=== PATIENT | female | born 1965 | race Caucasian/White ===

== ENCOUNTER → 2017-12-08 11:36 | Outpatient (CLI) | payer OTHER, MEDICAID, SELFPAY ==
[2017-12-08 12:38] LABS: Add Manual Diff / Slide Review NO; Basophils Percent Auto 0.3 % (0-2); Eosinophils Percent Auto 4.1 % (2-4); Hematocrit 47.1 % (36-46); Hemoglobin 16.6 g/dL (12.0-16.0); Lymphocytes Percent Auto 26.5 % (25-40); Mean Corpuscular HGB Conc 35.1 % (30-36); Mean Corpuscular Hemoglobin 36.3 PG (26-34); Mean Corpuscular Volume 103.2 fL (80-100); Monocytes Percent Auto 9.5 % (3-14); Neutrophils Absolute Auto 2300 /uL (3000-5900); Neutrophils Percent Auto 59.6 % (50-75); Platelet Count 120 X10^3/uL (150-400); Red Blood Cell Count 4.57 X10^6/uL (4.0-5.2); Red Cell Distribution Width 13.3 % (11.6-14.8); White Blood Cell Count 3.8 X10^3/uL (4.5-11.0)
[2017-12-08 13:02] LABS: Alanine Aminotransferase 70 IU/L (9-52); Albumin 4.4 g/dL (3.5-5.0); Albumin Globulin Ratio 1.4 (1.0-2.8); Alkaline Phosphatase 68 U/L (38-126); Aspartate Aminotransferase 80 IU/L (14-36); Bilirubin Total 1.5 mg/dL (0.2-1.3); Blood Urea Nitrogen 8 mg/dL (7-17); C-Reactive Protein Quant < 0.5 mg/dL (<1.0); Calcium 9.6 mg/dL (8.4-10.2); Carbon Dioxide 24 mmol/L (22-32); Chloride 106 mmol/L (98-107); Estimated Glomerular Filt Rate > 60.0 mL/min (>60); Globulin 3.2 g/dL (1.7-4.1); Glucose 96 mg/dL (70-100); HEMOLYSIS < 15 (0-50); Sodium 141 mmol/L (137-145); Total Protein 7.6 g/dL (6.3-8.2)
[2017-12-08 13:03] LABS: Erythrocyte Sedimentation Rate 4 MM/HR (0-20)
== END ==
PROVIDERS: PCP Family Medicine; Visit Provider Specialist/Technologist Athletic Trainer
DX: M05.79 Rheumatoid arthritis with rheumatoid factor of multiple sites without organ or systems involvement (principal)
CPT/HCPCS: 36415; 80053; 85025; 85651; 86140

== ENCOUNTER → 2018-01-11 14:10 | Outpatient (CLI) | payer OTHER, MEDICAID, SELFPAY ==
--- NOTE | 2018-01-11 14:12 | DI.RAD.S_ITS ---
PROCEDURE: XR RIBS RT MIN 3V W CXR 1V INDICATIONS: Right posterior rib pain TECHNIQUE: 2 views of the right ribs were acquired, along with a single view chest. COMPARISON: [facility], CT, CHEST/ABD/PEL WITH CONTRAST, 05/04/2017, 14:49. [facility], CR, CHEST 2 VIEW, 10/22/2016, 15:49. [facility], CR, CHEST 2 VIEW, 02/10/2017, 8:44. FINDINGS: Surgical changes and devices: Left chest wall Port-A-Cath is stable. Multiple surgical clips in the left axilla. Bones and chest wall: No fractures or dislocations. No suspicious bony lesions. Overlying soft tissues appear unremarkable. Lungs and pleura: No pleural effusions or pneumothorax. Lungs appear clear. Mediastinum: Chronic appearing right sixth and eighth rib fractures. Mediastinal contours appear normal. Heart size is normal. IMPRESSION: 1. No acute cardiopulmonary disease process. 2. Chronic appearing right sixth and eighth rib fractures. 3. No displaced acute rib fractures identified. Dictated by: Lilliana Paiz MD, PhD on 01/11/2018 at 14:33 Approved by: Lilliana Paiz MD, PhD on 01/11/2018 at 14:36
== END ==
PROVIDERS: Family Provider Family Medicine; PCP Family Medicine; Visit Provider Physician Assistant
DX: M84.48XA Pathological fracture, other site, initial encounter for fracture (principal); R07.81 Pleurodynia
CPT/HCPCS: 71101

== ENCOUNTER 2018-03-07 16:00 | Oncology outpatient (ONC) | payer OTHER, MEDICAID, SELFPAY ==
[2017-10-21 15:58] LABS: Add Manual Diff / Slide Review NO; Basophils Percent Auto 0.6 % (0-2); Eosinophils Percent Auto 3.7 % (2-4); Hematocrit 44.8 % (36-46); Hemoglobin 15.4 g/dL (12.0-16.0); Mean Corpuscular HGB Conc 34.4 % (30-36); Mean Corpuscular Hemoglobin 34.9 PG (26-34); Mean Corpuscular Volume 101.3 fL (80-100); Monocytes Percent Auto 11.7 % (3-14); Neutrophils Absolute Auto 1500 /uL (3000-5900); Platelet Count 97 X10^3/uL (150-400); Red Blood Cell Count 4.43 X10^6/uL (4.0-5.2); White Blood Cell Count 3.1 X10^3/uL (4.5-11.0)
[2017-10-21 16:26] LABS: Alanine Aminotransferase 73 IU/L (9-52); Albumin 4.3 g/dL (3.5-5.0); Albumin Globulin Ratio 1.3 (1.0-2.8); Alkaline Phosphatase 66 U/L (38-126); Aspartate Aminotransferase 87 IU/L (14-36); Calcium 8.8 mg/dL (8.4-10.2); Estimated Glomerular Filt Rate > 60.0 mL/min (>60); Globulin 3.2 g/dL (1.7-4.1); Glucose 104 mg/dL (70-100); HEMOLYSIS 21 (0-50); Potassium 4.1 mmol/L (3.4-5.1); Sodium 139 mmol/L (137-145); Total Protein 7.5 g/dL (6.3-8.2)
[2017-10-23 16:39] LABS: Cancer Antigen 27.29 18 U/mL (< 38)
--- NOTE | 2018-01-12 14:41 | ONC.PN ---
Assessment and Plan - Time Spent with Patient IMPRESSION: 1. Metastatic carcinoma of the breast 2. History of advanced stage carcinoma the right breast in 2012, infiltrating ductal carcinoma the right breast detected on self exam 08/2012. Sought medical attention on 04/2013 with finding of a 9 cm mass and skin thickening. Biopsy 05/06/2013 showed infiltrating ductal carcinoma, grade 3, ER negative, SD negative, her 2-, Ki-67 95%. Stage cT4 Nx. Staging CT and bone scan negative. Completed dose dense AC x4 cycles beginning 06/02/2013 and treatment complicated by noncompliance as well as neutropenia. Dose dense paclitaxel x4 complicated by neuropathy. Bilateral mastectomy 12/20/2013, ypCR. Right sentinel nodes and left breast benign per notes. Completed postmastectomy radiation therapy 05/22/2014. 3. BRCA 2 mutation positive. 4. Brain metastasis May 2014 status post surgical resection followed by gamma knife with Dr. Lugo at [facility]. Presented 06/05/2014 with headaches followed by seizure. CT 06/14/2014 showed 3.5 cm solitary brain met status post resection 06/16/2014 in [place]. ER negative, SD negative, HER2 negative. Completed Gamma Knife to resection cavity with Dr. Lugo 08/09/2014. 5. Hepatitis-C status post treatment with [facility], completing September 2016. 6. Alcohol abuse. 7. Tobacco use. Ongoing. 8. Pulmonary nodules on previous CT possibly due to old granulomatous disease. 9. Thrombocytopenia. 10. Leukopenia/neutropenia. 11. Macrocytosis. 12. COPD. 13. Depression. 14. Seizure disorder. 15. Attention deficit hyperactivity disorder. I reviewed previous records, chart notes, lab and imaging results with her today. No new symptoms or findings on examination though she is overdue for lab work as well as repeat imaging. Most recent CT August 2016 showing fatty infiltration of the liver, spleen 17.3 cm and multiple small 3-5 mm pulmonary nodules. MRI brain in October reportedly stable according to the patient. Reviewed and discussed a number of questions and clinical concerns with her today. We will plan to have her get labs drawn after the visit and schedule follow-up after restaging CT next week. Encouraged her efforts to work toward smoking cessation and complete abstinence from alcohol. She voices understanding and agreement with the plan discussed today. Offered encouragement to her. PLAN: 1. CBC, CMP, CEA, CA 27.29. 2. CT chest/abdomen/pelvis. 3. Review recent mammogram and ultrasound results when available. 4. Follow up with other providers as planned. 5. Follow-up with Dr. Lugo as planned. DICTATED BY RUSTAM PRADHAN MD MEDICAL ONCOLOGY AND HEMATOLOGY PN -Subjective Interval history: HEMATOLOGY/ONCOLOGY PROGRESS NOTE DATE OF SERVICE: JANUARY 12, 2018 PATIENT NAME: CRISTOBAL TAPIA DATE OF : 1965 PCP: IDENTIFICATION: This is a 52-year-old woman with history of metastatic carcinoma of the breast, previously managed by Dr. Villa. INTERVAL HISTORY: She returns in follow-up today. Scheduled with me in routine follow-up slot today. Last seen here in clinic by Dr. Villa May 07, 2017. She has a complicated medical history, detailed below. She has also been seen at [facility] by Dr. Lugo in October and had MRI of the brain which was reportedly stable at that time. Her most recent body imaging was about a year ago she thinks. She had decided with Dr Villa to follow this every 12 months after previous 6 month imaging intervals. She is feeling okay and denies any new symptoms. No swelling in the neck or axillary region. She denies productive cough, chest swelling or palpable mass, abdominal pain, nausea or vomiting. No new neurologic symptoms, headaches or recent vision change. To smoke but is hoping to quit. She also confirms that she continues to drink alcohol though she understands the health concerns and is hoping to work on this to she says. She has a history of hepatitis-C which was treated last year. History of present illness Date of Service: 05/07/17 Primary Care Provider Primary Care Provider: Angelique Cross DO Hx of Present illness The patient is a 52 year old Female who is being seen in the clinic 05/07/17 for Metastatic breast cancer. She was originally seen on 03/04/[address] Abarca. Her diagnosis and treatment was elsewhere. She has also been recently seen by Dr. Valdez on April 12 for an enlarged left axillary node which could not be biopsied because it had regressed. His opinion is that all of likely represents a benign process that is resolving, a follow-up ultrasound 3 months is planned. T I M E L I N E August 2012: right breast lesion May 04 2013: mammogram defined a 10 cm mass extending to the chest wall with pathologic axillary nodes May 06 2013: biopsy + for infiltrating ductal carcinoma triple negative gr. 3; CT (chest/abd/pelvis presumably) and bone scan negative for metastases. Subsequent Dose dense AC x 4 f/b taxol x 4 w/response December 2013: bilateral mastectomy, right sentinel lymph node biopsy, BSO Found to be BRCA2 positive Jun 13 2014 seizure Jun [address] showed a 3.5 cm right frontal mass Resection followed by gamma knife MRI brain 10.31.2015 without evidence of recurrence bone scan 10/31/2015 with right 10, 11 and left 8 rib lesions, improved without ttreatment MRI brain MAY 03 2017 negative for recurrence She is now off all treatment; she was seen by Dr. Abarca on 03/04/2016 considered XAVIER except for the question of the significance of the rib lesions seen on prior bone scan. . Regarding hepatitis C, She has completed treatment with harvoni. Past Medical History hepatitis C tubal 1, s/p fallopian tube remova; asthma tobacco abuse Past Surgical History See PMHx. Pain level (0-10): 0 Breast Resection Staging BC Primary Tumor T4-any size ext to chest BC Regional Nodes N1-movable Ipsilat/axill BC Metastasis M0-No evidence metastasis (M0 original DX; now M1) BC Resection Histology Grade III Current Medications ALBUTEROL SULFATE (ALBUTEROL HFA) 90 MCG/PUFF HFA.AER.AD 1 PUFF INH QID PRN Prescribed by Angelique Cross DO BUSPIRONE HCL 15 MG TABLET 7.5 MG PO QDAY 1/2 tab x 2 weeks then increase to 1 tablet Q am Prescribed by Angelique Cross DO ESCITALOPRAM OXALATE 20 MG TABLET 20 MG PO QDAY Take 1 tablet by mouth daily. Prescribed by Angelique Cross DO FLUNISOLIDE (AEROSPAN) 80 MCG/PUFF HFA.AER.AD 1 PUFF IH QDAY Prescribed by Angelique Cross DO GABAPENTIN 100 MG CAPSULE 300 MG PO SEE INSTRUCTIONS 100 MG AM, 200 MG HS Prescribed by Angelique Cross DO LORAZEPAM 1 MG TABLET 0 PO SEE INSTRUCTIONS Take one tablet once or twice daily as needed for anxiety. 45 tabs must last 30 days Prescribed by Shaye Caldwell PredniSONE 1 MG TABLET (Reported) Take 1 tabet by mouth once daily. Sumatriptan Succinate (IMITREX) 50 MG TABLET 50 MG PO SEE INSTRUCTIONS PRN headache Take one tablet at the onset of a headache, may repeat once in 12 hours if needed. Prescribed by Tay Angelique BRASHER VARENICLINE TARTRATE (CHANTIX) 1 MG TABLET 1 MG PO BID (Reported) PROCEDURE: CHEST/ABDOMEN/PELVIS WITH CONTRAST INDICATIONS: BREAST CANCER PROCEDURE: CHEST/ABDOMEN/PELVIS WITH CONTRAST INDICATIONS: BREAST CANCER TECHNIQUE: After the administration of oral and intravenous contrast, 5 mm thick sections acquired from the lung apices to the symphysis. 5 mm coronal and sagittal reformats were performed, with additional 7 mm coronal MIP reformats through the lungs. For radiation dose reduction, the following was used: automated exposure control, adjustment of mA and/or kV according to patient size. COMPARISON: [facility], CT, CHEST/ABD/PEL WITH CONTRAST, 11/09/2016, 12:36. [facility], CT, CHEST/ABD/PEL WITH CONTRAST, 08/19/2016, 12:26. FINDINGS: Image quality: Excellent. CHEST: Lungs and pleura: No acute airspace opacities. Small scattered bilateral subcentimeter pulmonary nodules are unchanged. No new pulmonary nodules. No pleural effusions or pneumothorax. Central and peripheral airways appear patent and normal in caliber. Mediastinum: Heart size is normal. No pericardial effusion. No mediastinal or hilar adenopathy by size criteria. Thoracic aorta and central pulmonary arteries are normal in size. Esophagus is normal in caliber. No change in small hiatal hernia. Chest wall: No axillary or supraclavicular adenopathy by size criteria. Thyroid gland is within normal limits. Left chest wall ez catheter is present. ABDOMEN: Solid organs: Liver demonstrates diffusely decreased density, indicating fatty infiltration. Spleen is within normal limits Gallbladder is within normal limits. Biliary system is non dilated. Pancreas enhances normally. No adrenal nodules. Kidneys demonstrate normal size and enhancement, without hydronephrosis. Peritoneum and bowel: Bowel loops demonstrate normal wall thickness and caliber. No free fluid or air. Nodes and vessels: No retroperitoneal or mesenteric adenopathy by size criteria. Aorta and inferior vena cava are normal in size. Miscellaneous: No change in small fat-containing umbilical hernia. PELVIS: Genitourinary: Bladder wall thickness is normal. Miscellaneous: No inguinal hernias or adenopathy. Bones: No suspicious bony lesions. No vertebral body compression fractures. IMPRESSION: 1. No evidence of malignancy. 2. No change in small bilateral pulmonary nodules. 3. Small fat-containing umbilical hernia. 4. No change in small hiatal hernia. Brain MRI reviewed with DR. Brittney farmer [facility] and shows no eviden e of recurrence. Dictated by: Davis De Leon M.D. on 05/04/2017 at 15:23 1. No evidence of malignancy. 2. No change in small bilateral pulmonary nodules. 3. Small fat-containing umbilical hernia. 4. No change in small hiatal hernia. Dictated by: Davis De Leon M.D. on 05/04/2017 at 15:23 - Additional ROS Additional ROS: Review of systems: General: No fever, chills or weight loss. HEENT: No headaches, vision change or dysphagia. Respiratory: No cough or dyspnea. Cardiac: No chest pain, PND or orthopnea. GI: Negative. : Stable. Musculoskeletal: As above. Neurologic: Stable. She notes some chronic cognitive symptoms related to her previous gamma knife treatment for brain metastasis. Results - Labs 10/21/17 15:40 10/21/17 15:40 Laboratory Last Values WBC 3.1 X10^3/uL (4.5-11.0) L 10/21/17 15:40 RBC 4.43 X10^6/uL (4.0-5.2) 10/21/17 15:40 Hgb 15.4 g/dL (12.0-16.0) 10/21/17 15:40 Hct 44.8 % (36-46) 10/21/17 15:40 MCV 101.3 fL (80-100) H 10/21/17 15:40 MCH 34.9 PG (26-34) H 10/21/17 15:40 MCHC 34.4 % (30-36) 10/21/17 15:40 RDW 13.0 % (11.6-14.8) 10/21/17 15:40 Plt Count 97 X10^3/uL (150-400) L 10/21/17 15:40 Neut % (Auto) 48.0 % (50-75) L 10/21/17 15:40 Lymph % (Auto) 36.0 % (25-40) 10/21/17 15:40 Jennings % (Auto) 11.7 % (3-14) 10/21/17 15:40 Eos % (Auto) 3.7 % (2-4) 10/21/17 15:40 Baso % (Auto) 0.6 % (0-2) 10/21/17 15:40 Neut # (Auto) 1500 /uL (3708-4270) L 10/21/17 15:40 Sodium 139 mmol/L (137-145) 10/21/17 15:40 Potassium 4.1 mmol/L (3.4-5.1) 10/21/17 15:40 Chloride 103.0 mmol/L (98-107) 10/21/17 15:40 Carbon Dioxide 24.0 mmol/L (22-32) 10/21/17 15:40 BUN 7.0 mg/dL (7-17) 10/21/17 15:40 Creatinine 0.50 mg/dL (0.52-1.04) L 10/21/17 15:40 Estimated GFR > 60.0 mL/min (>60) 10/21/17 15:40 BUN/Creatinine Ratio 14.0 (6-22) 10/21/17 15:40 Glucose 104 mg/dL (70-100) H 10/21/17 15:40 Calcium 8.8 mg/dL (8.4-10.2) 10/21/17 15:40 Total Bilirubin 1.0 mg/dL (0.2-1.3) 10/21/17 15:40 AST 87 IU/L (14-36) H 10/21/17 15:40 ALT 73 IU/L (9-52) H 10/21/17 15:40 Alkaline Phosphatase 66 U/L (38-126) 10/21/17 15:40 Total Protein 7.5 g/dL (6.3-8.2) 10/21/17 15:40 Albumin 4.3 g/dL (3.5-5.0) 10/21/17 15:40 Globulin 3.2 g/dL (1.7-4.1) 10/21/17 15:40 Albumin/Globulin Ratio 1.3 (1.0-2.8) 10/21/17 15:40 CA 27-29 18 U/mL (< 38) 10/21/17 15:40 Home Medications and Allergies Home Medications Medication Instructions Recorded Confirmed Type sumatriptan succinate [Imitrex] 50 mg PO SEE INSTRUCTIONS PRN #9 10/16/16 01/12/18 Rx tab albuterol sulfate [Proventil HFA] 1 puff INH QID #1 inh 06/09/17 01/12/18 Rx flunisolide [Aerospan] 1 puff IH BID #1 inh 06/16/17 01/12/18 Rx escitalopram oxalate 20 mg PO QDAY #30 tab 08/23/17 01/12/18 Rx gabapentin 100 mg capsule 300 mg PO SEE INSTRUCTIONS #90 cap 12/10/17 01/12/18 Rx lorazepam 1 mg tablet See Label Instructions .ROUTE 12/20/17 01/12/18 Rx .COMPLEX #45 tab Hydrochlorquine Sulfate 2 tab PO BID 01/12/18 01/12/18 History buspirone 15 mg PO QAM 01/12/18 01/12/18 History Allergies Allergy/AdvReac Type Severity Reaction Status Date / Time latex [LATEX] Allergy Intermediate RASH, SKIN Verified 01/12/18 14:49 PEELS penicillin G [PENICILLIN G] Allergy Unknown I WAS A Verified 01/12/18 14:49 KID SO I DON'T REMEMBER morphine [MORPHINE] AdvReac Severe HURTS MY Verified 01/12/18 14:49 STOMACH SO BAD Exam - Constitutional positive no acute distress, positive average body habitus, positive cooperative - Routine HEENT Exam Head: Present: normocephalic, atraumatic. Absent: cushingoid faces, facial swelling Eye: Present: EOMI, PERRL. Absent: periorbital swelling ENT: Present: mucous membranes moist, oropharynx clear - Routine Neck Exam Present: supple. Absent: JVD, lymphadenopathy - Routine Chest/Breast/Axilla Exam Chest wall exam standard: Absent: tenderness, mass Axillae: Absent: lymphadenopathy, mass - Routine Respiratory Exam Present: Clear to auscultation bilaterally. Absent: accessory muscle use, rales, respiratory distress, rhonchi, wheezes - Routine Cardiovascular Exam Present: RRR, S1, S2. Absent: murmur, S3 - Routine Abdominal Exam Present: soft, normoactive bowel sounds. Absent: tenderness, distended, organomegaly Palpation/Percussion: Absent: hepatomegaly, splenomegaly - Routine Extremities Exam Absent: cyanosis, clubbing, edema - Routine Back/Spine Exam Back/Spine: Absent: CVA tenderness, vertebral tenderness - Routine Skin Exam Present: intact. Absent: cyanosis, erythema, petechiae, jaundice, rash, ecchymosis - Routine Neurological Exam Present: alert, oriented X3, moving all extremities, normal speech. Absent: altered mental status, abnormal gait - Routine Psychiatric Exam Present: normal affect, normal thought process, cooperative, good judgment
[2018-01-12 14:43] VITALS: BP 160/87; PULSE 71; RESP 15; TEMP 37.1; O2SAT 97
[2018-03-01 10:20] LABS: Add Manual Diff / Slide Review NO; Basophils Percent Auto 0.4 % (0-2); Eosinophils Percent Auto 3.9 % (2-4); Hematocrit 44.5 % (36-46); Hemoglobin 15.9 g/dL (12.0-16.0); Lymphocytes Percent Auto 25.3 % (25-40); Mean Corpuscular HGB Conc 35.7 % (30-36); Mean Corpuscular Hemoglobin 36.6 PG (26-34); Mean Corpuscular Volume 102.6 fL (80-100); Monocytes Percent Auto 9.3 % (3-14); Neutrophils Absolute Auto 2300 /uL (3000-5900); Neutrophils Percent Auto 61.1 % (50-75); Platelet Count 110 X10^3/uL (150-400); Red Blood Cell Count 4.34 X10^6/uL (4.0-5.2); Red Cell Distribution Width 12.1 % (11.6-14.8); White Blood Cell Count 3.8 X10^3/uL (4.5-11.0)
[2018-03-01 10:35] LABS: Alanine Aminotransferase 66 IU/L (9-52); Albumin 4.4 g/dL (3.5-5.0); Albumin Globulin Ratio 1.4 (1.0-2.8); Alkaline Phosphatase 64 U/L (38-126); Aspartate Aminotransferase 87 IU/L (14-36); Bilirubin Total 1.1 mg/dL (0.2-1.3); Blood Urea Nitrogen 6 mg/dL (7-17); Calcium 9.2 mg/dL (8.4-10.2); Carbon Dioxide 23 mmol/L (22-32); Chloride 107 mmol/L (98-107); Estimated Glomerular Filt Rate > 60.0 mL/min (>60); Globulin 3.2 g/dL (1.7-4.1); Glucose 90 mg/dL (70-100); HEMOLYSIS 21 (0-50); Potassium 4.1 mmol/L (3.4-5.1); Sodium 143 mmol/L (137-145); Total Protein 7.6 g/dL (6.3-8.2)
[2018-03-01 11:02] LABS: Carcinoembryonic Antigen 2.4 ng/mL (0.1-3.0)
--- NOTE | 2018-03-01 11:16 | DI.CT.S_ITS ---
PROCEDURE: CT CHEST ABD PEL W CON INDICATIONS: BREAST CANCER TECHNIQUE: After the administration of oral and intravenous contrast, 5 mm thick sections acquired from the lung apices to the symphysis. 5 mm coronal and sagittal reformats were performed, with additional 7 mm coronal MIP reformats through the lungs. For radiation dose reduction, the following was used: automated exposure control, adjustment of mA and/or kV according to patient size. COMPARISON: [facility], CT, CHEST/ABD/PEL WITH CONTRAST, 08/19/2016, 12:26. [facility], CT, CHEST/ABD/PEL WITH CONTRAST, 11/09/2016, 12:36. [facility], CT, CHEST/ABD/PEL WITH CONTRAST, 05/04/2017, 14:49. FINDINGS: Image quality: Excellent. CHEST: Lungs and pleura: Scattered small bilateral pulmonary nodules are redemonstrated measuring up to 5 mm in the right upper lobe on series 3 image 15. No new suspicious nodules or mass lesions. No pleural effusions or pneumothorax. Central and peripheral airways appear patent and normal in caliber. Mediastinum: Heart size is normal. No pericardial effusion. There is a left chest wall subclavian Port-A-Cath with the tip extending into the right atrium. No mediastinal or hilar adenopathy by size criteria. Thoracic aorta and central pulmonary arteries are normal in size. Esophagus is normal in caliber. There is a small to moderate-sized hiatal hernia. Chest wall: No axillary or supraclavicular adenopathy by size criteria. Multiple surgical clips are redemonstrated in the left axilla as well as scarring from post surgical changes. Thyroid gland demonstrates no discrete nodules. ABDOMEN: Solid organs: There is diffuse hypoattenuation of the liver consistent with fatty infiltration. No suspicious hepatic mass lesions. Mild focal sparing noted along the gallbladder fossa. The gallbladder appears within normal limits with calcified gallstones. Biliary system is non dilated. Pancreas enhances normally. Spleen is normal in size and enhancement. No adrenal nodules. Kidneys demonstrate no hydronephrosis. The Peritoneum and bowel: Bowel loops demonstrate normal wall thickness and caliber. No free fluid or air. Nodes and vessels: No retroperitoneal or mesenteric adenopathy by size criteria. Aorta and inferior vena cava are normal in size. Miscellaneous: No ventral hernias. PELVIS: Genitourinary: The urinary bladder is partially distended limiting evaluation of wall thickness. No calcified bladder stones. Miscellaneous: No inguinal hernias or adenopathy. Bones: No suspicious bony lesions. No vertebral body compression fractures. IMPRESSION: 1. No definite evidence of recurrent or metastatic disease. 2. Stable small bilateral pulmonary nodules measuring up to 5 mm compared to prior studies dating back to 08/19/16. 3. Small to moderate sized pericardial. 4. Hepatic steatosis. Dictated by: Rafael Culver M.D. on 03/01/2018 at 14:46 Approved by: Rafael Culver M.D. on 03/01/2018 at 14:54
[2018-03-02 15:02] LABS: Cancer Antigen 27.29 21 U/mL (< 38)
[2018-03-07 17:00] VITALS: BP 173/105; PULSE 73; RESP 17; TEMP 37.6; O2SAT 96
--- NOTE | 2018-03-07 19:19 | ONC.PN ---
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 She initially presented with a large locally advanced triple negative infiltrating ductal carcinoma of right breast in 2012. She was treated with neoadjuvant dd AC x4 followed by dd paclitaxel x4, and underwent bilateral mastectomy with right SLN biopsy and prophylactic bilateral salpingo-oophorectomy in 12/2013. She had a complete pathological response, and has not had systemic recurrence so far. She was given adjuvant chest wall radiotherapy, to total dose 5040 cGy, ending 05/22/2014. There was no elective era treatment. In 05/2014, she had a seizure episode and was diagnosed with a 3.5 cm right frontal metastasis. This was completely resected in [place] and treated with gamma knife radiotherapy at [facility]. Pathology was consistent with metastatic triple negative breast carcinoma. 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 Comorbid conditions include hepatitis-C (completed treatment with Harvoni), COPD (vs asthma), ADHD, anxiety and depression, and chronic alcoholism. She continues to drink beer on a daily basis. CT C/a/P with contrast 03/01/2018 is negative for definite evidence of recurrent or metastatic disease. There are stable small bilateral pulmonary nodules, measuring up to 5 mm, stable dating back to 08/2016. There is hepatic steatosis. - Patient Self-Reported Symptoms SR Constitution: Chills, Fatigue/Malaise, Night Sweats SR ears, nose, mouth, throat issues: Ears ringing, Cough SR respiratory issues: Cough SR Gastrointestinal issues: Nausea SR Neuro issues: Numbness or tingling, Difficulty balancing SR Hematologic issues: Bleeding/bruising Home Medications and Allergies Home Medications Medication Instructions Recorded Confirmed Type albuterol sulfate [Proventil HFA] 1 puff INH QID #1 inh 06/09/17 03/07/18 Rx flunisolide [Aerospan] 1 puff IH BID #1 inh 06/16/17 03/07/18 Rx escitalopram oxalate 20 mg PO QDAY #30 tab 08/23/17 03/07/18 Rx lorazepam 1 mg tablet See Label Instructions .ROUTE 12/20/17 03/07/18 Rx .COMPLEX #45 tab Hydrochlorquine Sulfate 2 tab PO BID 01/12/18 03/07/18 History buspirone 15 mg PO QAM 01/12/18 03/07/18 History gabapentin 100 mg capsule 300 mg PO SEE INSTRUCTIONS #90 cap 01/25/18 03/07/18 Rx sumatriptan succinate [Imitrex] 50 mg PO SEE INSTRUCTIONS PRN 03/07/18 03/07/18 History Allergies Allergy/AdvReac Type Severity Reaction Status Date / Time latex [LATEX] Allergy Intermediate RASH, SKIN Verified 01/12/18 14:49 PEELS penicillin G [PENICILLIN G] Allergy Unknown I WAS A Verified 01/12/18 14:49 KID SO I DON'T REMEMBER morphine [MORPHINE] AdvReac Severe HURTS MY Verified 01/12/18 14:49 STOMACH SO BAD Exam Vital signs: Last Vital Signs Temp 99.6 F 03/07/18 17:00 Pulse 73 03/07/18 17:00 Resp 17 03/07/18 17:00 BP 173/105 H 03/07/18 17:00 Pulse Ox 96 03/07/18 17:00 - Constitutional positive no acute distress - Routine HEENT Exam Head: Present: normocephalic, atraumatic ENT: Present: mucous membranes moist - Routine Neck Exam Present: supple. Absent: lymphadenopathy - Routine Respiratory Exam Present: Clear to auscultation bilaterally - Routine Cardiovascular Exam Present: RRR - Routine Abdominal Exam Present: soft. Absent: mass - Routine Extremities Exam Absent: edema - Routine Neurological Exam Present: alert, oriented X3 - Routine Psychiatric Exam Present: normal affect Results - Labs Laboratory Last Values WBC 3.8 X10^3/uL (4.5-11.0) L 03/01/18 10:01 RBC 4.34 X10^6/uL (4.0-5.2) 03/01/18 10:01 Hgb 15.9 g/dL (12.0-16.0) 03/01/18 10:01 Hct 44.5 % (36-46) 03/01/18 10:01 MCV 102.6 fL (80-100) H 03/01/18 10:01 MCH 36.6 PG (26-34) H 03/01/18 10:01 MCHC 35.7 % (30-36) 03/01/18 10:01 RDW 12.1 % (11.6-14.8) 03/01/18 10:01 Plt Count 110 X10^3/uL (150-400) L 03/01/18 10:01 Neut % (Auto) 61.1 % (50-75) 03/01/18 10:01 Lymph % (Auto) 25.3 % (25-40) 03/01/18 10:01 [place] % (Auto) 9.3 % (3-14) 03/01/18 10:01 Eos % (Auto) 3.9 % (2-4) 03/01/18 10:01 Baso % (Auto) 0.4 % (0-2) 03/01/18 10:01 Neut # (Auto) 2300 /uL (9645-0994) L 03/01/18 10:01 Sodium 143 mmol/L (137-145) 03/01/18 10:01 Potassium 4.1 mmol/L (3.4-5.1) 03/01/18 10:01 Chloride 107 mmol/L (98-107) 03/01/18 10:01 Carbon Dioxide 23 mmol/L (22-32) 03/01/18 10:01 BUN 6 mg/dL (7-17) L 03/01/18 10:01 Creatinine 0.50 mg/dL (0.52-1.04) L 03/01/18 10:01 Estimated GFR > 60.0 mL/min (>60) 03/01/18 10:01 BUN/Creatinine Ratio 12.0 (6-22) 03/01/18 10:01 Glucose 90 mg/dL (70-100) 03/01/18 10:01 Calcium 9.2 mg/dL (8.4-10.2) 03/01/18 10:01 Total Bilirubin 1.1 mg/dL (0.2-1.3) 03/01/18 10:01 AST 87 IU/L (14-36) H 03/01/18 10:01 ALT 66 IU/L (9-52) H 03/01/18 10:01 Alkaline Phosphatase 64 U/L (38-126) 03/01/18 10:01 Total Protein 7.6 g/dL (6.3-8.2) 03/01/18 10:01 Albumin 4.4 g/dL (3.5-5.0) 03/01/18 10:01 Globulin 3.2 g/dL (1.7-4.1) 03/01/18 10:01 Albumin/Globulin Ratio 1.4 (1.0-2.8) 03/01/18 10:01 Carcinoembryonic Ag 2.4 ng/mL (0.1-3.0) 03/01/18 10:01 CA 27-29 21 U/mL (< 38) 03/01/18 10:01 Assessment and Plan (1) History of malignant neoplasm of right breast Problem details: Had bilateral MRM Current visit: No Status: Chronic The patient is a very pleasant 52-year-old woman, germ line BRCA 2 pathogenic mutation carrier, treated in 2013 with neoadjuvant dd AC followed by dd Taxol for locally advanced T3/T4 basaloid type triple negative infiltrating ductal carcinoma right breast, and underwent bilateral mastectomy, right axillary LN biopsy, and bilateral prophylactic salpingo-oophorectomy. She had a complete pathological response. She received adjuvant postmastectomy right chest wall radiotherapy. She remains free of systemic recurrence. In 05/2014, she was diagnosed with an isolated brain metastasis that was fully resected and treated with gamma knife radiotherapy. She remains recurrence free in the brain as well. We have scheduled a follow-up CT C/a/P with contrast and labs in 6 months. Afterwards, she will meet and establish ongoing care with 1 of our new medical oncologist. We also discussed importance of alcohol cessation. She does have a degree of alcoholic steatohepatitis and unfortunately continues to drink excessively. In the past, she had hepatitis C and was treated with antiviral therapy.
--- NOTE | 2018-03-07 19:31 | P.PNONC_ITS ---
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 She initially presented with a large locally advanced triple negative infiltrating ductal carcinoma of right breast in 2012. She was treated with neoadjuvant dd AC x4 followed by dd paclitaxel x4, and underwent bilateral mastectomy with right SLN biopsy and prophylactic bilateral salpingo-oophorectomy in 12/2013. She had a complete pathological response, and has not had systemic recurrence so far. She was given adjuvant chest wall radiotherapy, to total dose 5040 cGy, ending 05/22/2014. There was no elective era treatment. In 05/2014, she had a seizure episode and was diagnosed with a 3.5 cm right frontal metastasis. This was completely resected in [place] and treated with gamma knife radiotherapy at [facility]. Pathology was consistent with metastatic triple negative breast carcinoma. 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 Comorbid conditions include hepatitis-C (completed treatment with Harvoni), COPD (vs asthma), ADHD, anxiety and depression, and chronic alcoholism. She continues to drink beer on a daily basis. CT C/a/P with contrast 03/01/2018 is negative for definite evidence of recurrent or metastatic disease. There are stable small bilateral pulmonary nodules, measuring up to 5 mm, stable dating back to 08/2016. There is hepatic steatosis. - Patient Self-Reported Symptoms SR Constitution: Chills, Fatigue/Malaise, Night Sweats SR ears, nose, mouth, throat issues: Ears ringing, Cough SR respiratory issues: Cough SR Gastrointestinal issues: Nausea SR Neuro issues: Numbness or tingling, Difficulty balancing SR Hematologic issues: Bleeding/bruising Home Medications and Allergies Home Medications Medication Instructions Recorded Confirmed Type albuterol sulfate [Proventil HFA] 1 puff INH QID #1 inh 06/09/17 03/07/18 Rx flunisolide [Aerospan] 1 puff IH BID #1 inh 06/16/17 03/07/18 Rx escitalopram oxalate 20 mg PO QDAY #30 tab 08/23/17 03/07/18 Rx lorazepam 1 mg tablet See Label Instructions .ROUTE 12/20/17 03/07/18 Rx .COMPLEX #45 tab Hydrochlorquine Sulfate 2 tab PO BID 01/12/18 03/07/18 History buspirone 15 mg PO QAM 01/12/18 03/07/18 History gabapentin 100 mg capsule 300 mg PO SEE INSTRUCTIONS #90 cap 01/25/18 03/07/18 Rx sumatriptan succinate [Imitrex] 50 mg PO SEE INSTRUCTIONS PRN 03/07/18 03/07/18 History Allergies Allergy/AdvReac Type Severity Reaction Status Date / Time latex [LATEX] Allergy Intermediate RASH, SKIN Verified 01/12/18 14:49 PEELS penicillin G [PENICILLIN G] Allergy Unknown I WAS A Verified 01/12/18 14:49 KID SO I DON'T REMEMBER morphine [MORPHINE] AdvReac Severe HURTS MY Verified 01/12/18 14:49 STOMACH SO BAD Exam Vital signs: Last Vital Signs Temp 99.6 F 03/07/18 17:00 Pulse 73 03/07/18 17:00 Resp 17 03/07/18 17:00 BP 173/105 H 03/07/18 17:00 Pulse Ox 96 03/07/18 17:00 - Constitutional positive no acute distress - Routine HEENT Exam Head: Present: normocephalic, atraumatic ENT: Present: mucous membranes moist - Routine Neck Exam Present: supple. Absent: lymphadenopathy - Routine Respiratory Exam Present: Clear to auscultation bilaterally - Routine Cardiovascular Exam Present: RRR - Routine Abdominal Exam Present: soft. Absent: mass - Routine Extremities Exam Absent: edema - Routine Neurological Exam Present: alert, oriented X3 - Routine Psychiatric Exam Present: normal affect Results - Labs Laboratory Last Values WBC 3.8 X10^3/uL (4.5-11.0) L 03/01/18 10:01 RBC 4.34 X10^6/uL (4.0-5.2) 03/01/18 10:01 Hgb 15.9 g/dL (12.0-16.0) 03/01/18 10:01 Hct 44.5 % (36-46) 03/01/18 10:01 MCV 102.6 fL (80-100) H 03/01/18 10:01 MCH 36.6 PG (26-34) H 03/01/18 10:01 MCHC 35.7 % (30-36) 03/01/18 10:01 RDW 12.1 % (11.6-14.8) 03/01/18 10:01 Plt Count 110 X10^3/uL (150-400) L 03/01/18 10:01 Neut % (Auto) 61.1 % (50-75) 03/01/18 10:01 Lymph % (Auto) 25.3 % (25-40) 03/01/18 10:01 [place] % (Auto) 9.3 % (3-14) 03/01/18 10:01 Eos % (Auto) 3.9 % (2-4) 03/01/18 10:01 Baso % (Auto) 0.4 % (0-2) 03/01/18 10:01 Neut # (Auto) 2300 /uL (8787-8027) L 03/01/18 10:01 Sodium 143 mmol/L (137-145) 03/01/18 10:01 Potassium 4.1 mmol/L (3.4-5.1) 03/01/18 10:01 Chloride 107 mmol/L (98-107) 03/01/18 10:01 Carbon Dioxide 23 mmol/L (22-32) 03/01/18 10:01 BUN 6 mg/dL (7-17) L 03/01/18 10:01 Creatinine 0.50 mg/dL (0.52-1.04) L 03/01/18 10:01 Estimated GFR > 60.0 mL/min (>60) 03/01/18 10:01 BUN/Creatinine Ratio 12.0 (6-22) 03/01/18 10:01 Glucose 90 mg/dL (70-100) 03/01/18 10:01 Calcium 9.2 mg/dL (8.4-10.2) 03/01/18 10:01 Total Bilirubin 1.1 mg/dL (0.2-1.3) 03/01/18 10:01 AST 87 IU/L (14-36) H 03/01/18 10:01 ALT 66 IU/L (9-52) H 03/01/18 10:01 Alkaline Phosphatase 64 U/L (38-126) 03/01/18 10:01 Total Protein 7.6 g/dL (6.3-8.2) 03/01/18 10:01 Albumin 4.4 g/dL (3.5-5.0) 03/01/18 10:01 Globulin 3.2 g/dL (1.7-4.1) 03/01/18 10:01 Albumin/Globulin Ratio 1.4 (1.0-2.8) 03/01/18 10:01 Carcinoembryonic Ag 2.4 ng/mL (0.1-3.0) 03/01/18 10:01 CA 27-29 21 U/mL (< 38) 03/01/18 10:01 Assessment and Plan (1) History of malignant neoplasm of right breast Problem details: Had bilateral MRM Current visit: No Status: Chronic The patient is a very pleasant 52-year-old woman, germ line BRCA 2 pathogenic mutation carrier, treated in 2013 with neoadjuvant dd AC followed by dd Taxol for locally advanced T3/T4 basaloid type triple negative infiltrating ductal carcinoma right breast, and underwent bilateral mastectomy, right axillary LN biopsy, and bilateral prophylactic salpingo-oophorectomy. She had a complete pathological response. She received adjuvant postmastectomy right chest wall radiotherapy. She remains free of systemic recurrence. In 05/2014, she was diagnosed with an isolated brain metastasis that was fully resected and treated with gamma knife radiotherapy. She remains recurrence free in the brain as well. We have scheduled a follow-up CT C/a/P with contrast and labs in 6 months. Afterwards, she will meet and establish ongoing care with 1 of our new medical oncologist. We also discussed importance of alcohol cessation. She does have a degree of alcoholic steatohepatitis and unfortunately continues to drink excessively. In the past, she had hepatitis C and was treated with antiviral therapy.
== END 2018-03-17 14:07 ==
PROVIDERS: Family Provider Family Medicine; PCP Family Medicine; Visit Provider Internal Medicine Hematology & Oncology
DX: C50.919 Malignant neoplasm of unspecified site of unspecified female breast (principal)
CPT/HCPCS: 36592; 71260; 74177; 80053; 82378; 85025; 86300; 96523; 99214; 99215; Q9967

== ENCOUNTER → 2018-04-15 10:20 | Outpatient (CLI) | payer OTHER, MEDICAID, SELFPAY ==
[2018-04-15 11:17] LABS: Add Manual Diff / Slide Review NO; Basophils Percent Auto 0.6 % (0-2); Eosinophils Percent Auto 3.7 % (2-4); Hematocrit 45.3 % (36-46); Hemoglobin 15.9 g/dL (12.0-16.0); Lymphocytes Percent Auto 44.5 % (25-40); Mean Corpuscular Hemoglobin 37.2 PG (26-34); Mean Corpuscular Volume 106.3 fL (80-100); Monocytes Percent Auto 10.4 % (3-14); Neutrophils Absolute Auto 1400 /uL (3000-5900); Neutrophils Percent Auto 40.8 % (50-75); Platelet Count 109 X10^3/uL (150-400); Red Blood Cell Count 4.26 X10^6/uL (4.0-5.2); Red Cell Distribution Width 13.4 % (11.6-14.8); White Blood Cell Count 3.4 X10^3/uL (4.5-11.0)
[2018-04-15 11:39] LABS: Alanine Aminotransferase 62 IU/L (9-52); Albumin 4.2 g/dL (3.5-5.0); Albumin Globulin Ratio 1.5 (1.0-2.8); Alkaline Phosphatase 60 U/L (38-126); Aspartate Aminotransferase 59 IU/L (14-36); BUN Creatinine Ratio 8.3 (6-22); Bilirubin Total 1.3 mg/dL (0.2-1.3); Blood Urea Nitrogen 5 mg/dL (7-17); Calcium 9.4 mg/dL (8.4-10.2); Carbon Dioxide 29 mmol/L (22-32); Chloride 106 mmol/L (98-107); Estimated Glomerular Filt Rate > 60.0 mL/min (>60); Globulin 2.8 g/dL (1.7-4.1); Glucose 98 mg/dL (70-100); HEMOLYSIS < 15 (0-50); Sodium 144 mmol/L (137-145)
[2018-04-15 11:43] LABS: C-Reactive Protein Quant < 0.5 mg/dL (<1.0)
[2018-04-15 11:51] LABS: Erythrocyte Sedimentation Rate 2 MM/HR (0-20)
== END ==
PROVIDERS: Family Provider Family Medicine; PCP Family Medicine; Visit Provider Specialist/Technologist Athletic Trainer
DX: M05.79 Rheumatoid arthritis with rheumatoid factor of multiple sites without organ or systems involvement (principal)
CPT/HCPCS: 36415; 80053; 85025; 85651; 86140

== ENCOUNTER → 2018-09-19 14:01 | Outpatient (CLI) | payer OTHER, MEDICAID, SELFPAY ==
--- NOTE | 2018-09-19 15:00 | DI.CT.S_ITS ---
PROCEDURE: CT CHEST ABD PEL W CON INDICATIONS: surveillance. Breast cancer. TECHNIQUE: After the administration of oral and intravenous contrast, 5 mm thick sections acquired from the lung apices to the symphysis. 5 mm coronal and sagittal reformats were performed, with additional 7 mm coronal MIP reformats through the lungs. For radiation dose reduction, the following was used: automated exposure control, adjustment of mA and/or kV according to patient size. COMPARISON: [facility], CT, CT CHEST ABD PEL W CON, 03/01/2018, 11:28. FINDINGS: Image quality: Excellent. CHEST: Lungs and pleura: Compared to previous study, previously described scattered small pulmonary nodules in bilateral lung hancock are again seen, it measures up to 5 mm in size in the posterior aspect of right upper lobe series 5 image 16. Additional nodules are noted in right middle lobe series 5 image 29, left lower lobe series 5 image 45 and left upper lobe series 5 image 29, also unchanged from prior study. No new pulmonary nodule or mass is seen. No pleural effusions or pneumothorax. Central and peripheral airways appear patent and normal in caliber. Mediastinum: Heart size is normal. Trace amount of pericardial effusion is seen, not significantly changed from prior study.. No mediastinal or hilar adenopathy by size criteria. Thoracic aorta and central pulmonary arteries are normal in size. Esophagus is normal in caliber. Small to moderate sized hiatal hernia is seen. Chest wall: Post surgical changes are noted in left axilla. Left chest wall Port-A-Cath tip is in SVC. No axillary or supraclavicular adenopathy by size criteria. Thyroid gland is within normal limits. ABDOMEN: Solid organs: Liver is normal in size and enhancement. There is hepatic steatosis. Gallbladder is within normal limits. Biliary system is non dilated. Pancreas enhances normally. Spleen is normal in size and enhancement. No adrenal nodules. Kidneys demonstrate normal size and enhancement, without hydronephrosis. Peritoneum and bowel: Bowel loops demonstrate normal wall thickness and caliber. No free fluid or air. Nodes and vessels: No retroperitoneal or mesenteric adenopathy by size criteria. Aorta and inferior vena cava are normal in size. Miscellaneous: No ventral hernias. PELVIS: Genitourinary: There is very mild bladder wall thickening measures up to 6 mm in thickness. No discrete bladder wall mass is noted. Uterus and bilateral adnexa show no gross abnormality. Miscellaneous: No inguinal hernias or adenopathy. Bones: No suspicious bony lesions. No vertebral body compression fractures. IMPRESSION: 1. Stable bilateral tiny pulmonary nodules, unchanged in size and appearance from previous study. Bibasilar scarring/atelectasis. No new pulmonary nodule or masses seen. 2. No lymphadenopathy is seen in chest, abdomen or pelvis. 3. Hepatic steatosis, unchanged from prior study. 4. Nonspecific mild diffuse bladder wall thickening. No discrete bladder wall mass. No hydronephrosis. Dictated by: James Mabry M.D. on 09/19/2018 at 15:44 Approved by: James Mabry M.D. on 09/19/2018 at 15:59
== END ==
PROVIDERS: Family Provider Internal Medicine Hematology & Oncology; PCP Family Medicine; Visit Provider Internal Medicine Hematology & Oncology
DX: C50.919 Malignant neoplasm of unspecified site of unspecified female breast (principal); C79.31 Secondary malignant neoplasm of brain; R91.8 Other nonspecific abnormal finding of lung field; K76.0 Fatty (change of) liver, not elsewhere classified
CPT/HCPCS: 71260; 74177; Q9967

== ENCOUNTER → 2018-11-18 11:32 | Outpatient (CLI) | payer OTHER, MEDICAID, SELFPAY ==
[2018-11-18 12:32] LABS: Add Manual Diff / Slide Review NO; Basophils Absolute Auto 0 /uL (0-100); Basophils Percent Auto 0.6 % (0-2); Eosinophils Absolute Auto 100 /uL (0-450); Eosinophils Percent Auto 1.7 % (2-4); Hematocrit 43.5 % (36-46); Hemoglobin 15.2 g/dL (12.0-16.0); Lymphocytes Absolute Auto 1400 /uL (1100-4500); Lymphocytes Percent Auto 34.9 % (25-40); Mean Corpuscular HGB Conc 34.9 % (30-36); Mean Corpuscular Hemoglobin 36.1 PG (26-34); Mean Corpuscular Volume 103.7 fL (80-100); Monocytes Absolute Auto 400 /uL (0-900); Monocytes Percent Auto 10.1 % (3-14); Neutrophils Absolute Auto 2100 /uL (1500-7000); Neutrophils Percent Auto 52.7 % (50-75); Platelet Count 109 X10^3/uL (150-400); Red Cell Distribution Width 13.6 % (11.6-14.8)
[2018-11-18 13:17] LABS: Alanine Aminotransferase 72 IU/L (9-52); Albumin 4.4 g/dL (3.5-5.0); Albumin Globulin Ratio 1.5 (1.0-2.8); Alkaline Phosphatase 58 U/L (38-126); Aspartate Aminotransferase 80 IU/L (14-36); Bilirubin Total 1.3 mg/dL (0.2-1.3); Blood Urea Nitrogen 9 mg/dL (7-17); Calcium 9.7 mg/dL (8.4-10.2); Carbon Dioxide 30 mmol/L (22-32); Chloride 101 mmol/L (98-107); Cholesterol 165 mg/dL (140-199); Estimated Glomerular Filt Rate > 60.0 mL/min (>60); Globulin 2.9 g/dL (1.7-4.1); Glucose 87 mg/dL (70-100); HDL Cholesterol 106 mg/dL (40-60); HEMOLYSIS < 15 (0-50); LDL Cholesterol Calculated 43 mg/dL (<100); Potassium 4.2 mmol/L (3.4-5.1); Sodium 138 mmol/L (137-145); Total Protein 7.3 g/dL (6.3-8.2); Triglycerides 80 mg/dL (35-150)
[2018-11-18 13:40] LABS: Carcinoembryonic Antigen 3.2 ng/mL (0.1-3.0)
[2018-11-22 16:58] LABS: Cancer Antigen 27.29 22 U/mL (< 38)
== END ==
PROVIDERS: Family Provider Family Medicine; PCP Family Medicine; Visit Provider Internal Medicine Hematology & Oncology
DX: C50.919 Malignant neoplasm of unspecified site of unspecified female breast (principal); R94.5 Abnormal results of liver function studies; C79.31 Secondary malignant neoplasm of brain; Z51.81 Encounter for therapeutic drug level monitoring; Z13.29 Encounter for screening for other suspected endocrine disorder; Z13.220 Encounter for screening for lipoid disorders
CPT/HCPCS: 36415; 80053; 80061; 82378; 84443; 85025; 86300

== ENCOUNTER 2018-12-19 07:49 | Day surgery (SDC) | payer OTHER, MEDICAID, SELFPAY ==
[2018-12-19 08:15] VITALS: BP 143/94; PULSE 75; RESP 16; TEMP 36.8; O2SAT 98; BMI 25.1
[2018-12-19] MEDS: SODIUM CHLORIDE 0.9% 1,000 ML 200 ML IV (08:27)
--- NOTE | 2018-12-19 08:29 | PM.PREOP ---
Pre-operative Note Interval Note History & Physical reviewed/Exam performed by Physician: Yes Changes to H&P: No ASA Class (for procedural sedation): II
[2018-12-19] MEDS: fentaNYL 250 MCG/5 ML INJ IV (09:07)
[2018-12-19] MEDS: MIDAZOLAM 5 MG/5 ML VIAL IV (09:08)
--- NOTE | 2018-12-19 09:11 | PM.OP.ENDO ---
Operative Date/Time/Diagnoses Date of procedure: 12/19/18 Time of procedure: 09:11 Pre-op diagnosis: Change in stool caliber Post-op diagnosis: same Procedure & Clinicians Study performed: Diagnostic Colonoscopy Same procedure as scheduled: Yes Indications: 53yo F with pro-oncogenic gene mutations and change in caliber in stools here for diagnostic colonoscopy. Surgeon: Erlinda Rodriguez Procedure Notes SCOAP/Timeout: 830 Procedure in detail: After obtaining informed consent, the patient was brought to the GI suite and placed in the left lateral decubitus position on the examination table. After placement of appropriate monitors, the patient was given incremental doses of Versed and Fentanyl until an appropriate level of sedation was achieved. A time out was held per SCOAP protocol. A digital rectal examination was performed and did not reveal any masses or obstructing lesions. The colonoscope was gently passed into the patient's anus and the entire colon navigated to the level of the cecum with minimal difficulty. Prep was adequate. Once in the cecum, the scope was slowly withdrawn being sure to go before and beyond all mucosal folds and prominences as able to get a thorough examination. In the right colon on the way in, a tiny hyperplastic appearing polyp is seen but it is not noted on the way out despite multiple looks. At the level of the rectal vault, the scope was retroflexed and the internal anal canal was examined. The scope was straightened and air aspirated from the colon. The instrument was removed from the patient's body and the procedure was concluded. The patient was allowed to awaken from sedation without difficulty and taken to the post-anesthesia care unit in good condition. Scope withdrawal time: 9 min Sedation minutes: 37 Findings: polyp Specimen(s): none sent Complications: none Impression: 1. Long colon 2. Diminutive polyp noted on way in but not seen coming out Recommendations: Colonscopy in 5 years Follow up: as needed Disposition: PACU
[2018-12-19 09:14] VITALS: BP 134/64; PULSE 70; RESP 16; TEMP 36.4; O2SAT 98
[2018-12-19 09:19] VITALS: BP 114/67; PULSE 69; RESP 16; O2SAT 97
[2018-12-19 09:23] VITALS: BP 128/80; PULSE 70; RESP 13; TEMP 36.4; O2SAT 98
[2018-12-19 09:29] VITALS: BP 124/73; PULSE 67; RESP 16; TEMP 36.4; O2SAT 96
== END 2018-12-19 09:50 | disposition home or self-care (01) ==
PROVIDERS: PCP Family Medicine; Visit Provider Surgery
PROC: 0DJD8ZZ Inspection of Lower Intestinal Tract, Via Natural or Artificial Opening Endoscopic (ICD-10-PCS; CPT 45378; principal; 2018-12-19 08:45)
DX: R19.5 Other fecal abnormalities (principal); K63.5 Polyp of colon; Z86.010 Personal history of colon polyps; K74.60 Unspecified cirrhosis of liver; M06.9 Rheumatoid arthritis, unspecified; F32.9 Major depressive disorder, single episode, unspecified; F17.200 Nicotine dependence, unspecified, uncomplicated; Z85.3 Personal history of malignant neoplasm of breast; Z86.19 Personal history of other infectious and parasitic diseases
CPT/HCPCS: 45378; 99152; 99153; J2250; J3010

== ENCOUNTER → 2019-05-25 18:19 | Outpatient (CLI) | payer OTHER, MEDICAID, SELFPAY ==
--- NOTE | 2019-05-25 18:21 | DI.RAD.S_ITS ---
PROCEDURE: XR WRIST RT MIN 3V INDICATIONS: Right hand pain and bruising TECHNIQUE: 4 views of the wrist were acquired. COMPARISON: None. FINDINGS: Bones: Comminuted, mildly displaced fracture involving the proximal right first metacarpal with intra-articular extension to the first carpometacarpal joint. Possible fracture of the trapezium. No suspicious bony lesions. Scaphoid view: Scaphoid appears intact. Scapholunate interval is maintained. Soft tissues: No suspicious soft tissue calcifications. IMPRESSION: Comminuted, mildly displaced fracture of the proximal right first metacarpal with intra-articular extension to the first carpometacarpal joint. Possible nondisplaced fracture of the trapezium. Dictated by: Elvin Vega M.D. on 05/25/2019 at 20:21 Approved by: Elvin Vega M.D. on 05/25/2019 at 20:23
--- NOTE | 2019-05-25 18:21 | DI.RAD.S_ITS ---
PROCEDURE: XR HAND RT MIN 3V INDICATIONS: Right hand pain and bruising TECHNIQUE: 3 views of the hand(s) acquired. COMPARISON: None. FINDINGS: Bones: Comminuted fracture of the proximal right first metacarpal with intra-articular extension to the first carpometacarpal joint. Subtle linear lucency to the trapezium may represent a nondisplaced fracture. Degenerative changes of the radiocarpal joint. Carpal bones are normally aligned. No suspicious bony lesions. Soft tissues: No suspicious soft tissue calcifications. IMPRESSION: Comminuted fracture of the proximal right first metacarpal with intra-articular extension to the first carpometacarpal joint with possible nondisplaced fracture through the trapezium. Dictated by: Elvin Vega M.D. on 05/25/2019 at 20:23 Approved by: Elvin Vega M.D. on 05/25/2019 at 20:25
== END ==
PROVIDERS: PCP Family Medicine; Visit Provider Physician Assistant
DX: M79.641 Pain in right hand (principal); S62.291A Other fracture of first metacarpal bone, right hand, initial encounter for closed fracture; X58.XXXA Exposure to other specified factors, initial encounter
CPT/HCPCS: 73110; 73130

== ENCOUNTER 2019-09-09 02:58 | Emergency (ER) | payer OTHER, MEDICAID, SELFPAY ==
[2019-09-09 03:19] VITALS: BP 162/95; PULSE 85; RESP 15; TEMP 36.9; O2SAT 100; BMI 28.8
--- NOTE | 2019-09-09 04:00 | DI.RAD.S_ITS ---
PROCEDURE: XR CHEST 2V INDICATIONS: cough, SOB atypical chest pain, S/P breast Cancer TECHNIQUE: 2 views of the chest were acquired. COMPARISON: [facility], , CHEST 2 VIEW, 02/10/2017, 8:44. FINDINGS: Surgical changes and devices: A left-sided Port-A-Cath central line is identified with the tip overlying the low superior vena cava. Surgical clips within the left axilla are present. Lungs and pleura: Slight blunting of the right costophrenic angle is new since the previous study. No definite pneumothorax is appreciated. No areas of pulmonary consolidation are identified. Mediastinum: Mediastinal contours are normal. Heart size is normal. There is aortic atherosclerosis. Bones and chest wall: No suspicious bony abnormalities. Soft tissues appear unremarkable. IMPRESSION: Trace right-sided pleural effusion. No areas of consolidation. Dictated by: Leland Pittman M.D. on 09/09/2019 at 8:35 Approved by: Leland Pittman M.D. on 09/09/2019 at 8:36
[2019-09-09] MEDS: LIDOCAINE 1% (PF) 2 ML SUBCUT (04:24)
[2019-09-09] MEDS: KETOROLAC 60 MG/2 ML VIAL 30 MG IV (04:35)
[2019-09-09] MEDS: LORazepam 2 MG/ML INJ 0.5 MG IV (04:36)
[2019-09-09 04:47] LABS: Add Manual Diff / Slide Review NO; Basophils Absolute Auto 0 /uL (0-100); Basophils Percent Auto 0.9 % (0-2); Eosinophils Absolute Auto 200 /uL (0-450); Eosinophils Percent Auto 4.6 % (2-4); Hematocrit 37.3 % (36-46); Hemoglobin 12.7 g/dL (12.0-16.0); Lymphocytes Absolute Auto 1800 /uL (1100-4500); Lymphocytes Percent Auto 36.1 % (25-40); Mean Corpuscular Hemoglobin 31.3 PG (26-34); Mean Corpuscular Volume 91.9 fL (80-100); Monocytes Absolute Auto 500 /uL (0-900); Monocytes Percent Auto 9.4 % (3-14); Neutrophils Absolute Auto 2400 /uL (1500-7000); Platelet Count 217 X10^3/uL (150-400); Red Blood Cell Count 4.06 X10^6/uL (4.0-5.2); Red Cell Distribution Width 13.5 % (11.6-14.8); White Blood Cell Count 4.9 X10^3/uL (4.5-11.0)
--- NOTE | 2019-09-09 04:57 | ED_ITS ---
HPI - Chest Pain General Chief Complaint: Chest Pain Stated Complaint: chest pains, shortness of breath x3days Time Seen by Provider: 09/09/19 04:00 Source: patient Mode of arrival: Family Vehicle Limitations: no limitations History of Present Illness HPI narrative: HPI: The patient is a 54-year-old female who appears older than her stated age who presents to the emergency department with shortness of breath associated with 3 days history of left-sided chest pain. She describes her chest pain as a throbbing pain in her left chest that lasts only a few seconds. She states that the pain lasts at most 5-10 seconds and not minutes. She experiences 3-5 episodes of this type of pain per day. She denies any fall or injury to her chest. She admits to a history of rheumatoid arthritis. 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 She has had bilateral mastectomies for breast cancer that was metastatic to her brain 5 years ago. She states that sometimes she can feel the pain on deep breathing and coughing but often she does not. She states that she currently has a mild headache. She has had no fever chills. She has had a mild headache that is diffuse. She states that she questions whether not her headache is secondary to grinding her teeth. She has not had a migraine in over 5 years. She denies any change in vision loss of vision sinus congestion sore throat. She has had no palpitations dizziness lightheadedness or passing out. Her chest pain is as previously described a dull achy throbbing discomfort that lasts only a few seconds. She has had a cough that has been minimally productive of a yellow sputum without hemoptysis. She has had an associated shortness of breath. She has persistent low back pain. She has had diffuse abdominal cramps with nausea but no vomiting. She had diarrhea yesterday but none today she denies any urinary symptoms. She admits to a history of rheumatoid arthritis. She has a history of asthma and COPD as well as hypertension but denies diabetes mellitus stroke myocardial infarction. She continues to smoke cigarettes but went into rehab for drinking on February 13. She smokes marijuana. Related Data Previous Rx's Medication Instructions Recorded sumatriptan succinate 50 mg tablet 50 mg PO SEE INSTRUCTIONS PRN #10 09/20/18 tab lorazepam 1 mg tablet 1 mg PO BID PRN #30 tab 01/16/19 inhalational spacing device #1 each 03/15/19 prednisone 10 mg tablet 10 mg PO .COMPLEX #20 tab 04/12/19 bupropion HCl 150 mg 24 hr tablet, 150 mg PO QAM #30 tab 07/12/19 extended release Hydrochlorquine Sulfate 200mg 2 tab PO DAILY #60 tab 07/28/19 albuterol sulfate 90 mcg/actuation 1 puff INHALATION QID #2 inhalation 07/28/19 aerosol inhaler fluticasone propionate 44 1 inhalation INHALATION BID #10.6 07/28/19 mcg/actuation HFA aerosol inhaler gram gabapentin 100 mg capsule See Rx Instructions PO .COMPLEX 07/28/19 #90 cap escitalopram oxalate 20 mg tablet See Rx Instructions .ROUTE 08/23/19 .COMPLEX #30 tablet lorazepam [Ativan] 0.5 mg PO TID PRN #12 tab 09/09/19 naproxen [Naprosyn] 500 mg PO BID PRN #14 tab 09/09/19 sulfasalazine 500 mg tablet See Rx Instructions .ROUTE 09/09/19 .COMPLEX #60 tablet Allergies Allergy/AdvReac Type Severity Reaction Status Date / Time latex [LATEX] Allergy Intermediate RASH, SKIN Verified 05/25/19 17:55 PEELS penicillin G [PENICILLIN G] Allergy Unknown I WAS A Verified 05/25/19 17:55 KID SO I DON'T REMEMBER morphine [MORPHINE] AdvReac Severe HURTS MY Verified 05/25/19 17:55 STOMACH SO BAD Review of Systems Review of Systems Narrative: Review of systems were all negative except for those mentioned in the history of present illness. Patient History Medical History Alcohol use (Chronic) BRCA2 gene mutation positive in female (Acute) Breast cancer metastasized to brain (Chronic) Colon polyps (Resolved 04/03/16) Depression (Chronic) Hepatic cirrhosis (Chronic) Hepatitis C (Chronic ~1995) Musculoskeletal pain (Chronic ~2015) Rheumatoid arthritis (Chronic ~2015) Surgical History History of appendectomy (Resolved 1998) History of bilateral mastectomy (Resolved 2013) History of bilateral salpingo-oophorectomy (Resolved 2013) History of section (Resolved 1999) History of colonoscopy with polypectomy (Resolved 04/03/16) History of esophagogastroduodenoscopy (EGD) (Resolved 04/03/16) History of tubal ligation (Resolved 1995) Status post gamma knife treatment (Resolved 2013) Family History Father No problems noted. Grandfather No problems noted. Grandmother Stomach cancer Mother Enlarged aorta Breast cancer Grandfather Myelofibrosis Grandmother Parkinson's disease Social History household members: spouse Smoking Status: Current every day smoker Tobacco: How many years used: 8 alcohol intake: current substance use type: marijuana Smoking Status: Current every day smoker Substance Use Type: marijuana Exam Narrative Exam Narrative: PHYSICAL EXAM: CONSTITUTIONAL: Awake, Alert, Oriented, Coherent, Cooperative in NAD. She is very talkative. Does not appear toxic or ill. HEAD: AT/NC EENT: PERRL, FROM of eyes, no discharge, No epistaxis or nasal drainage Oral mucosa is moist and pink, posterior pharynx is without erythema or exudate. NECK: Supple, no obvious JVD, Trachea is midline without stridor, no palpable LN . SPINE: No gross deformity, no palpable tenderness of the cervical, thoracic, lumbar or sacral spine. No CVA tenderness. THORAX: No deformity, retractions. Patient has a port in her left chest. Immediately distal or inferior to the port is a transverse horizontal scar from a mastectomy. The scar has some subcutaneous induration is a that is tender to palpation and mimics the chest pain she describes. She has bilateral surgically absent breasts with transverse horizontal surgical scars across both sides of her chest. LUNGS: Clear with symmetrical breath sounds without respiratory distress HEART: Normal heart tones, regular rhythm and rate without murmur. ABDOMEN: Soft, nontender no palpable organomegaly. EXTREMITIES: No edema, cyanosis, deformity or tenderness. SKIN: No rash, bruising, petechiae or purpura. NEURO: Awake, alert, oriented, conversive, no focal facial asymmetry cranial nerves II-XII are symmetrical and normal, moves all 4 extremities and is ambulatory Initial Vital Signs Initial Vital Signs: Vital Signs Temperature 98.5 F 09/09/19 03:19 Pulse Rate 85 09/09/19 03:19 Respiratory Rate 15 09/09/19 03:19 Blood Pressure 162/95 H 09/09/19 03:19 Pulse Oximetry 100 09/09/19 03:19 Course Course Course Narrative: 0450 her chest x-ray is grossly negative. She has visible surgical sravani on her left. A port for chemotherapy and IV access is in her left chest. She has blunting of the right costophrenic angle. There is no gross infiltrate by my review appreciated. I did not appreciate any evidence for pneumothorax. Clinically I believe that the patient has some anxiety about her illness and that her chest pain is musculoskeletal in origin. Orders Ordered: Discontinued Medications Ketorolac Tromethamine (Toradol) 30 mg IV NOW ONE Stop: 09/09/19 04:01 Last Admin: 09/09/19 04:35 Dose: 30 mg Documented by: CHANDU Lidocaine HCl (Xylocaine 1% (Pf)) 2 ml SUBCUT NOW ONE Stop: 09/09/19 04:20 Last Admin: 09/09/19 04:24 Dose: 2 ml Documented by: JHONATHAN Lorazepam (Ativan) 0.5 mg IV NOW ONE Stop: 09/09/19 04:01 Last Admin: 09/09/19 04:36 Dose: 0.5 mg Documented by: CHANDU Vital Signs Vital signs: Vital Signs - 8 hr 09/09/19 03:19 Temperature 98.5 F Pulse Rate 85 Respiratory Rate 15 Blood Pressure 162/95 H Pulse Oximetry 100 MDM - Chest Pain Medical Records Data Attestation: I reviewed the patient's medical records. Lab Data Attestation: I reviewed the patient's lab results. Result diagrams: 09/09/19 04:30 09/09/19 04:30 Labs: Lab Results 09/09/19 09/09/19 Range/Units 04:30 04:30 WBC 4.9 (4.5-11.0) X10^3/uL RBC 4.06 (4.0-5.2) X10^6/uL Hgb 12.7 (12.0-16.0) g/dL Hct 37.3 (36-46) % MCV 91.9 (80-100) fL MCH 31.3 (26-34) PG MCHC 34.0 (30-36) % RDW 13.5 (11.6-14.8) % Plt Count 217 (150-400) X10^3/uL Neut % (Auto) 49.0 L (50-75) % Lymph % (Auto) 36.1 (25-40) % [place] % (Auto) 9.4 (3-14) % Eos % (Auto) 4.6 H (2-4) % Baso % (Auto) 0.9 (0-2) % Neut # (Auto) 2400 (5818-8973) /uL Lymph # (Auto) 1800 (6849-8299) /uL [place] # (Auto) 500 (0-900) /uL Eos # (Auto) 200 (0-450) /uL Baso # (Auto) 0 (0-100) /uL ESR 33 H (0-20) MM/HR Sodium 138 (137-145) mmol/L Potassium 3.8 (3.4-5.1) mmol/L Chloride 106 (98-107) mmol/L Carbon Dioxide 25 (22-32) mmol/L BUN 9 (7-17) mg/dL Creatinine 0.44 L (0.52-1.04) mg/dL Estimated GFR > 60.0 (>60) mL/min BUN/Creatinine Ratio 20.5 (6-22) Glucose 108 H (70-100) mg/dL Calcium 9.2 (8.4-10.2) mg/dL Total Bilirubin 0.6 (0.2-1.3) mg/dL AST 21 (14-36) IU/L ALT 12 (<35) IU/L Alkaline Phosphatase 77 (38-126) U/L Total Creatine Kinase 48 (30-135) U/L Troponin I < 0.012 (0.01-0.034) ng/mL C-Reactive Protein 0.8 (<1.0) mg/dL Total Protein 7.4 (6.3-8.2) g/dL Albumin 3.9 (3.5-5.0) g/dL Globulin 3.5 (1.7-4.1) g/dL Albumin/Globulin Ratio 1.1 (1.0-2.8) ECG Data Attestation: I personally reviewed and interpreted this ECG as follows: Interpretation: The patient's EKG obtained on September 08 at 03:1 1:09 a.m. reveals a sinus rhythm with a ventricular rate of 83. There are occasional PVCs. Intervals are normal except QRS is slightly prolonged at 111 milliseconds. [place] is normal. The patient has flattened T-waves in leads III and AVF. The patient appears to have a QS wave in V1 and questionably in V2 suggesting the possibility of an old septal infarct. The rest of the EKG reveals no acute diagnostic ST segment changes. Discharge Plan Departure Patient Disposition: Home Clinical Impression: Atypical chest pain, Chest wall pain, History of malignant neoplasm metastatic to brain, History of breast cancer Discharge Date/Time: 09/09/19 06:02 Instructions: DI for Atypical Chest Pain, DI for Costochondritis Activity Restrictions/Additional Instructions: 1. Follow-up with your primary care physician and be re-evaluated in 48-72 hours. 2. Take Ativan for agitation nervousness and anxiety 0.5 mg 3 times a day as ne eded. 3. For the pain and discomfort take Naprosyn 500 mg twice a day. 4. If you develop chest pain that lasts longer than 20 minutes on relieved by your medications or radiates into your shoulders neck jaw back or down your arms you need to proceed to the nearest emergency department where you are. Prescriptions: New naproxen [Naprosyn] 500 mg tablet 500 mg PO BID PRN (Reason: pain) Qty: 14 RF: 0 lorazepam [Ativan] 0.5 mg tablet 0.5 mg PO TID PRN (Reason: anxiety) Qty: 12 RF: 0 No Action sumatriptan succinate [Imitrex] 50 mg tablet 50 mg PO SEE INSTRUCTIONS PRN (Reason: unknown) Qty: 10 RF: 0 lorazepam 1 mg tablet 1 mg PO BID PRN (Reason: anxiety) Qty: 30 RF: 0 (DME) Aerochamber Plus Flow-Vu Spacer See Rx Instructions .ROUTE .MEDSUPPLY Qty: 1 RF: 0 prednisone 10 mg tablet 10 mg PO .COMPLEX Qty: 20 RF: 0 bupropion HCl 150 mg tablet extended release 24 hr 150 mg PO QAM Qty: 30 RF: 0 albuterol sulfate [Proventil HFA] 90 mcg/actuation HFA aerosol inhaler 1 puff INHALATION QID Qty: 2 RF: 0 Flovent HFA 44 mcg/actuation HFA aerosol inhaler 1 inhalation INHALATION BID Qty: 10.6 RF: 0 gabapentin 100 mg capsule See Rx Instructions PO .COMPLEX Qty: 90 RF: 0 Hydrochlorquine Sulfate 200mg tablet 2 tab PO DAILY Qty: 60 RF: 0 escitalopram oxalate 20 mg tablet See Rx Instructions .ROUTE .COMPLEX Qty: 30 RF: 0 sulfasalazine 500 mg tablet See Rx Instructions .ROUTE .COMPLEX Qty: 60 RF: 2 Referrals: Angelique Cross DO [Primary Care Provider] - ED Sign-out [facility] ED Attending Jessica Attestation: I was immediately available in the department for consultation. This documentation has been reviewed and I agree with assessment and plan. Supervised by Alpesh Andrews MD
[2019-09-09 04:59] LABS: Alanine Aminotransferase 12 IU/L (<35); Albumin 3.9 g/dL (3.5-5.0); Albumin Globulin Ratio 1.1 (1.0-2.8); Alkaline Phosphatase 77 U/L (38-126); Aspartate Aminotransferase 21 IU/L (14-36); BUN Creatinine Ratio 20.5 (6-22); Bilirubin Total 0.6 mg/dL (0.2-1.3); Blood Urea Nitrogen 9 mg/dL (7-17); C-Reactive Protein Quant 0.8 mg/dL (<1.0); Calcium 9.2 mg/dL (8.4-10.2); Carbon Dioxide 25 mmol/L (22-32); Chloride 106 mmol/L (98-107); Creatine Kinase 48 U/L (30-135); Estimated Glomerular Filt Rate > 60.0 mL/min (>60); Globulin 3.5 g/dL (1.7-4.1); Glucose 108 mg/dL (70-100); HEMOLYSIS < 15 (0-50); Potassium 3.8 mmol/L (3.4-5.1); Sodium 138 mmol/L (137-145); Total Protein 7.4 g/dL (6.3-8.2)
[2019-09-09 05:05] LABS: Erythrocyte Sedimentation Rate 33 MM/HR (0-20)
[2019-09-09 05:08] LABS: Troponin I < 0.012 ng/mL (0.01-0.034)
[2019-09-09 05:30] VITALS: BP 136/73; PULSE 79; RESP 21; O2SAT 100
== END 2019-09-09 06:02 | disposition home or self-care (01) ==
PROVIDERS: Emergency Provider Emergency Medicine; PCP Family Medicine
DX: R07.89 Other chest pain (principal); R06.02 Shortness of breath; Z85.841 Personal history of malignant neoplasm of brain; Z85.3 Personal history of malignant neoplasm of breast; F17.200 Nicotine dependence, unspecified, uncomplicated
CPT/HCPCS: 36415; 71046; 80053; 82550; 84484; 85025; 85651; 86140; 93005; 96374; 96375; 99284; 99285; J1642; J1885; J2060

== ENCOUNTER 2019-12-09 23:27 | Emergency (ER) | payer OTHER, MEDICAID, SELFPAY ==
[2019-12-09 23:35] VITALS: BP 146/83; PULSE 76; RESP 20; O2SAT 97; BMI 28.8
--- NOTE | 2019-12-09 23:43 | DI.RAD.S_ITS ---
PROCEDURE: XR CHEST 1V INDICATIONS: SOB, Chest Pain TECHNIQUE: One view of the chest was acquired. COMPARISON: [facility], CT, CT ANGIO CHEST PE PROTOCOL, 12/10/2019, 0:05. [facility], CR, XR CHEST 2V, 09/09/2019, 3:59. FINDINGS: Surgical changes and devices: A left-sided Port-A-Cath central line is identified with the tip overlying the low superior vena cava. Lungs and pleura: Increased attenuation is identified at the right lung base. There may be a trace right-sided pleural effusion. No large effusion or larger pulmonary consolidation is evident. There is no pneumothorax. Mediastinum: Mediastinal contours appear normal. Heart size is enlarged. Bones and chest wall: No suspicious bony lesions. Overlying soft tissues appear unremarkable. IMPRESSION: 1. Cardiomegaly without overt heart failure. 2. Vague density at the right lung base probably represent scarring and atelectasis. Superimposed pneumonia is difficult to exclude. Dictated by: Leland Pittman M.D. on 12/10/2019 at 8:15 Approved by: Leland Pittman M.D. on 12/10/2019 at 8:16
[2019-12-09 23:55] LABS: Add Manual Diff / Slide Review NO; Basophils Absolute Auto 0 /uL (0-100); Eosinophils Absolute Auto 200 /uL (0-450); Eosinophils Percent Auto 4.6 % (2-4); Lymphocytes Absolute Auto 1900 /uL (1100-4500); Lymphocytes Percent Auto 41.8 % (25-40); Mean Corpuscular HGB Conc 34.3 % (30-36); Mean Corpuscular Volume 90.5 fL (80-100); Monocytes Absolute Auto 500 /uL (0-900); Monocytes Percent Auto 11.8 % (3-14); Neutrophils Absolute Auto 1800 /uL (1500-7000); Neutrophils Percent Auto 40.8 % (50-75); Platelet Count 217 X10^3/uL (150-400); Red Cell Distribution Width 14.2 % (11.6-14.8); White Blood Cell Count 4.5 X10^3/uL (4.5-11.0)
[2019-12-09 23:57] LABS: D Dimer 1029 ng/mL (<230)
[2019-12-09 23:58] LABS: Alanine Aminotransferase 18 IU/L (<35); Albumin 4.2 g/dL (3.5-5.0); Albumin Globulin Ratio 1.3 (1.0-2.8); Alkaline Phosphatase 74 U/L (38-126); Aspartate Aminotransferase 26 IU/L (14-36); Bilirubin Total 0.4 mg/dL (0.2-1.3); Blood Urea Nitrogen 12 mg/dL (7-17); Calcium 9.6 mg/dL (8.4-10.2); Carbon Dioxide 23 mmol/L (22-32); Chloride 105 mmol/L (98-107); Creatine Kinase 61 U/L (30-135); Estimated Glomerular Filt Rate > 60.0 mL/min (>60); Globulin 3.2 g/dL (1.7-4.1); Glucose 100 mg/dL (70-100); HEMOLYSIS < 15 (0-50); Lipase 117 U/L (23-300); Sodium 136 mmol/L (137-145); Total Protein 7.4 g/dL (6.3-8.2)
--- NOTE | 2019-12-10 00:03 | DI.CT.S_ITS ---
PROCEDURE: CT ANGIO CHEST PE PROTOCOL INDICATIONS: SOB, CP, critical D Dimer TECHNIQUE: After the administration of intravenous contrast, 2 mm thick sections acquired from the pulmonary apices to the posterior costophrenic angles. 3-dimensional maximum intensity projection (MIP) coronal and sagittal reformats were then acquired through the thorax. For radiation dose reduction, the following was used: automated exposure control, adjustment of mA and/or kV according to patient size. COMPARISON: [facility], CT, CT CHEST ABD PEL W CON, 09/19/2018, 14:56. [facility], CT, CHEST/ABD/PEL WITH CONTRAST, 11/09/2016, 12:36. FINDINGS: Image quality: Diagnostic. Pulmonary arteries: Pulmonary arteries are normal in size, and demonstrate no intraluminal filling defects to suggest central pulmonary embolism. Lungs and pleura: Minimal areas of peripheral consolidation are identified within the posterior right costophrenic angle and right lower lobe. There may be a trace right-sided pleural effusion. The lungs are otherwise well aerated. There is no large effusion or pneumothorax. There is no lung mass. However, scattered subpleural pulmonary nodules within the left upper lobe and left lower lobe are unchanged since 2017, suggesting a benign process. A calcified granuloma lung the minor pulmonary fissure on the right is also present, unchanged. Mediastinum: Heart size is enlarged, without pericardial effusion. No mediastinal or hilar adenopathy. Thoracic aorta is normal in caliber and enhancement. The esophagus is normal in course and caliber. There is a small to moderate-sized hiatal hernia. There is a Port-A-Cath central line identified on the left with the tip positioned at the atriocaval junction. Coronary artery atherosclerosis appears to be present. Bones and chest wall: No suspicious bony lesions. Ribs and thoracic spine appear intact throughout. Thyroid gland is not enlarged or adequately characterized on CT.. No axillary or supraclavicular adenopathy. Abdomen: Visualized upper abdominal solid organs appear normal in the early arterial phase of enhancement. IMPRESSION: 1. No evidence of pulmonary emboli. 2. Mild atelectasis versus scarring within the right lung base. Superimposed pneumonia cannot be completely excluded. 3. Subcentimeter bilateral pulmonary nodules probably are related to prior infectious or granulomatous process and have not changed since 2017. No lung mass or suspicious nodules evident. 4. Small to moderate-sized hiatal hernia. 5. Mild cardiomegaly and coronary artery atherosclerosis. No overt heart failure. Note: The preliminary report provided by [facility] is concordant with the final report. Dictated by: Leland Pittman M.D. on 12/10/2019 at 8:17 Approved by: Leland Pittman M.D. on 12/10/2019 at 8:21
[2019-12-10] MEDS: SODIUM CHLORIDE 0.9% 1,000 ML 150 ML IV (00:07)
[2019-12-10 00:10] LABS: NT-proBNP (BNP-Adult 18+) 403 pg/mL (<125); Troponin I < 0.012 ng/mL (0.01-0.034)
--- NOTE | 2019-12-10 00:18 | ED.SOB ---
HPI - SOB/Dyspnea General Chief Complaint: Shortness of Breath/Dyspnea Stated Complaint: chest pains shortness of breath Time Seen by Provider: 12/09/19 23:28 Source: patient Mode of arrival: Ambulatory Limitations: no limitations History of Present Illness HPI Narrative: 54-year-old female daily smoker with history of asthma and breast cancer as well as metastatic lesion to her brain status post surgical resection presents with family in the chief complaint of a few weeks of episodes of chest pain and shortness of breath. She states there is very little pattern to when she is having chest pain. She has not been having pain for the past few hours. She does not become dizzy lightheaded with the pain. She states that exertion does make her more short of breath than normal. She denies any history of blood clots. She denies any change in medications or diet. She denies any exposure to persons with known COVID19 Related Data Previous Rx's Medication Instructions Recorded sumatriptan succinate 50 mg tablet 50 mg PO SEE INSTRUCTIONS PRN #10 09/20/18 tab lorazepam 1 mg tablet 1 mg PO BID PRN #30 tab 01/16/19 inhalational spacing device #1 each 03/15/19 prednisone 10 mg tablet 10 mg PO .COMPLEX #20 tab 04/12/19 lorazepam [Ativan] 0.5 mg PO TID PRN #12 tab 09/09/19 naproxen [Naprosyn] 500 mg PO BID PRN #14 tab 09/09/19 sulfasalazine 500 mg tablet See Rx Instructions .ROUTE 09/09/19 .COMPLEX #60 tablet gabapentin 100 mg capsule See Rx Instructions PO .COMPLEX 09/18/19 #270 cap bupropion HCl 150 mg 24 hr tablet, 150 mg PO QAM #90 tab 10/04/19 extended release Hydrochlorquine Sulfate 200mg 2 tab PO DAILY #180 tab 10/16/19 escitalopram oxalate 20 mg tablet See Rx Instructions .ROUTE 11/03/19 .COMPLEX #30 tablet fluticasone propionate 44 See Rx Instructions .ROUTE 11/07/19 mcg/actuation HFA aerosol inhaler .COMPLEX #10.6 gram albuterol sulfate 90 mcg/actuation See Rx Instructions .ROUTE 11/30/19 aerosol inhaler .COMPLEX #17 gram doxycycline hyclate 100 mg PO BID #20 tab 12/10/19 prednisone 20 mg PO DAILY #5 tab 12/10/19 Allergies Allergy/AdvReac Type Severity Reaction Status Date / Time latex [LATEX] Allergy Intermediate RASH, SKIN Verified 05/25/19 17:55 PEELS penicillin G [PENICILLIN G] Allergy Unknown I WAS A Verified 05/25/19 17:55 KID SO I DON'T REMEMBER morphine [MORPHINE] AdvReac Severe HURTS MY Verified 05/25/19 17:55 STOMACH SO BAD Review of Systems Constitutional Constitutional: Denies chills, Denies fatigue, Denies fever(s), Denies frequent falls, Denies lethargy and Denies weakness Eyes Eyes: Denies change in vision, Denies eye discharge, Denies irritation and Denies loss of vision ENT Ears, Nose, Mouth, and Throat: Denies change in voice, Denies dizziness, Denies neck pain, Denies sore throat and Denies throat swelling Cardiovascular Cardiovascular: Reports chest pain, Denies irregular heart rhythm, Denies lightheadedness, Denies palpitations, Reports dyspnea, Reports dyspnea on exertion and Denies orthopnea Respiratory Respiratory: Denies cough, Reports dyspnea, Reports dyspnea on exertion and Denies wheezing Gastrointestinal Gastrointestinal: Denies abdominal pain, Denies change in bowel habits, Denies diarrhea, Denies nausea and Denies vomiting Musculoskeletal Musculoskeletal: Denies neck pain and Denies numbness Integumentary/Breasts Skin/Breast: Denies pruritus, Denies erythema, Denies rash and Denies wounds Neurologic Neurologic: Denies behavioral changes, Denies confusion, Denies dizziness, Denies frequent falls, Denies loss of vision, Denies numbness and Denies weakness Psychiatric Psychiatric: Denies anxiety, Denies behavioral changes, Denies confusion, Denies depression, Denies homicidal ideation and Denies suicidal ideation Endocrine Endocrine: Denies fatigue, Denies flushing and Denies palpitations Hematologic/Lymphatic Hematologic/Lymphatic: Denies easy bruising Allergic/Immunologic Allergic/Immunologic: Denies urticaria, Denies throat swelling and Denies wheezing Patient History Medical History Alcohol use (Chronic) BRCA2 gene mutation positive in female (Acute) Breast cancer metastasized to brain (Chronic) Colon polyps (Resolved 04/03/16) Depression (Chronic) Hepatic cirrhosis (Chronic) Hepatitis C (Chronic ~1995) Musculoskeletal pain (Chronic ~2015) Rheumatoid arthritis (Chronic ~2016) Surgical History History of appendectomy (Resolved 1998) History of bilateral mastectomy (Resolved 2013) History of bilateral salpingo-oophorectomy (Resolved 2013) History of section (Resolved 1999) History of colonoscopy with polypectomy (Resolved 04/03/16) History of esophagogastroduodenoscopy (EGD) (Resolved 04/03/16) History of tubal ligation (Resolved 1995) Status post gamma knife treatment (Resolved 2013) Family History Father No problems noted. Grandfather No problems noted. Grandmother Stomach cancer Mother Enlarged aorta Breast cancer Grandfather Myelofibrosis Grandmother Parkinson's disease Social History household members: spouse Smoking Status: Current every day smoker Tobacco: How many years used: 8 alcohol intake: current substance use type: marijuana Smoking Status: Current every day smoker alcohol intake frequency: 0-2 drinks per day Substance Use Type: marijuana Exam Narrative Exam Narrative: GENERAL: [54] year old patient appears stated age. Well-nourished, well-developed patient, in mild distress. Anxious HEAD: Atraumatic. Normocephalic. EYES: Pupils equal round and reactive. Extraocular motions intact. No scleral icterus. No injection or drainage. ENT: Nose without bleeding, purulent drainage. Throat without erythema, tonsillar hypertrophy or exudate. Airway patent. NECK: Trachea midline. Non tender CARDIOVASCULAR: Regular rate and rhythm without murmurs, gallops, or rubs. RESPIRATORY: Decreased breath sounds bilaterally. Faint crackle in R base GASTROINTESTINAL: Abdomen soft, non-tender, nondistended. EXTREMITIES: No edema or joint tenderness. BACK: Nontender without deformity or crepitance. No flank tenderness. NEURO: AOx3. SKIN: No rash or erythema of visible areas Initial Vital Signs Initial Vital Signs: Vital Signs Pulse Rate 76 12/09/19 23:35 Respiratory Rate 20 12/09/19 23:35 Blood Pressure 146/83 H 12/09/19 23:35 Pulse Oximetry 97 12/09/19 23:35 Course Orders Ordered: ED Orders 12/09/19 23:39 Complete Blood Count AUTO DIFF Stat Comprehensive Metabolic Panel Stat D Dimer Stat Lipase Stat NT-proBNP (BNP-Adult 18+) Stat Troponin & CK Cardiac Panel Stat 12/09/19 23:43 XR chest 1V Stat EKG-12 Lead Stat 12/10/19 00:03 CT angio chest PE protocol Stat Sodium Chloride (Normal Saline 0.9%) 1,000 mls @ 150 mls/hr IV CONT PRISCILLA Last Infusion: 12/10/19 00:37 Dose: 150 mls/hr Documented by: Infusion: 12/10/19 00:14 Dose: 0 mls/hr Documented by: Admin: 12/10/19 00:07 Dose: 150 mls/hr Documented by: LIAT Vital Signs Vital signs: Vital Signs - 8 hr 12/09/19 23:35 Pulse Rate 76 Respiratory Rate 20 Blood Pressure 146/83 H Pulse Oximetry 97 MDM - SOB/Dyspnea Lab Data Result diagrams: 12/09/19 23:39 12/09/19 23:39 Labs: Lab Results 12/09/19 12/09/19 12/09/19 Range/Units 23:39 23:39 23:39 WBC 4.5 (4.5-11.0) X10^3/uL RBC 4.20 (4.0-5.2) X10^6/uL Hgb 13.0 (12.0-16.0) g/dL Hct 38.0 (36-46) % MCV 90.5 (80-100) fL MCH 31.0 (26-34) PG MCHC 34.3 (30-36) % RDW 14.2 (11.6-14.8) % Plt Count 217 (150-400) X10^3/uL Neut % (Auto) 40.8 L (50-75) % Lymph % (Auto) 41.8 H (25-40) % [place] % (Auto) 11.8 (3-14) % Eos % (Auto) 4.6 H (2-4) % Baso % (Auto) 1.0 (0-2) % Neut # (Auto) 1800 (3337-0891) /uL Lymph # (Auto) 1900 (2104-9606) /uL [place] # (Auto) 500 (0-900) /uL Eos # (Auto) 200 (0-450) /uL Baso # (Auto) 0 (0-100) /uL D-Dimer 1029 H (<230) ng/mL Sodium 136 L (137-145) mmol/L Potassium 4.0 (3.4-5.1) mmol/L Chloride 105 (98-107) mmol/L Carbon Dioxide 23 (22-32) mmol/L BUN 12 (7-17) mg/dL Creatinine 0.48 L (0.52-1.04) mg/dL Estimated GFR > 60.0 (>60) mL/min BUN/Creatinine Ratio 25.0 H (6-22) Glucose 100 (70-100) mg/dL Calcium 9.6 (8.4-10.2) mg/dL Total Bilirubin 0.4 (0.2-1.3) mg/dL AST 26 (14-36) IU/L ALT 18 (<35) IU/L Alkaline Phosphatase 74 (38-126) U/L Total Creatine Kinase 61 (30-135) U/L CK-MB (CK-2) TNP CK-MB (CK-2) Rel Index TNP Troponin I < 0.012 (0.01-0.034) ng/mL NT-Pro-B Natriuret Pep 403 H (<125) pg/mL Total Protein 7.4 (6.3-8.2) g/dL Albumin 4.2 (3.5-5.0) g/dL Globulin 3.2 (1.7-4.1) g/dL Albumin/Globulin Ratio 1.3 (1.0-2.8) Lipase 117 (23-300) U/L Imaging Data Chest x-ray: Attestation: I personally reviewed and interpreted this imaging study as follows: My Impression: NAP CT scan - chest: Radiologist's Impression: No PE, PTX, or pneumonia Discharge Plan Departure Patient Disposition: Home Clinical Impression: Atypical chest pain, Acute exacerbation of chronic obstructive pulmonary disease, Atypical pneumonia Instructions: Chronic Obstructive Pulmonary Disease Activity Restrictions/Additional Instructions: *You have been diagnosed with [ exacerbation of COPD, atypical pneumonia ] *What to do: *Take medications as directed *Follow up with your primary care provider in 2-3 days, call for an appointment. Let them know you were seen in the Emergency Department and that we ask that you be seen in follow up *Return to ER if you should have any new, worsening or concerning symptoms Prescriptions: New prednisone 20 mg tablet 20 mg PO DAILY Qty: 5 RF: 0 doxycycline hyclate 100 mg tablet 100 mg PO BID Qty: 20 RF: 0 No Action sumatriptan succinate [Imitrex] 50 mg tablet 50 mg PO SEE INSTRUCTIONS PRN (Reason: unknown) Qty: 10 RF: 0 lorazepam 1 mg tablet 1 mg PO BID PRN (Reason: anxiety) Qty: 30 RF: 0 (DME) Aerochamber Plus Flow-Vu Spacer See Rx Instructions .ROUTE .MEDSUPPLY Qty: 1 RF: 0 prednisone 10 mg tablet 10 mg PO .COMPLEX Qty: 20 RF: 0 sulfasalazine 500 mg tablet See Rx Instructions .ROUTE .COMPLEX Qty: 60 RF: 2 gabapentin 100 mg capsule See Rx Instructions PO .COMPLEX Qty: 270 RF: 0 bupropion HCl 150 mg tablet extended release 24 hr 150 mg PO QAM Qty: 90 RF: 0 Hydrochlorquine Sulfate 200mg tablet 2 tab PO DAILY Qty: 180 RF: 0 escitalopram oxalate 20 mg tablet See Rx Instructions .ROUTE .COMPLEX Qty: 30 RF: 5 fluticasone propionate [Flovent HFA] 44 mcg/actuation HFA aerosol inhaler See Rx Instructions .ROUTE .COMPLEX Qty: 10.6 RF: 0 albuterol sulfate 90 mcg/actuation HFA aerosol inhaler See Rx Instructions .ROUTE .COMPLEX Qty: 17 RF: 0 naproxen [Naprosyn] 500 mg tablet 500 mg PO BID PRN (Reason: pain) Qty: 14 RF: 0 lorazepam [Ativan] 0.5 mg tablet 0.5 mg PO TID PRN (Reason: anxiety) Qty: 12 RF: 0 Referrals: Tay,Angelique, [Primary Care Provider] -
[2019-12-10 01:45] VITALS: BP 136/69; PULSE 86; RESP 20; O2SAT 99
[2019-12-11 19:49] LABS: COVID19 Sendout Not Detected (Not Detect)
== END 2019-12-10 01:45 | disposition home or self-care (01) ==
PROVIDERS: Emergency Provider Emergency Medicine; PCP Family Medicine
DX: J44.1 Chronic obstructive pulmonary disease with (acute) exacerbation (principal); R07.89 Other chest pain; J18.9 Pneumonia, unspecified organism
CPT/HCPCS: 36415; 71045; 71275; 80053; 82550; 83690; 83880; 84484; 85025; 85379; 87635; 93005; 96360; 99284; Q9967

== ENCOUNTER → 2020-03-01 08:44 | Outpatient (CLI) | payer OTHER, MEDICAID, SELFPAY ==
[2020-03-01 09:23] LABS: Alanine Aminotransferase 18 IU/L (<35); Albumin Globulin Ratio 1.4 (1.0-2.8); Alkaline Phosphatase 71 U/L (38-126); Aspartate Aminotransferase 24 IU/L (14-36); Bilirubin Total 0.5 mg/dL (0.2-1.3); Blood Urea Nitrogen 9 mg/dL (7-17); Calcium 9.3 mg/dL (8.4-10.2); Carbon Dioxide 25 mmol/L (22-32); Chloride 108 mmol/L (98-107); Estimated Glomerular Filt Rate > 60.0 mL/min (>60); Globulin 2.9 g/dL (1.7-4.1); Glucose 117 mg/dL (70-100); HEMOLYSIS < 15 (0-50); Potassium 4.3 mmol/L (3.4-5.1); Sodium 139 mmol/L (137-145); Total Protein 6.9 g/dL (6.3-8.2)
== END ==
PROVIDERS: PCP Family Medicine; Referring Provider Family Medicine; Visit Provider Family Medicine
DX: Z51.81 Encounter for therapeutic drug level monitoring (principal)
CPT/HCPCS: 36415; 80053

== ENCOUNTER → 2020-04-03 14:35 | Outpatient (CLI) | payer OTHER, MEDICAID, SELFPAY ==
--- NOTE | 2020-04-03 | DI.MRI.S_ITS ---
PROCEDURE: MR BRAIN (IAC) WWO CON INDICATIONS: BRAIN METASTASES TECHNIQUE: Noncontrast sagittal T1 spin echo, axial FLAIR, axial gradient echo, axial diffusion and ADC through the brain. Axial thin-slice 3D CISS, coronal TruFISP, axial T1 spin echo with fat saturation through the internal auditory canals. After the administration of contrast, thin slice axial and coronal T1 spin echo with fat saturation through the internal auditory canals, and axial T1 spin echo with fat saturation through the brain. COMPARISON: [facility], MR, BRAIN W&W/O CONTRAST, 07/27/2014, 14:08. Located Within [facility], CT, CT CHEST ABD PEL W CON, 04/03/2020, 15:44. FINDINGS: Image quality: Diagnostic, with note made of motion artifact. Cerebellopontine angles: No cerebellopontine angle masses. Inner ear structures appear normally formed. No suspicious enhancement in the internal auditory canal or along the course of the 7th cranial nerve. CSF spaces: Ventricles are normal in size and shape. No extra-axial fluid collections. Basal cisterns are patent. Brain: No intracranial bleeds or mass effects. [place]-white matter interface is intact. No abnormal intracranial enhancement. Diffusion weighted images demonstrate no acute ischemic insults. Brainstem appears normal. Normal intravascular flow voids are present. Note is made of a cavum septum pellucidum. When discovered in isolation, this is considered to be a developmental variant of no clinical consequence. Skull and face: Right frontal craniotomy changes are seen. Calvarial marrow signal is normal. Orbits appear normal. Sinuses: Sinuses and mastoids are clear. IMPRESSION: No findings of intracranial masses or abnormal enhancement can be seen to suggest intracranial metastatic disease. Right frontal craniotomy changes are seen, with no underlying mass seen. Dictated by: Low Muñiz M.D. on 04/03/2020 at 14:58 Approved by: Low Muñiz M.D. on 04/03/2020 at 15:01
--- NOTE | 2020-04-03 14:37 | DI.CT.S_ITS ---
PROCEDURE: CT CHEST ABD PEL W CON INDICATIONS: metastatic breast cancer TECHNIQUE: After the administration of oral and intravenous contrast, 5 mm thick sections acquired from the lung apices to the symphysis. 5 mm coronal and sagittal reformats were performed, with additional 7 mm coronal MIP reformats through the lungs. For radiation dose reduction, the following was used: automated exposure control, adjustment of mA and/or kV according to patient size. COMPARISON: [facility], CT, CT CHEST ABD PEL W CON, 03/01/2018, 11:28. [facility], CT, CHEST/ABD/PEL WITH CONTRAST, 05/04/2017, 14:49. [facility], CT, CHEST/ABD/PEL WITH CONTRAST, 11/09/2016, 12:36. [facility], CT, CT ANGIO CHEST PE PROTOCOL, 12/10/2019, 0:05. [facility], CT, CT CHEST ABD PEL W CON, 09/19/2018, 14:56. FINDINGS: Image quality: Excellent. CHEST: Lungs and pleura: No acute airspace opacities. No pleural effusions or pneumothorax. Central and peripheral airways appear patent and normal in caliber. Previously noted scattered calcified and noncalcified manner in nodules are stable. Mediastinum: Heart size is enlarged with mild pericardial effusion, measuring 9 mm in greatest AP dimension. This is new compared to 12/10/2019. Borderline enlarged mediastinal lymph nodes are unchanged. Thoracic aorta and central pulmonary arteries are normal in size. Esophagus is normal in caliber. Moderate hiatal hernia. Chest wall: No axillary or supraclavicular adenopathy by size criteria. Thyroid gland is unremarkable . ABDOMEN: Solid organs: Liver is enlarged with steatosis. Gallbladder demonstrates an appearance of thickened wall with possibly pericholecystic fluid. Pericystic stranding within the mesenteric fat is present. Inflammatory change extends to the adjacent bowel loops of the right lower quadrant. . Biliary system is non dilated. Pancreas enhances normally. Spleen is normal in size and enhancement. No adrenal nodules. Kidneys demonstrate normal size and enhancement, without hydronephrosis. Peritoneum and bowel: Bowel loops demonstrate normal wall thickness and caliber. No free fluid or air. Nodes and vessels: No retroperitoneal or mesenteric adenopathy by size criteria. Aorta and inferior vena cava are normal in size. Miscellaneous: No ventral hernias. PELVIS: Genitourinary: Bladder wall thickness is normal. Miscellaneous: No inguinal hernias or adenopathy. Bones: No suspicious bony lesions. Unchanged lateral right 6th rib deformity. No vertebral body compression fractures. IMPRESSION: 1. Unchanged pulmonary nodules. 2. Thickened appearance of the gallbladder wall with pericholecystic fluid. Overall appearance is concerning for cholecystitis. Further follow-up with ultrasound is recommended. No visualized stones. 3. Cardiomegaly with new pericardial effusion Dictated by: Varsha De M.D. on 04/03/2020 at 17:24 Approved by: Varsha De M.D. on 04/03/2020 at 17:40
== END ==
PROVIDERS: PCP Family Medicine; Referring Provider Family Medicine; Visit Provider Internal Medicine Hematology & Oncology
DX: C50.919 Malignant neoplasm of unspecified site of unspecified female breast (principal); C79.31 Secondary malignant neoplasm of brain; J90 Pleural effusion, not elsewhere classified; I51.7 Cardiomegaly; R91.8 Other nonspecific abnormal finding of lung field; Z15.01 Genetic susceptibility to malignant neoplasm of breast; Z15.02 Genetic susceptibility to malignant neoplasm of ovary; Z15.09 Genetic susceptibility to other malignant neoplasm
CPT/HCPCS: 70553; 71260; 74177; Q9967

== ENCOUNTER 2020-04-08 15:27 | Observation (INO) | payer OTHER, MEDICAID, SELFPAY ==
[2020-04-08] VITALS (15 sets, daily range): BP systolic 111–133; BP diastolic 72–86; PULSE 86–109; RESP 20–31; TEMP 36.5–36.7; O2SAT 94–98; BMI 34.2
--- NOTE | 2020-04-08 15:36 | DI.RAD.S_ITS ---
PROCEDURE: XR CHEST 2V INDICATIONS: shortness of breath TECHNIQUE: 2 views of the chest were acquired. COMPARISON: [facility], CR, XR CHEST 1V, 12/09/2019, 23:49. FINDINGS: Surgical changes and devices: Left chest wall Port-A-Cath tip is in SVC. Surgical clips are noted in left axilla. Lungs and pleura: Small right pleural effusion and trace left pleural effusion is seen. Right basilar atelectasis/small infiltrates are also noted. Mild pulmonary vascular congestion is seen. Mediastinum: Mediastinal contours are normal. Heart size is enlarged Bones and chest wall: No suspicious bony abnormalities. Soft tissues appear unremarkable. IMPRESSION: CHF changes. Cannot rule out underlying small right basilar infiltrate/atelectasis. No pneumothorax. Dictated by: James Mabry M.D. on 04/08/2020 at 15:06 Approved by: James Mabry M.D. on 04/08/2020 at 15:15
--- NOTE | 2020-04-08 15:49 | ED.GENADULT ---
HPI - General Adult General Chief complaint: Shortness of Breath/Dyspnea Stated complaint: SOB Time Seen by Provider: 04/08/20 15:39 Source: patient Mode of arrival: Ambulatory Limitations: no limitations History of Present Illness HPI narrative: 54-year-old female with a history of breast cancer that is in maintenance phase not undergoing chemotherapy who had an outpatient follow-up with her oncologist to discuss the results of the chest abdomen pelvis that was ordered by this oncologist. It did show a pericardial effusion. Patient was stating that she was becoming very dyspneic on exertion. Denied any chest pain. She is also having lower extremity swelling. No prior diagnosis of heart failure. Has never had a heart attack in the past. Is not on anticoagulation. She states that the dyspnea on exertion has been occurring for the past several days if not weeks but has been worsening over the past couple days. Has not take anything for symptoms. Has never had anything like this in the past. Related Data Previous Rx's Medication Instructions Recorded sumatriptan succinate 50 mg tablet 50 mg PO SEE INSTRUCTIONS PRN #10 09/20/18 tab inhalational spacing device #1 each 03/15/19 bupropion HCl 150 mg 24 hr tablet, 150 mg PO QAM #90 tab 01/24/20 extended release sulfasalazine 500 mg tablet See Rx Instructions .ROUTE 02/21/20 .COMPLEX #60 tablet albuterol sulfate 90 mcg/actuation See Rx Instructions .ROUTE 02/29/20 aerosol inhaler .COMPLEX #17 gram methotrexate sodium 5 mg tablet 15 mg PO QWEEK #240 tab 03/01/20 hydroxychloroquine 200 mg tablet See Rx Instructions .ROUTE 03/04/20 .COMPLEX #180 tab fluticasone propionate 110 1 puff INHALATION BID #12 gram 03/21/20 mcg/actuation HFA aerosol inhaler gabapentin 300 mg capsule 300 mg PO TID #270 cap 03/26/20 Allergies Allergy/AdvReac Type Severity Reaction Status Date / Time latex [LATEX] Allergy Intermediate RASH, SKIN Verified 03/01/20 09:36 PEELS penicillin G [PENICILLIN G] Allergy Unknown I WAS A Verified 03/01/20 09:36 KID SO I DON'T REMEMBER morphine [MORPHINE] AdvReac Severe HURTS MY Verified 03/01/20 09:36 STOMACH SO BAD Review of Systems Constitutional Constitutional: Denies fever(s) and Denies headache(s) ENT Ears, Nose, Mouth, and Throat: Denies headache(s) Cardiovascular Cardiovascular: Denies chest pain, Reports dyspnea and Reports dyspnea on exertion Respiratory Respiratory: Denies cough, Reports dyspnea and Reports dyspnea on exertion Gastrointestinal Gastrointestinal: Denies abdominal pain, Denies nausea and Denies vomiting Genitourinary Genitourinary: Denies dysuria Genitourinary: Denies dysuria Musculoskeletal Musculoskeletal: Denies arthralgias and Denies myalgias Integumentary/Breasts Skin/Breast: Denies rash Neurologic Neurologic: Denies behavioral changes and Denies headache(s) Psychiatric Psychiatric: Denies behavioral changes Hematologic/Lymphatic Hematologic/Lymphatic: Denies easy bleeding and Denies easy bruising Allergic/Immunologic Allergic/Immunologic: Denies urticaria Patient History Medical History Alcohol use (Chronic) Balance problem (Acute) BRCA2 gene mutation positive in female (Acute) Breast cancer metastasized to brain (Chronic) Chemotherapy-induced neuropathy (Acute) Colon polyps (Resolved 04/03/16) 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 (Acute) Depression (Chronic) Encounter for tobacco use cessation counseling (Acute) Hepatic cirrhosis (Chronic) Hepatitis C (Chronic ~1995) Musculoskeletal pain (Chronic ~2015) Rheumatoid arthritis (Chronic ~2015) Surgical History History of appendectomy (Resolved 1998) History of bilateral mastectomy (Resolved 2013) History of bilateral salpingo-oophorectomy (Resolved 2013) History of section (Resolved 1999) History of colonoscopy with polypectomy (Resolved 04/03/16) History of esophagogastroduodenoscopy (EGD) (Resolved 04/03/16) History of tubal ligation (Resolved 1995) Status post gamma knife treatment (Resolved 2013) Family History Father No problems noted. Grandfather No problems noted. Grandmother Stomach cancer Mother Enlarged aorta Breast cancer Grandfather Myelofibrosis Grandmother Parkinson's disease Social History household members: spouse Smoking Status: Current every day smoker Tobacco: How many years used: 8 alcohol intake: former substance use type: marijuana Smoking Status: Current every day smoker alcohol intake frequency: 0-2 drinks per day Substance Use Type: marijuana Exam Initial Vital Signs Initial Vital Signs: Vital Signs Temperature 98.1 F 04/08/20 15:57 Pulse Rate 108 H 04/08/20 15:57 Respiratory Rate 22 04/08/20 15:57 Blood Pressure 121/72 04/08/20 15:57 Pulse Oximetry 96 04/08/20 15:57 Const General: cooperative and comfortable Limitations: mental status not altered HENMT Head: normal to inspection and normocephalic Resp Effort & Inspection: not labored and tachypneic Auscultation: clear to auscultation bilaterally Cardio Rate: tachycardic Rhythm: regular rhythm GI Inspection: non-distended Palpation: soft Skin Lesions: no lesions Rashes: no rashes Neuro General: patient alert and patient awake Cognition: normal cognition Speech: speech normal Extrem General: normal to inspection, capillary refill normal and edema Psych Appearance: grossly normal and well kempt Scores GCS Carla coma scale eye opening: Spontaneous Carla coma scale verbal response: Orientated Carla coma scale motor response: Obey commands [place] coma scale total score: 15 Course Orders Ordered: ED Orders 04/08/20 15:20 NT-proBNP (BNP-Adult 18+) Stat 04/08/20 15:36 XR chest 2V Stat Measure peak expiratory flow ONCE RT Consult Eval and Treat Now 04/08/20 15:39 EKG-12 Lead Stat 04/08/20 15:50 Ammonia (NH3) Stat Complete Blood Count AUTO DIFF Stat Comprehensive Metabolic Panel Stat Ethanol (ETOH) Stat Lactate (Lactic Acid) Stat Lipase Stat Partial Thromboplastin Time Stat Prothrombin Time INR Stat Troponin & CK Cardiac Panel Stat 04/08/20 18:13 Urinalysis Screen (Dip Only) Stat 04/08/20 18:37 COVID19 -ED/INPAT/OR/L&D Stat Discontinued Medications Furosemide (Lasix) 40 mg IV NOW ONE Stop: 04/08/20 17:14 Last Admin: 04/08/20 17:26 Dose: 40 mg Documented by: RISHI Vital Signs Vital signs: Vital Signs - 8 hr 04/08/20 15:57 04/08/20 16:13 04/08/20 16:30 Temperature 98.1 F Pulse Rate 108 H 107 H 106 H Respiratory Rate 22 26 H 25 H Blood Pressure 121/72 133/80 Pulse Oximetry 96 96 94 04/08/20 17:00 04/08/20 17:30 04/08/20 18:03 Temperature Pulse Rate 108 H 108 H 109 H Respiratory Rate 23 31 H Blood Pressure 115/78 Pulse Oximetry 94 96 98 04/08/20 18:05 Temperature Pulse Rate 109 H Respiratory Rate 27 H Blood Pressure 123/86 Pulse Oximetry 96 Medical Decision Making Lab Data Lab results reviewed: Yes I reviewed the patient's lab results. Result diagrams: 04/08/20 15:50 04/08/20 15:50 Labs: Lab Results 04/08/20 04/08/20 04/08/20 Range/Units 15:20 15:50 15:50 WBC 5.5 (4.5-11.0) X10^3/uL RBC 3.90 L (4.0-5.2) X10^6/uL Hgb 12.5 (12.0-16.0) g/dL Hct 37.1 (36-46) % MCV 95.1 (80-100) fL MCH 32.0 (26-34) PG MCHC 33.6 (30-36) % RDW 14.9 H (11.6-14.8) % Plt Count 172 (150-400) X10^3/uL Neut % (Auto) 67.6 (50-75) % Lymph % (Auto) 21.1 L (25-40) % [place] % (Auto) 8.0 (3-14) % Eos % (Auto) 2.4 (2-4) % Baso % (Auto) 0.9 (0-2) % Neut # (Auto) 3700 (1238-7294) /uL Lymph # (Auto) 1200 (5903-9524) /uL [place] # (Auto) 400 (0-900) /uL Eos # (Auto) 100 (0-450) /uL Baso # (Auto) 0 (0-100) /uL PT 16.2 H (10.1-12.7) SECONDS INR 1.4 H (0.9-1.3) APTT (26.4-36.2) SECONDS Sodium (137-145) mmol/L Potassium (3.4-5.1) mmol/L Chloride (98-107) mmol/L Carbon Dioxide (22-32) mmol/L BUN (7-17) mg/dL Creatinine (0.52-1.04) mg/dL Estimated GFR (>60) mL/min BUN/Creatinine Ratio (6-22) Glucose (70-100) mg/dL Lactate (0.7-2.1) mmol/L Calcium (8.4-10.2) mg/dL Total Bilirubin (0.2-1.3) mg/dL AST (14-36) IU/L ALT (<35) IU/L Alkaline Phosphatase (38-126) U/L Ammonia (9-30) umol/L Total Creatine Kinase (30-135) U/L CK-MB (CK-2) CK-MB (CK-2) Rel Index Troponin I (0.01-0.034) ng/mL NT-Pro-B Natriuret Pep 3680 H (<125) pg/mL Total Protein (6.3-8.2) g/dL Albumin (3.5-5.0) g/dL Globulin (1.7-4.1) g/dL Albumin/Globulin Ratio (1.0-2.8) Lipase (23-300) U/L Ethyl Alcohol ( - 10) mg/dL COVID-19 PCR (Negative) 04/08/20 04/08/20 04/08/20 Range/Units 15:50 15:50 15:50 WBC (4.5-11.0) X10^3/uL RBC (4.0-5.2) X10^6/uL Hgb (12.0-16.0) g/dL Hct (36-46) % MCV (80-100) fL MCH (26-34) PG MCHC (30-36) % RDW (11.6-14.8) % Plt Count (150-400) X10^3/uL Neut % (Auto) (50-75) % Lymph % (Auto) (25-40) % [place] % (Auto) (3-14) % Eos % (Auto) (2-4) % Baso % (Auto) (0-2) % Neut # (Auto) (5156-3571) /uL Lymph # (Auto) (0617-8314) /uL [place] # (Auto) (0-900) /uL Eos # (Auto) (0-450) /uL Baso # (Auto) (0-100) /uL PT (10.1-12.7) SECONDS INR (0.9-1.3) APTT (26.4-36.2) SECONDS Sodium 138 (137-145) mmol/L Potassium 4.0 (3.4-5.1) mmol/L Chloride 111 H (98-107) mmol/L Carbon Dioxide 19 L (22-32) mmol/L BUN 8 (7-17) mg/dL Creatinine 0.63 (0.52-1.04) mg/dL Estimated GFR > 60.0 (>60) mL/min BUN/Creatinine Ratio 12.7 (6-22) Glucose 106 H (70-100) mg/dL Lactate 1.3 (0.7-2.1) mmol/L Calcium 8.7 (8.4-10.2) mg/dL Total Bilirubin 0.9 (0.2-1.3) mg/dL AST 26 (14-36) IU/L ALT 21 (<35) IU/L Alkaline Phosphatase 61 (38-126) U/L Ammonia 12 (9-30) umol/L Total Creatine Kinase (30-135) U/L CK-MB (CK-2) CK-MB (CK-2) Rel Index Troponin I (0.01-0.034) ng/mL NT-Pro-B Natriuret Pep (<125) pg/mL Total Protein 6.7 (6.3-8.2) g/dL Albumin 3.8 (3.5-5.0) g/dL Globulin 2.9 (1.7-4.1) g/dL Albumin/Globulin Ratio 1.3 (1.0-2.8) Lipase 26 (23-300) U/L Ethyl Alcohol < 10 ( - 10) mg/dL COVID-19 PCR (Negative) 04/08/20 04/08/20 04/08/20 Range/Units 15:50 15:50 18:37 WBC (4.5-11.0) X10^3/uL RBC (4.0-5.2) X10^6/uL Hgb (12.0-16.0) g/dL Hct (36-46) % MCV (80-100) fL MCH (26-34) PG MCHC (30-36) % RDW (11.6-14.8) % Plt Count (150-400) X10^3/uL Neut % (Auto) (50-75) % Lymph % (Auto) (25-40) % [place] % (Auto) (3-14) % Eos % (Auto) (2-4) % Baso % (Auto) (0-2) % Neut # (Auto) (4333-2438) /uL Lymph # (Auto) (9595-8665) /uL [place] # (Auto) (0-900) /uL Eos # (Auto) (0-450) /uL Baso # (Auto) (0-100) /uL PT (10.1-12.7) SECONDS INR (0.9-1.3) APTT 31 (26.4-36.2) SECONDS Sodium (137-145) mmol/L Potassium (3.4-5.1) mmol/L Chloride (98-107) mmol/L Carbon Dioxide (22-32) mmol/L BUN (7-17) mg/dL Creatinine (0.52-1.04) mg/dL Estimated GFR (>60) mL/min BUN/Creatinine Ratio (6-22) Glucose (70-100) mg/dL Lactate (0.7-2.1) mmol/L Calcium (8.4-10.2) mg/dL Total Bilirubin (0.2-1.3) mg/dL AST (14-36) IU/L ALT (<35) IU/L Alkaline Phosphatase (38-126) U/L Ammonia (9-30) umol/L Total Creatine Kinase 78 (30-135) U/L CK-MB (CK-2) TNP CK-MB (CK-2) Rel Index TNP Troponin I < 0.012 (0.01-0.034) ng/mL NT-Pro-B Natriuret Pep (<125) pg/mL Total Protein (6.3-8.2) g/dL Albumin (3.5-5.0) g/dL Globulin (1.7-4.1) g/dL Albumin/Globulin Ratio (1.0-2.8) Lipase (23-300) U/L Ethyl Alcohol ( - 10) mg/dL COVID-19 PCR Negative (Negative) Urine Dip Bedside Urine Glucose Negative Bedside Urine Bilirubin - Negative Bedside Urine Ketone - Negative Urine Specific [place] 1.020 Bedside Urine Occult Blood - Negative Bedside Urine pH 6.0 Bedside Urine Protein +/- 15 Bedside Urine Urobilinogen - Negative Bedside Urine Nitrite - Negative Bedside Urine Leukocytes - Negative Esterase Point of care testing: Urine Dip Bedside Urine Glucose Negative Bedside Urine Bilirubin - Negative Bedside Urine Ketone - Negative Urine Specific [place] 1.020 Bedside Urine Occult Blood - Negative Bedside Urine pH 6.0 Bedside Urine Protein +/- 15 Bedside Urine Urobilinogen - Negative Bedside Urine Nitrite - Negative Bedside Urine Leukocytes - Negative Esterase Imaging Data CT chest abdomen pelvis: Radiologist's Impression: [address] [address] [address] Scan Report Signed Patient: Maricarmen Ho KMR#: [id number] : 1965Acct:[id number] Age/Sex: 54 / FDate of Service: 04/03/20 Loc: CT Accession Number: [id number] Procedure: CT chest abd pel w con Ordering Provider: Fletcher Harper MD PROCEDURE: CT CHEST ABD PEL W CON INDICATIONS: metastatic breast cancer TECHNIQUE: After the administration of oral and intravenous contrast, 5 mm thick sections acquired from the lung apices to the symphysis. 5 mm coronal and sagittal reformats were performed, with additional 7 mm coronal MIP reformats through the lungs. For radiation dose reduction, the following was used: automated exposure control, adjustment of mA and/or kV according to patient size. COMPARISON: [facility], CT, CT CHEST ABD PEL W CON, 03/01/2018, 11:28. [facility], CT, CHEST/ABD/PEL WITH CONTRAST, 05/04/2017, 14:49. [facility], CT, CHEST/ABD/PEL WITH CONTRAST, 11/09/2016, 12:36. [facility], CT, CT ANGIO CHEST PE PROTOCOL, 12/10/2019, 0:05. [facility], CT, CT CHEST ABD PEL W CON, 09/19/2018, 14:56. FINDINGS: Image quality: Excellent. CHEST: Lungs and pleura: No acute airspace opacities. No pleural effusions or pneumothorax. Central and peripheral airways appear patent and normal in caliber. Previously noted scattered calcified and noncalcified manner in nodules are stable. Mediastinum: Heart size is enlarged with mild pericardial effusion, measuring 9 mm in greatest AP dimension. This is new compared to 12/10/2019. Borderline enlarged mediastinal lymph nodes are unchanged. Thoracic aorta and central pulmonary arteries are normal in size. Esophagus is normal in caliber. Moderate hiatal hernia. Chest wall: No axillary or supraclavicular adenopathy by size criteria. Thyroid gland is unremarkable . ABDOMEN: Solid organs: Liver is enlarged with steatosis. Gallbladder demonstrates an appearance of thickened wall with possibly pericholecystic fluid. Pericystic stranding within the mesenteric fat is present. Inflammatory change extends to the adjacent bowel loops of the right lower quadrant. . Biliary system is non dilated. Pancreas enhances normally. Spleen is normal in size and enhancement. No adrenal nodules. Kidneys demonstrate normal size and enhancement, without hydronephrosis. Peritoneum and bowel: Bowel loops demonstrate normal wall thickness and caliber. No free fluid or air. Nodes and vessels: No retroperitoneal or mesenteric adenopathy by size criteria. Aorta and inferior vena cava are normal in size. Miscellaneous: No ventral hernias. PELVIS: Genitourinary: Bladder wall thickness is normal. Miscellaneous: No inguinal hernias or adenopathy. Bones: No suspicious bony lesions. Unchanged lateral right 6th rib deformity. No vertebral body compression fractures. IMPRESSION: 1. Unchanged pulmonary nodules. 2. Thickened appearance of the gallbladder wall with pericholecystic fluid. Overall appearance is concerning for cholecystitis. Further follow-up with ultrasound is recommended. No visualized stones. 3. Cardiomegaly with new pericardial effusion Dictated by: Varsha De M.D. on 04/03/2020 at 17:24 Approved by: Varsha De M.D. on 04/03/2020 at 17:40 Chest x-ray: Radiologist's Impression: [address] [address] XRay Report Signed Patient: Maricarmen Ho KMR#: [id number] : 1965Acct:[id number] Age/Sex: 54 / FDate of Service: 04/08/20 Loc: ED Accession Number: [id number] Procedure: XR chest 2V Ordering Provider: Joe Chase D.O. PROCEDURE: XR CHEST 2V INDICATIONS: shortness of breath TECHNIQUE: 2 views of the chest were acquired. COMPARISON: [facility], , XR CHEST 1V, 12/09/2019, 23:49. FINDINGS: Surgical changes and devices: Left chest wall Port-A-Cath tip is in SVC. Surgical clips are noted in left axilla. Lungs and pleura: Small right pleural effusion and trace left pleural effusion is seen. Right basilar atelectasis/small infiltrates are also noted. Mild pulmonary vascular congestion is seen. Mediastinum: Mediastinal contours are normal. Heart size is enlarged Bones and chest wall: No suspicious bony abnormalities. Soft tissues appear unremarkable. IMPRESSION: CHF changes. Cannot rule out underlying small right basilar infiltrate/atelectasis. No pneumothorax. Dictated by: James Mabry M.D. on 04/08/2020 at 15:06 Approved by: James Mabry M.D. on 04/08/2020 at 15:15 ECG Data Attestation: I personally reviewed and interpreted this ECG as follows: Prior ECG tracings: not available for review Interpretation: Sinus tachycardia Ventricular rate of 109 Normal axis Normal QRS Normal QTC No ST T wave changes MDM Narrative Medical decision making narrative: Chest x-ray and elevated BNP and physical exam is consistent with heart failure. Does have the small pericardial effusion. Was given Lasix and was able to urinate here in the ER. However when she ambulated after approximately 10 yd became very dyspneic and desatted to the upper 80s. This resolved when the patient sat back down in bed. Has a nonischemic EKG. I did discuss the case with Dr. Gregorio with cardiology who stated that the effusion seen on the CT scan is relatively small and he recommended admitting and diuresing and repeating an echocardiogram tomorrow and if it was larger that she should be transferred for definitive treatment of this. I then discussed the case with Dr. gamez on-call for Medicine who will admit for further evaluation treatment. Discussed this with the patient. She expressed understanding and agreement. Discharge Plan Departure Patient Disposition: Admitted As Inpatient Clinical Impression: Shortness of breath, Pericardial effusion, CHF (congestive heart failure), ART (dyspnea on exertion) Referrals: Aleksandr Greenwood DO [Primary Care Provider] - Admit Date/Time: 04/08/20 19:14 Admit Provider: Catarina Gamez
[2020-04-08 15:59] LABS: Add Manual Diff / Slide Review NO; Basophils Absolute Auto 0 /uL (0-100); Basophils Percent Auto 0.9 % (0-2); Eosinophils Absolute Auto 100 /uL (0-450); Eosinophils Percent Auto 2.4 % (2-4); Hematocrit 37.1 % (36-46); Hemoglobin 12.5 g/dL (12.0-16.0); Lymphocytes Absolute Auto 1200 /uL (1100-4500); Lymphocytes Percent Auto 21.1 % (25-40); Mean Corpuscular HGB Conc 33.6 % (30-36); Mean Corpuscular Volume 95.1 fL (80-100); Monocytes Absolute Auto 400 /uL (0-900); Neutrophils Absolute Auto 3700 /uL (1500-7000); Neutrophils Percent Auto 67.6 % (50-75); Platelet Count 172 X10^3/uL (150-400); Red Cell Distribution Width 14.9 % (11.6-14.8); White Blood Cell Count 5.5 X10^3/uL (4.5-11.0)
[2020-04-08 16:05] LABS: INR 1.4 (0.9-1.3); Prothrombin Time 16.2 SECONDS (10.1-12.7)
[2020-04-08 16:12] LABS: Alanine Aminotransferase 21 IU/L (<35); Albumin 3.8 g/dL (3.5-5.0); Albumin Globulin Ratio 1.3 (1.0-2.8); Alkaline Phosphatase 61 U/L (38-126); Ammonia (NH3) 12 umol/L (9-30); Aspartate Aminotransferase 26 IU/L (14-36); BUN Creatinine Ratio 12.7 (6-22); Bilirubin Total 0.9 mg/dL (0.2-1.3); Blood Urea Nitrogen 8 mg/dL (7-17); Calcium 8.7 mg/dL (8.4-10.2); Carbon Dioxide 19 mmol/L (22-32); Chloride 111 mmol/L (98-107); Creatine Kinase 78 U/L (30-135); Estimated Glomerular Filt Rate > 60.0 mL/min (>60); Ethanol (ETOH) < 10 mg/dL; Globulin 2.9 g/dL (1.7-4.1); Glucose 106 mg/dL (70-100); HEMOLYSIS < 15 (0-50); Lipase 26 U/L (23-300); Sodium 138 mmol/L (137-145); Total Protein 6.7 g/dL (6.3-8.2)
[2020-04-08 16:13] LABS: Lactate (Lactic Acid) 1.3 mmol/L (0.7-2.1); PTT Partial Thromboplastin Tim 31 SECONDS (26.4-36.2)
[2020-04-08 16:23] LABS: Troponin I < 0.012 ng/mL (0.01-0.034)
[2020-04-08 17:11] LABS: NT-proBNP (BNP-Adult 18+) 3680 pg/mL (<125)
[2020-04-08] MEDS: FUROSEMIDE 40 MG/4 ML VIAL IV (17:26)
--- NOTE | 2020-04-08 18:41 | PC.NURSE ---
atempting to ambulate pt with pulse ox stating 89% on room air with excertional dyspnea md aware
[2020-04-08 19:06] LABS: COVID19 -Nasal RAPID Negative (Negative)
[2020-04-08 20:22] LABS: Magnesium 1.7 mg/dL (1.6-2.3)
--- NOTE | 2020-04-08 20:26 | PM.HP.1 ---
History of Present Illness History of Present Illness Date Patient Seen: 04/08/20 Time Patient Seen: 20:30 Chief complaint: sob Narrative: Maricarmen Ho is 54-year-old female with a history of germline BRCA 2 mutation carrier with a triple negative infiltrating ductal carcinoma of the right breast currently in remission but under surveillance, brain metastases which was resected in [place] and treated with gamma knife radiotherapy, currently under remission, history of hep C, history of splenomegaly, presented with a 3 day history of shortness of breath. She states she has had abdominal pain, a productive cough, and diarrhea for the past 3-4 days. She also states that her stomach has been louder than it normally is and that she is bloated. She has a history of rheumatoid arthritis and has chronic joint swelling. She denied fever sweats or chills, nausea or vomiting, dysuria, skin issues, she does have chronic neuropathic pain for which she takes gabapentin for. She was just seen in clinic with Dr. Harper, who ordered a surveillance CT scan of her chest, abdomen and pelvis which reported a right pleural effusion and a smaller trace left pleural effusion. Per the patient she presented herself to the emergency department after having the CT scan done with complaints as stated above. She is afebrile, blood pressure 124/75, heart rate 106, respiratory rate 22, oxygen saturation of 96% on room air, she weighs 103.5 kg with a BMI of 34.2. Her WBC is 5.5, RBC 3.90, hemoglobin 12.5, hematocrit 37.1, platelet count 172, INR is 1.4, sodium 138, potassium 4.0, chloride 111, bicarb 19, BUN 8, creatinine 0.63, GFR is greater than 60, glucose 106, lactate 1.3, calcium 8.7, magnesium 1.7, liver enzymes within normal limits her proBNP was elevated at 3680, lipase 26, alcohol level was within normal limits, COVID-19 PCR was negative. Patient History Medical History Alcohol use (Chronic) Balance problem (Acute) BRCA2 gene mutation positive in female (Acute) Breast cancer metastasized to brain (Chronic) Chemotherapy-induced neuropathy (Acute) Colon polyps (Resolved 04/03/16) Decreased scourer strength of left hand (Acute) Depression (Chronic) Encounter for tobacco use cessation counseling (Acute) Hepatic cirrhosis (Chronic) Hepatitis C (Chronic ~1995) Musculoskeletal pain (Chronic ~2015) Rheumatoid arthritis (Chronic ~2015) Surgical History History of appendectomy (Resolved 1998) History of bilateral mastectomy (Resolved 2013) History of bilateral salpingo-oophorectomy (Resolved 2013) History of section (Resolved 1999) History of colonoscopy with polypectomy (Resolved 04/03/16) History of esophagogastroduodenoscopy (EGD) (Resolved 04/03/16) History of tubal ligation (Resolved 1995) Status post gamma knife treatment (Resolved 2013) Family & Social History Family History Father No problems noted. Grandfather No problems noted. Grandmother Stomach cancer Mother Enlarged aorta Breast cancer Grandfather Myelofibrosis Grandmother Parkinson's disease Social History: household members spouse,children Prior Living Arrangements House Safety & Behavioral: Feels Safe in Current Yes Environment Been Physically Hurt or No Threatened By a Person Suicidal Ideation Description None Tobacco & Substance use: Smoking Status Current every day smoker alcohol intake former states quit 01/2019 alcohol intake frequency 0-2 drinks per day Substance Use Type marijuana Meds Home Medications and Allergies Home Medications Medication Instructions Recorded Confirmed Type sumatriptan succinate 50 mg tablet 50 mg PO SEE INSTRUCTIONS PRN #10 09/20/18 04/08/20 Rx tab bupropion HCl 150 mg 24 hr tablet, 150 mg PO QAM #90 tab 01/24/20 04/08/20 Rx extended release sulfasalazine 500 mg tablet See Rx Instructions .ROUTE 02/21/20 04/08/20 Rx .COMPLEX #60 tablet albuterol sulfate 90 mcg/actuation See Rx Instructions .ROUTE 02/29/20 04/08/20 Rx aerosol inhaler .COMPLEX #17 gram methotrexate sodium 5 mg tablet 15 mg PO QWEEK #240 tab 03/01/20 04/08/20 Rx hydroxychloroquine 200 mg tablet See Rx Instructions .ROUTE 03/04/20 04/08/20 Rx .COMPLEX #180 tab gabapentin 300 mg capsule 300 mg PO TID #270 cap 03/26/20 04/08/20 Rx folic acid 1 mg PO DAILY 04/08/20 04/08/20 History Allergies Allergy/AdvReac Type Severity Reaction Status Date / Time latex [LATEX] Allergy Intermediate RASH, SKIN Verified 03/01/20 09:36 PEELS penicillin G [PENICILLIN G] Allergy Unknown I WAS A Verified 03/01/20 09:36 KID SO I DON'T REMEMBER morphine [MORPHINE] AdvReac Severe HURTS MY Verified 03/01/20 09:36 STOMACH SO BAD Review of Systems Review of Systems ROS: Yes All systems reviewed with the patient and are negative except as otherwise documented Exam Vital Signs (past 8 hours): - 04/08/20 15:57 04/08/20 16:13 04/08/20 16:30 Temperature 98.1 F Pulse Rate 108 H 107 H 106 H Respiratory Rate 22 26 H 25 H Blood Pressure 121/72 133/80 Pulse Oximetry 96 96 94 04/08/20 17:00 04/08/20 17:30 04/08/20 18:03 Temperature Pulse Rate 108 H 108 H 109 H Respiratory Rate 23 31 H Blood Pressure 115/78 Pulse Oximetry 94 96 98 04/08/20 18:05 04/08/20 18:30 04/08/20 19:00 Temperature Pulse Rate 109 H 105 H 104 H Respiratory Rate 27 H 24 27 H Blood Pressure 123/86 131/82 Pulse Oximetry 96 97 98 04/08/20 19:30 Temperature Pulse Rate 101 H Respiratory Rate 20 Blood Pressure 116/82 Pulse Oximetry 96 Oxygen Delivery Method Room Air Narrative Exam Narrative: Gen: Alert, oriented, disheveled-appearing 54 y.o. female, appears older than stated age HEENT: normocephalic, atraumatic, conjunctiva clear, sclera non-icteric, oral mucosa pink and moist Neck: supple, full ROM, no JVD, trachea is midline Resp: Lungs CTA, non-labored breathing CV: RRR, no murmur or rubs Abd: obese, with a fluid waive, hardened epigastric, hypoactive bowel tones Skin: Significant hair thinning, no lesions or rashes, dry and intact Neuro: Alert and oriented X 4 w/no focal deficits. Speech clear and coherent. Extremities: +2 nonpitting edema, moves all 4 extremities, is ambulatory, negative Michael?s sign Psyche: normal mood and affect. Objective Labs Result Diagrams: 04/08/20 23:59 04/08/20 15:50 Labs: Laboratory Results - last 24 hr 10/19/20 10/19/20 10/19/20 15:20 15:20 15:50 WBC 5.5 RBC 3.90 L Hgb 12.5 Hct 37.1 MCV 95.1 MCH 32.0 MCHC 33.6 RDW 14.9 H Plt Count 172 Neut % (Auto) 67.6 Lymph % (Auto) 21.1 L [place] % (Auto) 8.0 Eos % (Auto) 2.4 Baso % (Auto) 0.9 Neut # (Auto) 3700 Lymph # (Auto) 1200 [place] # (Auto) 400 Eos # (Auto) 100 Baso # (Auto) 0 PT INR APTT Sodium Potassium Chloride Carbon Dioxide BUN Creatinine Estimated GFR BUN/Creatinine Ratio Glucose Lactate Calcium Magnesium 1.7 Total Bilirubin AST ALT Alkaline Phosphatase Ammonia Total Creatine Kinase CK-MB (CK-2) CK-MB (CK-2) Rel Index Troponin I NT-Pro-B Natriuret Pep 3680 H Total Protein Albumin Globulin Albumin/Globulin Ratio Lipase Ethyl Alcohol COVID- PCR 04/08/20 04/08/20 04/08/20 15:50 15:50 15:50 WBC RBC Hgb Hct MCV MCH MCHC RDW Plt Count Neut % (Auto) Lymph % (Auto) [place] % (Auto) Eos % (Auto) Baso % (Auto) Neut # (Auto) Lymph # (Auto) [place] # (Auto) Eos # (Auto) Baso # (Auto) PT 16.2 H INR 1.4 H APTT Sodium 138 Potassium 4.0 Chloride 111 H Carbon Dioxide 19 L BUN 8 Creatinine 0.63 Estimated GFR > 60.0 BUN/Creatinine Ratio 12.7 Glucose 106 H Lactate 1.3 Calcium 8.7 Magnesium Total Bilirubin 0.9 AST 26 ALT 21 Alkaline Phosphatase 61 Ammonia Total Creatine Kinase CK-MB (CK-2) CK-MB (CK-2) Rel Index Troponin I NT-Pro-B Natriuret Pep Total Protein 6.7 Albumin 3.8 Globulin 2.9 Albumin/Globulin Ratio 1.3 Lipase 26 Ethyl Alcohol < 10 COVID- PCR 04/08/20 04/08/20 04/08/20 15:50 15:50 15:50 WBC RBC Hgb Hct MCV MCH MCHC RDW Plt Count Neut % (Auto) Lymph % (Auto) [place] % (Auto) Eos % (Auto) Baso % (Auto) Neut # (Auto) Lymph # (Auto) [place] # (Auto) Eos # (Auto) Baso # (Auto) PT INR APTT 31 Sodium Potassium Chloride Carbon Dioxide BUN Creatinine Estimated GFR BUN/Creatinine Ratio Glucose Lactate Calcium Magnesium Total Bilirubin AST ALT Alkaline Phosphatase Ammonia 12 Total Creatine Kinase 78 CK-MB (CK-2) TNP CK-MB (CK-2) Rel Index TNP Troponin I < 0.012 NT-Pro-B Natriuret Pep Total Protein Albumin Globulin Albumin/Globulin Ratio Lipase Ethyl Alcohol COVID-19 PCR 04/08/20 18:37 WBC RBC Hgb Hct MCV MCH MCHC RDW Plt Count Neut % (Auto) Lymph % (Auto) [place] % (Auto) Eos % (Auto) Baso % (Auto) Neut # (Auto) Lymph # (Auto) [place] # (Auto) Eos # (Auto) Baso # (Auto) PT INR APTT Sodium Potassium Chloride Carbon Dioxide BUN Creatinine Estimated GFR BUN/Creatinine Ratio Glucose Lactate Calcium Magnesium Total Bilirubin AST ALT Alkaline Phosphatase Ammonia Total Creatine Kinase CK-MB (CK-2) CK-MB (CK-2) Rel Index Troponin I NT-Pro-B Natriuret Pep Total Protein Albumin Globulin Albumin/Globulin Ratio Lipase Ethyl Alcohol COVID-19 PCR Negative Assessment & Plan Assessment & Plan narrative: Maricarmen Ho is admitted for a new onset acute CHF exacerbation vs reoccurance of malignant pleural effusion. Increased shortness of breath and abdominal girth concerning for an acute abdomen -Patient noted to be tachypnic, saw the patient a second time -She has increased abdominal girth and distention and has a fluid wave bilaterally. -Stat KUB ordered, appears to have large pockets of gas, read as focal adynamic ileus vs early partial mechanical obstruction -Requested stat ultrasound to discern changes in gall bladder, liver and if there is ascites. No ascites, but she has severe gallbladder wall thickening 9 mm, and a 6 mm calulus with possible pericholecystic fluid -CT scan did indicate fatty liver, thickened appearance of the gall bladder wall with pericholecystic fluid concerning for cholecystitis w/no visualized stones -Lactate has increased from 1.2 to 2.0 -CBC, troponin pending -Discussed w/Dr. Grimm, recommends IV zosyn and will consult on the patient. -Discussed with the patient and she understands current situation. New onset CHF exacerbation vs malignant pleural effusion, acute, present on administration -CXR concerning for a right-sided pleural effusion and a trace left-sided pleural effusion and cardiomegaly -proBNP is significantly elevated at 3680 -She was administered furosemide 40 mg IV in the ED -Echocardiogram in the am -IV furosemide written for 40 mg bid onward Chronic liver disease -CT indicated steteosis of the liver, ultrasound did not identify ascites, but with chronic hepatocellular disease. Rheumatoid arthritis, chronic and present on admission -Continue home doses of hydroxychloroquin 400 mg po daily, sulfasalazine 500 mg po bid -She takes methotrexate 15 mg once weekly and her last dose was on 04/07, so this is not ordered VTE prophylaxis: Wells risk score: 0, Caprini score is moderate due to past malignancy and CHF Enoxaparin 40 mg subQ daily Consults: none Patient is admitted under inpatient status with expected length of stay greater than 2 midnights due to severity of presenting symptoms, risk of adverse event, and complexity of treatment plan. FEN: IV saline lock, NPO, BMP and magnesium in the am. Dispo: Unknown at this time Code Status: full code as discussed with patient Scores Wells' Criteria for PE Clinical signs and symptoms of DVT: No PE is #1 Dx or equally likely: No Heart rate > 100: No Immobilization at least 3 days or surg in previous 4 weeks: No History of PE or DVT: No Hemoptysis: No Malignancy w/Treatment within 6 months or palliative: No Wells' PE Score total: 0
[2020-04-08] MEDS: GABAPENTIN 300 MG CAPSULE PO (20:48)
[2020-04-08] MEDS: ACETAMINOPHEN 325 MG TABLET 650 MG PO (20:48)
[2020-04-08] MEDS: METOPROLOL IR 25 MG TABLET 12.5 MG PO (20:48)
[2020-04-08] MEDS: sulfaSALAzine 500 MG TABLET PO (20:49)
--- NOTE | 2020-04-08 22:21 | PC.NURSE ---
1952 Pt arrived via gurney from ED, A/Ox3, pleasant lady was able to ambulate to bed. Connected to monitoring equipment, oriented to room, call light system and television. Bed low and locked, call light within reach, will continue to monitor.
[2020-04-09] VITALS (10 sets, daily range): BP systolic 93–113; BP diastolic 64–75; PULSE 75–92; RESP 16–40; TEMP 35.6–36.6; O2SAT 93–100
--- NOTE | 2020-04-09 | DI.ECHO.S_ITS ---
[facility] +---------+ [facility] +---------+ : : 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 There is severe global hypokinesis of the left ventricle. There is moderate mitral regurgitation. There is moderate tricuspid regurgitation. The right ventricular systolic pressure is estimated to be at least 44 mmHg based on an estimated right atrial pressure of 15 mm Hg. There is a small pericardial effusion that is circumferential. Procedure: A two-dimensional transthoracic echocardiogram with color flow and Doppler was performed. The study quality was technically adequate. There is no prior echocardiogram noted for this patient. Left Ventricle: There is normal left ventricular wall thickness. The estimated left ventricular end diastolic volume is 209 ml. The left ventricle is severely dilated. The ejection fraction is estimated to be 15-20%. There is severe global hypokinesis of the left ventricle. Right Ventricle: The right ventricle is mildly dilated. Right ventricular systolic function is mildly reduced. Atria: The left atrium is severely dilated. The right atrium is mild to moderately dilated. There is no Doppler evidence for an interatrial shunt. Mitral Valve: The mitral valve leaflets appear mildly thickened, but open well. There is mild mitral annular calcification. There is moderate mitral regurgitation. There are multiple regurgitant jets present. Aortic Valve: The aortic valve is trileaflet. The aortic valve opens well. There is no aortic valve stenosis. There is trace aortic regurgitation. Tricuspid Valve: The tricuspid valve leaflets are thin and pliable. The right ventricular systolic pressure is estimated to be at least 44 mmHg based on an estimated right atrial pressure of 15 mm Hg. There is moderate tricuspid regurgitation. Pulmonic Valve: The pulmonic valve leaflets are thin and pliable; valve motion is normal. There is trace pulmonic regurgitation. Great Vessels: The aortic root is normal size. The ascending aorta is mildly enlarged. The IVC is dilated (diameter is greater than 2.1 cm) and it collapses less than 50% with a sniff. This suggests a high right atrial pressure of 15 mm Hg. Pericardium/ Pleura There is a small pericardial effusion that is circumferential. There is no pleural effusion. MMode/2D Measurements & Calculations LVIDd: 7.0 cm LVOT diam: 2.1 cm LVIDs: 6.5 cm Ao root diam: 3.5 cm FS: 7.4 % asc Aorta Diam: 3.5 cm EPSS: 2.2 cm Ao Arch Diam (Prox Trans): 3.0 cm IVSd: 0.84 cm LVPWd: 0.99 cm LV tinajero. diameter/BSA (cm/m^2): 3.3 LV sys. diameter/BSA (cm/m^2): 3.0 LA A2 area: 32.1 cm2 RA long axis: 6.2 cm LA A4 area: 31.2 cm2 RA area: 24.7 cm2 LA length (vol): 7.6 cm RA vol: 83.7 ml LA vol: 112.4 ml RA : 38.7 ml/m2 LA vol index: 52.0 ml/m2 IVC diam: 2.7 cm RVD1 (basal): 4.3 cm TAPSE: 1.6 cm Doppler Measurements & Calculations Ao V2 max: 100.8 cm/sec LVOT Max Blaine: 54.5 cm/sec Ao V2 mean: 67.6 cm/sec LV V1 max P.2 mmHg Ao max P.1 mmHg LV V1 VTI: 7.6 cm Ao mean P.1 mmHg SEAMUS(I,D): 1.7 cm2 Ao V2 VTI: 16.5 cm SEAMUS(V,D): 1.9 cm2 sev ratio: 0.46 SEAMUS indexed to BSA (cm^2/m^2): 0.77 MV E max blaine: 51.0 cm/sec TR max blaine: 258.2 cm/sec MV A max blaine: 68.2 cm/sec TR max P.0 mmHg MV E/A: 0.75 PA V2 max: 44.4 cm/sec Med Peak E' Blaine: 2.2 cm/sec PA V2 mean: 26.3 cm/sec E/E' med: 23.5 PA mean P.34 mmHg Lat Peak E' Blaine: 2.4 cm/sec PA pr(Accel): 41.3 mmHg E/E' lat: 20.9 E/e' average: 22.2 MV dec time: 0.12 sec MR ERO: 0.28 cm2 MR PISA: 3.0 cm2 SV(LVOT): 27.3 ml MR flow rate: 125.4 cm3/sec MR PISA radius: 0.69 cm Reading Physician:12:27 PM
[2020-04-09 00:03] LABS: Creatine Kinase 70 U/L (30-135)
[2020-04-09 00:04] LABS: Troponin I 0.014 ng/mL (0.01-0.034)
[2020-04-09 00:31] LABS: Add Manual Diff / Slide Review NO; Basophils Absolute Auto 100 /uL (0-100); Basophils Percent Auto 1.1 % (0-2); Eosinophils Absolute Auto 200 /uL (0-450); Eosinophils Percent Auto 2.8 % (2-4); Hematocrit 40.7 % (36-46); Hemoglobin 13.5 g/dL (12.0-16.0); Lymphocytes Absolute Auto 1700 /uL (1100-4500); Mean Corpuscular HGB Conc 33.1 % (30-36); Mean Corpuscular Hemoglobin 31.6 PG (26-34); Mean Corpuscular Volume 95.2 fL (80-100); Monocytes Absolute Auto 400 /uL (0-900); Monocytes Percent Auto 8.3 % (3-14); Neutrophils Absolute Auto 3000 /uL (1500-7000); Neutrophils Percent Auto 55.8 % (50-75); Platelet Count 183 X10^3/uL (150-400); Red Blood Cell Count 4.28 X10^6/uL (4.0-5.2); Red Cell Distribution Width 14.9 % (11.6-14.8); White Blood Cell Count 5.4 X10^3/uL (4.5-11.0)
--- NOTE | 2020-04-09 00:32 | DI.US.S_ITS ---
PROCEDURE: US ABDOMEN LIMITED INDICATIONS: INCREASING ABDOMINAL GIRTH TECHNIQUE: Real-time focused scanning was performed of the abdomen, with image documentation. COMPARISON: None. FINDINGS: There is a mild degree of fatty infiltration within the liver. The gallbladder contains several small stones in the gallbladder wall is abnormally thickened at 9 mm. A slight amount of adjacent free fluid is seen. No ascites throughout the abdomen and visualized pelvis is found. IMPRESSION: Abnormal gallbladder wall thickening, note is made of small gallstones within the gallbladder lumen and a slight amount of adjacent free fluid. Chronic cholecystitis could be present versus obstructive cholecystitis. Nuclear medicine hepatobiliary scan is scheduled. Dictated by: Lul Thompson M.D. on 04/09/2020 at 8:31 Approved by: Lul Thompson M.D. on 04/09/2020 at 8:32
--- NOTE | 2020-04-09 00:33 | DI.RAD.S_ITS ---
PROCEDURE: XR KUB INDICATIONS: increasing abdominal girth, concerning for gas/fluid TECHNIQUE: One view of the abdomen acquired. COMPARISON: [facility], CT, CT CHEST ABD PEL W CON, 04/03/2020, 15:44. FINDINGS: Surgical changes and devices: None. Bowel: Bowel gas pattern is normal. Soft tissues: No suspicious abdominal calcifications. Visualized solid organ contours appear normal in size. Bones: No suspicious bony lesions. IMPRESSION: Mild gas prominence within the large and small bowel, but not to the degree that intestinal obstruction would be suspected. Dictated by: Lul Thompson M.D. on 04/09/2020 at 8:42 Approved by: Lul Thompson M.D. on 04/09/2020 at 8:43
[2020-04-09] MEDS: BISACODYL 10 MG SUPP PR (00:42)
[2020-04-09] MEDS: FUROSEMIDE 40 MG/4 ML VIAL IV ×2 (00:42→10:00)
[2020-04-09] MEDS: ONDANSETRON 4 MG/2 ML INJ IV (00:47)
[2020-04-09 00:49] LABS: Procalcitonin < 0.05 ng/mL (<0.5)
--- NOTE | 2020-04-09 01:32 | PC.NURSE ---
Addendum entered by Leydi Palma R.N. 04/09/20 06:06: Patient has felt better as shift has progressed. Patient given suppository with little result from it, but passing large amounts of flatus. Patient now NPO due to results of ultrasound - pending surgery consult this AM with Dr. Grimm. IV Zosyn started with patient tolerating first dose with no complaints of reaction symptoms (pt with Penicillin allergy). Patient ambulated to bathroom multiple times throughout shift with less dyspnea on exertion. Abdominal distention still present. Patient with no further complaints of nausea and no pain present. Patient currently sleeping, no distress noted. Will continue to monitor. Original Note: 2321- Patient placed call light on stating she was having a hard time catching her breath and that she felt bloated. This RN examined patient to find her diaphoretic, dusky, tachypnic with RR 30's. Patient stated she was very short of breath. MIGUEL Mueller notified immediately of findings and presented at bedside at 2328. Orders were placed for STAT labs, KUB, and an abdominal ultrasound. Patient was given an additional 40 mg Furosemide, and a Bisacodyl suppository. Further, patient had new complaint of nausea. Zofran 4mg administered. Patient remains AOx4, but very restless, anxious. Le Melgoza also notified of these continued symptoms.
[2020-04-09] MEDS: PIPERACILLIN-TAZO 3.375 GM/50 ML FROZ.PIGGY IV ×3 (02:15→15:07)
[2020-04-09 05:20] LABS: Add Manual Diff / Slide Review NO; Basophils Absolute Auto 0 /uL (0-100); Basophils Percent Auto 0.7 % (0-2); Eosinophils Absolute Auto 200 /uL (0-450); Eosinophils Percent Auto 2.8 % (2-4); Hematocrit 37.1 % (36-46); Hemoglobin 12.6 g/dL (12.0-16.0); Lymphocytes Absolute Auto 1100 /uL (1100-4500); Lymphocytes Percent Auto 20.4 % (25-40); Mean Corpuscular HGB Conc 33.9 % (30-36); Mean Corpuscular Hemoglobin 32.1 PG (26-34); Mean Corpuscular Volume 94.5 fL (80-100); Monocytes Absolute Auto 600 /uL (0-900); Neutrophils Absolute Auto 3600 /uL (1500-7000); Neutrophils Percent Auto 66.1 % (50-75); Platelet Count 136 X10^3/uL (150-400); Red Blood Cell Count 3.92 X10^6/uL (4.0-5.2); Red Cell Distribution Width 15.2 % (11.6-14.8); White Blood Cell Count 5.5 X10^3/uL (4.5-11.0)
[2020-04-09 05:33] LABS: BUN Creatinine Ratio 11.3 (6-22); Blood Urea Nitrogen 11 mg/dL (7-17); Calcium 8.7 mg/dL (8.4-10.2); Carbon Dioxide 26 mmol/L (22-32); Chloride 106 mmol/L (98-107); Cholesterol 103 mg/dL (140-199); Estimated Glomerular Filt Rate 59.6 mL/min (>60); Glucose 97 mg/dL (70-100); HDL Cholesterol 26 mg/dL (40-60); HEMOLYSIS < 15 (0-50); LDL Cholesterol Calculated 64 mg/dL (<100); Magnesium 1.7 mg/dL (1.6-2.3); Potassium 3.8 mmol/L (3.4-5.1); Sodium 139 mmol/L (137-145); Triglycerides 63 mg/dL (35-150)
[2020-04-09 05:39] LABS: Troponin I < 0.012 ng/mL (0.01-0.034)
--- NOTE | 2020-04-09 07:00 | DI.NM.S_ITS ---
PROCEDURE: NM HIDA WITH CCK PHARMACEUTICAL: 5.7 mCi Tc-99m mebrofenin IV; 2.1 mcg CCK IV. INDICATIONS: r/o acute cholecystitis TECHNIQUE: Following intravenous administration of Tc-99m mebrofenin, sequential anterior abdominal images were obtained. To evaluate the contractile response of the gallbladder in response to Cholecystokinin (CCK), sincalide (0.02 ?g/kg) was administered by slow intravenous infusion approximately 60 minutes after the administration of the radiopharmaceutical. Sequential imaging was continued for 30 minutes after the start of CCK infusion. Gallbladder ejection fraction was calculated. COMPARISON: None. FINDINGS: Biliary scan: There is normal tracer uptake and excretion by the liver. There is normal visualization of the intrahepatic ducts, common bile duct, and gallbladder. There is normal tracer transit into the duodenum. CCK stimulation: There is abnormal low contractile response of the gallbladder to CCK infusion. The calculated gallbladder ejection fraction is 30%; normal values are above 35%. It has been shown that any patient abdominal pain after CCK administration is related to the rate of CCK injection, rather than to any underlying gallbladder disease (Clinical Nuclear Medicine 2012; 37: 63-70. Journal of Nuclear Medicine 2014; 55: 1-9). IMPRESSION: No findings of acute or chronic cholecystitis. There is abnormally low gallbladder ejection fraction which in the appropriate clinical setting is consistent with gallbladder/biliary dyskinesia and be a potential pain generator. Dictated by: Nikita Nevarez M.D. on 04/09/2020 at 14:51 Approved by: Nikita Nevarez M.D. on 04/09/2020 at 14:55
[2020-04-09] MEDS: ASPIRIN EC 81 MG TABLET PO (08:37)
[2020-04-09] MEDS: buPROPion XL 150 MG TAB PO (08:37)
[2020-04-09] MEDS: HYDROXYCHLOROQUINE 200 MG TABLET 400 MG PO (08:37)
[2020-04-09] MEDS: GABAPENTIN 300 MG CAPSULE PO ×3 (08:37→20:40)
[2020-04-09] MEDS: METOPROLOL IR 25 MG TABLET 12.5 MG PO (08:37)
[2020-04-09] MEDS: ENOXAPARIN 40 MG/0.4 ML SYRINGE SUBCUT (08:39)
[2020-04-09] MEDS: sulfaSALAzine 500 MG TABLET PO ×2 (08:39→20:40)
--- NOTE | 2020-04-09 09:34 | P.PN_ITS ---
Subjective Subjective Date Patient Seen: 04/09/20 Interval history: Patient reports no abdominal pain or nausea. She states her breathing has improved however she is still somewhat short of breath. In addition she has noted that her abdominal distension has improved as well. She is scheduled for a HIDA scan today. Patient is also scheduled for cardiac echo. Exam Vital Signs (past 8 hours): - 04/09/20 05:45 04/09/20 07:00 Temperature 97 F L 97.8 F Pulse Rate 85 84 Respiratory Rate 16 20 Blood Pressure 108/75 113/72 Pulse Oximetry 97 100 Oxygen Delivery Method Room Air Oxygen Flow Rate 0 Narrative Exam Narrative: Pleasant female resting comfortably in no obvious distress Lungs: Decreased breath sounds but clear to auscultation Cardiac exam: Regular rate and rhythm normal S1-S2 Abdomen: Soft, nontender, no rebound tenderness no board-like rigidity, liver edge is palpable, Extremities: No edema Objective Labs Result Diagrams: 04/09/20 04:43 04/09/20 04:43 Labs: Laboratory Results - last 24 hr 04/08/20 04/08/20 04/08/20 15:20 15:20 15:50 WBC 5.5 RBC 3.90 L Hgb 12.5 Hct 37.1 MCV 95.1 MCH 32.0 MCHC 33.6 RDW 14.9 H Plt Count 172 Neut % (Auto) 67.6 Lymph % (Auto) 21.1 L [place] % (Auto) 8.0 Eos % (Auto) 2.4 Baso % (Auto) 0.9 Neut # (Auto) 3700 Lymph # (Auto) 1200 [place] # (Auto) 400 Eos # (Auto) 100 Baso # (Auto) 0 PT INR APTT Sodium Potassium Chloride Carbon Dioxide BUN Creatinine Estimated GFR BUN/Creatinine Ratio Glucose Lactate Calcium Magnesium 1.7 Total Bilirubin AST ALT Alkaline Phosphatase Ammonia Total Creatine Kinase CK-MB (CK-2) CK-MB (CK-2) Rel Index Troponin I NT-Pro-B Natriuret Pep 3680 H Total Protein Albumin Globulin Albumin/Globulin Ratio Triglycerides Cholesterol LDL Cholesterol, Calc HDL Cholesterol Lipase Procalcitonin Nasal Screen MRSA (PCR) Ethyl Alcohol COVID-19 PCR 04/08/20 04/08/20 04/08/20 15:50 15:50 15:50 WBC RBC Hgb Hct MCV MCH MCHC RDW Plt Count Neut % (Auto) Lymph % (Auto) [place] % (Auto) Eos % (Auto) Baso % (Auto) Neut # (Auto) Lymph # (Auto) [place] # (Auto) Eos # (Auto) Baso # (Auto) PT 16.2 H INR 1.4 H APTT Sodium 138 Potassium 4.0 Chloride 111 H Carbon Dioxide 19 L BUN 8 Creatinine 0.63 Estimated GFR > 60.0 BUN/Creatinine Ratio 12.7 Glucose 106 H Lactate 1.3 Calcium 8.7 Magnesium Total Bilirubin 0.9 AST 26 ALT 21 Alkaline Phosphatase 61 Ammonia Total Creatine Kinase CK-MB (CK-2) CK-MB (CK-2) Rel Index Troponin I NT-Pro-B Natriuret Pep Total Protein 6.7 Albumin 3.8 Globulin 2.9 Albumin/Globulin Ratio 1.3 Triglycerides Cholesterol LDL Cholesterol, Calc HDL Cholesterol Lipase 26 Procalcitonin Nasal Screen MRSA (PCR) Ethyl Alcohol < 10 COVID-19 PCR 04/08/20 04/08/20 04/08/20 15:50 15:50 15:50 WBC RBC Hgb Hct MCV MCH MCHC RDW Plt Count Neut % (Auto) Lymph % (Auto) [place] % (Auto) Eos % (Auto) Baso % (Auto) Neut # (Auto) Lymph # (Auto) [place] # (Auto) Eos # (Auto) Baso # (Auto) PT INR APTT 31 Sodium Potassium Chloride Carbon Dioxide BUN Creatinine Estimated GFR BUN/Creatinine Ratio Glucose Lactate Calcium Magnesium Total Bilirubin AST ALT Alkaline Phosphatase Ammonia 12 Total Creatine Kinase 78 CK-MB (CK-2) TNP CK-MB (CK-2) Rel Index TNP Troponin I < 0.012 NT-Pro-B Natriuret Pep Total Protein Albumin Globulin Albumin/Globulin Ratio Triglycerides Cholesterol LDL Cholesterol, Calc HDL Cholesterol Lipase Procalcitonin Nasal Screen MRSA (PCR) Ethyl Alcohol COVID-19 PCR 04/08/20 04/08/20 04/08/20 18:37 22:51 22:51 WBC RBC Hgb Hct MCV MCH MCHC RDW Plt Count Neut % (Auto) Lymph % (Auto) [place] % (Auto) Eos % (Auto) Baso % (Auto) Neut # (Auto) Lymph # (Auto) [place] # (Auto) Eos # (Auto) Baso # (Auto) PT INR APTT Sodium Potassium Chloride Carbon Dioxide BUN Creatinine Estimated GFR BUN/Creatinine Ratio Glucose Lactate Calcium Magnesium Total Bilirubin AST ALT Alkaline Phosphatase Ammonia Total Creatine Kinase 70 CK-MB (CK-2) TNP CK-MB (CK-2) Rel Index TNP Troponin I Cancelled 0.014 NT-Pro-B Natriuret Pep Total Protein Albumin Globulin Albumin/Globulin Ratio Triglycerides Cholesterol LDL Cholesterol, Calc HDL Cholesterol Lipase Procalcitonin Nasal Screen MRSA (PCR) Ethyl Alcohol COVID- PCR Negative 04/08/20 04/08/20 04/08/20 23:45 23:59 23:59 WBC 5.4 RBC 4.28 Hgb 13.5 Hct 40.7 MCV 95.2 MCH 31.6 MCHC 33.1 RDW 14.9 H Plt Count 183 Neut % (Auto) 55.8 Lymph % (Auto) 32.0 [place] % (Auto) 8.3 Eos % (Auto) 2.8 Baso % (Auto) 1.1 Neut # (Auto) 3000 Lymph # (Auto) 1700 [place] # (Auto) 400 Eos # (Auto) 200 Baso # (Auto) 100 PT INR APTT Sodium Potassium Chloride Carbon Dioxide BUN Creatinine Estimated GFR BUN/Creatinine Ratio Glucose Lactate Calcium Magnesium Total Bilirubin AST ALT Alkaline Phosphatase Ammonia Total Creatine Kinase CK-MB (CK-2) CK-MB (CK-2) Rel Index Troponin I NT-Pro-B Natriuret Pep Total Protein Albumin Globulin Albumin/Globulin Ratio Triglycerides Cholesterol LDL Cholesterol, Calc HDL Cholesterol Lipase Procalcitonin < 0.05 Nasal Screen MRSA (PCR) Negative for mrsa Ethyl Alcohol COVID- PCR 04/08/20 04/09/20 04/09/20 23:59 04:43 04:43 WBC 5.5 RBC 3.92 L Hgb 12.6 Hct 37.1 MCV 94.5 MCH 32.1 MCHC 33.9 RDW 15.2 H Plt Count 136 L Neut % (Auto) 66.1 Lymph % (Auto) 20.4 L [place] % (Auto) 10.0 Eos % (Auto) 2.8 Baso % (Auto) 0.7 Neut # (Auto) 3600 Lymph # (Auto) 1100 [place] # (Auto) 600 Eos # (Auto) 200 Baso # (Auto) 0 PT INR APTT Sodium 139 Potassium 3.8 Chloride 106 Carbon Dioxide 26 BUN 11 Creatinine 0.97 Estimated GFR 59.6 L BUN/Creatinine Ratio 11.3 Glucose 97 Lactate 2.0 Calcium 8.7 Magnesium 1.7 Total Bilirubin AST ALT Alkaline Phosphatase Ammonia Total Creatine Kinase CK-MB (CK-2) CK-MB (CK-2) Rel Index Troponin I < 0.012 NT-Pro-B Natriuret Pep Total Protein Albumin Globulin Albumin/Globulin Ratio Triglycerides 63 Cholesterol 103 L LDL Cholesterol, Calc 64 HDL Cholesterol 26 L Lipase Procalcitonin Nasal Screen MRSA (PCR) Ethyl Alcohol COVID-19 PCR Assessment & Plan Assessment & Plan narrative: Impression 1. Acute congestive heart failure, present on admission -cardiac echo pending to determine whether this is acute systolic or acute diastolic heart failure -will continue with 40 mg of IV Lasix daily -will recheck labs according 2. Probable acute cholecystitis -await HIDA scan -await general surgery consultation 3. History of breast cancer now in remission 4. History of hepatitis-C with question cirrhosis 5. Rheumatoid arthritis -will start Voltaren cream for her hands -she is NPO at this time for her HIDA scan -will resume her methotrexate hydroxychloroquine and sulfasalazine once she is able to take p.o. 6
[2020-04-09] MEDS: DICLOFENAC 1% GEL 100 GM 1 APPLIC TOP ×4 (10:00→20:40)
[2020-04-09] MEDS: ALBUTEROL/IPRATROPIUM 3 ML AMPUL INH (10:45)
--- NOTE | 2020-04-09 12:30 | CM.DANOTE ---
DCP: Case received, EMR reviewed and met with patient. Introduced self and role. Was able to obtain information from patient regarding her baseline activity status prior to hospitalization, as well as her current living situation. DCP assessment completed with information currently available. Patient is a 54 year old female who admitted yesterday afternoon to the care of the hospitalist team. PCP: Dr. Greenwood. Payer: confirmed: [employer]icaid. Patient came to the hospital via private vehicle secondary to increased shortness of breath. Patient indicated, she got winded just walking a few steps. Confirmed with her that she is not on any home oxygen at [facility]. Patient holds current diagnosis of pleural effusion/CHF. Patient is here receiving diuretic therapy. Patient is originally from [place]. 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 Patient indicated that she went through gamma ray therapy at [facility], which is what brought her up here. She is currently seeing Dr. Harper at oncology, and has a port a cath. Patient is pleasant. She stated that she resides with her and daughters, and one is 20 with a history of seizure disorders. Patient is independent at baseline, and is currently driving. P: DCP to continue to follow for any needs. She should be able to go home with family when she is medically stable. Daiana Teague RN/[employer]
[2020-04-09 13:10] LABS: Troponin I < 0.012 ng/mL (0.01-0.034)
[2020-04-09] MEDS: lisinopriL 5 MG TABLET PO (15:07)
[2020-04-09] MEDS: carvediloL 3.125 MG TABLET PO ×2 (15:07→20:40)
[2020-04-09] MEDS: LORazepam 1 MG TABLET PO ×2 (15:10→21:44)
--- NOTE | 2020-04-09 18:15 | P.CONS_ITS ---
History of Present Illness Consult details Date Patient Seen: 04/09/20 Time Patient Seen: 18:16 Chief complaint: sob Narrative: 54-year-old woman seen in consultation for possible acute cholecystitis. She is admitted to the hospital for shortness of breath underwen t a CT as well as a ultrasound demonstrates some thickening of the gallbladder wall as well as some pericholecystic fluid. Admission she is afebrile white blood cell count is 6 LFTs within normal limits. She has a complex medical history including congestive heart failure, metastatic breast cancer in cirrhosis. Today she says she has no abdominal pain no nausea no vomiting fever. Meds Home Medications and Allergies Home Medications Medication Instructions Recorded Confirmed Type sumatriptan succinate 50 mg tablet 50 mg PO SEE INSTRUCTIONS PRN #10 09/20/18 04/08/20 Rx tab bupropion HCl 150 mg 24 hr tablet, 150 mg PO QAM #90 tab 01/24/20 04/08/20 Rx extended release sulfasalazine 500 mg tablet See Rx Instructions .ROUTE 02/21/20 04/08/20 Rx .COMPLEX #60 tablet albuterol sulfate 90 mcg/actuation See Rx Instructions .ROUTE 02/29/20 04/08/20 Rx aerosol inhaler .COMPLEX #17 gram methotrexate sodium 5 mg tablet 15 mg PO QWEEK #240 tab 03/01/20 04/08/20 Rx hydroxychloroquine 200 mg tablet See Rx Instructions .ROUTE 03/04/20 04/08/20 Rx .COMPLEX #180 tab gabapentin 300 mg capsule 300 mg PO TID #270 cap 03/26/20 04/08/20 Rx folic acid 1 mg PO DAILY 04/08/20 04/08/20 History Allergies Allergy/AdvReac Type Severity Reaction Status Date / Time latex [LATEX] Allergy Intermediate RASH, SKIN Verified 03/01/20 09:36 PEELS penicillin G [PENICILLIN G] Allergy Unknown I WAS A Verified 03/01/20 09:36 KID SO I DON'T REMEMBER morphine [MORPHINE] AdvReac Severe HURTS MY Verified 03/01/20 09:36 STOMACH SO BAD Review of Systems Review of Systems Narrative: A 10 point review of systems is negative except as noted in the HPI Exam Vital Signs (past 8 hours): - 04/09/20 10:53 04/09/20 11:00 04/09/20 15:00 Temperature 97.2 F L 97.8 F Pulse Rate 76 75 81 Respiratory Rate 18 22 18 Blood Pressure 109/72 107/70 Pulse Oximetry 96 94 95 Oxygen Delivery Method Room Air Oxygen Flow Rate 0 Narrative Exam Narrative: General-no acute distress, obese woman HEENT-moist mucous membranes, no scleral icterus Neck-supple, no lymphadenopathy Chest- non labored respirations, clear to auscultation bilaterally Cardiac-regular rate no peripheral edema Abdomen-soft, nontender, non distended Extremities-warm, well perfused Neurological-alert and oriented, no focal deficits Objective Labs Result Diagrams: 04/09/20 04:43 04/09/20 04:43 Labs: Laboratory Results - last 24 hr 04/08/20 04/08/20 04/08/20 15:20 18:37 22:51 WBC RBC Hgb Hct MCV MCH MCHC RDW Plt Count Neut % (Auto) Lymph % (Auto) [place] % (Auto) Eos % (Auto) Baso % (Auto) Neut # (Auto) Lymph # (Auto) [place] # (Auto) Eos # (Auto) Baso # (Auto) Sodium Potassium Chloride Carbon Dioxide BUN Creatinine Estimated GFR BUN/Creatinine Ratio Glucose Lactate Calcium Magnesium 1.7 Total Creatine Kinase CK-MB (CK-2) CK-MB (CK-2) Rel Index Troponin I Cancelled Triglycerides Cholesterol LDL Cholesterol, Calc HDL Cholesterol Procalcitonin Nasal Screen MRSA (PCR) COVID-19 PCR Negative 04/08/20 04/08/20 04/08/20 22:51 23:45 23:59 WBC RBC Hgb Hct MCV MCH MCHC RDW Plt Count Neut % (Auto) Lymph % (Auto) [place] % (Auto) Eos % (Auto) Baso % (Auto) Neut # (Auto) Lymph # (Auto) [place] # (Auto) Eos # (Auto) Baso # (Auto) Sodium Potassium Chloride Carbon Dioxide BUN Creatinine Estimated GFR BUN/Creatinine Ratio Glucose Lactate Calcium Magnesium Total Creatine Kinase 70 CK-MB (CK-2) TNP CK-MB (CK-2) Rel Index TNP Troponin I 0.014 Triglycerides Cholesterol LDL Cholesterol, Calc HDL Cholesterol Procalcitonin < 0.05 Nasal Screen MRSA (PCR) Negative for mrsa COVID-19 PCR 04/08/20 04/08/20 04/09/20 23:59 23:59 04:43 WBC 5.4 5.5 RBC 4.28 3.92 L Hgb 13.5 12.6 Hct 40.7 37.1 MCV 95.2 94.5 MCH 31.6 32.1 MCHC 33.1 33.9 RDW 14.9 H 15.2 H Plt Count 183 136 L Neut % (Auto) 55.8 66.1 Lymph % (Auto) 32.0 20.4 L [place] % (Auto) 8.3 10.0 Eos % (Auto) 2.8 2.8 Baso % (Auto) 1.1 0.7 Neut # (Auto) 3000 3600 Lymph # (Auto) 1700 1100 [place] # (Auto) 400 600 Eos # (Auto) 200 200 Baso # (Auto) 100 0 Sodium Potassium Chloride Carbon Dioxide BUN Creatinine Estimated GFR BUN/Creatinine Ratio Glucose Lactate 2.0 Calcium Magnesium Total Creatine Kinase CK-MB (CK-2) CK-MB (CK-2) Rel Index Troponin I Triglycerides Cholesterol LDL Cholesterol, Calc HDL Cholesterol Procalcitonin Nasal Screen MRSA (PCR) COVID-19 PCR 04/09/20 04/09/20 04:43 12:35 WBC RBC Hgb Hct MCV MCH MCHC RDW Plt Count Neut % (Auto) Lymph % (Auto) [place] % (Auto) Eos % (Auto) Baso % (Auto) Neut # (Auto) Lymph # (Auto) [place] # (Auto) Eos # (Auto) Baso # (Auto) Sodium 139 Potassium 3.8 Chloride 106 Carbon Dioxide 26 BUN 11 Creatinine 0.97 Estimated GFR 59.6 L BUN/Creatinine Ratio 11.3 Glucose 97 Lactate Calcium 8.7 Magnesium 1.7 Total Creatine Kinase CK-MB (CK-2) CK-MB (CK-2) Rel Index Troponin I < 0.012 < 0.012 Triglycerides 63 Cholesterol 103 L LDL Cholesterol, Calc 64 HDL Cholesterol 26 L Procalcitonin Nasal Screen MRSA (PCR) COVID-19 PCR Assessment & Plan Assessment & Plan narrative: 54-year-old woman admitted hospital with congestive heart failure. I am seeing her in consultation for possible acute cholecystitis. The CT abdomen as well as the abdominal ultrasound demonstrates pericholecystic fluid and some wall thickening of the gallbladder wall. However she is without abdominal pain, fever, leukocytosis and has normal LFTs. HIDA scan was performed that demonstrates no evidence of acute cholecystitis. I suspect that her pericholecystic fluid is secondary to her severe congestive heart failure. No acute surgical intervention is indicated.
[2020-04-09] MEDS: FLUTICASONE 110MCG HFA 120 PUFF INH (19:45)
[2020-04-09] MEDS: FUROSEMIDE 20 MG/2 ML VIAL 40 MG IV (20:40)
[2020-04-10] VITALS: BP 99/69; PULSE 94; RESP 20; TEMP 36.6; O2SAT 96
[2020-04-10 05:00] VITALS: BP 104/75; PULSE 97; RESP 20; TEMP 35.9; O2SAT 90
[2020-04-10 05:54] LABS: Add Manual Diff / Slide Review NO; Basophils Absolute Auto 0 /uL (0-100); Basophils Percent Auto 0.8 % (0-2); Eosinophils Absolute Auto 100 /uL (0-450); Eosinophils Percent Auto 3.5 % (2-4); Hemoglobin 12.1 g/dL (12.0-16.0); Lymphocytes Absolute Auto 1600 /uL (1100-4500); Lymphocytes Percent Auto 37.9 % (25-40); Mean Corpuscular HGB Conc 33.6 % (30-36); Mean Corpuscular Hemoglobin 31.7 PG (26-34); Mean Corpuscular Volume 94.3 fL (80-100); Monocytes Absolute Auto 500 /uL (0-900); Monocytes Percent Auto 11.1 % (3-14); Neutrophils Absolute Auto 1900 /uL (1500-7000); Neutrophils Percent Auto 46.7 % (50-75); Platelet Count 139 X10^3/uL (150-400); Red Blood Cell Count 3.81 X10^6/uL (4.0-5.2); Red Cell Distribution Width 15.2 % (11.6-14.8); White Blood Cell Count 4.1 X10^3/uL (4.5-11.0)
[2020-04-10 06:01] LABS: Blood Urea Nitrogen 20 mg/dL (7-17); Calcium 8.5 mg/dL (8.4-10.2); Carbon Dioxide 24 mmol/L (22-32); Chloride 104 mmol/L (98-107); Estimated Glomerular Filt Rate > 60.0 mL/min (>60); Glucose 111 mg/dL (70-100); HEMOLYSIS < 15 (0-50); Magnesium 1.6 mg/dL (1.6-2.3); Potassium 3.4 mmol/L (3.4-5.1); Sodium 137 mmol/L (137-145)
--- NOTE | 2020-04-10 06:39 | PC.NURSE ---
Shift Cryd-[id number]-Patient is A/Ox4, anxious about getting the results of echo and HidaScan. IV Lasix and carvedilol given, BPs > 90s/60s with MAP 70s, SR, 90s, denies dizziness while ambulating to BR, but does still c/o short of breath, but not as bad as before RA sats 90-96%, RR 20s. PO Ativan given at 2200, she didn't sleep until around 0200, anxious and restless. Denied pain.
[2020-04-10 08:00] VITALS: BP 102/68; RESP 14; TEMP 36; O2SAT 92
[2020-04-10] MEDS: ASPIRIN EC 81 MG TABLET PO (09:05)
[2020-04-10] MEDS: lisinopriL 5 MG TABLET PO (09:05)
[2020-04-10] MEDS: GABAPENTIN 300 MG CAPSULE PO ×2 (09:05→14:33)
[2020-04-10] MEDS: LORazepam 1 MG TABLET PO (09:06)
[2020-04-10] MEDS: HYDROXYCHLOROQUINE 200 MG TABLET 400 MG PO (09:06)
[2020-04-10] MEDS: carvediloL 3.125 MG TABLET PO (09:06)
[2020-04-10] MEDS: ENOXAPARIN 40 MG/0.4 ML SYRINGE SUBCUT (09:06)
[2020-04-10] MEDS: buPROPion XL 150 MG TAB PO (09:06)
[2020-04-10] MEDS: SODIUM CHLORIDE 0.9% FLUSH 10 ML IV (09:06)
[2020-04-10] MEDS: sulfaSALAzine 500 MG TABLET PO (09:06)
[2020-04-10] MEDS: FUROSEMIDE 20 MG/2 ML VIAL 40 MG IV (09:07)
[2020-04-10] MEDS: DICLOFENAC 1% GEL 100 GM 1 APPLIC TOP ×2 (09:07→14:33)
[2020-04-10] MEDS: FLUTICASONE 110MCG HFA 120 PUFF INH (10:15)
[2020-04-10] MEDS: ALBUTEROL HFA 200 PUFF/18 GM INH (COVID POS/VENT PTS) INH (10:15)
[2020-04-10 10:34] VITALS: PULSE 83; RESP 18; O2SAT 96
--- NOTE | 2020-04-10 11:50 | P.DS_ITS ---
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 She states she has had abdominal pain, a productive cough, and diarrhea for the past 3-4 days. She also states that her stomach has been louder than it normally is and that she is bloated. She has a history of rheumatoid arthritis and has chronic joint swelling. She denied fever sweats or chills, nausea or vomiting, dysuria, skin issues, she do es have chronic neuropathic pain for which she takes gabapentin for. She was just seen in clinic with Dr. Harper, who ordered a surveillance CT scan of her chest, abdomen and pelvis which reported a right pleural effusion and a smaller trace left pleural effusion. Per the patient she presented herself to the emergency department after having the CT scan done with complaints as stated above. She is afebrile, blood pressure 124/75, heart rate 106, respiratory rate 22, oxygen saturation of 96% on room air, she weighs 103.5 kg with a BMI of 34.2. Her WBC is 5.5, RBC 3.90, hemoglobin 12.5, hematocrit 37.1, platelet count 172, INR is 1.4, sodium 138, potassium 4.0, chloride 111, bicarb 19, BUN 8, creatinine 0.63, GFR is greater than 60, glucose 106, lactate 1.3, calcium 8.7, magnesium 1.7, liver enzymes within normal limits her proBNP was elevated at 3680, lipase 26, alcohol level was within normal limits, COVID-19 PCR was negative. Discharge Providers Provider Date of admission: 04/08/20 19:14 Discharge Date: 04/10/20 Primary care physician: Aleksandr Greenwood DO Consults: 04/08/20 20:11 Consult to Pastoral Services Routine Comment: patient request 04/09/20 02:02 Consult to Physician Routine Comment: Consulting Provider: Dorian Grimm Reason for consultation: acute cholecystitis, possible ileus Has provider been notified: Yes Discharge provider: Catarina Gamez MD Summary Hospital Course Discharge Diagnosis: 1. Acute systolic heart failure, present on admission 2. Rheumatoid arthritis 3. History of breast cancer, status post mastectomy, chemotherapy, gamma knife treatment 4. History of hepatitis-C Hospital Course: Patient was admitted to the hospital for shortness of breath. On initial studies there was evidence of ascites. The patient ended abdominal ultrasound that initially suggested acute cholecystitis. However HIDA scan co nfirmed there was no evidence of cholecystitis. She received 1 dose of IV Zosyn. That was discontinued. The patient underwent a cardiac echo which showed an ejection fraction of 15-20% with global hypokinesis. The patient's medications were adjusted to treat her for congestive heart failure. She was diuresed with Lasix, started on a beta-francy, is JEAN-CLAUDE-inhibitor, and will be started on spironolactone at discharge. The patient's breathing has improved significantly. She was deemed appropriate for discharge. She will follow-up with cardiology Dr. Hawthorne for further evaluation and treatment of her congestive heart failure Exam Vital Signs (past 8 hours): - 04/10/20 05:00 04/10/20 08:00 04/10/20 10:34 Temperature 96.7 F L 96.8 F L Pulse Rate 97 H 83 Respiratory Rate 20 14 18 Blood Pressure 104/75 102/68 Pulse Oximetry 90 L 92 96 Oxygen Delivery Method Room Air Oxygen Flow Rate 0 Narrative Exam Narrative: Pleasant female in no acute distress Lungs: Decreased breath with occasional basilar crackle Cardiac exam: Regular rate and rhythm normal S1-S2 Abdomen: Soft nontender nondistended Extremities: No edema Objective Labs Result Diagrams: 04/10/20 05:14 04/10/20 05:14 Labs: Laboratory Results - last 24 hr 04/09/20 04/10/20 04/10/20 12:35 05:14 05:14 WBC 4.1 L RBC 3.81 L Hgb 12.1 Hct 36.0 MCV 94.3 MCH 31.7 MCHC 33.6 RDW 15.2 H Plt Count 139 L Neut % (Auto) 46.7 L Lymph % (Auto) 37.9 [place] % (Auto) 11.1 Eos % (Auto) 3.5 Baso % (Auto) 0.8 Neut # (Auto) 1900 Lymph # (Auto) 1600 [place] # (Auto) 500 Eos # (Auto) 100 Baso # (Auto) 0 Sodium 137 Potassium 3.4 Chloride 104 Carbon Dioxide 24 BUN 20 H Creatinine 0.91 Estimated GFR > 60.0 BUN/Creatinine Ratio 22.0 Glucose 111 H Calcium 8.5 Magnesium 1.6 Troponin I < 0.012 Discharge Assessment & Plan Assessment and Plan Assessment: 1. Acute systolic heart failure 2. Rheumatoid arthritis 3. History of breast cancer 4. Hepatitis-C Plan of Treatment: Discharge home on medications as prescribed Follow-up with Dr. Perez next week Discharge Plan Discharge Plan Patient Disposition: Home Discharge orders & Medications Prescriptions: New lisinopril 2.5 mg tablet 2.5 mg PO .qhs Qty: 30 RF: 0 metoprolol tartrate 25 mg tablet 25 mg PO DAILY Qty: 30 RF: 0 spironolactone 25 mg tablet 12.5 mg PO DAILY 30 Days RF: 0 Continued sumatriptan succinate [Imitrex] 50 mg tablet 50 mg PO SEE INSTRUCTIONS PRN (Reason: unknown) Qty: 10 RF: 0 bupropion HCl 150 mg tablet extended release 24 hr 150 mg PO QAM Qty: 90 RF: 0 sulfasalazine 500 mg tablet See Rx Instructions .ROUTE .COMPLEX Qty: 60 RF: 2 albuterol sulfate 90 mcg/actuation HFA aerosol inhaler See Rx Instructions .ROUTE .COMPLEX Qty: 17 RF: 0 hydroxychloroquine 200 mg tablet See Rx Instructions .ROUTE .COMPLEX Qty: 180 RF: 0 gabapentin 300 mg capsule 300 mg PO TID Qty: 270 RF: 0 methotrexate sodium 5 mg tablet 15 mg PO QWEEK Qty: 240 RF: 0 folic acid 1 mg tablet 1 mg PO DAILY RF: 0 No Action lorazepam 1 mg tablet 1 mg PO Q6HR PRN (Reason: Anxiety) Qty: 10 RF: 0 furosemide 20 mg tablet 20 mg PO BID Qty: 60 RF: 11 furosemide [Lasix] 20 mg tablet 20 mg PO BID RF: 0 Follow up/Referrals: Aleksandr Greenwodo DO [Primary Care Provider] - (Dr. Greenwood's office ([facility]) will call you with an appointment time. Cardiology (Dr. Gregorio) referral needed from Dr. Greenwood as soon as possible. ) Visit Report/Discharge Packet Instructions: Eating a Diet Low in Saturated Fat, Trans Fat, and Cholesterol, Heart-Healthy Diet, DI for Heart Failure, Diclofenac Topical (osteoarthritis pain), Spironolactone, Furosemide, Metoprolol, Lisinopril Visit Report Forms: Congestive Heart Failure, Patient Portal/API, Stroke Signs & Symptoms Discharge Data Primary Care Provider: Aleksandr Greenwood Attending Provider: Catarina Gamez Admit Date/Time: 04/08/20 19:14 Discharges patient from system. Discharge Date/Time: 04/10/20 16:04
[2020-04-10 12:00] VITALS: BP 102/60; PULSE 90; RESP 22; TEMP 37; O2SAT 93
--- NOTE | 2020-04-10 14:19 | CM.DPNOTE ---
DC Note DC order for home by Dr Gamez. Close cardiology f/u recommended. Patient tearful in rounds this morning discussing dx of heart failure, Dr Gamez suggests patient retain hope that medical status will improve w/proper management and patient appreciative, denies any [employer] ADMINISTRATOR needs upon DC. P: DC home w/family and close outpt f/u Tamra Stockton, NETWORK SECURITY ADMINISTRATOR
[2020-04-10] MEDS: FOLIC ACID 1 MG TABLET PO (14:33)
[2020-04-10] MEDS: POTASSIUM CHLORIDE 20 MEQ/15 ML UDC 40 MEQ PO (14:33)
== END 2020-04-10 16:04 | disposition home or self-care (01) ==
LOC: ED 18:58 → ICU 04-09 06:58 → AC 04-09 10:27
PROVIDERS: Nurse Practitioner Family; Admitting Provider Internal Medicine; Emergency Provider Emergency Medicine; PCP Family Medicine; Referring Provider Emergency Medicine; Visit Provider Internal Medicine
DX: I50.21 Acute systolic (congestive) heart failure (principal); R06.02 Shortness of breath; F17.210 Nicotine dependence, cigarettes, uncomplicated; M06.9 Rheumatoid arthritis, unspecified; Z86.19 Personal history of other infectious and parasitic diseases; Z85.3 Personal history of malignant neoplasm of breast; Z85.841 Personal history of malignant neoplasm of brain; Z11.59 Encounter for screening for other viral diseases; Z08 Encounter for follow-up examination after completed treatment for malignant neoplasm; I31.3 Pericardial effusion (noninflammatory); F90.9 Attention-deficit hyperactivity disorder, unspecified type; F41.9 Anxiety disorder, unspecified; F32.9 Major depressive disorder, single episode, unspecified; F10.20 Alcohol dependence, uncomplicated; Z15.01 Genetic susceptibility to malignant neoplasm of breast; Z90.13 Acquired absence of bilateral breasts and nipples
CPT/HCPCS: 36415; 71046; 74018; 76705; 78227; 80048; 80053; 80061; 80320; 81003; 82140; 82550; 82553; 83605; 83690; 83735; 83880; 84145; 84484; 85025; 85610; 85730; 87635; 87797; 93005; 93010; 93306; 94640; 96372; 96374; 96375; 96376; 99214; 99225; 99284; 99406; A9537; G0378; A9270; J1650; J1940; J2405; J2543; J2805; J8610

== ENCOUNTER 2020-04-13 08:07 | Emergency (ER) | payer OTHER, MEDICAID, SELFPAY ==
[2020-04-08 20:02] VITALS: BMI 34.2
[2020-04-13] VITALS (12 sets, daily range): BP systolic 102–108; BP diastolic 61–78; PULSE 82–97; RESP 20–32; TEMP 36.3; O2SAT 92–99; BMI 35.2
[2020-04-13] MEDS: LIDOCAINE 1% (PF) 2 ML SUBCUT (08:25)
--- NOTE | 2020-04-13 08:31 | ED.SOB ---
HPI - SOB/Dyspnea General Chief Complaint: Shortness of Breath/Dyspnea Stated Complaint: Can't breathe Time Seen by Provider: 04/13/20 08:20 Source: patient Mode of arrival: Family Vehicle Limitations: no limitations History of Present Illness HPI Narrative: Patient is a 54-year-old female with of breast cancer and bRACA 2, new onset congestive heart failure with EF of 15-20% discharged from the hospital on 04/10/2023 days prior. She actually had appointment with her golf course ranger yesterday. She says today she has increasing shortness of breath. She denies any fever or productive cough. She has no chest pain. She says she has needed to sleep upright can not remember the last time she was able to lie down. She says she has been trying but frequently wakes up. Echocardiogram on the 09 of April confirmed small pericardial effusion and systolic heart failure. She was discharged home on Lasix 20 mg once a day. She says that she has been taking it. She overall has weakness and does not feel well. MD Complaint: shortness of breath Consistency/Duration: progressively worsening Relieving factors: rest Exacerbating factors: lying flat and exertion Known history of: congestive heart failure Related Data Home Medications Medication Instructions Recorded Confirmed folic acid 1 mg PO DAILY 04/08/20 04/08/20 Previous Rx's Medication Instructions Recorded sumatriptan succinate 50 mg tablet 50 mg PO SEE INSTRUCTIONS PRN #10 09/20/18 tab bupropion HCl 150 mg 24 hr tablet, 150 mg PO QAM #90 tab 01/24/20 extended release sulfasalazine 500 mg tablet See Rx Instructions .ROUTE 02/21/20 .COMPLEX #60 tablet albuterol sulfate 90 mcg/actuation See Rx Instructions .ROUTE 02/29/20 aerosol inhaler .COMPLEX #17 gram methotrexate sodium 5 mg tablet 15 mg PO QWEEK #240 tab 03/01/20 hydroxychloroquine 200 mg tablet See Rx Instructions .ROUTE 03/04/20 .COMPLEX #180 tab gabapentin 300 mg capsule 300 mg PO TID #270 cap 03/26/20 diclofenac sodium [Voltaren] 1 applic TOPICAL QID 7 Days gram 04/10/20 furosemide 20 mg PO DAILY #30 tab 04/10/20 lisinopril 2.5 mg PO .qhs #30 tab 04/10/20 lorazepam 1 mg PO Q6HR PRN #10 tab 04/10/20 metoprolol tartrate 25 mg PO DAILY #30 tab 04/10/20 spironolactone 12.5 mg PO DAILY 30 Days tab 04/10/20 furosemide [Lasix] 40 mg PO BID #10 tab 04/13/20 Allergies Allergy/AdvReac Type Severity Reaction Status Date / Time latex [LATEX] Allergy Intermediate RASH, SKIN Verified 04/13/20 08:26 PEELS penicillin G [PENICILLIN G] Allergy Unknown I WAS A Verified 04/13/20 08:26 KID SO I DON'T REMEMBER morphine [MORPHINE] AdvReac Severe HURTS MY Verified 04/13/20 08:26 STOMACH SO BAD Review of Systems Review of Systems Narrative: GENERAL: Denies chills, fatigue, malaise, fever, sweats, travel HEENT: Denies sinus pain, ear pain, sore throat, difficulty swallowing, neck pain RESPIRATORY: See HPI CARDIOVASCULAR: Denies chest pain, palpitations, orthopnea, edema GASTROINTESTINAL: Denies nausea, vomiting, abdominal pain, diarrhea, constipation, melena. : Denies dysuria, frequency, incontinence, hematuria, urinary retention, flank pain. MUSCULOSKELETAL: Denies weakness, joint pain, or bony pain SKIN: No rash, no erythema, no pruritus NEUROLOGIC: Denies weakness, dizziness, headache, numbness, change in speech, confusion PSYCHIATRIC: No concerning psychosocial issues. 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 (Acute) Depression (Chronic) Encounter for tobacco use cessation counseling (Acute) Hepatic cirrhosis (Chronic) Hepatitis C (Chronic ~1995) Musculoskeletal pain (Chronic ~2015) Rheumatoid arthritis (Chronic ~2015) Surgical History History of appendectomy (Resolved 1998) History of bilateral mastectomy (Resolved 2013) History of bilateral salpingo-oophorectomy (Resolved 2013) History of section (Resolved 1999) History of colonoscopy with polypectomy (Resolved 10/14/16) History of esophagogastroduodenoscopy (EGD) (Resolved 04/03/16) History of tubal ligation (Resolved 1995) Status post gamma knife treatment (Resolved 2013) Family History Father No problems noted. Grandfather No problems noted. Grandmother Stomach cancer Mother Enlarged aorta Breast cancer Grandfather Myelofibrosis Grandmother Parkinson's disease Social History household members: spouse and children Smoking Status: Former smoker Tobacco: How many years used: 8 alcohol intake: former substance use type: marijuana Smoking Status: Former smoker alcohol intake frequency: 0-2 drinks per day Substance Use Type: marijuana Exam Initial Vital Signs Initial Vital Signs: Vital Signs Temperature 97.3 F L 04/13/20 08:23 Pulse Rate 91 H 04/13/20 08:23 Respiratory Rate 22 04/13/20 08:23 Blood Pressure 105/61 04/13/20 08:23 Pulse Oximetry 99 04/13/20 08:23 GENERAL: Alert chronically ill female and in no acute distress. HEENT: Head atraumatic,EOMI, pupils reactive, face symmetric, moist mucous membranes. No JVD CARDIOVASCULAR: Regular rate and rhythm without murmurs, rubs or gallops. RESPIRATORY: Breath sounds equal bilaterally, no wheezes rales or rhonchi. Mild conversational dyspnea ABDOMEN: Soft, nontender. Normoactive bowel sounds all 4 quadrants. No guarding or rebound. EXTREMITIES: Normal range of motion, no clubbing or edema. Neurovascularly intact NEUROLOGICAL: Alert and oriented x4.Normal gait and speech. Cranial nerves II through XII grossly intact. SKIN: Warm, dry, no laceration, no petechiae, no rashes or lesions. Course Orders Ordered: ED Orders 04/13/20 08:35 Consult to Respiratory Therapy Evaluate & Treat EKG-12 Lead Stat 04/13/20 08:36 XR chest 1V Stat 04/13/20 08:43 Complete Blood Count AUTO DIFF Stat Comprehensive Metabolic Panel Stat Magnesium Stat NT-proBNP (BNP-Adult 18+) Stat Troponin & CK Cardiac Panel Stat 04/13/20 12:01 Consult to [facility] [place] - Console Operator Stat Discontinued Medications Furosemide (Lasix) 40 mg IV NOW ONE Stop: 04/13/20 08:40 Last Admin: 04/13/20 09:48 Dose: 40 mg Documented by: CHANDU Heparin Sodium (Porcine) (Heparin Flush (Port)) 500 unit IV PRN PRN PRN Reason: Flush Last Admin: 04/13/20 12:48 Dose: 500 unit Documented by: CHANDU Lidocaine HCl (Xylocaine 1% (Pf)) 2 ml SUBCUT NOW ONE Stop: 04/13/20 08:21 Last Admin: 04/13/20 08:25 Dose: 2 ml Documented by: CHANDU Lorazepam (Ativan) 0.5 mg IV NOW ONE Stop: 04/13/20 10:02 Last Admin: 04/13/20 10:13 Dose: 0.5 mg Documented by: CHANDU Vital Signs Vital signs: Vital Signs - 8 hr 04/13/20 08:23 04/13/20 09:39 04/13/20 10:00 Temperature 97.3 F L Pulse Rate 91 H 82 87 Respiratory Rate 22 28 H 27 H Blood Pressure 105/61 104/78 Pulse Oximetry 99 98 96 04/13/20 10:24 04/13/20 10:30 04/13/20 10:56 Temperature Pulse Rate 82 89 90 Respiratory Rate 32 H 25 H Blood Pressure 102/72 108/70 Pulse Oximetry 92 99 99 04/13/20 11:00 04/13/20 11:07 04/13/20 11:30 Temperature Pulse Rate 88 97 H 87 Respiratory Rate 23 20 23 Blood Pressure 107/66 Pulse Oximetry 95 93 04/13/20 12:00 04/13/20 12:30 04/13/20 12:50 Temperature Pulse Rate 91 H 88 88 Respiratory Rate 30 H 30 H 23 Blood Pressure 105/69 Pulse Oximetry MDM - SOB/Dyspnea Lab Data Attestation: I reviewed the patient's lab results. Result diagrams: 04/13/20 08:43 04/13/20 08:43 Labs: Lab Results 04/13/20 04/13/20 04/13/20 Range/Units 08:43 08:43 08:43 WBC 5.3 (4.5-11.0) X10^3/uL RBC 3.97 L (4.0-5.2) X10^6/uL Hgb 12.6 (12.0-16.0) g/dL Hct 37.8 (36-46) % MCV 95.2 (80-100) fL MCH 31.7 (26-34) PG MCHC 33.2 (30-36) % RDW 14.9 H (11.6-14.8) % Plt Count 175 (150-400) X10^3/uL Neut % (Auto) 65.1 (50-75) % Lymph % (Auto) 22.3 L (25-40) % [place] % (Auto) 9.7 (3-14) % Eos % (Auto) 2.0 (2-4) % Baso % (Auto) 0.9 (0-2) % Neut # (Auto) 3500 (5832-1606) /uL Lymph # (Auto) 1200 (1971-3101) /uL [place] # (Auto) 500 (0-900) /uL Eos # (Auto) 100 (0-450) /uL Baso # (Auto) 0 (0-100) /uL Sodium 138 (137-145) mmol/L Potassium 4.4 (3.4-5.1) mmol/L Chloride 107 (98-107) mmol/L Carbon Dioxide 26 (22-32) mmol/L BUN 16 (7-17) mg/dL Creatinine 0.59 (0.52-1.04) mg/dL Estimated GFR > 60.0 (>60) mL/min BUN/Creatinine Ratio 27.1 H (6-22) Glucose 119 H (70-100) mg/dL Calcium 9.1 (8.4-10.2) mg/dL Magnesium 1.8 (1.6-2.3) mg/dL Total Bilirubin 0.6 (0.2-1.3) mg/dL AST 28 (14-36) IU/L ALT 28 (<35) IU/L Alkaline Phosphatase 53 (38-126) U/L Total Creatine Kinase 56 (30-135) U/L CK-MB (CK-2) TNP CK-MB (CK-2) Rel Index TNP Troponin I < 0.012 (0.01-0.034) ng/mL NT-Pro-B Natriuret Pep 3370 H (<125) pg/mL Total Protein 6.6 (6.3-8.2) g/dL Albumin 3.7 (3.5-5.0) g/dL Globulin 2.9 (1.7-4.1) g/dL Albumin/Globulin Ratio 1.3 (1.0-2.8) Urine Dip Bedside Urine Glucose Negative Bedside Urine Bilirubin - Negative Bedside Urine Ketone - Negative Urine Specific [place] 1.015 Bedside Urine Occult Blood - Negative Bedside Urine pH 6.0 Bedside Urine Protein - Negative Bedside Urine Urobilinogen - Negative Bedside Urine Nitrite - Negative Bedside Urine Leukocytes - Negative Esterase Imaging Data Chest x-ray: Radiologist's Impression: PROCEDURE: XR CHEST 1V INDICATIONS: Short of breath TECHNIQUE: One view of the chest was acquired. COMPARISON: [facility], CR, XR CHEST 1V, 12/09/2019, 23:49. [facility], CR, XR CHEST 2V, 09/09/2019, 3:59. [facility], CT, CT CHEST ABD PEL W CON, 04/03/2020, 15:44. [facility], CR, XR CHEST 2V, 04/08/2020, 15:35. FINDINGS: Surgical changes and devices: There is a stable left-sided central line. Left axillary clips are seen. Lungs and pleura: Diffuse interstitial prominence is seen. There is a right-sided pleural effusion. No pneumothorax. Mediastinum: Mediastinal contours appear normal. Heart size is moderately enlarged. Bones and chest wall: No suspicious bony lesions. Overlying soft tissues appear unremarkable. IMPRESSION: Cardiomegaly, right-sided pleural effusion, and diffuse interstitial prominence. Please correlate with patient presentation, physical examination findings, and laboratory values for congestive heart failure. Incidental note is made of: Left axillary clips Stable left-sided central line Dictated by: Low Muñiz M.D. on 04/13/2020 at 8:57 ECG Data Attestation: I personally reviewed and interpreted this ECG as follows: Prior ECG tracings: available for review Interpretation: Low voltage normal sinus rhythm rate 89 p.r. interval 176 QRS [address] changes similar to previous EKG MDM Narrative Medical decision making narrative: Patient does have new pleural effusion BNP remains elevated not significantly lower than it was a few days ago. She is not hypoxic but does have some mild conversational dyspnea. She was ambulatory with SpO2 of 93%. I called and discussed case with Dr. Giordano who has been down to the ED to evaluate patient. At this time she is only on the minimal dose of Lasix recommend increasing it to 40 mg twice a day and discharging home. Patient is in agreeance and with this plan. Social Work has been in to talk with patient she does need help with some anxiety. She is given resources for them.. Discharge Plan Departure Patient Disposition: Home Clinical Impression: CHF (congestive heart failure) Qualifiers: Heart failure type: systolic Heart failure chronicity: acute on chronic Qualified Code(s): I50.23 - Acute on chronic systolic (congestive) heart failure Discharge Date/Time: 04/13/20 12:56 Instructions: DI for Heart Failure Activity Restrictions/Additional Instructions: *You have been diagnosed with congestive heart failure *What to do: At this time no need to stay in the hospital. Please talk to your PCP in regards to anxiety medication Ask Dr. maciel about BHIP Contact [facility] for counseling [phone] [employer] work line for any other questions [phone] *Continue to take medications as directed Lasix/furosemide 40 mg twice a day for the next 3 days, then 40 mg once daily *Follow up with your primary care provider in 2-3 days *Return to ER if you should have increasing shortness of breath, chest pain, fever or any new, worsening or concerning symptoms Prescriptions: New furosemide [Lasix] 40 mg tablet 40 mg PO BID Qty: 10 RF: 0 No Action sumatriptan succinate [Imitrex] 50 mg tablet 50 mg PO SEE INSTRUCTIONS PRN (Reason: unknown) Qty: 10 RF: 0 bupropion HCl 150 mg tablet extended release 24 hr 150 mg PO QAM Qty: 90 RF: 0 sulfasalazine 500 mg tablet See Rx Instructions .ROUTE .COMPLEX Qty: 60 RF: 2 albuterol sulfate 90 mcg/actuation HFA aerosol inhaler See Rx Instructions .ROUTE .COMPLEX Qty: 17 RF: 0 hydroxychloroquine 200 mg tablet See Rx Instructions .ROUTE .COMPLEX Qty: 180 RF: 0 gabapentin 300 mg capsule 300 mg PO TID Qty: 270 RF: 0 methotrexate sodium 5 mg tablet 15 mg PO QWEEK Qty: 240 RF: 0 folic acid 1 mg tablet 1 mg PO DAILY RF: 0 diclofenac sodium [Voltaren] 1 % Gel 1 applic topical QID 7 Days RF: 0 lorazepam 1 mg Tablet 1 mg PO Q6HR PRN (Reason: Anxiety) Qty: 10 RF: 0 lisinopril 2.5 mg tablet 2.5 mg PO .qhs Qty: 30 RF: 0 metoprolol tartrate 25 mg tablet 25 mg PO DAILY Qty: 30 RF: 0 furosemide 20 mg tablet 20 mg PO DAILY Qty: 30 RF: 0 spironolactone 25 mg tablet 12.5 mg PO DAILY 30 Days RF: 0 Referrals: Aleksandr Greenwood DO [Primary Care Provider] -
--- NOTE | 2020-04-13 08:36 | DI.RAD.S_ITS ---
PROCEDURE: XR CHEST 1V INDICATIONS: Short of breath TECHNIQUE: One view of the chest was acquired. COMPARISON: [facility], CR, XR CHEST 1V, 12/09/2019, 23:49. [facility], CR, XR CHEST 2V, 09/09/2019, 3:59. [facility], CT, CT CHEST ABD PEL W CON, 04/03/2020, 15:44. [facility], CR, XR CHEST 2V, 04/08/2020, 15:35. FINDINGS: Surgical changes and devices: There is a stable left-sided central line. Left axillary clips are seen. Lungs and pleura: Diffuse interstitial prominence is seen. There is a right-sided pleural effusion. No pneumothorax. Mediastinum: Mediastinal contours appear normal. Heart size is moderately enlarged. Bones and chest wall: No suspicious bony lesions. Overlying soft tissues appear unremarkable. IMPRESSION: Cardiomegaly, right-sided pleural effusion, and diffuse interstitial prominence. Please correlate with patient presentation, physical examination findings, and laboratory values for congestive heart failure. Incidental note is made of: Left axillary clips Stable left-sided central line Dictated by: Low Muñiz M.D. on 04/13/2020 at 8:57 Approved by: Low Muñiz M.D. on 04/13/2020 at 8:59
[2020-04-13 08:56] LABS: Add Manual Diff / Slide Review NO; Basophils Absolute Auto 0 /uL (0-100); Basophils Percent Auto 0.9 % (0-2); Eosinophils Absolute Auto 100 /uL (0-450); Hematocrit 37.8 % (36-46); Hemoglobin 12.6 g/dL (12.0-16.0); Lymphocytes Absolute Auto 1200 /uL (1100-4500); Lymphocytes Percent Auto 22.3 % (25-40); Mean Corpuscular HGB Conc 33.2 % (30-36); Mean Corpuscular Hemoglobin 31.7 PG (26-34); Mean Corpuscular Volume 95.2 fL (80-100); Monocytes Absolute Auto 500 /uL (0-900); Monocytes Percent Auto 9.7 % (3-14); Neutrophils Absolute Auto 3500 /uL (1500-7000); Neutrophils Percent Auto 65.1 % (50-75); Platelet Count 175 X10^3/uL (150-400); Red Blood Cell Count 3.97 X10^6/uL (4.0-5.2); Red Cell Distribution Width 14.9 % (11.6-14.8); White Blood Cell Count 5.3 X10^3/uL (4.5-11.0)
[2020-04-13 09:13] LABS: Creatine Kinase 56 U/L (30-135); Magnesium 1.8 mg/dL (1.6-2.3)
[2020-04-13 09:14] LABS: Alanine Aminotransferase 28 IU/L (<35); Albumin 3.7 g/dL (3.5-5.0); Albumin Globulin Ratio 1.3 (1.0-2.8); Alkaline Phosphatase 53 U/L (38-126); Aspartate Aminotransferase 28 IU/L (14-36); BUN Creatinine Ratio 27.1 (6-22); Bilirubin Total 0.6 mg/dL (0.2-1.3); Blood Urea Nitrogen 16 mg/dL (7-17); Calcium 9.1 mg/dL (8.4-10.2); Carbon Dioxide 26 mmol/L (22-32); Chloride 107 mmol/L (98-107); Estimated Glomerular Filt Rate > 60.0 mL/min (>60); Globulin 2.9 g/dL (1.7-4.1); Glucose 119 mg/dL (70-100); HEMOLYSIS < 15 (0-50); Potassium 4.4 mmol/L (3.4-5.1); Sodium 138 mmol/L (137-145); Total Protein 6.6 g/dL (6.3-8.2)
[2020-04-13 09:26] LABS: NT-proBNP (BNP-Adult 18+) 3370 pg/mL (<125); Troponin I < 0.012 ng/mL (0.01-0.034)
[2020-04-13] MEDS: FUROSEMIDE 40 MG/4 ML VIAL IV (09:48)
[2020-04-13] MEDS: LORazepam 2 MG/ML INJ 0.5 MG IV (10:13)
--- NOTE | 2020-04-13 10:20 | PC.NURSE ---
patient up to attempt to ambulate to bathroom. Patient became noticably short of breath wit increased work of breathing and speaking in 3 word sentences. Provider notified, bedside commode brought to bedside.
--- NOTE | 2020-04-13 11:18 | PM.CN ---
History of Present Illness Consult details Date Patient Seen: 04/13/20 Time Patient Seen: 11:18 Chief complaint: Can't breathe Reason for consult: heart failure with volume overload Requesting provider: Oralia Kahn Narrative: Maricarmen Ho is 54-year-old female with a history of germline BRCA 2 mutation carrier with a triple negative infiltrating ductal carcinoma of the right breast currently in remission but under surveillance, brain metastases which was resected in [place] and treated with gamma knife radiotherapy, currently under remission, history of hep C, history of splenomegaly, and recently diagnosed heart failure with reduced ejection fraction who Presented with worsening shortness of breath and dyspnea on exertion as well as orthopnea and early satiety. She was discharged 3 days ago for heart failure and she has been having increasing dyspnea on exertion since leaving. She is only currently taking 20 mg of oral Lasix. She was seen by her road equipment operator yesterday who did not increase her dosing. She has not been monitoring her weight. In the emergency room, patient had borderline low blood pressures and mild tachycardia. Oxygen saturation was 93% while sitting and also with ambulation. She was given 40 mg of IV Lasix in the emergency room. ProBNP was 33 70 which is slightly decreased from her prior admission. Troponin was negative. Chemistries and CBC were unremarkable. Chest x-ray showed a right-sided pleural effusion which was also present during her prior admission but this is possibly slightly worsened. Meds Home Medications and Allergies Home Medications Medication Instructions Recorded Confirmed Type sumatriptan succinate 50 mg tablet 50 mg PO SEE INSTRUCTIONS PRN #10 09/20/18 04/08/20 Rx tab bupropion HCl 150 mg 24 hr tablet, 150 mg PO QAM #90 tab 01/24/20 04/08/20 Rx extended release sulfasalazine 500 mg tablet See Rx Instructions .ROUTE 02/21/20 04/08/20 Rx .COMPLEX #60 tablet albuterol sulfate 90 mcg/actuation See Rx Instructions .ROUTE 02/29/20 04/08/20 Rx aerosol inhaler .COMPLEX #17 gram methotrexate sodium 5 mg tablet 15 mg PO QWEEK #240 tab 03/01/20 04/08/20 Rx hydroxychloroquine 200 mg tablet See Rx Instructions .ROUTE 03/04/20 04/08/20 Rx .COMPLEX #180 tab gabapentin 300 mg capsule 300 mg PO TID #270 cap 03/26/20 04/08/20 Rx folic acid 1 mg PO DAILY 04/08/20 04/08/20 History diclofenac sodium [Voltaren] 1 applic TOPICAL QID 7 Days gram 04/10/20 Rx furosemide 20 mg PO DAILY #30 tab 04/10/20 Rx lisinopril 2.5 mg PO .qhs #30 tab 04/10/20 Rx lorazepam 1 mg PO Q6HR PRN #10 tab 04/10/20 Rx metoprolol tartrate 25 mg PO DAILY #30 tab 04/10/20 Rx spironolactone 12.5 mg PO DAILY 30 Days tab 04/10/20 Rx Allergies Allergy/AdvReac Type Severity Reaction Status Date / Time latex [LATEX] Allergy Intermediate RASH, SKIN Verified 04/13/20 08:26 PEELS penicillin G [PENICILLIN G] Allergy Unknown I WAS A Verified 04/13/20 08:26 KID SO I DON'T REMEMBER morphine [MORPHINE] AdvReac Severe HURTS MY Verified 04/13/20 08:26 STOMACH SO BAD Review of Systems Review of Systems Narrative: All other systems reviewed with the patient and are negative unless otherwise stated. Exam Vital Signs (past 8 hours): - 04/13/20 08:23 04/13/20 10:24 04/13/20 11:07 Temperature 97.3 F L Pulse Rate 91 H 82 97 H Respiratory Rate 22 32 H 20 Blood Pressure 105/61 102/72 Pulse Oximetry 99 92 93 Oxygen Delivery Method Room Air Narrative Exam Narrative: GENERAL APPEARANCE: Chronically ill appearing female, well-developed, well-nourished, in no acute distress. Does get winded with prolong sentences. SKIN: Inspection of the skin reveals no rashes, ulcerations or petechiae. HEENT: Normocephalic atraumatic, extraocular muscles are intact, oropharynx is clear and mucous membranes are moist, neck is supple without adenopathy NECK: Supple and symmetric. There was no thyroid enlargement, and no tenderness, or masses were felt. CHEST: Normal AP diameter and normal contour without any kyphoscoliosis. Port-A-Cath in place without erythema, tenderness, or induration. LUNGS: Diminished breath sounds of bilateral lung bases and minimal bibasilar crackles, somewhat more diminished on the right. CARDIOVASCULAR: There was a regular rate and rhythm without any murmurs, gallops, rubs. Peripheral pulses were 2+ and symmetric. ABDOMEN: Soft and nontender with normal bowel sounds. No ascites was noted. MUSCULOSKELETAL: There was no tenderness or effusions noted. Muscle strength and tone were normal. EXTREMITIES: No cyanosis, clubbing or edema. NEUROLOGIC: Alert and oriented x 3. Normal affect. Objective Labs Result Diagrams: 04/13/20 08:43 04/13/20 08:43 Labs: Laboratory Results - last 24 hr 04/13/20 04/13/20 04/13/20 08:43 08:43 08:43 WBC 5.3 RBC 3.97 L Hgb 12.6 Hct 37.8 MCV 95.2 MCH 31.7 MCHC 33.2 RDW 14.9 H Plt Count 175 Neut % (Auto) 65.1 Lymph % (Auto) 22.3 L Carter % (Auto) 9.7 Eos % (Auto) 2.0 Baso % (Auto) 0.9 Neut # (Auto) 3500 Lymph # (Auto) 1200 Carter # (Auto) 500 Eos # (Auto) 100 Baso # (Auto) 0 Sodium 138 Potassium 4.4 Chloride 107 Carbon Dioxide 26 BUN 16 Creatinine 0.59 Estimated GFR > 60.0 BUN/Creatinine Ratio 27.1 H Glucose 119 H Calcium 9.1 Magnesium 1.8 Total Bilirubin 0.6 AST 28 ALT 28 Alkaline Phosphatase 53 Total Creatine Kinase 56 CK-MB (CK-2) TNP CK-MB (CK-2) Rel Index TNP Troponin I < 0.012 NT-Pro-B Natriuret Pep 3370 H Total Protein 6.6 Albumin 3.7 Globulin 2.9 Albumin/Globulin Ratio 1.3 Assessment & Plan Assessment & Plan narrative: Maricarmen Ho is 54-year-old female with a history of germline BRCA 2 mutation carrier with a triple negative infiltrating ductal carcinoma of the right breast currently in remission but under surveillance, brain metastases which was resected in [place] and treated with gamma knife radiotherapy, currently under remission, history of hep C, history of splenomegaly, and recently diagnosed heart failure with reduced ejection fraction who Presented with worsening shortness of breath and dyspnea on exertion as well as orthopnea and early satiety. She is clearly volume overloaded from her systolic heart failure, but she is not requiring oxygen and is on minimal dose of oral Lasix. Discussed with the patient and she is agreeable to increasing her dose of oral Lasix with a trial at home. I asked her to follow-up with her primary care provider or road equipment operator and to monitor her weights. 1. Acute systolic heart failure with volume overload -recommend increasing oral Lasix to 40 mg twice a day at least through the weekend. Recommend she call her primary care office and recommend that the patient weigh herself daily. She is willing to try oral diuresis at home. - very likely worsening volume overload. There is also a significant anxiety component involved and recommend continuing outpatient ativan of which the patient has run out of for at least a few days. Further Rx per PMD. Additional diuresis may help her feel better and use less of this in the near future.
--- NOTE | 2020-04-13 11:50 | PC.NURSE ---
Patient resting calmly on stretcher, thanked staff for the ativan.
--- NOTE | 2020-04-13 11:51 | PC.NURSE ---
Patient no being admitted, no covid test necessary per provider.
--- NOTE | 2020-04-13 12:07 | PC.NURSE ---
Sister reportedly called up to AC coordinator and asked to speak with social work. Coordinator notified this nurse and an order for [employer] verbally given by Femi. Brian perez notified of the need for finishing supervisor.
--- NOTE | 2020-04-13 12:18 | PC.NURSE ---
chris fritz at bedside
--- NOTE | 2020-04-13 12:54 | CM.SWNOTE ---
SURVEY CHIEF note SURVEY CHIEF consult requested for patient. Patient is a 54 y/o female who was discharged from inpatient stay at two days prior. Patient presents today with stated complaint of breathing difficulty and reports recent diagnosis of CHF. Patient has previously survived breast cancer metastasized to her brain. Per report from KALPANA Flores, patient is not being admitted to today, and will be sent home with an increase in her Lasix prescription. KALPANA Flores reports that patient's sister, Yelena Donato [phone], called the hospitalist requesting to talk to the social work team. SURVEY CHIEF enters room and speaks with patient. Patient reports she understands that she will be headed home today. Patient reports that she does feel anxious about returning home, but states that she is feeling much better than she was at time of presentation to ED, and notes that she is able to speak in full sentences with significantly reduced difficulty. Patient expresses understanding that she is encouraged to return to ED if her breathing difficulties continue or escalate. Patient reports that she has been experiencing more anxiety lately, and plans to discuss this with her PCP, Dr. Greenwood. SURVEY CHIEF and patient discuss asking Dr. Greenwood about a referral to [facility], and patient reports she is familiar with this program and states she will make an appt. with Dr. Greenwood and discuss this. SURVEY CHIEF and patient discuss other counseling resources including [facility], and SURVEY CHIEF provided information on how to access this and puts phone number for this agency in d/c notes. SURVEY CHIEF offers f/u call early following week, and patient accepts offer. SURVEY CHIEF informs patient that her sister had called and asked to speak with a social service assistant. Patient provides SURVEY CHIEF with verbal permission for SURVEY CHIEF to speak with sister. SURVEY CHIEF calls Yelena Donato, who expressed concern about about patient's health. Yelena asks about potential SNF stay and SURVEY CHIEF informs Yelena that it is unlikely at this time that she would qualify for this. SURVEY CHIEF and Yelena discuss potential additional services available to patient to assist with care, and SURVEY CHIEF provides Yelena with information on [facility] and accessing this. Yelena will contact [facility] following week to start process of [facility] application. Pl: Patient to be d/c to home, and SURVEY CHIEF to follow up with patient and sister early following week. CHAYA Camp
== END 2020-04-13 12:56 | disposition home or self-care (01) ==
PROVIDERS: Emergency Provider Emergency Medicine; PCP Family Medicine
DX: I50.23 Acute on chronic systolic (congestive) heart failure (principal); R06.00 Dyspnea, unspecified
CPT/HCPCS: 36415; 71045; 80053; 81003; 82550; 83735; 83880; 84484; 85025; 93005; 93010; 96374; 96375; 99284; J1642; J1940; J2060

== ENCOUNTER 2020-04-17 17:24 | Emergency (ER) | payer OTHER, MEDICAID, SELFPAY ==
[2020-04-08 20:02] VITALS: BMI 34.2
[2020-04-17] VITALS (8 sets, daily range): BP systolic 94–102; BP diastolic 58–68; PULSE 80–90; RESP 16–24; TEMP 36.1; O2SAT 94–100
--- NOTE | 2020-04-17 17:34 | ED.SOB ---
HPI - SOB/Dyspnea <Yessenia ThompsonMIGUEL - Last Filed: 04/17/20 20:34> General Chief Complaint: Shortness of Breath/Dyspnea Stated Complaint: Trouble breathing, CHF Time Seen by Provider: 04/17/20 17:32 Source: patient Mode of arrival: Ambulatory History of Present Illness HPI Narrative: 54-year-old female with a history of anxiety, presents to the emergency department post admission to the hospital on 04/13/2020 for new diagnosed congestive heart failure. Patient states she was discharged after 24 hours during hospital, she was given ?water pills ?and medications for blood pressure. Patient has been taking them as prescribed but reports she continues to have shortness of breath. She denies any worsening of her shortness of breath, states that it is the same when she initially presented to the emergency department. She does have intermittent episodes of panic, she does have a history of anxiety and has been taking lorazepam that was prescribed. She saw the stunt woman 1 day post discharge from the hospital and Dr. Greenwood yesterday. She has another follow-up appointment with Dr. Greenwood tomorrow. Patient denies any chest pain, rhinorrhea, fever, dizziness, nausea, vomiting, diarrhea, or any other concerns. Related Data Home Medications Medication Instructions Recorded Confirmed folic acid 1 mg PO DAILY 04/08/20 04/18/20 furosemide 20 mg tablet 20 mg PO BID tab 04/18/20 Previous Rx's Medication Instructions Recorded sumatriptan succinate 50 mg tablet 50 mg PO SEE INSTRUCTIONS PRN #10 09/20/18 tab bupropion HCl 150 mg 24 hr tablet, 150 mg PO QAM #90 tab 01/24/20 extended release sulfasalazine 500 mg tablet See Rx Instructions .ROUTE 02/21/20 .COMPLEX #60 tablet albuterol sulfate 90 mcg/actuation See Rx Instructions .ROUTE 02/29/20 aerosol inhaler .COMPLEX #17 gram methotrexate sodium 5 mg tablet 15 mg PO QWEEK #240 tab 03/01/20 hydroxychloroquine 200 mg tablet See Rx Instructions .ROUTE 03/04/20 .COMPLEX #180 tab gabapentin 300 mg capsule 300 mg PO TID #270 cap 03/26/20 lisinopril 2.5 mg PO .qhs #30 tab 04/10/20 metoprolol tartrate 25 mg PO DAILY #30 tab 04/10/20 spironolactone 12.5 mg PO DAILY 30 Days tab 04/10/20 lorazepam 1 mg tablet 1 mg PO Q6HR PRN #10 tab 04/15/20 furosemide 20 mg tablet 20 mg PO BID #60 tab 04/22/20 Allergies Allergy/AdvReac Type Severity Reaction Status Date / Time latex [LATEX] Allergy Intermediate RASH, SKIN Verified 04/18/20 09:24 PEELS penicillin G [PENICILLIN G] Allergy Unknown I WAS A Verified 04/18/20 09:24 KID SO I DON'T REMEMBER morphine [MORPHINE] AdvReac Severe HURTS MY Verified 04/18/20 09:24 STOMACH SO BAD Review of Systems <MIGUEL Mckeon - Last Filed: 04/17/20 20:34> Review of Systems Narrative: REVIEW OF SYSTEMS: GENERAL: Denies fevers. HENT: No head trauma or hearing loss. EYES: No loss of vision, double vision, eye pain, irritation or discharge. CARDIOVASCULAR: No chest pain or syncope. RESPIRATORY: Reports shortness of breath, see HPI. GASTROINTESTINAL: No nausea, vomiting, diarrhea, or constipation. MUSCULOSKELETAL: No weakness or injury. INTEGUMENTARY: No rash, lesions, or pruritus. NEURO: No memory loss, or confusion. Patient History <MIGUEL Mckeon - Last Filed: 04/17/20 20:34> Medical History (Updated 04/18/20 @ 14:39 by Aleksandr Greenwood DO) Alcohol use (Chronic) Balance problem (Acute) BRCA2 gene mutation positive in female (Acute) Breast cancer metastasized to brain (Chronic) Chemotherapy-induced neuropathy (Acute) CHF (congestive heart failure), NYHA class IV (Acute) Colon polyps (Resolved 04/03/16) Decreased spinning bath person strength of left hand (Acute) Depression (Chronic) Encounter for tobacco use cessation counseling (Acute) Hepatic cirrhosis (Chronic) Hepatitis C (Chronic ~1995) Musculoskeletal pain (Chronic ~2015) Rheumatoid arthritis (Chronic ~2015) Surgical History History of appendectomy (Resolved 1998) History of bilateral mastectomy (Resolved 2013) History of bilateral salpingo-oophorectomy (Resolved 2013) History of section (Resolved 1999) History of colonoscopy with polypectomy (Resolved 04/03/16) History of esophagogastroduodenoscopy (EGD) (Resolved 04/03/16) History of tubal ligation (Resolved 1995) Status post gamma knife treatment (Resolved 2013) Family History Father No problems noted. Grandfather No problems noted. Grandmother Stomach cancer Mother Enlarged aorta Breast cancer Grandfather Myelofibrosis Grandmother Parkinson's disease Social History household members: spouse and children Smoking Status: Former smoker Tobacco: How many years used: 8 alcohol intake: former substance use type: marijuana Smoking Status: Former smoker alcohol intake frequency: 0-2 drinks per day Substance Use Type: marijuana Exam <MIGUEL Mckeon - Last Filed: 04/17/20 20:34> Initial Vital Signs Initial Vital Signs: Vital Signs Temperature 97.0 F L 04/17/20 17:29 Pulse Rate 90 04/17/20 17:29 Respiratory Rate 20 04/17/20 17:29 Blood Pressure 102/68 04/17/20 17:29 Pulse Oximetry 100 04/17/20 17:29 PHYSICAL EXAMINATION: GENERAL: Well groomed, alert, and cooperative. Answers questions promptly and appropriately. HENT: Normocephalic, atraumatic. Ear canals patent. Oral mucosa is pink and moist. EYES: Conjunctiva pink, sclera white, no periorbital swelling. CHEST: Normal to inspection and without deformities. CARDIOVASCULAR: S1 and S2 sounds normal. Regular rate and rhythm, no murmurs, clicks, or bruits. No pedal edema. RESPIRATORY: Normal respiratory rate, trachea midline, airway patent. No stridor, nasal flaring or accessory muscle use. Lungs are clear in all [place] without wheeze, rhonchi, or crackles. GASTROINTESTINAL: Bowel sounds normoactive. Abdomen is soft and non-tender. No organomegaly. MUSCULOSKELETAL: Normal gait and coordination. Equal tone and mass bilaterally. EXTREMITIES: CMS intact. Moves all extremities. No pedal edema. SKIN: Warm, dry, soft, appropriate color for ethnicity. No lesions, rashes, or wounds. NEURO: Alert and Oriented X 3. Good coordination. No ataxia, or sensory deficits, or cognitive issues. PSYCH: Appropriate affect and mood. <Agustín Neal DO - Last Filed: 04/26/20 03:34> Initial Vital Signs Initial Vital Signs: Vital Signs Temperature 97.0 F L 04/17/20 17:29 Pulse Rate 90 04/17/20 17:29 Respiratory Rate 20 04/17/20 17:29 Blood Pressure 102/68 04/17/20 17:29 Pulse Oximetry 100 04/17/20 17:29 Scores <MIGUEL Mckeon - Last Filed: 04/17/20 20:34> Wells' Criteria for PE Clinical signs and symptoms of DVT: No PE is #1 Dx or equally likely: No Heart rate > 100: No Immobilization at least 3 days or surg in previous 4 weeks: No History of PE or DVT: No Hemoptysis: No Malignancy w/Treatment within 6 months or palliative: No Wells' PE Score total: 0 Course <MIGUEL Mckeon - Last Filed: 04/17/20 20:34> Course Course Narrative: Patient able to ambulate over 50 ft without worsening shortness of breath, oxygen saturation remained 96%, pulse remains 77s with exertion. Orders Ordered: Discontinued Medications Furosemide (Lasix) 40 mg IV NOW ONE Stop: 04/17/20 19:19 Last Admin: 04/17/20 19:24 Dose: 40 mg Documented by: AMAN Consultations Consultation #1: Patient staffed with Dr. Chase discussed test, test results, and plan of care. Vital Signs Vital signs: Vital Signs - 8 hr 04/17/20 17:29 04/17/20 17:54 04/17/20 18:00 Temperature 97.0 F L Pulse Rate 90 85 84 Respiratory Rate 20 24 22 Blood Pressure 102/68 Pulse Oximetry 100 97 96 04/17/20 18:01 04/17/20 18:30 04/17/20 19:00 Temperature Pulse Rate 84 84 81 Respiratory Rate 24 Blood Pressure 98/67 95/68 Pulse Oximetry 96 96 94 04/17/20 19:15 04/17/20 19:45 Temperature Pulse Rate 85 80 Respiratory Rate 16 Blood Pressure 94/61 94/58 L Pulse Oximetry 97 97 <Agustín Neal DO - Last Filed: 04/26/20 03:34> Orders Ordered: Discontinued Medications Furosemide (Lasix) 40 mg IV NOW ONE Stop: 04/17/20 19:19 Last Admin: 04/17/20 19:24 Dose: 40 mg Documented by: AMAN Vital Signs Vital signs: Vital Signs - 8 hr 04/17/20 17:29 04/17/20 17:54 04/17/20 18:00 Temperature 97.0 F L Pulse Rate 90 85 84 Respiratory Rate 20 24 22 Blood Pressure 102/68 Pulse Oximetry 100 97 96 04/17/20 18:01 04/17/20 18:30 04/17/20 19:00 Temperature Pulse Rate 84 84 81 Respiratory Rate 24 Blood Pressure 98/67 95/68 Pulse Oximetry 96 96 94 04/17/20 19:15 04/17/20 19:45 Temperature Pulse Rate 85 80 Respiratory Rate 16 Blood Pressure 94/61 94/58 L Pulse Oximetry 97 97 MDM - SOB/Dyspnea <MIGUEL Mckeon - Last Filed: 04/17/20 20:34> Medical Records Attestation: I reviewed the patient's medical records. Lab Data Attestation: I reviewed the patient's lab results. Result diagrams: 04/17/20 17:40 04/17/20 17:40 Labs: Lab Results 04/17/20 04/17/20 04/17/20 Range/Units 17:40 17:40 17:40 WBC 6.0 (4.5-11.0) X10^3/uL RBC 4.23 (4.0-5.2) X10^6/uL Hgb 13.4 (12.0-16.0) g/dL Hct 40.1 (36-46) % MCV 94.8 (80-100) fL MCH 31.6 (26-34) PG MCHC 33.3 (30-36) % RDW 15.2 H (11.6-14.8) % Plt Count 230 (150-400) X10^3/uL Neut % (Auto) 61.8 (50-75) % Lymph % (Auto) 24.0 L (25-40) % Mower % (Auto) 11.4 (3-14) % Eos % (Auto) 1.7 L (2-4) % Baso % (Auto) 1.1 (0-2) % Neut # (Auto) 3700 (5560-0962) /uL Lymph # (Auto) 1400 (8559-8420) /uL Mower # (Auto) 700 (0-900) /uL Eos # (Auto) 100 (0-450) /uL Baso # (Auto) 100 (0-100) /uL Sodium 137 (137-145) mmol/L Potassium 4.4 (3.4-5.1) mmol/L Chloride 102 (98-107) mmol/L Carbon Dioxide 26 (22-32) mmol/L BUN 18 H (7-17) mg/dL Creatinine 0.71 (0.52-1.04) mg/dL Estimated GFR > 60.0 (>60) mL/min BUN/Creatinine Ratio 25.4 H (6-22) Glucose 105 H (70-100) mg/dL Calcium 9.4 (8.4-10.2) mg/dL Total Bilirubin 0.8 (0.2-1.3) mg/dL AST 36 (14-36) IU/L ALT 25 (<35) IU/L Alkaline Phosphatase 66 (38-126) U/L Total Creatine Kinase 29 L (30-135) U/L CK-MB (CK-2) TNP CK-MB (CK-2) Rel Index TNP Troponin I < 0.012 (0.01-0.034) ng/mL NT-Pro-B Natriuret Pep 4480 H (<125) pg/mL Total Protein 7.9 (6.3-8.2) g/dL Albumin 4.4 (3.5-5.0) g/dL Globulin 3.5 (1.7-4.1) g/dL Albumin/Globulin Ratio 1.3 (1.0-2.8) Urine Dip Bedside Urine Glucose Negative Bedside Urine Bilirubin - Negative Bedside Urine Ketone - Negative Urine Specific Bogart 1.020 Bedside Urine Occult Blood - Negative Bedside Urine pH 6.0 Bedside Urine Protein +/- 15 Bedside Urine Urobilinogen - Negative Bedside Urine Nitrite - Negative Bedside Urine Leukocytes - Negative Esterase Imaging Data Chest x-ray: Radiologist's Impression: [address] [address] XRay Report Signed Patient: Maricarmen Ho KMR#: [id number] : 1965Acct:[id number] Age/Sex: 54 / FDate of Service: 04/17/20 Loc: ED Accession Number: [id number] Procedure: XR chest 1V Ordering Provider: Yessenia Thompson PROCEDURE: XR CHEST 1V INDICATIONS: SOB TECHNIQUE: One view of the chest was acquired. COMPARISON: [facility], CR, XR CHEST 1V, 04/13/2020, 8:55. FINDINGS: Surgical changes and devices: Left axillary clips are noted. Left-sided tunneled port device is in place. Lungs and pleura: Persistent right pleural effusion with extension along the right minor fissure. Diffuse interstitial prominence. No focal consolidation. Streaky bibasilar opacities not significantly changed. No pneumothorax. Mediastinum: Mediastinal contours appear stable with moderate cardiomegaly. Bones and chest wall: No suspicious bony lesions. Overlying soft tissues appear unremarkable. IMPRESSION: 1. Cardiomegaly and persistent right-sided pleural effusion with diffuse interstitial prominence. Findings may represent pulmonary edema/CHF. 2. Stable appearance of mild streaky bibasilar opacities favored to represent atelectasis. No focal consolidations. Dictated by: Elvin Vega M.D. on 04/17/2020 at 18:02 Approved by: Elvin Vega M.D. on 04/17/2020 at 18:05 ECG Data Interpretation: 1734: Sinus rhythm, rate 85, IA interval 181, QTC 417. No ST depression or ST elevation. No ectopy. No ectopy, no T-wave inversion. EKG also viewed by Dr. Neal per protocol. [facility] Narrative Medical decision making narrative: 54yo female with a history of CHF with recent admission, presents emergency department for continued shortness of breath that is not worsened in severity or improved since admission. Patient is not clinically fluid overloaded, lungs are clear, no pedal edema, O2 saturation within normal limits. However, laboratory work shows elevated BNP and possible pulmonary edema for x-ray. Less concerns for ACS due to negative troponin and unremarkable EKG. Less concern for PE given lack of tachycardia or hypoxia. I suspect patient's shortness of breath are most likely due to her CHF, she was given an extra dose of legs is in the emergency department and given a script to take 40 mg of Lasix for the next 3 4 days to help with fluid overload. She does have a follow-up appointment with her PCP tomorrow, she was encouraged to keep the and discuss further medication management and have a repeat evaluation. Her ambulation trial did not reveal any worsening hypoxia, dyspnea, or tachycardia. The S patient is a candidate for discharge versus admission at this time. I do suspect patient's anxiety does play a role in her feeling short of breath. BUSINESS INTELLIGENCE DEVELOPER consult with patient, discussed the importance of counseling in further support. Are at bedside who also participated in patient's care. Patient has a known pleural effusion which is noted on chest x-ray today. Less concern for infectious etiology given lack of fever, cough, rhinorrhea, or other symptoms of viral/bacterial infection. Return precautions given for new or worsening symptoms. Patient agreed to plan of care verbalized his understanding. <Agustín Neal DO - Last Filed: 04/26/20 03:34> Lab Data Labs: Lab Results 04/17/20 04/17/20 04/17/20 Range/Units 17:40 17:40 17:40 WBC 6.0 (4.5-11.0) X10^3/uL RBC 4.23 (4.0-5.2) X10^6/uL Hgb 13.4 (12.0-16.0) g/dL Hct 40.1 (36-46) % MCV 94.8 (80-100) fL MCH 31.6 (26-34) PG MCHC 33.3 (30-36) % RDW 15.2 H (11.6-14.8) % Plt Count 230 (150-400) X10^3/uL Neut % (Auto) 61.8 (50-75) % Lymph % (Auto) 24.0 L (25-40) % Mower % (Auto) 11.4 (3-14) % Eos % (Auto) 1.7 L (2-4) % Baso % (Auto) 1.1 (0-2) % Neut # (Auto) 3700 (5210-0560) /uL Lymph # (Auto) 1400 (0654-5108) /uL Mower # (Auto) 700 (0-900) /uL Eos # (Auto) 100 (0-450) /uL Baso # (Auto) 100 (0-100) /uL Sodium 137 (137-145) mmol/L Potassium 4.4 (3.4-5.1) mmol/L Chloride 102 (98-107) mmol/L Carbon Dioxide 26 (22-32) mmol/L BUN 18 H (7-17) mg/dL Creatinine 0.71 (0.52-1.04) mg/dL Estimated GFR > 60.0 (>60) mL/min BUN/Creatinine Ratio 25.4 H (6-22) Glucose 105 H (70-100) mg/dL Calcium 9.4 (8.4-10.2) mg/dL Total Bilirubin 0.8 (0.2-1.3) mg/dL AST 36 (14-36) IU/L ALT 25 (<35) IU/L Alkaline Phosphatase 66 (38-126) U/L Total Creatine Kinase 29 L (30-135) U/L CK-MB (CK-2) TNP CK-MB (CK-2) Rel Index TNP Troponin I < 0.012 (0.01-0.034) ng/mL NT-Pro-B Natriuret Pep 4480 H (<125) pg/mL Total Protein 7.9 (6.3-8.2) g/dL Albumin 4.4 (3.5-5.0) g/dL Globulin 3.5 (1.7-4.1) g/dL Albumin/Globulin Ratio 1.3 (1.0-2.8) Urine Dip Bedside Urine Glucose Negative Bedside Urine Bilirubin - Negative Bedside Urine Ketone - Negative Urine Specific Bogart 1.020 Bedside Urine Occult Blood - Negative Bedside Urine pH 6.0 Bedside Urine Protein +/- 15 Bedside Urine Urobilinogen - Negative Bedside Urine Nitrite - Negative Bedside Urine Leukocytes - Negative Esterase Discharge Plan Departure Patient Disposition: Home Clinical Impression: CHF (congestive heart failure) Discharge Date/Time: 04/17/20 19:47 Instructions: DI for Heart Failure Activity Restrictions/Additional Instructions: Thank you for entrusting me with your care today. As discussed, your laboratory work shows increased level of fluid which may be contributing to your shortness of breath. I have given you an additional dose of Lasix/furosemide (water pill) to take with your current dose for the next 4 days. Start taking this tomorrow as we have given you a dose in the ED tonight. This medication was sent to [facility] in [place]. Please follow-up with your PCP as scheduled tomorrow. Return emergency department for any new or worsening symptoms. Prescriptions: No Action sumatriptan succinate [Imitrex] 50 mg tablet 50 mg PO SEE INSTRUCTIONS PRN (Reason: unknown) Qty: 10 RF: 0 bupropion HCl 150 mg tablet extended release 24 hr 150 mg PO QAM Qty: 90 RF: 0 sulfasalazine 500 mg tablet See Rx Instructions .ROUTE .COMPLEX Qty: 60 RF: 2 albuterol sulfate 90 mcg/actuation HFA aerosol inhaler See Rx Instructions .ROUTE .COMPLEX Qty: 17 RF: 0 hydroxychloroquine 200 mg tablet See Rx Instructions .ROUTE .COMPLEX Qty: 180 RF: 0 gabapentin 300 mg capsule 300 mg PO TID Qty: 270 RF: 0 lorazepam 1 mg tablet 1 mg PO Q6HR PRN (Reason: Anxiety) Qty: 10 RF: 0 furosemide 20 mg tablet 20 mg PO BID Qty: 60 RF: 11 methotrexate sodium 5 mg tablet 15 mg PO QWEEK Qty: 240 RF: 0 furosemide [Lasix] 20 mg tablet 20 mg PO BID RF: 0 folic acid 1 mg tablet 1 mg PO DAILY RF: 0 lisinopril 2.5 mg tablet 2.5 mg PO .qhs Qty: 30 RF: 0 metoprolol tartrate 25 mg tablet 25 mg PO DAILY Qty: 30 RF: 0 spironolactone 25 mg tablet 12.5 mg PO DAILY 30 Days RF: 0 Referrals: Aleksandr Greenwood DO [Primary Care Provider] - <Agustín Neal DO - Last Filed: 04/26/20 03:34> [facility] Jessica Attestation: I was immediately available in the department for consultation. This documentation has been reviewed and I agree with assessment and plan. Supervised by Agustín Neal DO
[2020-04-17 18:00] LABS: Add Manual Diff / Slide Review NO; Basophils Absolute Auto 100 /uL (0-100); Basophils Percent Auto 1.1 % (0-2); Eosinophils Absolute Auto 100 /uL (0-450); Eosinophils Percent Auto 1.7 % (2-4); Hematocrit 40.1 % (36-46); Hemoglobin 13.4 g/dL (12.0-16.0); Lymphocytes Absolute Auto 1400 /uL (1100-4500); Mean Corpuscular HGB Conc 33.3 % (30-36); Mean Corpuscular Hemoglobin 31.6 PG (26-34); Mean Corpuscular Volume 94.8 fL (80-100); Monocytes Absolute Auto 700 /uL (0-900); Monocytes Percent Auto 11.4 % (3-14); Neutrophils Absolute Auto 3700 /uL (1500-7000); Neutrophils Percent Auto 61.8 % (50-75); Platelet Count 230 X10^3/uL (150-400); Red Blood Cell Count 4.23 X10^6/uL (4.0-5.2); Red Cell Distribution Width 15.2 % (11.6-14.8)
[2020-04-17 18:10] LABS: Creatine Kinase 29 U/L (30-135)
[2020-04-17 18:12] LABS: Alanine Aminotransferase 25 IU/L (<35); Albumin 4.4 g/dL (3.5-5.0); Albumin Globulin Ratio 1.3 (1.0-2.8); Alkaline Phosphatase 66 U/L (38-126); Aspartate Aminotransferase 36 IU/L (14-36); BUN Creatinine Ratio 25.4 (6-22); Bilirubin Total 0.8 mg/dL (0.2-1.3); Blood Urea Nitrogen 18 mg/dL (7-17); Calcium 9.4 mg/dL (8.4-10.2); Carbon Dioxide 26 mmol/L (22-32); Chloride 102 mmol/L (98-107); Estimated Glomerular Filt Rate > 60.0 mL/min (>60); Globulin 3.5 g/dL (1.7-4.1); Glucose 105 mg/dL (70-100); HEMOLYSIS 43 (0-50); Potassium 4.4 mmol/L (3.4-5.1); Sodium 137 mmol/L (137-145); Total Protein 7.9 g/dL (6.3-8.2)
[2020-04-17 18:24] LABS: NT-proBNP (BNP-Adult 18+) 4480 pg/mL (<125); Troponin I < 0.012 ng/mL (0.01-0.034)
--- NOTE | 2020-04-17 18:27 | CM.SWNOTE ---
PARACHUTE HARNESS RIGGER note PARACHUTE HARNESS RIGGER consult requested for patient. Patient is a 54 y/o female who presents to ED with SOB. Patient was admitted to approx. 1 week prior to today's visit, and was in this ED on 04/13 with similar presentation. This PARACHUTE HARNESS RIGGER met with this patient during 04/13 ED visit. Patient A+O x3, denies SI/HI, and presents with dysthymic mood. Patient reports that following d/c to home, she continued to experience difficulty breathing and an increase in anxiety. Patient reports she took the medication she had been prescribed for anxiety, but reports that the medication spun me up. Patient reports she has been focusing on doing breathing exercises to decrease anxiety, but feels scared because she is unable to breathe strongly. PARACHUTE HARNESS RIGGER and patient reviewed details from previous visit. Patient reports she is in communication with her sister, who patient reports is going to help her with an application for [place]. PARACHUTE HARNESS RIGGER provides patient with printed copy for her and her sister to fill out when they have the documentation needed. Patient reports she will be meeting with PCP following day to discuss behavioral health support. PARACHUTE HARNESS RIGGER and patient discuss follow up call, and patient reports she is open to follow up call for additional help in securing resources later in week. Plan: Patient will resume care while in ED, and PARACHUTE HARNESS RIGGER will follow up with patient via follow up call later in week. CHAYA Camp
[2020-04-17] MEDS: FUROSEMIDE 40 MG/4 ML VIAL IV (19:24)
== END 2020-04-17 19:47 | disposition home or self-care (01) ==
PROVIDERS: Emergency Provider Nurse Practitioner; PCP Family Medicine
DX: I50.9 Heart failure, unspecified (principal); R06.02 Shortness of breath
CPT/HCPCS: 36415; 71045; 80053; 81003; 82550; 83880; 84484; 85025; 93005; 93010; 96374; 99284; J1940

== ENCOUNTER → 2020-05-22 12:28 | Outpatient (CLI) | payer OTHER, MEDICAID, SELFPAY ==
[2020-04-08 20:02] VITALS: BMI 34.2
[2020-05-22 12:44] LABS: Add Manual Diff / Slide Review NO; Basophils Absolute Auto 0 /uL (0-100); Basophils Percent Auto 0.8 % (0-2); Eosinophils Absolute Auto 100 /uL (0-450); Eosinophils Percent Auto 1.4 % (2-4); Hematocrit 41.8 % (36-46); Hemoglobin 13.7 g/dL (12.0-16.0); Lymphocytes Absolute Auto 1200 /uL (1100-4500); Mean Corpuscular HGB Conc 32.7 % (30-36); Mean Corpuscular Hemoglobin 30.5 PG (26-34); Mean Corpuscular Volume 93.4 fL (80-100); Monocytes Absolute Auto 400 /uL (0-900); Monocytes Percent Auto 9.1 % (3-14); Neutrophils Absolute Auto 2800 /uL (1500-7000); Neutrophils Percent Auto 61.7 % (50-75); Platelet Count 168 X10^3/uL (150-400); Red Blood Cell Count 4.48 X10^6/uL (4.0-5.2); Red Cell Distribution Width 16.6 % (11.6-14.8); White Blood Cell Count 4.5 X10^3/uL (4.5-11.0)
[2020-05-22 12:55] LABS: Alanine Aminotransferase 17 IU/L (<35); Albumin 3.7 g/dL (3.5-5.0); Albumin Globulin Ratio 1.2 (1.0-2.8); Alkaline Phosphatase 61 U/L (38-126); Aspartate Aminotransferase 25 IU/L (14-36); BUN Creatinine Ratio 20.3 (6-22); Bilirubin Total 0.8 mg/dL (0.2-1.3); Blood Urea Nitrogen 15 mg/dL (7-17); Calcium 8.7 mg/dL (8.4-10.2); Carbon Dioxide 24 mmol/L (22-32); Chloride 105 mmol/L (98-107); Estimated Glomerular Filt Rate > 60.0 mL/min (>60); Glucose 140 mg/dL (70-100); HEMOLYSIS < 15 (0-50); Potassium 4.2 mmol/L (3.4-5.1); Sodium 136 mmol/L (137-145); Total Protein 6.7 g/dL (6.3-8.2)
== END ==
PROVIDERS: Internal Medicine Hematology & Oncology; PCP Family Medicine; Referring Provider Family Medicine; Visit Provider Family Medicine
DX: R19.5 Other fecal abnormalities (principal); R19.7 Diarrhea, unspecified; C50.919 Malignant neoplasm of unspecified site of unspecified female breast; I31.3 Pericardial effusion (noninflammatory)
CPT/HCPCS: 36415; 80053; 85025

== ENCOUNTER → 2020-05-27 15:33 | Outpatient (CLI) | payer OTHER, MEDICAID, SELFPAY ==
[2020-04-08 20:02] VITALS: BMI 34.2
== END ==
PROVIDERS: PCP Family Medicine; Referring Provider Family Medicine; Visit Provider Family Medicine
DX: R19.5 Other fecal abnormalities (principal); R19.7 Diarrhea, unspecified
CPT/HCPCS: 87045; 87177; 87899

== ENCOUNTER → 2020-06-06 14:52 | Outpatient (CLI) | payer OTHER, MEDICAID, SELFPAY ==
[2020-04-08 20:02] VITALS: BMI 34.2
[2020-06-06 16:25] LABS: COVID19 -Nasal RAPID Negative (Negative)
== END ==
PROVIDERS: PCP Family Medicine; Visit Provider Physician Assistant
DX: Z20.828 Contact with and (suspected) exposure to other viral communicable diseases (principal); R06.02 Shortness of breath; R11.10 Vomiting, unspecified; R19.7 Diarrhea, unspecified
CPT/HCPCS: 87635

== ENCOUNTER → 2020-06-06 16:23 | Outpatient (CLI) | payer OTHER, MEDICAID, SELFPAY ==
[2020-04-08 20:02] VITALS: BMI 34.2
--- NOTE | 2020-06-06 16:25 | DI.RAD.S_ITS ---
PROCEDURE: XR CHEST 2V INDICATIONS: COVID EXPOSURE, SHORTNESS OF BREATH TECHNIQUE: 2 views of the chest were acquired. COMPARISON: [facility], CT, CT CHEST ABD PEL W CON, 04/03/2020, 15:44. [facility], CR, XR CHEST 1V, 04/13/2020, 8:55. [facility], CR, XR CHEST 1V, 04/17/2020, 17:49. [facility], CR, XR CHEST 2V, 04/08/2020, 15:35. FINDINGS: Surgical changes and devices: A Port-A-Cath is seen with the tip in the SVC. Lungs and pleura: There are small pleural effusions bilaterally. Pulmonary vascularity is increased. No pleural effusions or pneumothorax. Mediastinum: Mediastinal contours are normal. Heart size is mildly increased. Bones and chest wall: No suspicious bony abnormalities. Soft tissues appear unremarkable. IMPRESSION: Mild cardiomegaly and persistent small bilateral pleural effusions. Pulmonary vascularity is increased suggesting pulmonary edema. Cannot rule out superimposed pneumonia. Dictated by: Lupe Villagran M.D. on 06/06/2020 at 17:29 Approved by: Lupe Villagran M.D. on 06/06/2020 at 17:34
[2020-06-06 17:03] LABS: Add Manual Diff / Slide Review NO; Basophils Absolute Auto 0 /uL (0-100); Basophils Percent Auto 0.6 % (0-2); Eosinophils Absolute Auto 100 /uL (0-450); Eosinophils Percent Auto 1.2 % (2-4); Hematocrit 41.3 % (36-46); Hemoglobin 13.6 g/dL (12.0-16.0); Lymphocytes Absolute Auto 1200 /uL (1100-4500); Lymphocytes Percent Auto 21.5 % (25-40); Mean Corpuscular HGB Conc 32.8 % (30-36); Mean Corpuscular Volume 94.5 fL (80-100); Monocytes Absolute Auto 400 /uL (0-900); Monocytes Percent Auto 6.5 % (3-14); Neutrophils Absolute Auto 3900 /uL (1500-7000); Neutrophils Percent Auto 70.2 % (50-75); Platelet Count 151 X10^3/uL (150-400); Red Blood Cell Count 4.38 X10^6/uL (4.0-5.2); Red Cell Distribution Width 16.6 % (11.6-14.8); White Blood Cell Count 5.6 X10^3/uL (4.5-11.0)
[2020-06-06 17:33] LABS: Alanine Aminotransferase 19 IU/L (<35); Albumin Globulin Ratio 1.3 (1.0-2.8); Alkaline Phosphatase 66 U/L (38-126); Aspartate Aminotransferase 33 IU/L (14-36); BUN Creatinine Ratio 10.6 (6-22); Bilirubin Total 1.2 mg/dL (0.2-1.3); Blood Urea Nitrogen 9 mg/dL (7-17); Carbon Dioxide 23 mmol/L (22-32); Chloride 105 mmol/L (98-107); Creatine Kinase 53 U/L (30-135); Estimated Glomerular Filt Rate > 60.0 mL/min (>60); Glucose 107 mg/dL (70-100); HEMOLYSIS < 15 (0-50); Potassium 4.3 mmol/L (3.4-5.1); Sodium 137 mmol/L (137-145)
[2020-06-06 17:36] LABS: NT-proBNP (BNP-Adult 18+) 6730 pg/mL (<125); Troponin I < 0.012 ng/mL (0.01-0.034)
[2020-06-06 18:25] LABS: Procalcitonin < 0.05 ng/mL (<0.5)
== END ==
PROVIDERS: PCP Family Medicine; Referring Provider Physician Assistant; Visit Provider Physician Assistant
DX: Z20.828 Contact with and (suspected) exposure to other viral communicable diseases (principal); R06.02 Shortness of breath; R11.10 Vomiting, unspecified; R19.7 Diarrhea, unspecified; I51.7 Cardiomegaly; J90 Pleural effusion, not elsewhere classified
CPT/HCPCS: 36415; 71046; 80053; 82550; 83880; 84145; 84484; 85025; 87635

== ENCOUNTER 2020-06-08 17:15 | Emergency (ER) | payer OTHER, MEDICAID, SELFPAY ==
[2020-04-08 20:02] VITALS: BMI 34.2
[2020-06-08 17:37] VITALS: BP 117/70; PULSE 98; RESP 28; TEMP 37.1; O2SAT 97; BMI 33.4
--- NOTE | 2020-06-08 17:41 | DI.RAD.S_ITS ---
PROCEDURE: XR CHEST 2V INDICATIONS: shortness of breath TECHNIQUE: 2 views of the chest were acquired. COMPARISON: [facility], CT, CT CHEST ABD PEL W CON, 04/03/2020, 15:44. [facility], CR, XR CHEST 2V, 06/06/2020, 16:49. [facility], CR, XR CHEST 1V, 04/17/2020, 17:49. FINDINGS: Surgical changes and devices: Left-sided port with the catheter tip at the cavoatrial junction. Left axillary clips. Lungs and pleura: Mild pulmonary vasculature engorgement. Small bilateral pleural effusions, left greater than right. Decreased pleural fluid in the right minor fissure. No pneumothorax. Mediastinum: Mediastinal contours are normal. Cardiomegaly. Bones and chest wall: No suspicious bony abnormalities. Soft tissues appear unremarkable. IMPRESSION: Marked cardiomegaly. Suspect mild pulmonary vasculature engorgement. Small bilateral pleural effusions, left greater than right. Dictated by: Beltran Farnsworth M.D. on 06/08/2020 at 16:54 Approved by: Beltran Farnsworth M.D. on 06/08/2020 at 16:57
--- NOTE | 2020-06-08 17:55 | ED.SOB ---
HPI - SOB/Dyspnea General Chief Complaint: Shortness of Breath/Dyspnea Stated Complaint: Shortness of breath Time Seen by Provider: 06/08/20 17:54 Source: patient Mode of arrival: Wheelchair Limitations: no limitations History of Present Illness HPI Narrative: Former smoker with extensive medical history including breast cancer, Mets to the brain, COPD, CHF (EF 15-20%), former pericardial effusion presents with multiple complaints including profound nausea which has been present for quite some time, multiple episodes of vomiting and loose stools over the past days to weeks. Her biggest complaint is shortness of breath which has been present for approximately 2 months. She states that it is worse with exertion is worse when she lays flat. She has had no weight gain and denies any swelling in her legs. She has been taking her ?water pills? as directed and denies missing any doses. She has seen her primary care earlier in the week MIs negative for COVID. She denies any runny nose, sneezing. She coughs frequently and states that probably no worse than normal. She denies any fever or chills. She does have some swelling in her abdomen which she states has been present for quite some time and has been told she does not have ascites. MD Complaint: shortness of breath and cough Onset (ago): month(s) Severity: moderate Consistency/Duration: constant Related Data Home Medications Medication Instructions Recorded Confirmed folic acid 1 mg PO DAILY 04/08/20 06/07/20 Previous Rx's Medication Instructions Recorded sumatriptan succinate 50 mg tablet 50 mg PO SEE INSTRUCTIONS PRN #10 09/20/18 tab bupropion HCl 150 mg 24 hr tablet, 150 mg PO QAM #90 tab 01/24/20 extended release sulfasalazine 500 mg tablet See Rx Instructions .ROUTE 02/21/20 .COMPLEX #60 tablet albuterol sulfate 90 mcg/actuation See Rx Instructions .ROUTE 02/29/20 aerosol inhaler .COMPLEX #17 gram hydroxychloroquine 200 mg tablet See Rx Instructions .ROUTE 03/04/20 .COMPLEX #180 tab gabapentin 300 mg capsule 300 mg PO TID #270 cap 03/26/20 lisinopril 2.5 mg PO .qhs #30 tab 04/10/20 metoprolol tartrate 25 mg PO DAILY #30 tab 04/10/20 methotrexate sodium 2.5 mg tablet See Rx Instructions PO QWEEK #60 05/15/20 tab lorazepam 1 mg tablet See Rx Instructions .ROUTE 05/22/20 .COMPLEX #40 tab furosemide 20 mg tablet 40 mg PO BID #120 tab 06/07/20 Allergies Allergy/AdvReac Type Severity Reaction Status Date / Time latex [LATEX] Allergy Intermediate RASH, SKIN Verified 06/08/20 17:41 PEELS penicillin G [PENICILLIN G] Allergy Unknown I WAS A Verified 06/08/20 17:41 KID SO I DON'T REMEMBER morphine [MORPHINE] AdvReac Severe HURTS MY Verified 06/08/20 17:41 STOMACH SO BAD Review of Systems Constitutional Constitutional: Denies chills, Denies fatigue, Denies fever(s), Denies frequent falls, Denies lethargy and Denies weakness Eyes Eyes: Denies change in vision, Denies eye discharge, Denies irritation and Denies loss of vision ENT Ears, Nose, Mouth, and Throat: Denies change in voice, Denies dizziness, Denies neck pain, Denies sore throat and Denies throat swelling Cardiovascular Cardiovascular: Denies chest pain, Denies irregular heart rhythm, Denies lightheadedness, Denies palpitations, Reports dyspnea, Reports dyspnea on exertion and Denies orthopnea Respiratory Respiratory: Denies cough, Reports dyspnea, Reports dyspnea on exertion and Denies wheezing Gastrointestinal Gastrointestinal: Denies abdominal pain, Denies change in bowel habits, Denies diarrhea, Reports nausea and Reports vomiting Musculoskeletal Musculoskeletal: Denies neck pain and Denies numbness Integumentary/Breasts Skin/Breast: Denies pruritus, Denies erythema, Denies rash and Denies wounds Neurologic Neurologic: Denies behavioral changes, Denies confusion, Denies dizziness, Denies frequent falls, Denies loss of vision, Denies numbness and Denies weakness Psychiatric Psychiatric: Denies anxiety, Denies behavioral changes, Denies confusion, Denies depression, Denies homicidal ideation and Denies suicidal ideation Endocrine Endocrine: Denies fatigue, Denies flushing and Denies palpitations Hematologic/Lymphatic Hematologic/Lymphatic: Denies easy bruising Allergic/Immunologic Allergic/Immunologic: Denies urticaria, Denies throat swelling and Denies wheezing Patient History Medical History Alcohol use Balance problem BRCA2 gene mutation positive in female Breast cancer metastasized to brain Chemotherapy-induced neuropathy CHF (congestive heart failure), NYHA class IV Colon polyps (04/03/16) 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 Grandfather No problems noted. Grandmother Stomach cancer Mother Enlarged aorta Breast cancer Grandfather Myelofibrosis Grandmother Parkinson's disease Social History household members: spouse and children Smoking Status: Former smoker Tobacco: How many years used: 8 alcohol intake: former substance use type: marijuana Smoking Status: Former smoker alcohol intake frequency: 0-2 drinks per day Substance Use Type: marijuana Exam Narrative Exam Narrative: GENERAL: [55] year old patient appears older than stated age. Chronically ill but in no obvious or significant distress. No conversational dyspnea. HEAD: Atraumatic. Normocephalic. EYES: Pupils equal round and reactive. Extraocular motions intact. No scleral icterus. No injection or drainage. ENT: Nose without bleeding, purulent drainage. Throat without erythema, tonsillar hypertrophy or exudate. Airway patent. NECK: Trachea midline. Non tender CARDIOVASCULAR: Regular rate and rhythm without murmurs, gallops, or rubs. RESPIRATORY: Faint crackles in bilateral bases. No significant respiratory distress GASTROINTESTINAL: Abdomen soft, non-tender, mild distension with minimal fluid wave, no tenderness EXTREMITIES: No edema or joint tenderness. BACK: Nontender without deformity or crepitance. No flank tenderness. NEURO: AOx3. SKIN: No rash or erythema of visible areas Initial Vital Signs Initial Vital Signs: Vital Signs Temperature 98.7 F 06/08/20 17:37 Pulse Rate 98 H 06/08/20 17:37 Respiratory Rate 28 H 06/08/20 17:37 Blood Pressure 117/70 06/08/20 17:37 Pulse Oximetry 97 06/08/20 17:37 Course Course Course Narrative: patient ambulating to the bathroom without any distress, remains with pulse ox in mid 90s. Orders Ordered: ED Orders 06/08/20 17:30 COVID19 Stat Flu test [Influenza A & B (PCR)] Stat 06/08/20 17:41 XR chest 2V Stat EKG-12 Lead Stat Measure peak expiratory flow ONCE RT Consult Eval and Treat Now 06/08/20 18:16 Complete Blood Count AUTO DIFF Stat Comprehensive Metabolic Panel Stat D Dimer Stat Ferritin Stat Lactate (Lactic Acid) Stat Lactate Dehydrogenase Stat NT-proBNP (BNP-Adult 18+) Stat Prothrombin Time INR Stat 06/08/20 19:14 CT abdomen pelvis w con Stat CT angio chest PE protocol Stat Discontinued Medications Furosemide (Furosemide 40 Mg/4 Ml Vial) 40 mg IV NOW ONE Stop: 06/08/20 20:41 Vital Signs Vital signs: Vital Signs - 8 hr 06/08/20 17:37 06/08/20 19:18 Temperature 98.7 F Pulse Rate 98 H 99 H Respiratory Rate 28 H 16 Blood Pressure 117/70 113/81 Pulse Oximetry 97 96 MDM - SOB/Dyspnea Lab Data Result diagrams: 06/08/20 18:16 06/08/20 18:16 Labs: Lab Results 06/08/20 06/08/20 06/08/20 Range/Units 17:30 17:30 18:16 WBC 8.1 (4.5-11.0) X10^3/uL RBC 4.75 (4.0-5.2) X10^6/uL Hgb 14.8 (12.0-16.0) g/dL Hct 44.2 (36-46) % MCV 93.1 (80-100) fL MCH 31.1 (26-34) PG MCHC 33.4 (30-36) % RDW 17.0 H (11.6-14.8) % Plt Count 172 (150-400) X10^3/uL Neut % (Auto) 61.0 (50-75) % Lymph % (Auto) 31.5 (25-40) % [place] % (Auto) 5.4 (3-14) % Eos % (Auto) 1.0 L (2-4) % Baso % (Auto) 1.1 (0-2) % Neut # (Auto) 5000 (7305-9594) /uL Lymph # (Auto) 2600 (0819-0033) /uL [place] # (Auto) 400 (0-900) /uL Eos # (Auto) 100 (0-450) /uL Baso # (Auto) 100 (0-100) /uL PT (10.1-12.7) SECONDS INR (0.9-1.3) D-Dimer (<230) ng/mL Sodium (137-145) mmol/L Potassium (3.4-5.1) mmol/L Chloride (98-107) mmol/L Carbon Dioxide (22-32) mmol/L BUN (7-17) mg/dL Creatinine (0.52-1.04) mg/dL Estimated GFR (>60) mL/min BUN/Creatinine Ratio (6-22) Glucose (70-100) mg/dL Lactate (0.7-2.1) mmol/L Calcium (8.4-10.2) mg/dL Ferritin (11-264) ng/mL Total Bilirubin (0.2-1.3) mg/dL AST (14-36) IU/L ALT (<35) IU/L Alkaline Phosphatase (38-126) U/L Lactate Dehydrogenase (313-618) U/L NT-Pro-B Natriuret Pep (<125) pg/mL Total Protein (6.3-8.2) g/dL Albumin (3.5-5.0) g/dL Globulin (1.7-4.1) g/dL Albumin/Globulin Ratio (1.0-2.8) COVID-19 PCR Negative (Negative) Influenza A (RT-PCR) Flu a negative (NEGATIVE) Influenza B (RT-PCR) Flu b negative (NEGATIVE) 06/08/20 06/08/20 06/08/20 Range/Units 18:16 18:16 18:16 WBC (4.5-11.0) X10^3/uL RBC (4.0-5.2) X10^6/uL Hgb (12.0-16.0) g/dL Hct (36-46) % MCV (80-100) fL MCH (26-34) PG MCHC (30-36) % RDW (11.6-14.8) % Plt Count (150-400) X10^3/uL Neut % (Auto) (50-75) % Lymph % (Auto) (25-40) % [place] % (Auto) (3-14) % Eos % (Auto) (2-4) % Baso % (Auto) (0-2) % Neut # (Auto) (0221-6425) /uL Lymph # (Auto) (4218-8516) /uL [place] # (Auto) (0-900) /uL Eos # (Auto) (0-450) /uL Baso # (Auto) (0-100) /uL PT (10.1-12.7) SECONDS INR (0.9-1.3) D-Dimer 3515 H (<230) ng/mL Sodium 136 L (137-145) mmol/L Potassium 4.1 (3.4-5.1) mmol/L Chloride 103 (98-107) mmol/L Carbon Dioxide 23 (22-32) mmol/L BUN 18 H (7-17) mg/dL Creatinine 1.11 H (0.52-1.04) mg/dL Estimated GFR 50.8 L (>60) mL/min BUN/Creatinine Ratio 16.2 (6-22) Glucose 82 (70-100) mg/dL Lactate 2.1 (0.7-2.1) mmol/L Calcium 9.0 (8.4-10.2) mg/dL Ferritin (11-264) ng/mL Total Bilirubin 2.1 H (0.2-1.3) mg/dL AST 43 H (14-36) IU/L ALT 28 (<35) IU/L Alkaline Phosphatase 59 (38-126) U/L Lactate Dehydrogenase (313-618) U/L NT-Pro-B Natriuret Pep (<125) pg/mL Total Protein 6.9 (6.3-8.2) g/dL Albumin 3.9 (3.5-5.0) g/dL Globulin 3.0 (1.7-4.1) g/dL Albumin/Globulin Ratio 1.3 (1.0-2.8) COVID-19 PCR (Negative) Influenza A (RT-PCR) (NEGATIVE) Influenza B (RT-PCR) (NEGATIVE) 06/08/20 06/08/20 06/08/20 Range/Units 18:16 18:16 20:35 WBC (4.5-11.0) X10^3/uL RBC (4.0-5.2) X10^6/uL Hgb (12.0-16.0) g/dL Hct (36-46) % MCV (80-100) fL MCH (26-34) PG MCHC (30-36) % RDW (11.6-14.8) % Plt Count (150-400) X10^3/uL Neut % (Auto) (50-75) % Lymph % (Auto) (25-40) % [place] % (Auto) (3-14) % Eos % (Auto) (2-4) % Baso % (Auto) (0-2) % Neut # (Auto) (0187-7720) /uL Lymph # (Auto) (6761-6280) /uL [place] # (Auto) (0-900) /uL Eos # (Auto) (0-450) /uL Baso # (Auto) (0-100) /uL PT 22.2 H (10.1-12.7) SECONDS INR 1.9 H (0.9-1.3) D-Dimer (<230) ng/mL Sodium (137-145) mmol/L Potassium (3.4-5.1) mmol/L Chloride (98-107) mmol/L Carbon Dioxide (22-32) mmol/L BUN (7-17) mg/dL Creatinine (0.52-1.04) mg/dL Estimated GFR (>60) mL/min BUN/Creatinine Ratio (6-22) Glucose (70-100) mg/dL Lactate 1.7 (0.7-2.1) mmol/L Calcium (8.4-10.2) mg/dL Ferritin 60 (11-264) ng/mL Total Bilirubin (0.2-1.3) mg/dL AST (14-36) IU/L ALT (<35) IU/L Alkaline Phosphatase (38-126) U/L Lactate Dehydrogenase 732 H (313-618) U/L NT-Pro-B Natriuret Pep 07010 H (<125) pg/mL Total Protein (6.3-8.2) g/dL Albumin (3.5-5.0) g/dL Globulin (1.7-4.1) g/dL Albumin/Globulin Ratio (1.0-2.8) COVID-19 PCR (Negative) Influenza A (RT-PCR) (NEGATIVE) Influenza B (RT-PCR) (NEGATIVE) Urine Dip Bedside Urine Glucose Negative Bedside Urine Bilirubin - Negative Bedside Urine Ketone - Negative Urine Specific [place] 1.030 Bedside Urine Occult Blood - Negative Bedside Urine pH 6.0 Bedside Urine Protein - Negative Bedside Urine Nitrite - Negative Bedside Urine Leukocytes - Negative Esterase Imaging Data CT scan - chest: Radiologist's Impression: [address] [id number] Scan ReportSigned Patient: Maricarmen Ho KMR#: [id number]: 1965Acct:[id number]/Sex: 55 / FDate of Service: 06/08/20Loc: EDAccession Number: [id number] Procedure: CT angio chest PE protocol Ordering Provider: Agustín Neal D.O. PROCEDURE: CT ANGIO CHEST PE PROTOCOL INDICATIONS: short of breath, hypoxia, critial D dimer, hx cancer TECHNIQUE: After the administration of intravenous contrast, 2 mm thick sections acquired from the pulmonary apices to the posterior costophrenic angles. 3-dimensional maximum intensity projection (MIP) coronal and sagittal reformats were then acquired through the thorax. For radiation dose reduction, the following was used: automated exposure control, adjustment of mA and/or kV according to patient size. COMPARISON: [facility], [place], CT ANGIO CHEST PE PROTOCOL, 12/10/2019, 0:05. FINDINGS: Image quality: Excellent. Pulmonary arteries: Pulmonary arteries are normal in size, and demonstrate no intraluminal filling defects to suggest central pulmonary embolism. Lungs and pleura: There is a loculated pleural effusion in the right upper lobe posteriorly. The left lung has mild atelectasis and a trace pleural effusion. Mediastinum: Heart cardiac chambers are enlarged with a pericardial effusion measuring up to 1 centimeter posteriorly. The coronary arteries have atherosclerotic calcifications. No mediastinal or hilar adenopathy. Thoracic aorta is normal in caliber and enhancement. There is a small hiatal hernia. Bones and chest wall: No suspicious bony lesions. Ribs and thoracic spine appear intact throughout. Thyroid gland is normal . No axillary or supraclavicular adenopathy. Abdomen: No acute abnormality of the upper abdomen. There is perihepatic and perisplenic ascites. IMPRESSION: 1. No pulmonary embolism. 2. Pericardial effusion measuring up to 1 centimeter posteriorly. 3. Cardiomegaly. 4. Loculated small pleural effusion in the right upper lobe posteriorly. 5. Small hiatal hernia. Dictated by: Tk Ramirez M.D. on 06/08/2020 at 20:14 Approved by: Tk Ramirez M.D. on 06/08/2020 at 20:21 CT scan - abdomen/pelvis: Radiologist's Impression: [address] [id number] Scan ReportSigned Patient: Maricarmen Ho KMR#: [id number]: 1965Acct:[id number]/Sex: 55 / FDate of Service: 06/08/20Loc: EDAccession Number: [id number] Procedure: CT abdomen pelvis w con Ordering Provider: Agustín Neal D.O. PROCEDURE: CT ABDOMEN PELVIS W CON INDICATIONS: N/V/D, distended TECHNIQUE: After the administration of intravenous contrast, 5 mm thick sections acquired from the diaphragm to the symphysis. 5 mm coronal and sagittal reformats were acquired. For radiation dose reduction, the following was used: automated exposure control, adjustment of mA and/or kV according to patient size. COMPARISON: [facility], , ABDOMEN LIMITED, 04/09/2020, 1:00. FINDINGS: Image quality: Excellent. ABDOMEN: Lung bases: See separately dictated CT of the chest. Solid organs: The liver has an irregular margin with enlargement of the left lobe, consider early cirrhosis. No hepatic masses. Gallbladder is normal . Biliary system is non dilated. Pancreas enhances normally. Spleen is normal in size and enhancement. No adrenal nodules. Kidneys demonstrate normal size and enhancement, without hydronephrosis. Peritoneum and bowel: Bowel loops demonstrate normal wall thickness and caliber. No free air. There is mild diffuse ascites. Nodes and vessels: No retroperitoneal or mesenteric adenopathy by size criteria. Aorta and inferior vena cava are normal in size. Miscellaneous: No ventral hernias. PELVIS: Genitourinary: Bladder wall thickness is normal. Miscellaneous: No inguinal hernias or adenopathy. Bones: No suspicious bony lesions. No vertebral body compression fractures. IMPRESSION: 1. No acute abdominal or pelvic abnormality. 2. Diffuse ascites. 3. Possible early cirrhosis. Please correlate with lab and clinical findings. Dictated by: Tk Ramirez M.D. on 06/08/2020 at 20:22 Approved by: Tk Ramirez M.D. on 06/08/2020 at 20:26 [facility] Narrative Medical decision making narrative: Patient with slight exacerbation of chronic symptoms. Vitals and exam are reassuring. She just started increasing her lasix per PCP last night and likely has yet to realize the full benefit. Dimer elevated but no PE noted. Pericardial effusion is largely unchanged. She is stable and showing no signs of extremis. She has been given return precautions and has had questions answered to her apparent satisfaction. Discharge Plan Departure Patient Disposition: Home Clinical Impression: Acute CHF Qualifiers: Heart failure type: unspecified Qualified Code(s): I50.9 - Heart failure, unspecified Instructions: DI for Heart Failure Activity Restrictions/Additional Instructions: *You have been diagnosed with [acute exacerbation of CHF] *What to do: *Take medications as directed *Follow up with your primary care provider in 2-3 days, call for an appointment. Let them know you were seen in the Emergency Department and that we ask that you be seen in follow up *Return to ER if you should have any new, worsening or concerning symptoms, such as [increasing shortness of breath, chest pain, fever over 101F, or other bothersome symptoms *weigh yourself daily and keep traick *with yoru increasd dose of Lasix you may feel a bit dry and it can be a bit difficult to find the balance between staying well hydrated and being appropriately diuresed initially. Follow close with your doctor ] Prescriptions: No Action sumatriptan succinate [Imitrex] 50 mg tablet 50 mg PO SEE INSTRUCTIONS PRN (Reason: unknown) Qty: 10 RF: 0 bupropion HCl 150 mg tablet extended release 24 hr 150 mg PO QAM Qty: 90 RF: 0 sulfasalazine 500 mg tablet See Rx Instructions .ROUTE .COMPLEX Qty: 60 RF: 2 albuterol sulfate 90 mcg/actuation HFA aerosol inhaler See Rx Instructions .ROUTE .COMPLEX Qty: 17 RF: 0 hydroxychloroquine 200 mg tablet See Rx Instructions .ROUTE .COMPLEX Qty: 180 RF: 0 gabapentin 300 mg capsule 300 mg PO TID Qty: 270 RF: 0 methotrexate sodium 2.5 mg tablet See Rx Instructions PO QWEEK Qty: 60 RF: 0 lorazepam 1 mg tablet See Rx Instructions .ROUTE .COMPLEX Qty: 40 RF: 0 furosemide 20 mg tablet 40 mg PO BID Qty: 120 RF: 5 folic acid 1 mg tablet 1 mg PO DAILY RF: 0 lisinopril 2.5 mg tablet 2.5 mg PO .qhs Qty: 30 RF: 0 metoprolol tartrate 25 mg tablet 25 mg PO DAILY Qty: 30 RF: 0 Referrals: Aleksandr Greenwood DO [Primary Care Provider] -
[2020-06-08 18:06] LABS: COVID19 -Nasal RAPID Negative (Negative)
[2020-06-08 18:25] LABS: Influenza A - CEPHEID Flu A NEGATIVE (NEGATIVE); Influenza B - CEPHEID Flu B NEGATIVE (NEGATIVE)
[2020-06-08 18:42] LABS: Add Manual Diff / Slide Review NO; Basophils Absolute Auto 100 /uL (0-100); Basophils Percent Auto 1.1 % (0-2); Eosinophils Absolute Auto 100 /uL (0-450); Hematocrit 44.2 % (36-46); Hemoglobin 14.8 g/dL (12.0-16.0); Lymphocytes Absolute Auto 2600 /uL (1100-4500); Lymphocytes Percent Auto 31.5 % (25-40); Mean Corpuscular HGB Conc 33.4 % (30-36); Mean Corpuscular Hemoglobin 31.1 PG (26-34); Mean Corpuscular Volume 93.1 fL (80-100); Monocytes Absolute Auto 400 /uL (0-900); Monocytes Percent Auto 5.4 % (3-14); Neutrophils Absolute Auto 5000 /uL (1500-7000); Platelet Count 172 X10^3/uL (150-400); Red Blood Cell Count 4.75 X10^6/uL (4.0-5.2); White Blood Cell Count 8.1 X10^3/uL (4.5-11.0)
[2020-06-08 18:43] LABS: Lactate (Lactic Acid) 2.1 mmol/L (0.7-2.1); Lactate Dehydrogenase 732 U/L (313-618)
[2020-06-08 18:44] LABS: Alanine Aminotransferase 28 IU/L (<35); Albumin 3.9 g/dL (3.5-5.0); Albumin Globulin Ratio 1.3 (1.0-2.8); Alkaline Phosphatase 59 U/L (38-126); Aspartate Aminotransferase 43 IU/L (14-36); BUN Creatinine Ratio 16.2 (6-22); Bilirubin Total 2.1 mg/dL (0.2-1.3); Blood Urea Nitrogen 18 mg/dL (7-17); Carbon Dioxide 23 mmol/L (22-32); Chloride 103 mmol/L (98-107); Estimated Glomerular Filt Rate 50.8 mL/min (>60); Glucose 82 mg/dL (70-100); HEMOLYSIS 17 (0-50); Potassium 4.1 mmol/L (3.4-5.1); Sodium 136 mmol/L (137-145); Total Protein 6.9 g/dL (6.3-8.2)
[2020-06-08 18:49] LABS: D Dimer 3515 ng/mL (<230)
[2020-06-08 18:53] LABS: NT-proBNP (BNP-Adult 18+) 12100 pg/mL (<125)
[2020-06-08 19:08] LABS: INR 1.9 (0.9-1.3); Prothrombin Time 22.2 SECONDS (10.1-12.7)
--- NOTE | 2020-06-08 19:14 | DI.CT.S_ITS ---
PROCEDURE: CT ANGIO CHEST PE PROTOCOL INDICATIONS: short of breath, hypoxia, critial D dimer, hx cancer TECHNIQUE: After the administration of intravenous contrast, 2 mm thick sections acquired from the pulmonary apices to the posterior costophrenic angles. 3-dimensional maximum intensity projection (MIP) coronal and sagittal reformats were then acquired through the thorax. For radiation dose reduction, the following was used: automated exposure control, adjustment of mA and/or kV according to patient size. COMPARISON: [facility], [place], CT ANGIO CHEST PE PROTOCOL, 12/10/2019, 0:05. FINDINGS: Image quality: Excellent. Pulmonary arteries: Pulmonary arteries are normal in size, and demonstrate no intraluminal filling defects to suggest central pulmonary embolism. Lungs and pleura: There is a loculated pleural effusion in the right upper lobe posteriorly. The left lung has mild atelectasis and a trace pleural effusion. Mediastinum: Heart cardiac chambers are enlarged with a pericardial effusion measuring up to 1 centimeter posteriorly. The coronary arteries have atherosclerotic calcifications. No mediastinal or hilar adenopathy. Thoracic aorta is normal in caliber and enhancement. There is a small hiatal hernia. Bones and chest wall: No suspicious bony lesions. Ribs and thoracic spine appear intact throughout. Thyroid gland is normal . No axillary or supraclavicular adenopathy. Abdomen: No acute abnormality of the upper abdomen. There is perihepatic and perisplenic ascites. IMPRESSION: 1. No pulmonary embolism. 2. Pericardial effusion measuring up to 1 centimeter posteriorly. 3. Cardiomegaly. 4. Loculated small pleural effusion in the right upper lobe posteriorly. 5. Small hiatal hernia. Dictated by: Tk Ramirez M.D. on 06/08/2020 at 20:14 Approved by: Tk Ramirez M.D. on 06/08/2020 at 20:21
--- NOTE | 2020-06-08 19:14 | DI.CT.S_ITS ---
PROCEDURE: CT ABDOMEN PELVIS W CON INDICATIONS: N/V/D, distended TECHNIQUE: After the administration of intravenous contrast, 5 mm thick sections acquired from the diaphragm to the symphysis. 5 mm coronal and sagittal reformats were acquired. For radiation dose reduction, the following was used: automated exposure control, adjustment of mA and/or kV according to patient size. COMPARISON: [facility], , ABDOMEN LIMITED, 04/09/2020, 1:00. FINDINGS: Image quality: Excellent. ABDOMEN: Lung bases: See separately dictated CT of the chest. Solid organs: The liver has an irregular margin with enlargement of the left lobe, consider early cirrhosis. No hepatic masses. Gallbladder is normal . Biliary system is non dilated. Pancreas enhances normally. Spleen is normal in size and enhancement. No adrenal nodules. Kidneys demonstrate normal size and enhancement, without hydronephrosis. Peritoneum and bowel: Bowel loops demonstrate normal wall thickness and caliber. No free air. There is mild diffuse ascites. Nodes and vessels: No retroperitoneal or mesenteric adenopathy by size criteria. Aorta and inferior vena cava are normal in size. Miscellaneous: No ventral hernias. PELVIS: Genitourinary: Bladder wall thickness is normal. Miscellaneous: No inguinal hernias or adenopathy. Bones: No suspicious bony lesions. No vertebral body compression fractures. IMPRESSION: 1. No acute abdominal or pelvic abnormality. 2. Diffuse ascites. 3. Possible early cirrhosis. Please correlate with lab and clinical findings. Dictated by: Tk Ramirez M.D. on 06/08/2020 at 20:22 Approved by: Tk Ramirez M.D. on 06/08/2020 at 20:26
[2020-06-08 19:18] VITALS: BP 113/81; PULSE 99; RESP 16; O2SAT 96
[2020-06-08 19:19] LABS: Ferritin 60 ng/mL (11-264)
[2020-06-08 20:24] LABS: Reflexed Lactate in 2 Hours Y
[2020-06-08 20:52] LABS: Lactate 2HR (Lactic Acid Rflx) 1.7 mmol/L (0.7-2.1)
[2020-06-08] MEDS: FUROSEMIDE 40 MG/4 ML VIAL IV (21:03)
[2020-06-08] MEDS: ONDANSETRON 4 MG ODT PREPACK 1 BOTTLE MISC (21:12)
[2020-06-08 21:21] VITALS: BP 121/74; PULSE 104; RESP 18; O2SAT 96
== END 2020-06-08 21:33 | disposition home or self-care (01) ==
PROVIDERS: Emergency Medicine; Emergency Provider Emergency Medicine; PCP Family Medicine
DX: I50.9 Heart failure, unspecified (principal); R11.2 Nausea with vomiting, unspecified; R05 Cough; R09.02 Hypoxemia
CPT/HCPCS: 36415; 71046; 71275; 74177; 80053; 81003; 82728; 83605; 83615; 83880; 85025; 85379; 85610; 87502; 87635; 93005; 96374; 99283; 99284; J1940; Q9967

== ENCOUNTER → 2020-06-12 17:15 | Outpatient (CLI) | payer OTHER, MEDICAID, SELFPAY ==
[2020-04-08 20:02] VITALS: BMI 34.2
[2020-06-12 17:33] LABS: Add Manual Diff / Slide Review NO; Basophils Absolute Auto 0 /uL (0-100); Basophils Percent Auto 0.4 % (0-2); Eosinophils Absolute Auto 100 /uL (0-450); Eosinophils Percent Auto 1.3 % (2-4); Hematocrit 42.4 % (36-46); Hemoglobin 14.1 g/dL (12.0-16.0); Lymphocytes Absolute Auto 1500 /uL (1100-4500); Lymphocytes Percent Auto 22.7 % (25-40); Mean Corpuscular HGB Conc 33.3 % (30-36); Mean Corpuscular Hemoglobin 30.9 PG (26-34); Mean Corpuscular Volume 92.9 fL (80-100); Monocytes Absolute Auto 700 /uL (0-900); Monocytes Percent Auto 11.1 % (3-14); Neutrophils Absolute Auto 4300 /uL (1500-7000); Neutrophils Percent Auto 64.5 % (50-75); Platelet Count 151 X10^3/uL (150-400); Red Blood Cell Count 4.57 X10^6/uL (4.0-5.2); Red Cell Distribution Width 17.5 % (11.6-14.8); White Blood Cell Count 6.7 X10^3/uL (4.5-11.0)
[2020-06-12 17:40] LABS: INR 1.8 (0.9-1.3)
[2020-06-12 17:46] LABS: Alanine Aminotransferase 178 IU/L (<35); Albumin 3.8 g/dL (3.5-5.0); Albumin Globulin Ratio 1.2 (1.0-2.8); Alkaline Phosphatase 65 U/L (38-126); Aspartate Aminotransferase 145 IU/L (14-36); BUN Creatinine Ratio 20.4 (6-22); Bilirubin Total 0.8 mg/dL (0.2-1.3); Blood Urea Nitrogen 30 mg/dL (7-17); Calcium 8.8 mg/dL (8.4-10.2); Carbon Dioxide 28 mmol/L (22-32); Chloride 99 mmol/L (98-107); Estimated Glomerular Filt Rate 36.8 mL/min (>60); Globulin 3.2 g/dL (1.7-4.1); Glucose 87 mg/dL (70-100); HEMOLYSIS < 15 (0-50); Potassium 3.7 mmol/L (3.4-5.1); Sodium 136 mmol/L (137-145)
== END ==
PROVIDERS: PCP Family Medicine; Referring Provider Family Medicine; Visit Provider Family Medicine
DX: I31.3 Pericardial effusion (noninflammatory) (principal); I50.22 Chronic systolic (congestive) heart failure; R18.8 Other ascites
CPT/HCPCS: 36415; 80053; 85025; 85610

== ENCOUNTER → 2020-08-07 14:13 | Outpatient (CLI) | payer OTHER, MEDICAID, SELFPAY ==
[2020-04-08 20:02] VITALS: BMI 34.2
== END ==
PROVIDERS: PCP Family Medicine; Referring Provider Surgery Vascular Surgery; Visit Provider Family Medicine
DX: S91.302A Unspecified open wound, left foot, initial encounter (principal); S91.105A Unspecified open wound of left lesser toe(s) without damage to nail, initial encounter; M05.89 Other rheumatoid arthritis with rheumatoid factor of multiple sites; D69.2 Other nonthrombocytopenic purpura; L08.9 Local infection of the skin and subcutaneous tissue, unspecified
CPT/HCPCS: 11042; 87070; 87077; 87147; 87186; 87205; 99204; 99213

== ENCOUNTER → 2020-08-07 16:03 | Outpatient (ROUT) | payer OTHER, MEDICAID, SELFPAY ==
[2020-04-08 20:02] VITALS: BMI 34.2
== END ==
PROVIDERS: PCP Family Medicine; Visit Provider Family Medicine
DX: L08.9 Local infection of the skin and subcutaneous tissue, unspecified (principal)
CPT/HCPCS: 87070; 87075; 87077; 87147; 87186; 87205

== ENCOUNTER → 2020-08-15 15:53 | Outpatient (CLI) | payer OTHER, MEDICAID, SELFPAY ==
[2020-04-08 20:02] VITALS: BMI 34.2
== END ==
PROVIDERS: PCP Family Medicine; Referring Provider Family Medicine; Visit Provider Family Medicine
DX: S91.302A Unspecified open wound, left foot, initial encounter (principal); S91.301A Unspecified open wound, right foot, initial encounter; M05.9 Rheumatoid arthritis with rheumatoid factor, unspecified; I50.22 Chronic systolic (congestive) heart failure; R18.8 Other ascites; I31.3 Pericardial effusion (noninflammatory); Z85.3 Personal history of malignant neoplasm of breast; D69.2 Other nonthrombocytopenic purpura; R23.1 Pallor; L08.9 Local infection of the skin and subcutaneous tissue, unspecified; B95.61 Methicillin susceptible Staphylococcus aureus infection as the cause of diseases classified elsewhere
CPT/HCPCS: 11042; 99214

== ENCOUNTER → 2020-08-19 14:49 | Outpatient (CLI) | payer OTHER, MEDICAID, SELFPAY ==
[2020-04-08 20:02] VITALS: BMI 34.2
== END ==
PROVIDERS: PCP Family Medicine; Referring Provider Family Medicine; Visit Provider Family Medicine
DX: S91.105A Unspecified open wound of left lesser toe(s) without damage to nail, initial encounter (principal); S91.302A Unspecified open wound, left foot, initial encounter
CPT/HCPCS: 99213

== ENCOUNTER → 2020-08-22 15:02 | Outpatient (CLI) | payer OTHER, MEDICAID, SELFPAY ==
[2020-04-08 20:02] VITALS: BMI 34.2
== END ==
PROVIDERS: PCP Family Medicine; Referring Provider Family Medicine; Visit Provider Family Medicine
DX: S61.302A Unspecified open wound of right middle finger with damage to nail, initial encounter (principal); M34.1 CR(E)ST syndrome; Z99.2 Dependence on renal dialysis; E46 Unspecified protein-calorie malnutrition; M86.641 Other chronic osteomyelitis, right hand; S91.301A Unspecified open wound, right foot, initial encounter; M05.89 Other rheumatoid arthritis with rheumatoid factor of multiple sites; I50.22 Chronic systolic (congestive) heart failure; R18.8 Other ascites; I31.3 Pericardial effusion (noninflammatory); Z85.3 Personal history of malignant neoplasm of breast; D69.2 Other nonthrombocytopenic purpura; R23.1 Pallor
CPT/HCPCS: 99213

== ENCOUNTER → 2020-08-26 09:42 | Outpatient (CLI) | payer OTHER, MEDICAID, SELFPAY ==
[2020-04-08 20:02] VITALS: BMI 34.2
== END ==
PROVIDERS: PCP Family Medicine; Referring Provider Family Medicine; Visit Provider Family Medicine
DX: S91.105A Unspecified open wound of left lesser toe(s) without damage to nail, initial encounter (principal); S91.302A Unspecified open wound, left foot, initial encounter
CPT/HCPCS: 99213

== ENCOUNTER → 2020-08-28 10:22 | Outpatient (CLI) | payer OTHER, MEDICAID, SELFPAY ==
[2020-04-08 20:02] VITALS: BMI 34.2
== END ==
PROVIDERS: PCP Family Medicine; Referring Provider Family Medicine; Visit Provider Family Medicine
DX: S91.105A Unspecified open wound of left lesser toe(s) without damage to nail, initial encounter (principal); S91.302A Unspecified open wound, left foot, initial encounter
CPT/HCPCS: 99213

== ENCOUNTER → 2020-09-12 13:28 | Outpatient (CLI) | payer OTHER, MEDICAID, SELFPAY ==
[2020-04-08 20:02] VITALS: BMI 34.2
== END ==
PROVIDERS: PCP Family Medicine; Referring Provider Family Medicine; Visit Provider Family Medicine
DX: S91.302A Unspecified open wound, left foot, initial encounter (principal); S91.301A Unspecified open wound, right foot, initial encounter; M05.89 Other rheumatoid arthritis with rheumatoid factor of multiple sites; I50.22 Chronic systolic (congestive) heart failure; R18.8 Other ascites; I31.3 Pericardial effusion (noninflammatory); Z85.3 Personal history of malignant neoplasm of breast; D69.2 Other nonthrombocytopenic purpura; R23.1 Pallor; L95.8 Other vasculitis limited to the skin
CPT/HCPCS: 11042; 36415; 80053; 82595; 83520; 84155; 84165; 85025; 85651; 86140; 86147; 86160; 86162; 86200; 86256

== ENCOUNTER → 2020-09-12 14:08 | Outpatient (CLI) | payer OTHER, MEDICAID, SELFPAY ==
[2020-04-08 20:02] VITALS: BMI 34.2
[2020-09-12 14:34] LABS: Add Manual Diff / Slide Review NO; Basophils Absolute Auto 100 /uL (0-100); Basophils Percent Auto 0.9 % (0-2); Eosinophils Absolute Auto 100 /uL (0-450); Eosinophils Percent Auto 1.2 % (2-4); Lymphocytes Absolute Auto 1000 /uL (1100-4500); Lymphocytes Percent Auto 18.2 % (25-40); Mean Corpuscular HGB Conc 33.3 % (30-36); Mean Corpuscular Hemoglobin 30.7 PG (26-34); Mean Corpuscular Volume 92.3 fL (80-100); Monocytes Absolute Auto 500 /uL (0-900); Monocytes Percent Auto 8.5 % (3-14); Neutrophils Absolute Auto 3900 /uL (1500-7000); Neutrophils Percent Auto 71.2 % (50-75); Platelet Count 156 X10^3/uL (150-400); Red Blood Cell Count 4.23 X10^6/uL (4.0-5.2); Red Cell Distribution Width 20.9 % (11.6-14.8); White Blood Cell Count 5.4 X10^3/uL (4.5-11.0)
[2020-09-12 14:58] LABS: Erythrocyte Sedimentation Rate 15 MM/HR (0-20)
[2020-09-12 14:59] LABS: Anisocytosis 1+
[2020-09-12 15:54] LABS: Alanine Aminotransferase 15 IU/L (<35); Albumin 3.5 g/dL (3.5-5.0); Albumin Globulin Ratio 1.2 (1.0-2.8); Alkaline Phosphatase 74 U/L (38-126); Aspartate Aminotransferase 30 IU/L (14-36); BUN Creatinine Ratio 44.4 (6-22); Bilirubin Total 1.3 mg/dL (0.2-1.3); Blood Urea Nitrogen 40 mg/dL (7-17); C-Reactive Protein Quant 5.3 mg/dL (<1.0); Calcium 8.9 mg/dL (8.4-10.2); Carbon Dioxide 22 mmol/L (22-32); Chloride 99 mmol/L (98-107); Estimated Glomerular Filt Rate > 60.0 mL/min (>60); Glucose 101 mg/dL (70-100); HEMOLYSIS < 15 (0-50); Sodium 135 mmol/L (137-145); Total Protein 6.5 g/dL (6.3-8.2)
[2020-09-13 04:42] LABS: Complement C3 82 mg/dL (82-167)
[2020-09-14 02:13] LABS: Complement Total CH50 46 U/mL (>41)
[2020-09-15 01:06] LABS: CCP Antibodies IgG/IgA >250 units (0-19)
[2020-09-16 14:42] LABS: Albumin 3.3 g/dL (2.9-4.4); Alpha-1-Globulin 0.3 g/dL (0.0-0.4); Alpha-2-Globulin 0.5 g/dL (0.4-1.0); Gamma Globulin 1.3 g/dL (0.4-1.8); Globulin Total 3.1 g/dL (2.2-3.9); Protein, Total 6.4 g/dL (6.0-8.5)
[2020-09-23 11:12] LABS: Cytoplasmic C-ANCA <1:20; Perinuclear P-ANCA <1:20
[2020-09-23 11:16] LABS: Cardiolipin IgA Negative
== END ==
PROVIDERS: PCP Family Medicine; Referring Provider Family Medicine; Visit Provider Family Medicine
DX: M05.89 Other rheumatoid arthritis with rheumatoid factor of multiple sites (principal); L95.9 Vasculitis limited to the skin, unspecified
CPT/HCPCS: 36415; 80053; 82595; 83520; 84155; 84165; 85025; 85651; 86140; 86147; 86160; 86162; 86200; 86256

== ENCOUNTER → 2020-09-16 14:47 | Outpatient (CLI) | payer OTHER, MEDICAID, SELFPAY ==
[2020-04-08 20:02] VITALS: BMI 34.2
== END ==
PROVIDERS: PCP Family Medicine; Referring Provider Family Medicine; Visit Provider Family Medicine
DX: S91.302A Unspecified open wound, left foot, initial encounter (principal); Z48.01 Encounter for change or removal of surgical wound dressing
CPT/HCPCS: 99213

== ENCOUNTER → 2020-09-23 12:59 | Outpatient (CLI) | payer OTHER, MEDICAID, SELFPAY ==
[2020-04-08 20:02] VITALS: BMI 34.2
== END ==
PROVIDERS: PCP Family Medicine; Referring Provider Family Medicine; Visit Provider Family Medicine
DX: S91.105A Unspecified open wound of left lesser toe(s) without damage to nail, initial encounter (principal); S91.302A Unspecified open wound, left foot, initial encounter; S91.301A Unspecified open wound, right foot, initial encounter; Z48.01 Encounter for change or removal of surgical wound dressing
CPT/HCPCS: 99213

== ENCOUNTER 2020-09-26 15:43 | Emergency (ER) | payer OTHER, MEDICAID, SELFPAY ==
[2020-04-08 20:02] VITALS: BMI 34.2
[2020-09-26] VITALS (8 sets, daily range): BP systolic 112–140; BP diastolic 75–100; PULSE 96–103; RESP 16–36; TEMP 36.8; O2SAT 94–99; BMI 32.6
--- NOTE | 2020-09-26 16:26 | ED_ITS ---
HPI - SOB/Dyspnea General Chief Complaint: Shortness of Breath/Dyspnea Stated Complaint: trouble breathing, CHF, sent by Dr. Jesus Time Seen by Provider: 09/26/20 16:24 Source: patient Mode of arrival: Wheelchair Limitations: no limitations History of Present Illness HPI Narrative: The patient arrives with a chief complaint of shortness of breath. She has a history of COPD, and CHF. She has orthopnea, no cough, no fever. She is not wheezing. She quit smoking several months ago. She also has a history of alcohol abuse with cirrhosis and ascites. She has history of hepatitis-C, and arthritis. She notes her abdominal girth and discomfort has increased lately. She has no additional lower extremity edema. She takes both Lasix and spironolactone. With abdominal discomfort she has no nausea vomiting, she has no diarrhea. She has no hematochezia. On prior evaluation it is noted that she has coagulopathy. Paracentesis was apparently discussed, not carried out because of concern for bleeding. She has previously gone through treating for breast cancer. She underwent echocardiogram 03/2020, EF was 15-20%. She has severe left ventricular hypokinesis. Related Data Previous Rx's Medication Instructions Recorded fluticasone propionate 110 1 puff INHALATION BID #1 inh 06/09/17 mcg/actuation HFA aerosol inhaler bupropion HCl 150 mg 24 hr tablet, 150 mg PO QAM #90 tab 07/12/20 extended release furosemide 20 mg tablet 40 mg PO DAILY #120 tab 07/12/20 gabapentin 300 mg capsule 300 mg PO TID #270 cap 07/12/20 hydroxychloroquine 200 mg tablet See Rx Instructions .ROUTE 07/12/20 .COMPLEX #120 tab lisinopril 5 mg tablet 5 mg PO DAILY #90 tab 07/12/20 metoprolol succinate 25 mg 25 mg PO DAILY #90 tab 07/12/20 tablet,extended release 24 hr sulfasalazine 500 mg tablet See Rx Instructions .ROUTE 07/24/20 .COMPLEX #60 tablet albuterol sulfate 90 mcg/actuation See Rx Instructions .ROUTE 07/26/20 aerosol inhaler .COMPLEX #18 g prednisone 20 mg tablet 20 mg PO DAILY #5 tab 08/18/20 lorazepam 1 mg tablet See Rx Instructions .ROUTE 09/02/20 .COMPLEX #40 tab hydrocodone 5 mg-acetaminophen 325 1 tab PO Q8H PRN #30 tab 09/16/20 mg tablet promethazine 12.5 mg tablet 12.5 mg PO TID PRN #20 tab 09/16/20 spironolactone 100 mg tablet 100 mg PO DAILY #92 tab 09/16/20 Allergies Allergy/AdvReac Type Severity Reaction Status Date / Time latex [LATEX] Allergy Intermediate RASH, SKIN Verified 09/26/20 15:53 PEELS penicillin G [PENICILLIN G] Allergy Unknown I WAS A Verified 09/26/20 15:53 KID SO I DON'T REMEMBER morphine [MORPHINE] AdvReac Severe HURTS MY Verified 09/26/20 15:53 STOMACH SO BAD Review of Systems Constitutional Constitutional: Denies chills, Denies fatigue, Denies fever(s), Denies headache(s) and Denies weakness Eyes Eyes: Denies change in vision ENT Ears, Nose, Mouth, and Throat: Denies headache(s) and Denies sore throat Cardiovascular Cardiovascular: Denies chest pain, Denies rapid heart rate, Denies lightheadedness and Reports dyspnea Respiratory Respiratory: Reports cough, Reports dyspnea and Denies wheezing Gastrointestinal Gastrointestinal: Reports as per HPI Genitourinary Genitourinary: Denies dysuria Musculoskeletal Musculoskeletal: Denies back pain Comments: Ulcers on both feet, currently bandage. Cared for by wound care. Integumentary/Breasts Comments: Same as above. No jaundice. Neurologic Neurologic: Denies confusion, Denies headache(s) and Denies weakness Psychiatric Psychiatric: Denies confusion and Denies depression Endocrine Endocrine: Denies fatigue Allergic/Immunologic Allergic/Immunologic: Denies wheezing Patient History Medical History Alcohol use Ascites Balance problem BRCA2 gene mutation positive in female Breast cancer metastasized to brain Chemotherapy-induced neuropathy CHF (congestive heart failure), NYHA class IV Colon polyps (04/03/16) Decreased manager lan strength of left hand Depression Encounter for tobacco use cessation counseling Hepatic cirrhosis Hepatitis C (~1995) Musculoskeletal pain (~2015) Nausea & vomiting Rheumatoid arthritis (~2015) Shortness of breath Vomiting and diarrhea Surgical History History of appendectomy (1998) History of bilateral mastectomy (2013) History of bilateral salpingo-oophorectomy (2013) History of section (1999) History of colonoscopy with polypectomy (04/03/16) History of esophagogastroduodenoscopy (EGD) (04/03/16) History of tubal ligation (1995) Status post gamma knife treatment (2013) Family History Father No problems noted. Grandfather No problems noted. Grandmother Stomach cancer Mother Enlarged aorta Breast cancer Grandfather Myelofibrosis Grandmother Parkinson's disease Social History household members: spouse and children Smoking Status: Former smoker Tobacco: How many years used: 8 alcohol intake: former substance use type: marijuana Smoking Status: Former smoker alcohol intake frequency: holidays/special occasions only Substance Use Type: marijuana Exam Initial Vital Signs Initial Vital Signs: Vital Signs Temperature 98.2 F 09/26/20 15:51 Pulse Rate 101 H 09/26/20 15:51 Respiratory Rate 16 09/26/20 15:51 Blood Pressure 124/80 09/26/20 15:51 Pulse Oximetry 99 09/26/20 15:51 Const General: cooperative and well developed Nutritional Appearance: well nourished [facility] Head: normocephalic and atraumatic Throat: tonsils normal Eyes General: appearance normal, both eyes and all related structures Eyelids: eyelids normal Conjunctivae: conjunctivae normal Sclera: sclerae normal Pupils: PERRL EOM: EOM intact bilaterally Neck Neck: No JVD Chest Chest: No crepitus and No tenderness Resp Auscultation: clear to auscultation bilaterally Cardio Rate: regular rate Rhythm: regular rhythm Heart Sounds: S1 normal, S2 normal, no click, no gallops, no murmurs and no rubs Pulses: normal peripheral pulses GI Other: Distended with ascites. Organs are not palpable. Bowel sounds are heard. There is no guarding rebound. Back/Spine/Pelvis Back: No CVA tenderness Skin Other: No jaundice. Lesions on her feet are covered with bandages. Neuro General: patient alert, patient oriented x3, gait normal and no focal motor deficits Speech: speech normal Extrem Other: No lower extremity edema or calf tenderness. Psych Mental Status: mental status grossly normal Course Course Course Narrative: The patient has CHF with severe cardiomegaly. She is on Lasix and spironolactone. O2 sats are 97% on room air. She has significant ascites. She has dyspnea on exertion and orthopnea. X-ray shows cardiomegaly as well as a small pleural effusion. There is a focal effusion in the right upper lung. I believe that the significant ascites is contributing to her dyspnea. I discussed the situation with the on-call physician, Dr. Tracy. We discussed repeat echo. We discussed paracentesis. Her INR is elevated. I gave her vitamin K, hopefully helping the INR level. The plan is to improve her well enough for paracentesis. Another echo would also be useful. She is well enough to be discharged home. Dr. Tracy will discuss the situation tomorrow with her PCM, Dr. Jesus. Orders Ordered: ED Orders 09/26/20 16:34 EKG-12 Lead Stat 09/26/20 16:38 XR chest 1V Stat 09/26/20 16:40 Complete Blood Count AUTO DIFF Stat Comprehensive Metabolic Panel Stat Lactate (Lactic Acid) Stat Magnesium Stat NT-proBNP (BNP-Adult 18+) Stat Partial Thromboplastin Time Stat Prothrombin Time INR Stat Troponin & CK Cardiac Panel Stat Discontinued Medications Phytonadione (Phytonadione (Vit K1) 5 Mg Tablet) 10 mg PO NOW ONE Stop: 09/26/20 17:50 Last Admin: 09/26/20 18:12 Dose: 10 mg Documented by: Vital Signs Vital signs: Vital Signs - 8 hr 09/26/20 15:51 09/26/20 16:20 09/26/20 16:42 Temperature 98.2 F Pulse Rate 101 H 99 H Respiratory Rate 16 36 H Blood Pressure 124/80 112/79 Pulse Oximetry 99 94 09/26/20 17:00 09/26/20 17:30 09/26/20 18:00 Temperature Pulse Rate 96 H 100 H Respiratory Rate 36 H 23 Blood Pressure 118/79 115/83 140/100 H Pulse Oximetry 95 94 MDM - SOB/Dyspnea Lab Data Result diagrams: 09/26/20 16:40 09/26/20 16:40 Labs: Lab Results 09/26/20 09/26/20 09/26/20 Range/Units 16:40 16:40 16:40 WBC 6.9 (4.5-11.0) X10^3/uL RBC 4.52 (4.0-5.2) X10^6/uL Hgb 13.7 (12.0-16.0) g/dL Hct 42.0 (36-46) % MCV 93.0 (80-100) fL MCH 30.4 (26-34) PG MCHC 32.7 (30-36) % RDW 20.8 H (11.6-14.8) % Plt Count 178 (150-400) X10^3/uL Neut % (Auto) 66.7 (50-75) % Lymph % (Auto) 19.9 L (25-40) % Laporte % (Auto) 11.3 (3-14) % Eos % (Auto) 0.7 L (2-4) % Baso % (Auto) 1.4 (0-2) % Neut # (Auto) 4600 (8742-4951) /uL Lymph # (Auto) 1400 (1781-1421) /uL [place] # (Auto) 800 (0-900) /uL Eos # (Auto) 0 (0-450) /uL Baso # (Auto) 100 (0-100) /uL RBC Morphology See below Poikilocytosis 1+ H Anisocytosis 1+ H PT (10.1-12.7) SECONDS INR (0.9-1.3) APTT (26.4-36.2) SECONDS Sodium (137-145) mmol/L Potassium (3.4-5.1) mmol/L Chloride (98-107) mmol/L Carbon Dioxide (22-32) mmol/L BUN (7-17) mg/dL Creatinine (0.52-1.04) mg/dL Estimated GFR (>60) mL/min BUN/Creatinine Ratio (6-22) Glucose (70-100) mg/dL Lactate 3.4 H (0.7-2.1) mmol/L Calcium (8.4-10.2) mg/dL Magnesium 1.4 L (1.6-2.3) mg/dL Total Bilirubin (0.2-1.3) mg/dL AST (14-36) IU/L ALT (<35) IU/L Alkaline Phosphatase (38-126) U/L Total Creatine Kinase 31 (30-135) U/L CK-MB (CK-2) TNP CK-MB (CK-2) Rel Index TNP Troponin I < 0.012 (0.01-0.034) ng/mL NT-Pro-B Natriuret Pep (<125) pg/mL Total Protein (6.3-8.2) g/dL Albumin (3.5-5.0) g/dL Globulin (1.7-4.1) g/dL Albumin/Globulin Ratio (1.0-2.8) 09/26/20 09/26/20 Range/Units 16:40 16:40 WBC (4.5-11.0) X10^3/uL RBC (4.0-5.2) X10^6/uL Hgb (12.0-16.0) g/dL Hct (36-46) % MCV (80-100) fL MCH (26-34) PG MCHC (30-36) % RDW (11.6-14.8) % Plt Count (150-400) X10^3/uL Neut % (Auto) (50-75) % Lymph % (Auto) (25-40) % Laporte % (Auto) (3-14) % Eos % (Auto) (2-4) % Baso % (Auto) (0-2) % Neut # (Auto) (2237-5014) /uL Lymph # (Auto) (5556-5767) /uL [place]orte # (Auto) (0-900) /uL Eos # (Auto) (0-450) /uL Baso # (Auto) (0-100) /uL RBC Morphology Poikilocytosis Anisocytosis PT 21.2 H (10.1-12.7) SECONDS INR 1.9 H (0.9-1.3) APTT 31 (26.4-36.2) SECONDS Sodium 139 (137-145) mmol/L Potassium 3.3 L (3.4-5.1) mmol/L Chloride 102 (98-107) mmol/L Carbon Dioxide 23 (22-32) mmol/L BUN 17 (7-17) mg/dL Creatinine 0.78 (0.52-1.04) mg/dL Estimated GFR > 60.0 (>60) mL/min BUN/Creatinine Ratio 21.8 (6-22) Glucose 99 (70-100) mg/dL Lactate (0.7-2.1) mmol/L Calcium 8.6 (8.4-10.2) mg/dL Magnesium (1.6-2.3) mg/dL Total Bilirubin 1.6 H (0.2-1.3) mg/dL AST 30 (14-36) IU/L ALT 17 (<35) IU/L Alkaline Phosphatase 60 (38-126) U/L Total Creatine Kinase (30-135) U/L CK-MB (CK-2) CK-MB (CK-2) Rel Index Troponin I (0.01-0.034) ng/mL NT-Pro-B Natriuret Pep 49070 H (<125) pg/mL Total Protein 6.8 (6.3-8.2) g/dL Albumin 3.7 (3.5-5.0) g/dL Globulin 3.1 (1.7-4.1) g/dL Albumin/Globulin Ratio 1.2 (1.0-2.8) Imaging Data Chest x-ray: Radiologist's Impression: [address] [id number] ReportSigned Patient: Maricarmen Ho KMR#: [id number]: 1965Acct:[id number]/Sex: 55 / FDate of Service: 09/26/20Loc: EDAccession Number: [id number] Procedure: XR chest 1V Ordering Provider: John Drew MD PROCEDURE: XR CHEST 1V INDICATIONS: dyspnea TECHNIQUE: One view of the chest was acquired. COMPARISON: [facility], , XR CHEST 1V, 04/17/2020, 17:49. FINDINGS: Surgical changes and devices: Left chest wall Port-A-Cath and left axillary surgical clips are stable.. Lungs and pleura: Lungs are clear. No pleural effusions or pneumothorax right- sided pleural effusion is increased in size. Increased opacification noted in the right lung base in the right lung apex which could represent atelectasis or pneumonia. Mediastinum: Mediastinal contours appear normal. Heart is markedly enlarged. Bones and chest wall: No suspicious bony lesions. Overlying soft tissues appear unremarkable. IMPRESSION: 1. Cardiomegaly. 2. Small right-sided pleural effusion. . Three. Right basilar and right apically lung increased opacification compatible with atelectasis versus pneumonia. Dictated by: Lilliana Paiz MD, PhD on 09/26/2020 at 16:51 Approved by: Lilliana Paiz MD, PhD on 09/26/2020 at 16:53 ECG Data Attestation: I personally reviewed and interpreted this ECG as follows: (Normal sinus rhythm rate 98 beats per minute. PVCs. LAD. Right axis. Old septal UT. No acute ST T wave changes.) Discharge Plan Departure Prescriptions: No Action Flovent HFA 110 mcg/actuation HFA aerosol inhaler 1 puff inhalation BID Qty: 1 RF: 11 sulfasalazine 500 mg tablet See Rx Instructions .ROUTE .COMPLEX Qty: 60 RF: 2 albuterol sulfate 90 mcg/actuation HFA aerosol inhaler See Rx Instructions .ROUTE .COMPLEX Qty: 18 RF: 0 prednisone 20 mg tablet 20 mg PO DAILY Qty: 5 RF: 0 lorazepam 1 mg tablet See Rx Instructions .ROUTE .COMPLEX Qty: 40 RF: 0 bupropion HCl 150 mg tablet extended release 24 hr 150 mg PO QAM Qty: 90 RF: 3 furosemide 20 mg tablet 40 mg PO DAILY Qty: 120 RF: 1 gabapentin 300 mg capsule 300 mg PO TID Qty: 270 RF: 1 hydroxychloroquine 200 mg tablet See Rx Instructions .ROUTE .COMPLEX Qty: 120 RF: 1 lisinopril 5 mg tablet 5 mg PO DAILY Qty: 90 RF: 3 metoprolol succinate 25 mg tablet extended release 24 hr 25 mg PO DAILY Qty: 90 RF: 1 hydrocodone-acetaminophen 5-325 mg tablet 1 tab PO Q8H PRN (Reason: pain) Qty: 30 RF: 0 promethazine 12.5 mg tablet 12.5 mg PO TID PRN (Reason: nausea and vomiting) Qty: 20 RF: 0 spironolactone 100 mg tablet 100 mg PO DAILY Qty: 92 RF: 0
--- NOTE | 2020-09-26 16:38 | DI.RAD.S_ITS ---
PROCEDURE: XR CHEST 1V INDICATIONS: dyspnea TECHNIQUE: One view of the chest was acquired. COMPARISON: [facility], CR, XR CHEST 1V, 04/17/2020, 17:49. FINDINGS: Surgical changes and devices: Left chest wall Port-A-Cath and left axillary surgical clips are stable.. Lungs and pleura: Lungs are clear. No pleural effusions or pneumothorax right-sided pleural effusion is increased in size. Increased opacification noted in the right lung base in the right lung apex which could represent atelectasis or pneumonia. Mediastinum: Mediastinal contours appear normal. Heart is markedly enlarged. Bones and chest wall: No suspicious bony lesions. Overlying soft tissues appear unremarkable. IMPRESSION: 1. Cardiomegaly. 2. Small right-sided pleural effusion. . Three. Right basilar and right apically lung increased opacification compatible with atelectasis versus pneumonia. Dictated by: Lilliana Paiz MD, PhD on 09/26/2020 at 16:51 Approved by: Lilliana Paiz MD, PhD on 09/26/2020 at 16:53
--- NOTE | 2020-09-26 16:48 | PC.NURSE ---
Pt's abd is extremely bloated and pt states that she feels as if this bloating is causing her SOB. She was recently dx with CHF.
[2020-09-26 16:53] LABS: Add Manual Diff / Slide Review NO; Basophils Absolute Auto 100 /uL (0-100); Basophils Percent Auto 1.4 % (0-2); Eosinophils Absolute Auto 0 /uL (0-450); Eosinophils Percent Auto 0.7 % (2-4); Hemoglobin 13.7 g/dL (12.0-16.0); Lymphocytes Absolute Auto 1400 /uL (1100-4500); Lymphocytes Percent Auto 19.9 % (25-40); Mean Corpuscular HGB Conc 32.7 % (30-36); Mean Corpuscular Hemoglobin 30.4 PG (26-34); Monocytes Absolute Auto 800 /uL (0-900); Monocytes Percent Auto 11.3 % (3-14); Neutrophils Absolute Auto 4600 /uL (1500-7000); Neutrophils Percent Auto 66.7 % (50-75); Platelet Count 178 X10^3/uL (150-400); Red Blood Cell Count 4.52 X10^6/uL (4.0-5.2); Red Cell Distribution Width 20.8 % (11.6-14.8); White Blood Cell Count 6.9 X10^3/uL (4.5-11.0)
[2020-09-26 17:02] LABS: INR 1.9 (0.9-1.3); Prothrombin Time 21.2 SECONDS (10.1-12.7)
[2020-09-26 17:04] LABS: PTT Partial Thromboplastin Tim 31 SECONDS (26.4-36.2)
[2020-09-26 17:06] LABS: Creatine Kinase 31 U/L (30-135); Magnesium 1.4 mg/dL (1.6-2.3)
[2020-09-26 17:07] LABS: Alanine Aminotransferase 17 IU/L (<35); Albumin 3.7 g/dL (3.5-5.0); Albumin Globulin Ratio 1.2 (1.0-2.8); Alkaline Phosphatase 60 U/L (38-126); Aspartate Aminotransferase 30 IU/L (14-36); BUN Creatinine Ratio 21.8 (6-22); Bilirubin Total 1.6 mg/dL (0.2-1.3); Blood Urea Nitrogen 17 mg/dL (7-17); Calcium 8.6 mg/dL (8.4-10.2); Carbon Dioxide 23 mmol/L (22-32); Chloride 102 mmol/L (98-107); Estimated Glomerular Filt Rate > 60.0 mL/min (>60); Globulin 3.1 g/dL (1.7-4.1); Glucose 99 mg/dL (70-100); HEMOLYSIS < 15 (0-50); Lactate (Lactic Acid) 3.4 mmol/L (0.7-2.1); Potassium 3.3 mmol/L (3.4-5.1); Sodium 139 mmol/L (137-145); Total Protein 6.8 g/dL (6.3-8.2)
[2020-09-26 17:16] LABS: NT-proBNP (BNP-Adult 18+) 15200 pg/mL (<125)
[2020-09-26 17:17] LABS: Troponin I < 0.012 ng/mL (0.01-0.034)
[2020-09-26 17:27] LABS: Anisocytosis 1+; Poikilocytosis 1+
[2020-09-26] MEDS: PHYTONADIONE (VIT K1) 5 MG TABLET 10 MG PO (18:12)
[2020-09-26 18:49] LABS: Reflexed Lactate in 2 Hours Y
== END 2020-09-26 19:10 | disposition home or self-care (01) ==
PROVIDERS: Emergency Provider Emergency Medicine; PCP Family Medicine
DX: I51.7 Cardiomegaly (principal); J90 Pleural effusion, not elsewhere classified
CPT/HCPCS: 36415; 71045; 80053; 82550; 83605; 83735; 83880; 84484; 85025; 85610; 85730; 93005; 99284

== ENCOUNTER → 2020-10-02 14:19 | Outpatient (CLI) | payer OTHER, MEDICAID, SELFPAY ==
[2020-04-08 20:02] VITALS: BMI 34.2
--- NOTE | 2020-10-02 14:21 | DI.MRI.S_ITS ---
PROCEDURE: MR HEAD/BRAIN WO/W CON INDICATIONS: Secondary malignant neoplasm of brain TECHNIQUE: Noncontrast axial T1 spin echo, axial T2 fast spin echo, sagittal and axial FLAIR, coronal T2 fast spin echo, axial gradient echo, axial diffusion and ADC through the brain. After the administration of contrast, axial and coronal 3D VIBE or T1 spin echo with fat saturation through the brain. COMPARISON: [facility], MR, MR BRAIN ([facility]) WWO CON, 04/03/2020, 15:09. FINDINGS: Image quality: Excellent. CSF Spaces: Basal cisterns are patent. No extra-axial fluid collections. Ventricles are normal in size and shape. Brain: No midline shift. No intracranial bleeds or masses. No change in small area of encephalomalacia within the right anterolateral frontal lobe. No abnormal intracranial enhancement. The brainstem appears normal. Diffusion-weighted images demonstrate no acute ischemic insults. No chronic ischemic insults. Normal intravascular flow voids are present. Skull and face: Right frontal craniotomy. Calvarial marrow is otherwise normal in signal. Orbits appear normal. Sinuses: Sinuses and mastoids appear clear. IMPRESSION: 1. Postsurgical sequelae. 2. No evidence of malignancy. Dictated by: Davis De Leon M.D. on 10/02/2020 at 15:33 Approved by: Davis De Leon M.D. on 10/02/2020 at 15:35
== END ==
PROVIDERS: PCP Family Medicine; Referring Provider Physician Assistant; Visit Provider Physician Assistant
DX: C79.31 Secondary malignant neoplasm of brain (principal); C80.1 Malignant (primary) neoplasm, unspecified
CPT/HCPCS: 70553; A9579

== ENCOUNTER → 2020-10-02 15:16 | Outpatient (CLI) | payer OTHER, MEDICAID, SELFPAY ==
[2020-04-08 20:02] VITALS: BMI 34.2
[2020-10-02 15:47] LABS: INR 1.8 (0.9-1.3); Prothrombin Time 20.4 SECONDS (10.1-12.7)
[2020-10-02 15:50] LABS: PTT Partial Thromboplastin Tim 34 SECONDS (26.4-36.2)
== END ==
PROVIDERS: PCP Family Medicine; Referring Provider Family Medicine; Visit Provider Family Medicine
DX: R18.8 Other ascites (principal)
CPT/HCPCS: 36415; 85610; 85730

== ENCOUNTER → 2020-10-07 11:25 | Outpatient (CLI) | payer OTHER, MEDICAID, SELFPAY ==
[2020-04-08 20:02] VITALS: BMI 34.2
== END ==
PROVIDERS: PCP Family Medicine; Referring Provider Family Medicine; Visit Provider Family Medicine
DX: S91.302A Unspecified open wound, left foot, initial encounter (principal); S91.301A Unspecified open wound, right foot, initial encounter; S81.801A Unspecified open wound, right lower leg, initial encounter; M05.89 Other rheumatoid arthritis with rheumatoid factor of multiple sites; I50.22 Chronic systolic (congestive) heart failure; R18.8 Other ascites; I31.3 Pericardial effusion (noninflammatory); Z85.3 Personal history of malignant neoplasm of breast; L95.8 Other vasculitis limited to the skin; L08.9 Local infection of the skin and subcutaneous tissue, unspecified; R79.1 Abnormal coagulation profile; F15.10 Other stimulant abuse, uncomplicated; Z79.899 Other long term (current) drug therapy
CPT/HCPCS: 11042; 87070; 87075; 87077; 87147; 87186; 87205; 99214

== ENCOUNTER 2020-10-15 11:49 | Emergency (ER) | payer OTHER, MEDICAID, SELFPAY ==
[2020-04-08 20:02] VITALS: BMI 34.2
[2020-10-15] VITALS (65 sets, daily range): BP systolic 63–122; BP diastolic 38–96; PULSE 79–114; RESP 18–60; TEMP 35.4–36.6; O2SAT 76–100
--- NOTE | 2020-10-15 11:59 | DI.RAD.S_ITS ---
PROCEDURE: XR CHEST 1V INDICATIONS: chest pain TECHNIQUE: One view of the chest was acquired. COMPARISON: [facility], CT, CT ANGIO CHEST PE PROTOCOL, 06/08/2020, 19:22. [facility], CR, XR CHEST 1V, 09/26/2020, 16:44. FINDINGS: Surgical changes and devices: Left Port-A-Cath. Lungs and pleura: There is mild right pleural effusion. It is minimally decreased compared to prior exam. Previous opacity in the right upper lobe remains present although decreased. Superimposed opacities are also present in the right lobe although less prominent. Mediastinum: Mediastinal contours appear normal. Heart size is enlarged. Bones and chest wall: No suspicious bony lesions. Overlying soft tissues appear unremarkable. IMPRESSION: Persistent right pleural effusion, minimally decreased compared to prior exam. In addition, there is persistent opacities overlying the right upper and lower lobes, which are decreased but felt to be most suggestive of overlying atelectasis versus pneumonia. Dictated by: Varsha De M.D. on 10/15/2020 at 11:38 Approved by: Varsha De M.D. on 10/15/2020 at 11:41
[2020-10-15 12:34] LABS: Add Manual Diff / Slide Review NO; Basophils Absolute Auto 100 /uL (0-100); Basophils Percent Auto 1.3 % (0-2); Eosinophils Absolute Auto 0 /uL (0-450); Eosinophils Percent Auto 0.9 % (2-4); Hematocrit 40.7 % (36-46); Hemoglobin 13.5 g/dL (12.0-16.0); INR 1.9 (0.9-1.3); Lymphocytes Absolute Auto 1600 /uL (1100-4500); Lymphocytes Percent Auto 29.1 % (25-40); Mean Corpuscular HGB Conc 33.1 % (30-36); Mean Corpuscular Hemoglobin 30.3 PG (26-34); Mean Corpuscular Volume 91.6 fL (80-100); Monocytes Absolute Auto 700 /uL (0-900); Monocytes Percent Auto 12.2 % (3-14); Neutrophils Absolute Auto 3100 /uL (1500-7000); Neutrophils Percent Auto 56.5 % (50-75); Platelet Count 185 X10^3/uL (150-400); Prothrombin Time 21.4 SECONDS (10.1-12.7); Red Blood Cell Count 4.44 X10^6/uL (4.0-5.2); Red Cell Distribution Width 20.2 % (11.6-14.8); White Blood Cell Count 5.5 X10^3/uL (4.5-11.0)
[2020-10-15 12:37] LABS: PTT Partial Thromboplastin Tim 32 SECONDS (26.4-36.2)
[2020-10-15 12:39] LABS: Alanine Aminotransferase 19 IU/L (<35); Albumin 3.7 g/dL (3.5-5.0); Albumin Globulin Ratio 1.1 (1.0-2.8); Alkaline Phosphatase 75 U/L (38-126); Aspartate Aminotransferase 32 IU/L (14-36); BUN Creatinine Ratio 29.3 (6-22); Bilirubin Total 1.4 mg/dL (0.2-1.3); Blood Urea Nitrogen 27 mg/dL (7-17); Calcium 8.6 mg/dL (8.4-10.2); Carbon Dioxide 24 mmol/L (22-32); Chloride 97 mmol/L (98-107); Creatine Kinase 25 U/L (30-135); Estimated Glomerular Filt Rate > 60.0 mL/min (>60); Globulin 3.3 g/dL (1.7-4.1); Glucose 100 mg/dL (70-100); HEMOLYSIS < 15 (0-50); Lipase 37 U/L (23-300); Potassium 3.1 mmol/L (3.4-5.1); Sodium 135 mmol/L (137-145)
--- NOTE | 2020-10-15 13:03 | ED.GENADULT ---
HPI - General Adult General Chief complaint: Shortness of Breath/Dyspnea Stated complaint: shortness of breath Time Seen by Provider: 10/15/20 12:22 Source: patient Mode of arrival: Wheelchair Limitations: no limitations History of Present Illness HPI narrative: Patient is a 55-year-old female who arrives to the emergency department today for progressively worsening dyspnea on exertion over the past several days/weeks. She states she has a history of CHF. She was actually recently here in this facility. She is on diuretics. And has been taking all of her medications. She states that she has had some mild chest pain but her real issue has been shortness of breath. No increase in lower extremity swelling. She does have a history of ascites in she actually states that her abdominal distension is better than what it has been at baseline. She has been urinating. States she cannot lay flat. Cannot walk long distances without becoming short of breath. Related Data Previous Rx's Medication Instructions Recorded fluticasone propionate 110 1 puff INHALATION BID #1 inh 06/09/17 mcg/actuation HFA aerosol inhaler bupropion HCl 150 mg 24 hr tablet, 150 mg PO QAM #90 tab 07/12/20 extended release furosemide 20 mg tablet 40 mg PO DAILY #120 tab 07/12/20 gabapentin 300 mg capsule 300 mg PO TID #270 cap 07/12/20 hydroxychloroquine 200 mg tablet See Rx Instructions .ROUTE 07/12/20 .COMPLEX #120 tab lisinopril 5 mg tablet 5 mg PO DAILY #90 tab 07/12/20 metoprolol succinate 25 mg 25 mg PO DAILY #90 tab 07/12/20 tablet,extended release 24 hr sulfasalazine 500 mg tablet See Rx Instructions .ROUTE 07/24/20 .COMPLEX #60 tablet albuterol sulfate 90 mcg/actuation See Rx Instructions .ROUTE 07/26/20 aerosol inhaler .COMPLEX #18 g prednisone 20 mg tablet 20 mg PO DAILY #5 tab 08/18/20 hydrocodone 5 mg-acetaminophen 325 1 tab PO Q8H PRN #30 tab 09/16/20 mg tablet promethazine 12.5 mg tablet 12.5 mg PO TID PRN #20 tab 09/16/20 spironolactone 100 mg tablet 100 mg PO DAILY #92 tab 09/16/20 lorazepam 1 mg tablet See Rx Instructions .ROUTE 04/16/21 .COMPLEX #40 tab Allergies Allergy/AdvReac Type Severity Reaction Status Date / Time latex [LATEX] Allergy Intermediate RASH, SKIN Verified 09/26/20 15:53 PEELS penicillin G [PENICILLIN G] Allergy Unknown I WAS A Verified 09/26/20 15:53 KID SO I DON'T REMEMBER morphine [MORPHINE] AdvReac Severe HURTS MY Verified 09/26/20 15:53 STOMACH SO BAD Review of Systems Constitutional Constitutional: Reports fatigue, Denies fever(s) and Denies headache(s) Eyes Eyes: Denies change in vision ENT Ears, Nose, Mouth, and Throat: Denies vertigo, Denies headache(s) and Denies sore throat Cardiovascular Cardiovascular: Reports chest pain, Reports dyspnea, Reports dyspnea on exertion and Reports orthopnea Respiratory Respiratory: Denies cough, Reports dyspnea and Reports dyspnea on exertion Gastrointestinal Gastrointestinal: Denies abdominal pain, Reports bloating, Denies nausea and Denies vomiting Genitourinary Genitourinary: Denies dysuria Genitourinary: Denies dysuria and Denies vaginal discharge Musculoskeletal Musculoskeletal: Denies arthralgias and Denies myalgias Integumentary/Breasts Skin/Breast: Reports pruritus and Reports lesions Comments: Patient with multiple lesions on her upper and lower extremities. 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 Grandfather No problems noted. Grandmother Stomach cancer Mother Enlarged aorta Breast cancer Grandfather Myelofibrosis Grandmother Parkinson's disease Social History household members: spouse and children Smoking Status: Former smoker Tobacco: How many years used: 8 alcohol intake: former substance use type: marijuana Smoking Status: Former smoker alcohol intake frequency: holidays/special occasions only Substance Use Type: marijuana Exam Initial Vital Signs Initial Vital Signs: Vital Signs Temperature 97.9 F 10/15/20 11:50 Pulse Rate 79 10/15/20 11:50 Respiratory Rate 18 10/15/20 11:50 Blood Pressure 109/81 10/15/20 11:50 Pulse Oximetry 99 10/15/20 11:50 Const General: cooperative, comfortable and ill appearing Limitations: mental status not altered HENMT Head: normal to inspection and normocephalic Ears: hearing grossly normal bilaterally Eyes General: appearance normal, both eyes and all related structures Chest Chest: No crepitus and No tenderness Resp Effort & Inspection: labored and tachypneic Auscultation: clear to auscultation bilaterally Cardio Rate: tachycardic Rhythm: regular rhythm GI Inspection: distended Palpation: soft, No firm, No tender and ascites General: bladder normal to palpation Bimanual Exam- Vagina & Uterus: bladder normal to palpation Back/Spine/Pelvis Back: No CVA tenderness Skin Other: Multiple lesions on upper and lower extremity. All within the same state of healing. No surrounding erythema. All crusting. Neuro General: patient alert, patient awake and patient oriented x3 Cognition: normal cognition Speech: speech normal Extrem General: normal to inspection and capillary refill normal Psych Appearance: grossly normal and well kempt Procedures Intubation Time out performed: Yes sedative: Ketamine Mg Given: 400 paralytic: Succinylcholine Mg Given: 125 Laryngoscope: fiber optic video scope ET Tube Size: 7.5 ET Tube Uncuffed: No Tube Secured Location: teeth Tube Placement Confirmation: Visualized tube passing through cords, Equal breath sounds bilaterally and Confirmation by capnometry Intubation Complications: other (Cardiac arrest) Scores GCS Carla coma scale eye opening: Spontaneous Carla coma scale verbal response: Orientated Arverne coma scale motor response: Obey commands Arverne coma scale total score: 15 Citation: Upon arrival Course Orders Ordered: ED Orders 10/15/20 11:59 XR chest 1V Stat EKG-12 Lead Stat 10/15/20 12:20 BNP [NT-proBNP (BNP-Adult 18+)] Stat Complete Blood Count AUTO DIFF Stat Comprehensive Metabolic Panel Stat Lactate (Lactic Acid) Stat Lipase Stat Partial Thromboplastin Time Stat Procalcitonin Stat Prothrombin Time INR Stat Troponin & CK Cardiac Panel Stat 10/15/20 13:04 CT angio chest PE protocol Stat 10/15/20 15:00 COVID19 - ADMIT (PAID SEARCH MARKETING STRATEGIST swab/PCR) Stat 10/15/20 15:08 EC echo limited Stat 10/15/20 15:11 COVID19 -Nasal swab/Pre-Proc Stat 10/15/20 16:13 XR chest 1V Stat 10/15/20 18:13 Arterial Blood Gas Stat Sodium Chloride (Normal Saline 0.9%) 1,000 mls @ 75 mls/hr IV CONT PRISCILLA Last Admin: 10/15/20 13:08 Dose: 75 mls/hr Documented by: JAMEL Norepinephrine Bitartrate 4 mg (/ Dextrose) 254 mls @ 30.48 mls/hr IV TITRATE PRISCILLA; Protocol Last Titration: 10/15/20 16:17 Dose: 12 mcg/min, 45.72 mls/hr Documented by: Admin: 10/15/20 16:08 Dose: 8 mcg/min, 30.48 mls/hr Documented by: AMAN Dopamine HCl/Dextrose (Dopamine 400 Mg-D5w 250 Ml) 400 mg in 250 mls @ 16.838 mls/hr IV TITRATE PRISCILLA; Protocol Ketamine HCl 250 mg/ Sodium (Chloride) 252.5 mls @ 5 mls/hr IV NOW ONE; Protocol Stop: 10/17/20 18:59 Dobutamine HCl/Dextrose (Dobutamine 250 Mg In D5w) 250 mg in 250 mls @ 13.47 mls/hr IV TITRATE PRISCILLA; Protocol Epinephrine HCl 1 mg/ Dextrose 251 mls @ 15.06 mls/hr IV TITRATE PRISCILLA; Protocol Discontinued Medications Furosemide (Furosemide 40 Mg/4 Ml Vial) 40 mg IV NOW ONE Stop: 10/15/20 13:42 Last Admin: 10/15/20 13:57 Dose: 40 mg Documented by: JAMEL Azithromycin 500 mg/ Dextrose 250 mls @ 250 mls/hr IV NOW ONE Stop: 10/15/20 13:50 Last Admin: 10/15/20 14:25 Dose: 250 mls/hr Documented by: JAMEL Ketamine HCl (Ketamine 500 Mg/5 Ml Inj) 300 mg IV NOW ONE Stop: 10/15/20 16:16 Lorazepam (Lorazepam 2 Mg/Ml Inj) 0.5 mg IV NOW ONE Stop: 10/15/20 15:34 Last Admin: 10/15/20 15:41 Dose: 0.5 mg Documented by: JAMEL Lorazepam (Lorazepam 2 Mg/Ml Inj) 0.5 mg IV NOW ONE Stop: 10/15/20 15:56 Last Admin: 10/15/20 15:56 Dose: 0.5 mg Documented by: JAMEL Ondansetron HCl (Ondansetron 4 Mg/2 Ml Inj) 4 mg IV NOW ONE Stop: 10/15/20 15:00 Last Admin: 10/15/20 15:07 Dose: 4 mg Documented by: AMAN Succinylcholine Chloride (Succinylcholine 200 Mg/10 Ml Vial) 125 mg IV NOW ONE Stop: 10/15/20 16:14 Vital Signs Vital signs: Vital Signs - 8 hr 10/15/20 11:50 10/15/20 12:03 10/15/20 12:15 Temperature 97.9 F Pulse Rate 79 104 H 102 H Respiratory Rate 18 23 23 Blood Pressure 109/81 104/80 Pulse Oximetry 99 99 97 10/15/20 12:30 10/15/20 12:45 10/15/20 13:00 Temperature Pulse Rate 101 H 104 H 107 H Respiratory Rate 36 H 24 42 H Blood Pressure 108/82 115/88 115/92 H Pulse Oximetry 96 96 96 10/15/20 13:15 10/15/20 13:37 10/15/20 13:39 Temperature Pulse Rate 104 H 111 H 109 H Respiratory Rate 25 H 32 H Blood Pressure 107/86 122/96 H Pulse Oximetry 97 100 97 10/15/20 13:45 10/15/20 13:46 10/15/20 14:00 Temperature Pulse Rate 108 H 108 H 107 H Respiratory Rate 27 H 34 H 32 H Blood Pressure 110/88 Pulse Oximetry 99 97 98 10/15/20 14:01 10/15/20 14:15 10/15/20 14:30 Temperature Pulse Rate 108 H 105 H 107 H Respiratory Rate 27 H 28 H 29 H Blood Pressure 104/81 107/89 109/94 H Pulse Oximetry 99 98 97 10/15/20 14:46 10/15/20 15:00 10/15/20 15:15 Temperature Pulse Rate 113 H 114 H 111 H Respiratory Rate 43 H 41 H 20 Blood Pressure 98/56 L Pulse Oximetry 85 L 100 10/15/20 15:16 10/15/20 17:30 10/15/20 17:31 Temperature 97.9 F Pulse Rate 108 H 104 H Respiratory Rate 40 H 31 H Blood Pressure 98/56 L 75/43 L 88/42 L Pulse Oximetry 92 84 L 10/15/20 17:33 10/15/20 17:35 10/15/20 17:38 Temperature 97.7 F 97.7 F 97.7 F Pulse Rate 104 H 104 H 104 H Respiratory Rate 33 H 32 H 30 H Blood Pressure 90/38 L 93/45 L 91/53 L Pulse Oximetry 84 L 84 L 84 L 10/15/20 17:40 10/15/20 17:43 10/15/20 17:45 Temperature 97.5 F L 97.5 F L 97.3 F L Pulse Rate 104 H 104 H 104 H Respiratory Rate 31 H 32 H 30 H Blood Pressure 86/52 L 74/44 L 79/44 L Pulse Oximetry 84 L 83 L 85 L 10/15/20 17:48 10/15/20 17:50 10/15/20 17:53 Temperature 97.3 F L 97.2 F L 97.0 F L Pulse Rate 104 H 105 H 104 H Respiratory Rate 33 H 32 H 29 H Blood Pressure 80/51 L 78/49 L 76/51 L Pulse Oximetry 83 L 82 L 83 L 10/15/20 17:56 10/15/20 17:58 10/15/20 18:00 Temperature 97.0 F L 96.8 F L 96.8 F L Pulse Rate 104 H 105 H 105 H Respiratory Rate 31 H 30 H 29 H Blood Pressure 96/47 L 90/46 L 86/45 L Pulse Oximetry 77 L 84 L 83 L 10/15/20 18:03 10/15/20 18:05 10/15/20 18:08 Temperature 96.6 F L 96.6 F L 96.4 F L Pulse Rate 104 H 104 H 104 H Respiratory Rate 29 H 29 H 31 H Blood Pressure 88/49 L 81/50 L 81/52 L Pulse Oximetry 84 L 82 L 85 L 10/15/20 18:10 10/15/20 18:15 10/15/20 18:16 Temperature 96.4 F L 96.3 F L 96.3 F L Pulse Rate 105 H 105 H 105 H Respiratory Rate 30 H 31 H 30 H Blood Pressure 63/47 L 106/53 L Pulse Oximetry 84 L 87 L 87 L 10/15/20 18:18 10/15/20 18:20 10/15/20 18:23 Temperature 96.3 F L 96.3 F L 96.1 F L Pulse Rate 105 H 105 H 106 H Respiratory Rate 29 H 27 H 29 H Blood Pressure 112/50 L 95/49 L 96/49 L Pulse Oximetry 88 L 87 L 85 L 10/15/20 18:25 10/15/20 18:28 10/15/20 18:30 Temperature 96.1 F L 96.1 F L 96.1 F L Pulse Rate 106 H 106 H 106 H Respiratory Rate 28 H 29 H 32 H Blood Pressure 99/54 L 82/49 L 92/53 L Pulse Oximetry 86 L 91 95 Medical Decision Making Medical Records Medical records reviewed: Yes I reviewed the patient's medical records. Lab Data Lab results reviewed: Yes I reviewed the patient's lab results. Result diagrams: 10/15/20 12:20 10/15/20 12:20 Labs: Lab Results 10/15/20 10/15/20 10/15/20 Range/Units 12:20 12:20 12:20 WBC 5.5 (4.5-11.0) X10^3/uL RBC 4.44 (4.0-5.2) X10^6/uL Hgb 13.5 (12.0-16.0) g/dL Hct 40.7 (36-46) % MCV 91.6 (80-100) fL MCH 30.3 (26-34) PG MCHC 33.1 (30-36) % RDW 20.2 H (11.6-14.8) % Plt Count 185 (150-400) X10^3/uL Neut % (Auto) 56.5 (50-75) % Lymph % (Auto) 29.1 (25-40) % Quay % (Auto) 12.2 (3-14) % Eos % (Auto) 0.9 L (2-4) % Baso % (Auto) 1.3 (0-2) % Neut # (Auto) 3100 (6788-3725) /uL Lymph # (Auto) 1600 (0109-9000) /uL Quay # (Auto) 700 (0-900) /uL Eos # (Auto) 0 (0-450) /uL Baso # (Auto) 100 (0-100) /uL RBC Morphology See below Anisocytosis 1+ H Ovalocytes 1+ H PT 21.4 H (10.1-12.7) SECONDS INR 1.9 H (0.9-1.3) APTT 32 (26.4-36.2) SECONDS ABG pH (7.35-7.45) ABG pCO2 (35-45) mmHg ABG pO2 (80-100) mmHg ABG HCO3 (22-26) mmol/L ABG Total CO2 (21-31) mmol/L ABG O2 Saturation (95-100) % ABG Base Excess (-2-2) mmol/L FiO2 Sodium 135 L (137-145) mmol/L Potassium 3.1 L (3.4-5.1) mmol/L Chloride 97 L (98-107) mmol/L Carbon Dioxide 24 (22-32) mmol/L BUN 27 H (7-17) mg/dL Creatinine 0.92 (0.52-1.04) mg/dL Estimated GFR > 60.0 (>60) mL/min BUN/Creatinine Ratio 29.3 H (6-22) Glucose 100 (70-100) mg/dL Lactate (0.7-2.1) mmol/L Calcium 8.6 (8.4-10.2) mg/dL Total Bilirubin 1.4 H (0.2-1.3) mg/dL AST 32 (14-36) IU/L ALT 19 (<35) IU/L Alkaline Phosphatase 75 (38-126) U/L Total Creatine Kinase 25 L (30-135) U/L CK-MB (CK-2) TNP CK-MB (CK-2) Rel Index TNP Troponin I < 0.012 (0.01-0.034) ng/mL NT-Pro-B Natriuret Pep 9270 H (<125) pg/mL Total Protein 7.0 (6.3-8.2) g/dL Albumin 3.7 (3.5-5.0) g/dL Globulin 3.3 (1.7-4.1) g/dL Albumin/Globulin Ratio 1.1 (1.0-2.8) Lipase 37 (23-300) U/L Procalcitonin (<0.5) ng/mL SARS-CoV-2 (PCR) (Negative) 10/15/20 10/15/20 10/15/20 Range/Units 12:20 12:20 15:00 WBC (4.5-11.0) X10^3/uL RBC (4.0-5.2) X10^6/uL Hgb (12.0-16.0) g/dL Hct (36-46) % MCV (80-100) fL MCH (26-34) PG MCHC (30-36) % RDW (11.6-14.8) % Plt Count (150-400) X10^3/uL Neut % (Auto) (50-75) % Lymph % (Auto) (25-40) % Quay % (Auto) (3-14) % Eos % (Auto) (2-4) % Baso % (Auto) (0-2) % Neut # (Auto) (8391-0055) /uL Lymph # (Auto) (1858-4090) /uL Quay # (Auto) (0-900) /uL Eos # (Auto) (0-450) /uL Baso # (Auto) (0-100) /uL RBC Morphology Anisocytosis Ovalocytes PT (10.1-12.7) SECONDS INR (0.9-1.3) APTT (26.4-36.2) SECONDS ABG pH (7.35-7.45) ABG pCO2 (35-45) mmHg ABG pO2 (80-100) mmHg ABG HCO3 (22-26) mmol/L ABG Total CO2 (21-31) mmol/L ABG O2 Saturation (95-100) % ABG Base Excess (-2-2) mmol/L FiO2 Sodium (137-145) mmol/L Potassium (3.4-5.1) mmol/L Chloride (98-107) mmol/L Carbon Dioxide (22-32) mmol/L BUN (7-17) mg/dL Creatinine (0.52-1.04) mg/dL Estimated GFR (>60) mL/min BUN/Creatinine Ratio (6-22) Glucose (70-100) mg/dL Lactate 2.0 (0.7-2.1) mmol/L Calcium (8.4-10.2) mg/dL Total Bilirubin (0.2-1.3) mg/dL AST (14-36) IU/L ALT (<35) IU/L Alkaline Phosphatase (38-126) U/L Total Creatine Kinase (30-135) U/L CK-MB (CK-2) CK-MB (CK-2) Rel Index Troponin I (0.01-0.034) ng/mL NT-Pro-B Natriuret Pep (<125) pg/mL Total Protein (6.3-8.2) g/dL Albumin (3.5-5.0) g/dL Globulin (1.7-4.1) g/dL Albumin/Globulin Ratio (1.0-2.8) Lipase (23-300) U/L Procalcitonin 0.15 (<0.5) ng/mL SARS-CoV-2 (PCR) Negative (Negative) 10/15/20 10/15/20 Range/Units 15:11 18:13 WBC (4.5-11.0) X10^3/uL RBC (4.0-5.2) X10^6/uL Hgb (12.0-16.0) g/dL Hct (36-46) % MCV (80-100) fL MCH (26-34) PG MCHC (30-36) % RDW (11.6-14.8) % Plt Count (150-400) X10^3/uL Neut % (Auto) (50-75) % Lymph % (Auto) (25-40) % Quay % (Auto) (3-14) % Eos % (Auto) (2-4) % Baso % (Auto) (0-2) % Neut # (Auto) (2348-1190) /uL Lymph # (Auto) (8998-4983) /uL Quay # (Auto) (0-900) /uL Eos # (Auto) (0-450) /uL Baso # (Auto) (0-100) /uL RBC Morphology Anisocytosis Ovalocytes PT (10.1-12.7) SECONDS INR (0.9-1.3) APTT (26.4-36.2) SECONDS ABG pH 7.09 L* (7.35-7.45) ABG pCO2 52.5 H (35-45) mmHg ABG pO2 67 L (80-100) mmHg ABG HCO3 16 L (22-26) mmol/L ABG Total CO2 18 L (21-31) mmol/L ABG O2 Saturation 84 L* (95-100) % ABG Base Excess -14.0 L (-2-2) mmol/L FiO2 100 Sodium (137-145) mmol/L Potassium (3.4-5.1) mmol/L Chloride (98-107) mmol/L Carbon Dioxide (22-32) mmol/L BUN (7-17) mg/dL Creatinine (0.52-1.04) mg/dL Estimated GFR (>60) mL/min BUN/Creatinine Ratio (6-22) Glucose (70-100) mg/dL Lactate (0.7-2.1) mmol/L Calcium (8.4-10.2) mg/dL Total Bilirubin (0.2-1.3) mg/dL AST (14-36) IU/L ALT (<35) IU/L Alkaline Phosphatase (38-126) U/L Total Creatine Kinase (30-135) U/L CK-MB (CK-2) CK-MB (CK-2) Rel Index Troponin I (0.01-0.034) ng/mL NT-Pro-B Natriuret Pep (<125) pg/mL Total Protein (6.3-8.2) g/dL Albumin (3.5-5.0) g/dL Globulin (1.7-4.1) g/dL Albumin/Globulin Ratio (1.0-2.8) Lipase (23-300) U/L Procalcitonin (<0.5) ng/mL SARS-CoV-2 (PCR) Negative (Negative) Imaging Data Chest x-ray: Radiologist's Impression: [address] [id number] ReportSigned Patient: Cristobal Ho KMR#: [id number]: 1965Acct:[id number]/Sex: 55 / FDate of Service: 10/15/20Loc: EDAccession Number: [id number] Procedure: XR chest 1V Ordering Provider: Joe Chase D.O. PROCEDURE: XR CHEST 1V INDICATIONS: chest pain TECHNIQUE: One view of the chest was acquired. COMPARISON: [facility], CT, CT ANGIO CHEST PE PROTOCOL, 06/08/2020, 19:22. [facility], CR, XR CHEST 1V, 09/26/2020, 16:44. FINDINGS: Surgical changes and devices: Left Port-A-Cath. Lungs and pleura: There is mild right pleural effusion. It is minimally decreased compared to prior exam. Previous opacity in the right upper lobe remains present although decreased. Superimposed opacities are also present in the right lobe although less prominent. Mediastinum: Mediastinal contours appear normal. Heart size is enlarged. Bones and chest wall: No suspicious bony lesions. Overlying soft tissues appear unremarkable. IMPRESSION: Persistent right pleural effusion, minimally decreased compared to prior exam. In addition, there is persistent opacities overlying the right upper and lower lobes, which are decreased but felt to be most suggestive of overlying atelectasis versus pneumonia. Dictated by: Varsha De M.D. on 10/15/2020 at 11:38 Approved by: Varsha De M.D. on 10/15/2020 at 11:41 CTA chest: Radiologist's Impression: [address] [id number] Scan ReportSigned Patient: Cristobal Ho KMR#: [id number]: 1965Acct:[id number]/Sex: 55 / FDate of Service: 10/15/20Loc: EDAccession Number: [id number] Procedure: CT angio chest PE protocol Ordering Provider: Joe Chase D.O. PROCEDURE: CT ANGIO CHEST PE PROTOCOL INDICATIONS: Chest pain, shortness of breath, tachycardia TECHNIQUE: After the administration of intravenous contrast, 2 mm thick sections acquired from the pulmonary apices to the posterior costophrenic angles. 3-dimensional maximum intensity projection (MIP) coronal and sagittal reformats were then acquired through the thorax. For radiation dose reduction, the following was used: automated exposure control, adjustment of mA and/or kV according to patient size. COMPARISON: [facility], CT, CT ABDOMEN PELVIS W CON, 06/08/2020, 19:22. [facility], CR, XR CHEST 1V, 09/26/2020, 16:44. [facility], CR, XR CHEST 1V, 10/15/2020, 12:29. [facility], CT, CT ANGIO CHEST PE PROTOCOL, 06/08/2020, 19:22. [facility], CT, CT ANGIO CHEST PE PROTOCOL, 12/10/2019, 0:05. FINDINGS: Image quality: Excellent. Pulmonary arteries: Pulmonary arteries are normal in size, and demonstrate no intraluminal filling defects to suggest central pulmonary embolism. Lungs and pleura: Lungs are abnormal with linear scarring at each lung base, mild pleural thickening right greater than left, and what appears to be loculated pleural effusions at the right upper lung more prominent posteriorly than anteriorly and slightly increased from the CT scan performed in May of last year... Central and peripheral airways are patent. Mediastinum: Heart size is enlarged, without pericardial effusion. No mediastinal or hilar adenopathy. Thoracic aorta is normal in caliber and enhancement. Esophagus is normal in caliber, without hiatal hernia. Bones and chest wall: No suspicious bony lesions. Ribs and thoracic spine appear intact throughout. Thyroid gland appears normal where well seen.. No axillary or supraclavicular adenopathy. Abdomen: Visualized upper abdominal solid organs appear normal in the early arterial phase of enhancement. There is a small amount of pre hepatic fluid at the uppermost imaging of the abdomen. IMPRESSION: Pulmonary embolus is not present. There is a pattern of chronic loculated pleural effusions in the right upper hemithorax, slightly increased Global cardiomegaly also is present. A slight amount of pleural fluid is seen within the peritoneal space, anterior pre hepatic recess. Dictated by: Lul Thompson M.D. on 10/15/2020 at 13:55 Approved by: Lul Thompson M.D. on 10/15/2020 at 14:02 Old ECHO : Radiologist's Impression: [facility] [place], [place] [id number] ReportSigned Patient: Cristobal Ho KMR#: [id number]: 1965Acct:[id number]/Sex: 54 / FDate of Service: 04/09/20Loc: [id number] Number: [id number] Procedure: EC echo doppler complete Ordering Provider: Le Spencer [place] +---------+ Hospital +---------+ : : [address] : : : : [place] : : : : [id number] : : : : Phone: [phone] Echocardiogram Report + + :Name: CRISTOBAL HO Study Date: 04/09/2020 Height: 68 in : :[facility] Weight: 228 lb : : Gender: Female BSA: 2.2 m2 : :: 1965 Age: 54 yrs BP: 109/72 mmHg: :Reason For Study: NEW ONSET CONGESTIVE HEART FAILURE : :Ordering Physician: LE SPENCER : :MIGUEL Performed By: Radha Sim : :Referring: LE SPENCER : + + Interpretation Summary The ejection fraction is estimated to be 15-20%. There is severe global hypokinesis of the left ventricle. There is moderate mitral regurgitation. There is moderate tricuspid regurgitation. The right ventricular systolic pressure is estimated to be at least 44 mmHg based on an estimated right atrial pressure of 15 mm Hg. There is a small pericardial effusion that is circumferential. Procedure: A two-dimensional transthoracic echocardiogram with color flow and Doppler was performed. The study quality was technically adequate. There is no prior echocardiogram noted for this patient. Left Ventricle: There is normal left ventricular wall thickness. The estimated left ventricular end diastolic volume is 209 ml. The left ventricle is severely dilated. The ejection fraction is estimated to be 15-20%. There is severe global hypokinesis of the left ventricle. Right Ventricle: The right ventricle is mildly dilated. Right ventricular systolic function is mildly reduced. Atria: The left atrium is severely dilated. The right atrium is mild to moderately dilated. There is no Doppler evidence for an interatrial shunt. Mitral Valve: The mitral valve leaflets appear mildly thickened, but open well. There is mild mitral annular calcification. There is moderate mitral regurgitation. There are multiple regurgitant jets present. Aortic Valve: The aortic valve is trileaflet. The aortic valve opens well. There is no aortic valve stenosis. There is trace aortic regurgitation. Tricuspid Valve: The tricuspid valve leaflets are thin and pliable. The right ventricular systolic pressure is estimated to be at least 44 mmHg based on an estimated right atrial pressure of 15 mm Hg. There is moderate tricuspid regurgitation. Pulmonic Valve: The pulmonic valve leaflets are thin and pliable; valve motion is normal. There is trace pulmonic regurgitation. Great Vessels: The aortic root is normal size. The ascending aorta is mildly enlarged. The IVC is dilated (diameter is greater than 2.1 cm) and it collapses less than 50% with a sniff. This suggests a high right atrial pressure of 15 mm Hg. Pericardium/ Pleura There is a small pericardial effusion that is circumferential. There is no pleural effusion. MMode/2D Measurements & Calculations LVIDd: 7.0 cm LVOT diam: 2.1 cm LVIDs: 6.5 cm Ao root diam: 3.5 cm FS: 7.4 % asc Aorta Diam: 3.5 cm EPSS: 2.2 cm Ao Arch Diam (Prox Trans): 3.0 cm IVSd: 0.84 cm LVPWd: 0.99 cm LV tinajero. diameter/BSA (cm/m^2): 3.3 LV sys. diameter/BSA (cm/m^2): 3.0 LA A2 area: 32.1 cm2 RA long axis: 6.2 cm LA A4 area: 31.2 cm2 RA area: 24.7 cm2 LA length (vol): 7.6 cm RA vol: 83.7 ml LA vol: 112.4 ml RA : 38.7 ml/m2 LA vol index: 52.0 ml/m2 IVC diam: 2.7 cm RVD1 (basal): 4.3 cm TAPSE: 1.6 cm Doppler Measurements & Calculations Ao V2 max: 100.8 cm/sec LVOT Max Blaine: 54.5 cm/sec Ao V2 mean: 67.6 cm/sec LV V1 max P.2 mmHg Ao max P.1 mmHg LV V1 VTI: 7.6 cm Ao mean P.1 mmHg SEAMUS(I,D): 1.7 cm2 Ao V2 VTI: 16.5 cm SEAMUS(V,D): 1.9 cm2 sev ratio: 0.46 SEAMUS indexed to BSA (cm^2/m^2): 0.77 MV E max blaine: 51.0 cm/sec TR max blaine: 258.2 cm/sec MV A max blaine: 68.2 cm/sec TR max P.0 mmHg MV E/A: 0.75 PA V2 max: 44.4 cm/sec Med Peak E' Blaine: 2.2 cm/sec PA V2 mean: 26.3 cm/sec E/E' med: 23.5 PA mean P.34 mmHg Lat Peak E' Blaine: 2.4 cm/sec PA pr(Accel): 41.3 mmHg E/E' lat: 20.9 E/e' average: 22.2 MV dec time: 0.12 sec MR ERO: 0.28 cm2 MR PISA: 3.0 cm2 SV(LVOT): 27.3 ml MR flow rate: 125.4 cm3/sec MR PISA radius: 0.69 cm Reading Physician:12:27 PM Post intubation/CPR chest x-ray: Radiologist's Impression: [address] [id number] ReportSigned Patient: Cristobal Ho KMR#: [id number]: 1965Acct:[id number]/Sex: 55 / FDate of Service: 10/15/20Loc: EDAccession Number: [id number] Procedure: XR chest 1V Ordering Provider: Joe Chase D.O. PROCEDURE: XR CHEST 1V INDICATIONS: post intubation, wait for call TECHNIQUE: One view of the chest was acquired. [facility] 12[facility]. FINDINGS: Surgical changes and devices: Left chest port with the tip projecting in the lower SVC. Endotracheal tube with the tip projecting 4 cm above the alessandro. Enteric tube is seen with the tip not included on the study below the GE junction. Lungs and pleura: Possible right loculated pleural fluid. Additional right pleural fluid seen in the costophrenic sulcus. Diffuse bilateral consolidative and hazy ground-glass opacities are increased since earlier same day Mediastinum: Cardiac silhouette and mediastinal contours are stable. Bones and chest wall: No suspicious bony lesions. Overlying soft tissues appear unremarkable. IMPRESSION: Rapidly increasing bilateral widespread upper and lower lobe opacities, raising the possibility of aspiration and/or pulmonary edema. If there is persistent clinical diagnostic uncertainty, continued surveillance with short interval radiographic followup after treatment is recommended. Recommend clinical and laboratory correlation to exclude underlying infection. Moderate loculated appearing right pleural effusion. Cardiomegaly Dictated by: Amari Spencer M.D. on 10/15/2020 at 18:25 Approved by: Amari Spencer M.D. on 10/15/2020 at 18:28 Th ECG Data Attestation: I personally reviewed and interpreted this ECG as follows: Prior ECG tracings: not available for review Interpretation: Sinus tachycardia Ventricular rate 104 Left axis deviation Normal QRS QTC [address] T wave changes MDM Narrative Medical decision making narrative: Initially patient arrived with dyspnea on exertion. She arrived tachypneic however was not hypoxic. Had a clear lung exam but was diminished somewhat on the right. Her numbers today actually are improved. Her BNP is just over 9000 and approximately 10 days ago it was in the 15,000 range. Her troponin is negative. Her chest x-ray today actually improved from prior chest x-ray. While in the emergency department she was placed on oxygen by nasal cannula and she reported that her shortness of breath symptoms did improve. She is afebrile. She was given azithromycin. Her COVID is negative. Because her symptoms seem to be out of proportion to her improving numbers a CT scan of the chest was ordered. This does show loculated findings in the right upper lobe and also small pleural effusions but no pulmonary embolism. She also has obvious ascites but she actually states this is better than normal and I do not feel that this is the cause of her shortness of breath. She ambulated to the bathroom a couple times after receiving 40 mg of Lasix and upon returning was very short of breath which improved with oxygen. Oxygen saturations in the mid upper 80s at this time. After her last time walking to the bathroom she became acutely short of breath. Blood pressure dropped. Became tachycardic. Is complaining of abdominal pain. Patient was moved to resuscitation room. Had a difficult time obtaining blood pressure. Difficult time obtaining manual blood pressure. Difficult time feeling pulse. Patient was started on Levophed through her port. A very limited bedside echocardiogram of her abdomen did not show any obvious signs of a ruptured AAA. I suspect that her abdominal pain was secondary to poor perfusion. She was also placed on BiPAP. She could not tolerate the BiPAP due to anxiety. She is placed on high-flow nasal cannula. Patient remained hypotensive and tachycardic. She was also given push dose epinephrine. Decision was made to intubate. I did discuss this with her and she did expressed understanding of this. She was intubated with succinylcholine and ketamine. Shortly after intubation patient went into cardiac arrest. CPR was started. Initially was asystole. Multiple rounds of epinephrine given. She then developed PE a and eventually had ROSC with a wide complex tachycardia. She then was started on Levophed, dopamine, dobutamine. I did discuss the case with Dr. Tran Cardiology at the [facility]. He had a conference with the ECMO team. He states she is not a candidate for ECMO but they will accept the patient to CCU. I did inform the family of this. [facility] is here for transport. Patient is currently stable for transport. The echo cardiogram included in this note is a old echo. It is included for reference purposes. I was able to contact her local compliance officer to read the limited echo that was performed today. I do not have the official report but he informed me that her LV function is 10-15%. Global hypokinesis and no thrombus. Critical Care Time Critical Care Time Critical Care Time: Yes Total Critical Care Time: 65 Attestation: The high probability of a clinically significant, sudden or life threatening deterioration of the cardiovascular system(s) required my full and direct attention, intervention and personal management. The aggregate critical care time was 65 minutes. This time is in addition to time spent performing reported procedures but includes the following: [X] Data Review and interpretation [X] Patient assessment and monitoring of vital signs [X] Documentation [X] Medication orders and management Discharge Plan Departure Patient Disposition: [facility] Clinical Impression: CHF (congestive heart failure), Cardiogenic shock, Cardiac arrest Prescriptions: No Action Flovent HFA 110 mcg/actuation HFA aerosol inhaler 1 puff inhalation BID Qty: 1 RF: 11 sulfasalazine 500 mg tablet See Rx Instructions .ROUTE .COMPLEX Qty: 60 RF: 2 albuterol sulfate 90 mcg/actuation HFA aerosol inhaler See Rx Instructions .ROUTE .COMPLEX Qty: 18 RF: 0 prednisone 20 mg tablet 20 mg PO DAILY Qty: 5 RF: 0 lorazepam 1 mg tablet See Rx Instructions .ROUTE .COMPLEX Qty: 40 RF: 0 bupropion HCl 150 mg tablet extended release 24 hr 150 mg PO QAM Qty: 90 RF: 3 furosemide 20 mg tablet 40 mg PO DAILY Qty: 120 RF: 1 gabapentin 300 mg capsule 300 mg PO TID Qty: 270 RF: 1 hydroxychloroquine 200 mg tablet See Rx Instructions .ROUTE .COMPLEX Qty: 120 RF: 1 lisinopril 5 mg tablet 5 mg PO DAILY Qty: 90 RF: 3 metoprolol succinate 25 mg tablet extended release 24 hr 25 mg PO DAILY Qty: 90 RF: 1 hydrocodone-acetaminophen 5-325 mg tablet 1 tab PO Q8H PRN (Reason: pain) Qty: 30 RF: 0 promethazine 12.5 mg tablet 12.5 mg PO TID PRN (Reason: nausea and vomiting) Qty: 20 RF: 0 spironolactone 100 mg tablet 100 mg PO DAILY Qty: 92 RF: 0 Referrals: Edmar Jesus MD [Primary Care Provider] -
[2020-10-15] MEDS: SODIUM CHLORIDE 0.9% 1,000 ML 75 ML IV (13:08)
[2020-10-15 13:11] LABS: NT-proBNP (BNP-Adult 18+) 9270 pg/mL (<125); Troponin I < 0.012 ng/mL (0.01-0.034)
[2020-10-15 13:30] LABS: Anisocytosis 1+; Ovalocytes 1+
[2020-10-15 13:34] LABS: Procalcitonin 0.15 ng/mL (<0.5)
[2020-10-15] MEDS: FUROSEMIDE 40 MG/4 ML VIAL IV (13:57)
[2020-10-15] MEDS: AZITHROMYCIN 500 MG in DEXTROSE 5% IN WATER 250 ML IV (14:25)
[2020-10-15 15:06] LABS: Reflexed Lactate in 2 Hours Y
[2020-10-15] MEDS: ONDANSETRON 4 MG/2 ML INJ IV (15:07)
--- NOTE | 2020-10-15 15:26 | DI.ECHO.S_ITS ---
Reason For Study: CONGESTIVE HEART FAILURE : :Ordering Physician: MICHAEL, : :AMY Performed By: Radha Sim : :Referring: AMY RODRIGUEZ : + + Interpretation Summary The left ventricle is severely dilated. Left ventricular systolic function is severely reduced. The ejection fraction is estimated to be 10-15%. Prior LV ejection fraction was 15-20%. There is severe global hypokinesis of the left ventricle. Trabeculae near apex are visualized. No thrombus is observed. Procedure: A two-dimensional transthoracic echocardiogram with color flow and Doppler was performed in limited views only to assess ejection fraction.. The study quality was technically difficult. Comparison is made with the echocardiogram of 04/09/2020. The patient was in sinus tachycardia with heart rates between 103-114 bpm during the exam. Left Ventricle: The estimated left ventricular end diastolic volume is 197 ml. The left ventricle is severely dilated. Trabeculae near apex are visualized. No thrombus is observed. Left ventricular systolic function is severely reduced. The ejection fraction is estimated to be 10-15%. Prior LV ejection fraction was 15-20%. There is severe global hypokinesis of the left ventricle. Right Ventricle: The right ventricle is mild to moderately dilated. Right ventricular systolic function is moderately reduced. Atria: The left atrium is severely dilated. Mitral Valve: There is moderate mitral regurgitation. Pericardium/ Pleura There is no pericardial effusion. There is no pleural effusion. MMode/2D Measurements & Calculations LVIDd: 7.4 cm LA A2 area: 38.9 cm2 LVIDs: 6.9 cm LA A4 area: 32.7 cm2 FS: 6.7 % LA length (vol): 7.6 cm IVSd: 0.78 cm LA vol: 143.1 ml LVPWd: 0.88 cm LA vol index: 70.5 ml/m2 LV tinajero. diameter/BSA (cm/m^2): 3.6 LV sys. diameter/BSA (cm/m^2): 3.4 RVD1 basal): 4.2 cm TAPSE: 1.1 cm Reading Physician:04:10 PM
[2020-10-15 15:36] LABS: COVID19 -Nasal RAPID Negative (Negative)
[2020-10-15] MEDS: LORazepam 2 MG/ML INJ 0.5 MG IV ×2 (15:41→15:56)
[2020-10-15] MEDS: EPINEPHrine 1 MG/10 ML SYRINGE (16:04)
[2020-10-15 16:06] LABS: COVID19 - ADMIT (NP swab/PCR) Negative (Negative)
[2020-10-15] MEDS: NOREPINEPHRINE 4 MG in DEXTROSE 5% IN WATER 250 ML 30.48 ML IV (16:08)
--- NOTE | 2020-10-15 16:13 | DI.RAD.S_ITS ---
PROCEDURE: XR CHEST 1V INDICATIONS: post intubation, wait for call TECHNIQUE: One view of the chest was acquired. COMPARISON: [facility], CR, XR CHEST 1V, 10/15/2020, 12:29. FINDINGS: Surgical changes and devices: Left chest port with the tip projecting in the lower SVC. Endotracheal tube with the tip projecting 4 cm above the alessandro. Enteric tube is seen with the tip not included on the study below the GE junction. Lungs and pleura: Possible right loculated pleural fluid. Additional right pleural fluid seen in the costophrenic sulcus. Diffuse bilateral consolidative and hazy ground-glass opacities are increased since earlier same day Mediastinum: Cardiac silhouette and mediastinal contours are stable. Bones and chest wall: No suspicious bony lesions. Overlying soft tissues appear unremarkable. IMPRESSION: Rapidly increasing bilateral widespread upper and lower lobe opacities, raising the possibility of aspiration and/or pulmonary edema. If there is persistent clinical diagnostic uncertainty, continued surveillance with short interval radiographic followup after treatment is recommended. Recommend clinical and laboratory correlation to exclude underlying infection. Moderate loculated appearing right pleural effusion. Cardiomegaly Dictated by: Amari Melgoza M.D. on 10/15/2020 at 18:25 Approved by: Amari Melgoza M.D. on 10/15/2020 at 18:28 The
[2020-10-15] MEDS: KETAMINE 500 MG/5 ML INJ 300 MG IV (16:21)
[2020-10-15] MEDS: SUCCINYLCHOLINE 200 MG/10 ML VIAL 125 MG IV (16:25)
--- NOTE | 2020-10-15 17:00 | PC.NURSE ---
attempted to call both and sister at all numbers. Left messages to call ED
[2020-10-15] MEDS: KETAMINE 500 MG/5 ML INJ (17:05)
[2020-10-15 18:23] LABS: HCO3 ABG 16 mmol/L (22-26); PCO2 ABG 52.5 mmHg (35-45); PO2 ABG 67 mmHg (80-100); pH ABG 7.09 (7.35-7.45)
[2020-10-15 18:24] LABS: Fractionated Inspired Oxygen 100; Oxygen Saturation ABG 84 % (95-100); TCO2 ABG 18 mmol/L (21-31)
[2020-10-15 19:01] LABS: Fractionated Inspired Oxygen 50; HCO3 ABG 14 mmol/L (22-26); PCO2 ABG 54.2 mmHg (35-45); PO2 ABG 86 mmHg (80-100); TCO2 ABG 15 mmol/L (21-31); pH ABG 7.01 (7.35-7.45)
[2020-10-15 19:02] LABS: Oxygen Saturation ABG 90 % (95-100)
--- NOTE | 2020-10-16 10:09 | PC.NURSE ---
Late entry: See Code Sheet. All fluids d/c upon helicopter transport at 1935 hrs 10/15/20.
== END 2020-10-15 19:35 | disposition short-term general hospital (02) ==
PROVIDERS: Emergency Provider Emergency Medicine; PCP Family Medicine
DX: I50.9 Heart failure, unspecified (principal); R57.0 Cardiogenic shock; I46.9 Cardiac arrest, cause unspecified; R06.82 Tachypnea, not elsewhere classified; Z20.822 Contact with and (suspected) exposure to COVID-19
CPT/HCPCS: 31500; 36600; 51701; 71045; 71275; 80053; 82550; 82805; 83605; 83690; 83880; 84145; 84484; 85025; 85610; 85730; 87635; 92950; 93005; 93307; 94799; 96361; 96365; 96366; 96367; 96375; 99285; 99291; 99292; C9803; J0171; J0330; J1940; J2060; J2405

== ENCOUNTER → 2020-11-11 14:58 | Outpatient (CLI) | payer OTHER, MEDICAID, SELFPAY ==
[2020-04-08 20:02] VITALS: BMI 34.2
[2020-10-15 19:00] VITALS: PULSE 106; RESP 28; O2SAT 97
== END ==
PROVIDERS: PCP Family Medicine; Referring Provider Family Medicine; Visit Provider Family Medicine
DX: S91.302A Unspecified open wound, left foot, initial encounter (principal); S91.301A Unspecified open wound, right foot, initial encounter; S81.801A Unspecified open wound, right lower leg, initial encounter; L59.8 Other specified disorders of the skin and subcutaneous tissue related to radiation; L08.9 Local infection of the skin and subcutaneous tissue, unspecified; M05.89 Other rheumatoid arthritis with rheumatoid factor of multiple sites; Z79.899 Other long term (current) drug therapy
CPT/HCPCS: 11042; 87070; 87075; 87077; 87147; 87186; 87205; 99213

== ENCOUNTER → 2020-12-05 11:56 | Outpatient (CLI) | payer OTHER, MEDICAID, SELFPAY ==
[2020-04-08 20:02] VITALS: BMI 34.2
[2020-10-15 19:00] VITALS: PULSE 106; RESP 28; O2SAT 97
== END ==
PROVIDERS: PCP Family Medicine; Referring Provider Family Medicine; Visit Provider Family Medicine
DX: S91.302A Unspecified open wound, left foot, initial encounter (principal); S91.301A Unspecified open wound, right foot, initial encounter; S81.801A Unspecified open wound, right lower leg, initial encounter; M05.89 Other rheumatoid arthritis with rheumatoid factor of multiple sites; L95.8 Other vasculitis limited to the skin; Z79.899 Other long term (current) drug therapy; B95.61 Methicillin susceptible Staphylococcus aureus infection as the cause of diseases classified elsewhere
CPT/HCPCS: 11042; 99213

== ENCOUNTER → 2020-12-26 14:01 | Outpatient (CLI) | payer OTHER, MEDICAID, SELFPAY ==
[2020-04-08 20:02] VITALS: BMI 34.2
[2020-10-15 19:00] VITALS: PULSE 106; RESP 28; O2SAT 97
== END ==
PROVIDERS: PCP Family Medicine; Referring Provider Family Medicine; Visit Provider Family Medicine
DX: S91.302A Unspecified open wound, left foot, initial encounter (principal); S91.301A Unspecified open wound, right foot, initial encounter; S81.801A Unspecified open wound, right lower leg, initial encounter; M05.89 Other rheumatoid arthritis with rheumatoid factor of multiple sites; L95.8 Other vasculitis limited to the skin; Z79.899 Other long term (current) drug therapy; Z87.891 Personal history of nicotine dependence
CPT/HCPCS: 11042; 99213

== ENCOUNTER → 2021-02-17 17:24 | Outpatient (CLI) | payer OTHER, MEDICAID, SELFPAY ==
[2020-04-08 20:02] VITALS: BMI 34.2
[2020-10-15 19:00] VITALS: PULSE 106; RESP 28; O2SAT 97
[2021-02-17 18:17] LABS: INR 1.1 (0.9-1.3); Prothrombin Time 12.8 SECONDS (10.1-12.7)
[2021-02-17 18:19] LABS: PTT Partial Thromboplastin Tim 32 SECONDS (26.4-36.2)
[2021-02-17 18:21] LABS: Alanine Aminotransferase 14 IU/L (<35); Albumin 4.3 g/dL (3.5-5.0); Albumin Globulin Ratio 1.4 (1.0-2.8); Alkaline Phosphatase 63 U/L (38-126); Aspartate Aminotransferase 29 IU/L (14-36); BUN Creatinine Ratio 11.1 (6-22); Bilirubin Total 0.2 mg/dL (0.2-1.3); Blood Urea Nitrogen 65 mg/dL (7-17); Calcium 9.2 mg/dL (8.4-10.2); Carbon Dioxide 14 mmol/L (22-32); Chloride 107 mmol/L (98-107); Estimated Glomerular Filt Rate 7.5 mL/min (>60); Glucose 105 mg/dL (70-100); HEMOLYSIS < 15 (0-50); Potassium 4.7 mmol/L (3.4-5.1); Sodium 137 mmol/L (137-145); Total Protein 7.3 g/dL (6.3-8.2)
== END ==
PROVIDERS: PCP Family Medicine; Referring Provider Family Medicine; Visit Provider Family Medicine
DX: K74.60 Unspecified cirrhosis of liver (principal)
CPT/HCPCS: 36415; 80053; 85610; 85730

== ENCOUNTER 2021-02-20 13:06 | Inpatient (IN) | payer OTHER, MEDICAID, SELFPAY ==
[2020-04-08 20:02] VITALS: BMI 34.2
[2020-10-15 19:00] VITALS: PULSE 106; RESP 28; O2SAT 97
[2021-02-20] VITALS (31 sets, daily range): BP systolic 81–121; BP diastolic 44–64; PULSE 51–82; RESP 13–25; TEMP 36.1–36.6; O2SAT 95–100; BMI 29.6
[2021-02-20 13:51] LABS: Add Manual Diff / Slide Review NO; Basophils Absolute Auto 0 /uL (0-100); Basophils Percent Auto 0.9 % (0-2); Eosinophils Absolute Auto 200 /uL (0-450); Eosinophils Percent Auto 6.6 % (2-4); Hematocrit 27.5 % (36-46); Hemoglobin 9.4 g/dL (12.0-16.0); Lymphocytes Absolute Auto 1000 /uL (1100-4500); Lymphocytes Percent Auto 27.2 % (25-40); Mean Corpuscular HGB Conc 34.2 % (30-36); Mean Corpuscular Hemoglobin 32.5 PG (26-34); Mean Corpuscular Volume 95.1 fL (80-100); Monocytes Absolute Auto 600 /uL (0-900); Monocytes Percent Auto 15.6 % (3-14); Neutrophils Absolute Auto 1800 /uL (1500-7000); Neutrophils Percent Auto 49.7 % (50-75); Platelet Count 157 X10^3/uL (150-400); Red Blood Cell Count 2.89 X10^6/uL (4.0-5.2); Red Cell Distribution Width 13.8 % (11.6-14.8); White Blood Cell Count 3.7 X10^3/uL (4.5-11.0)
[2021-02-20 13:52] LABS: Alanine Aminotransferase 12 IU/L (<35); Albumin 4.4 g/dL (3.5-5.0); Albumin Globulin Ratio 1.4 (1.0-2.8); Alkaline Phosphatase 65 U/L (38-126); Aspartate Aminotransferase 24 IU/L (14-36); BUN Creatinine Ratio 11.8 (6-22); Bilirubin Total 0.3 mg/dL (0.2-1.3); Blood Urea Nitrogen 84 mg/dL (7-17); Calcium 8.7 mg/dL (8.4-10.2); Carbon Dioxide 11 mmol/L (22-32); Chloride 111 mmol/L (98-107); Globulin 3.2 g/dL (1.7-4.1); Glucose 94 mg/dL (70-100); HEMOLYSIS < 15 (0-50); Potassium 4.8 mmol/L (3.4-5.1); Sodium 138 mmol/L (137-145); Total Protein 7.6 g/dL (6.3-8.2)
--- NOTE | 2021-02-20 13:57 | ED.RECABL ---
HPI - Recheck/Abnormal Lab/Rx General Chief Complaint: Recheck/Abnormal Lab/Rx Stated Complaint: Possible Kidney Failure, Abnormal Blood Work Time Seen by Provider: 02/20/21 13:43 Source: patient Mode of arrival: Wheelchair Limitations: no limitations Related Data Home Medications Medication Instructions Recorded Confirmed leflunomide 10 mg tablet 10 mg PO DAILY 12/26/20 12/26/20 metoprolol succinate 25 mg 12.5 mg PO DAILY 12/26/20 12/26/20 tablet,extended release 24 hr sacubitril 49 mg-valsartan 51 mg 1 tab PO BID 12/26/20 12/26/20 tablet (Entresto) spironolactone 25 mg tablet 12.5 mg PO DAILY tab 12/26/20 12/26/20 torsemide 20 mg tablet 30 mg PO DAILY tab 12/26/20 12/26/20 Previous Rx's Medication Instructions Recorded fluticasone propionate 110 1 puff INHALATION BID #1 inh 06/09/17 mcg/actuation HFA aerosol inhaler (Flovent HFA) bupropion HCl 150 mg 24 hr tablet, 150 mg PO QAM #90 tab 07/12/20 extended release gabapentin 300 mg capsule 300 mg PO TID #270 cap 07/12/20 hydroxychloroquine 200 mg tablet See Rx Instructions .ROUTE 07/12/20 .COMPLEX #120 tab sulfasalazine 500 mg tablet See Rx Instructions .ROUTE 07/24/20 .COMPLEX #60 tablet prednisone 20 mg tablet 20 mg PO DAILY #5 tab 08/18/20 promethazine 12.5 mg tablet 12.5 mg PO TID PRN #20 tab 09/16/20 escitalopram oxalate 20 mg tablet See Rx Instructions .ROUTE 10/30/20 .COMPLEX #60 tab lorazepam 1 mg tablet See Rx Instructions .ROUTE 02/05/21 .COMPLEX #40 tab Allergies Allergy/AdvReac Type Severity Reaction Status Date / Time latex [LATEX] Allergy Intermediate RASH, SKIN Verified 02/20/21 13:17 PEELS penicillin G [PENICILLIN G] Allergy Unknown I WAS A Verified 02/20/21 13:17 KID SO I DON'T REMEMBER morphine [MORPHINE] AdvReac Severe HURTS MY Verified 02/20/21 13:17 STOMACH SO BAD Patient History Medical History (Updated 12/26/20 @ 15:52 by Edmar Jesus MD) Alcohol use Ascites Balance problem BRCA2 gene mutation positive in female Breast cancer metastasized to brain Chemotherapy-induced neuropathy CHF NYHA class III Colon polyps (04/03/16) Decreased sampler radioactive waste strength of left hand Depression Encounter for tobacco use cessation counseling Hepatic cirrhosis Hepatitis C (~1995) Musculoskeletal pain (~2015) Nausea & vomiting Rheumatoid arthritis (~2015) Shortness of breath Vomiting and diarrhea Surgical History History of appendectomy (1998) History of bilateral mastectomy (2013) History of bilateral salpingo-oophorectomy (2013) History of section (1999) History of colonoscopy with polypectomy (04/03/16) History of esophagogastroduodenoscopy (EGD) (04/03/16) History of tubal ligation (1995) Status post gamma knife treatment (2013) Family History Father No problems noted. Grandfather No problems noted. Grandmother Stomach cancer Mother Enlarged aorta Breast cancer Grandfather Myelofibrosis Grandmother Parkinson's disease Social History household members: spouse and children Smoking Status: Former smoker Tobacco: How many years used: 8 alcohol intake: former substance use type: marijuana Smoking Status: Former smoker alcohol intake frequency: holidays/special occasions only Substance Use Type: marijuana Exam Initial Vital Signs Initial Vital Signs: Vital Signs Temperature 97.8 F 02/20/21 13:15 Pulse Rate 68 02/20/21 13:15 Respiratory Rate 15 02/20/21 13:15 Blood Pressure 90/44 L 02/20/21 13:15 Pulse Oximetry 98 02/20/21 13:15 Course Orders Ordered: ED Orders 02/20/21 13:30 CBC Auto Diff [Complete Blood Count AUTO DIFF] Stat Comprehensive Metabolic Panel Stat Vital Signs Vital signs: Vital Signs - 8 hr 02/20/21 13:15 Temperature 97.8 F Pulse Rate 68 Respiratory Rate 15 Blood Pressure 90/44 L Pulse Oximetry 98 MDM - Recheck/Abnormal Lab/Rx Lab Data Result diagrams: 02/20/21 13:30 02/20/21 13:30 Labs: Lab Results 02/20/21 02/20/21 Range/Units 13:30 13:30 WBC 3.7 L (4.5-11.0) X10^3/uL RBC 2.89 L (4.0-5.2) X10^6/uL Hgb 9.4 L (12.0-16.0) g/dL Hct 27.5 L (36-46) % MCV 95.1 (80-100) fL MCH 32.5 (26-34) PG MCHC 34.2 (30-36) % RDW 13.8 (11.6-14.8) % Plt Count 157 (150-400) X10^3/uL Neut % (Auto) 49.7 L (50-75) % Lymph % (Auto) 27.2 (25-40) % [place] % (Auto) 15.6 H (3-14) % Eos % (Auto) 6.6 H (2-4) % Baso % (Auto) 0.9 (0-2) % Neut # (Auto) 1800 (8921-9635) /uL Lymph # (Auto) 1000 L (9693-8838) /uL [place] # (Auto) 600 (0-900) /uL Eos # (Auto) 200 (0-450) /uL Baso # (Auto) 0 (0-100) /uL Sodium 138 (137-145) mmol/L Potassium 4.8 (3.4-5.1) mmol/L Chloride 111 H (98-107) mmol/L Carbon Dioxide 11 L (22-32) mmol/L BUN 84 H (7-17) mg/dL Creatinine 7.11 H (0.52-1.04) mg/dL Estimated GFR 6.0 L (>60) mL/min BUN/Creatinine Ratio 11.8 (6-22) Glucose 94 (70-100) mg/dL Calcium 8.7 (8.4-10.2) mg/dL Total Bilirubin 0.3 (0.2-1.3) mg/dL AST 24 (14-36) IU/L ALT 12 (<35) IU/L Alkaline Phosphatase 65 (38-126) U/L Total Protein 7.6 (6.3-8.2) g/dL Albumin 4.4 (3.5-5.0) g/dL Globulin 3.2 (1.7-4.1) g/dL Albumin/Globulin Ratio 1.4 (1.0-2.8) Discharge Plan Departure Prescriptions: No Action Flovent HFA 110 mcg/actuation HFA aerosol inhaler 1 puff inhalation BID Qty: 1 RF: 11 sulfasalazine 500 mg tablet See Rx Instructions .ROUTE .COMPLEX Qty: 60 RF: 2 prednisone 20 mg tablet 20 mg PO DAILY Qty: 5 RF: 0 escitalopram oxalate 20 mg tablet See Rx Instructions .ROUTE .COMPLEX Qty: 60 RF: 5 lorazepam 1 mg tablet See Rx Instructions .ROUTE .COMPLEX Qty: 40 RF: 0 bupropion HCl 150 mg tablet extended release 24 hr 150 mg PO QAM Qty: 90 RF: 3 gabapentin 300 mg capsule 300 mg PO TID Qty: 270 RF: 1 hydroxychloroquine 200 mg tablet See Rx Instructions .ROUTE .COMPLEX Qty: 120 RF: 1 promethazine 12.5 mg tablet 12.5 mg PO TID PRN (Reason: nausea and vomiting) Qty: 20 RF: 0 torsemide 20 mg tablet 30 mg PO DAILY RF: 0 Entresto 49-51 mg tablet 1 tab PO BID RF: 0 leflunomide 10 mg tablet 10 mg PO DAILY RF: 0 spironolactone 25 mg tablet 12.5 mg PO DAILY RF: 0 metoprolol succinate 25 mg tablet extended release 24 hr 12.5 mg PO DAILY RF: 0 Referrals: Edmar Jesus MD [Primary Care Provider] -
--- NOTE | 2021-02-20 13:58 | DI.RAD.S_ITS ---
PROCEDURE: XR CHEST 1V INDICATIONS: renal failure TECHNIQUE: One view of the chest was acquired. COMPARISON: [facility], CR, XR CHEST 1V, 10/15/2020, 18:08. FINDINGS: Surgical changes and devices: Left chest wall Port-A-Cath is stable. Left axillary surgical clips are stable. Lungs and pleura: Lungs are clear. No pleural effusions or pneumothorax. Mediastinum: Mediastinal contours appear normal. Heart is enlarged. Bones and chest wall: No suspicious bony lesions. Overlying soft tissues appear unremarkable. IMPRESSION: No acute cardiopulmonary disease process. Dictated by: Lilliana Paiz MD, PhD on 02/20/2021 at 14:09 Approved by: Lilliana Paiz MD, PhD on 02/20/2021 at 14:10
[2021-02-20] MEDS: SODIUM CHLORIDE 0.9% 1,000 ML 1000 ML IV ×2 (14:00→15:51)
--- NOTE | 2021-02-20 14:25 | ED.RECABL ---
HPI - Recheck/Abnormal Lab/Rx General Chief Complaint: Recheck/Abnormal Lab/Rx Stated Complaint: Possible Kidney Failure, Abnormal Blood Work Time Seen by Provider: 02/20/21 13:43 Source: patient Mode of arrival: Wheelchair Limitations: no limitations History of Present Illness HPI narrative: The patient has a history of breast cancer, alcohol abuse, hepatitis C and CHF. She has a history of ascites. She has been sober for 2 years. Echo in 2019 revealed EF of 15-20% and severe left ventricle hypokinesis. She is referred heard by her primary care after reviewing labs. She is quite anemic. She is not anticoagulated. She has no hematemesis or hematochezia. She has no abdominal pain. She has experienced diarrhea over the past months. She has no recent exposure to antibiotics. She denies URI symptoms, cough or dyspnea. She denies chest pain. She has no fever chills. She feels fatigued. Labs reveal renal failure, creatinine elevating significantly over the last couple months. Prior records indicate the patient was poor lack tone and Lasix for her CHF. The Lasix was stopped about 6 months ago, she was started on torsemide. She comes the ER after been being referred here by her PCM, feeling fatigued. She is ambulatory without weakness or dizziness. She has no chest pain or palpitations. She has no orthopnea. Related Data Home Medications Medication Instructions Recorded Confirmed leflunomide 10 mg tablet 10 mg PO DAILY 12/26/20 12/26/20 metoprolol succinate 25 mg 12.5 mg PO DAILY 12/26/20 12/26/20 tablet,extended release 24 hr sacubitril 49 mg-valsartan 51 mg 1 tab PO BID 12/26/20 12/26/20 tablet (Entresto) spironolactone 25 mg tablet 12.5 mg PO DAILY tab 12/26/20 12/26/20 torsemide 20 mg tablet 30 mg PO DAILY tab 12/26/20 12/26/20 Previous Rx's Medication Instructions Recorded fluticasone propionate 110 1 puff INHALATION BID #1 inh 06/09/17 mcg/actuation HFA aerosol inhaler (Flovent HFA) bupropion HCl 150 mg 24 hr tablet, 150 mg PO QAM #90 tab 07/12/20 extended release gabapentin 300 mg capsule 300 mg PO TID #270 cap 07/12/20 hydroxychloroquine 200 mg tablet See Rx Instructions .ROUTE 07/12/20 .COMPLEX #120 tab sulfasalazine 500 mg tablet See Rx Instructions .ROUTE 07/24/20 .COMPLEX #60 tablet prednisone 20 mg tablet 20 mg PO DAILY #5 tab 08/18/20 promethazine 12.5 mg tablet 12.5 mg PO TID PRN #20 tab 09/16/20 escitalopram oxalate 20 mg tablet See Rx Instructions .ROUTE 10/30/20 .COMPLEX #60 tab lorazepam 1 mg tablet See Rx Instructions .ROUTE 02/05/21 .COMPLEX #40 tab Allergies Allergy/AdvReac Type Severity Reaction Status Date / Time latex [LATEX] Allergy Intermediate RASH, SKIN Verified 02/20/21 13:17 PEELS penicillin G [PENICILLIN G] Allergy Unknown I WAS A Verified 02/20/21 13:17 KID SO I DON'T REMEMBER morphine [MORPHINE] AdvReac Severe HURTS MY Verified 02/20/21 13:17 STOMACH SO BAD Review of Systems Constitutional Constitutional: Denies body ache(s), Denies chills, Reports fatigue, Denies fever(s), Denies headache(s) and Denies weakness Eyes Eyes: Denies blurry vision, Denies change in vision and Denies requires corrective lenses ENT Ears, Nose, Mouth, and Throat: Denies vertigo, Denies dizziness, Denies headache(s), Denies sore throat and Denies throat swelling Cardiovascular Cardiovascular: Denies chest pain, Denies syncope, Denies rapid heart rate, Denies pedal edema and Denies dyspnea Respiratory Respiratory: Denies cough and Denies dyspnea Gastrointestinal Gastrointestinal: Denies abdominal pain, Reports diarrhea, Denies nausea and Denies vomiting Genitourinary Genitourinary: Denies hematuria and Denies dysuria Musculoskeletal Musculoskeletal: Denies back pain and Denies arthralgias Comments: Minimal lower extremity edema Integumentary/Breasts Skin/Breast: Denies change in pigmentation and Denies lesions Neurologic Neurologic: Denies confusion, Denies vertigo, Denies dizziness, Denies syncope, Denies headache(s) and Denies weakness Psychiatric Psychiatric: Denies confusion Endocrine Endocrine: Reports fatigue Hematologic/Lymphatic Hematologic/Lymphatic: Denies easy bleeding and Denies easy bruising Allergic/Immunologic Allergic/Immunologic: Denies throat swelling Patient History Medical History Alcohol use Ascites Balance problem BRCA2 gene mutation positive in female Breast cancer metastasized to brain Chemotherapy-induced neuropathy CHF NYHA class III Colon polyps (04/03/16) 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 Grandfather No problems noted. Grandmother Stomach cancer Mother Enlarged aorta Breast cancer Grandfather Myelofibrosis Grandmother Parkinson's disease Social History household members: spouse and children Smoking Status: Former smoker Tobacco: How many years used: 8 alcohol intake: former substance use type: marijuana Smoking Status: Former smoker alcohol intake frequency: holidays/special occasions only Substance Use Type: marijuana Exam Initial Vital Signs Initial Vital Signs: Vital Signs Temperature 97.8 F 02/20/21 13:15 Pulse Rate 68 02/20/21 13:15 Respiratory Rate 15 02/20/21 13:15 Blood Pressure 90/44 L 02/20/21 13:15 Pulse Oximetry 98 02/20/21 13:15 Const General: cooperative, comfortable and ill appearing Nutritional Appearance: obese HENMT Head: normal to inspection, normocephalic and atraumatic Face and sinus: normal facial exam Mouth: oral mucosae normal Throat: posterior oropharynx normal Eyes Conjunctivae: conjunctivae normal Sclera: sclerae normal Pupils: PERRL EOM: EOM intact bilaterally Neck Neck: No JVD Chest Other: Port in her left chest. Resp Effort & Inspection: normal respiratory effort Auscultation: clear to auscultation bilaterally Cardio Rate: bradycardic Rhythm: regular rhythm Heart Sounds: S1 normal, S2 normal and no murmurs GI Palpation: soft, No tender and No ascites Percussion: normal to percussion Auscultation: normal bowel sounds Rectal Exam: visual inspection normal, normal sphincter tone and heme negative stool Back/Spine/Pelvis Back: No CVA tenderness Neuro General: patient alert, patient awake, patient oriented x3 and no focal motor deficits Extrem General: normal to inspection, no pedal edema and no calf tenderness Psych Mental Status: mental status grossly normal Course Course Course Narrative: The patient was hydrated 2 L of IV fluids under close observation given her known a poor EF. Her BP improved. Repeat is now 97s to 110 systolic. She has no orthopnea or dyspnea. She has no chest pain. Her elevated creatinine improved with IV hydration. She has ongoing diarrhea, but no findings consistent with GI bleed. Her anemia suggest a chronic process, not in acute GI bleed. The renal failure is suspected, but Torsemide also be a culprit. CT of the abdomen revealed no evidence of a an intra-abdominal process that may be worsening the situation. In addition to the lab abnormalities, it is noted she has physically improved with IV fluids. A GI panel has been ordered regarding the diarrhea. She will be admitted for observation, IV Infusion, and monitoring of her renal failure. The case was discussed with the hospitalist, Dr. Reilly. Orders Ordered: ED Orders 02/20/21 13:30 CBC Auto Diff [Complete Blood Count AUTO DIFF] Stat Comprehensive Metabolic Panel Stat 02/20/21 13:35 ABO RH Type Stat Lactate (Lactic Acid) Stat NT-proBNP (BNP-Adult 18+) Stat Procalcitonin Stat Troponin & CK Cardiac Panel Stat 02/20/21 13:58 XR chest 1V Stat EKG-12 Lead Stat 02/20/21 14:59 Urinalysis and Microscopic Stat Urine Culture Stat 02/20/21 15:46 Blood Culture Stat 02/20/21 17:11 CT abdomen pelvis wo con Stat 02/20/21 17:30 Complete Blood Count AUTO DIFF Stat Comprehensive Metabolic Panel Stat 02/20/21 18:18 Clostridium Difficile Tox PCR Stat Stool Culture Stat Sodium Chloride (Normal Saline 0.9%) 1,000 mls @ 1,000 mls/hr IV BOLUS PRN PRN Reason: Fluid replacement Last Infusion: 02/20/21 16:38 Dose: 0 mls/hr Documented by: Admin: 02/20/21 15:51 Dose: 1,000 mls/hr Documented by: NINO Discontinued Medications Sodium Chloride (Normal Saline 0.9%) 1,000 mls @ 1,000 mls/hr IV BOLUS ONE Stop: 02/20/21 16:48 Last Infusion: 02/20/21 15:00 Dose: 0 mls/hr Documented by: Admin: 02/20/21 14:00 Dose: 1,000 mls/hr Documented by: NINO Vital Signs Vital signs: Vital Signs - 8 hr 02/20/21 13:15 02/20/21 13:57 02/20/21 14:00 Temperature 97.8 F Pulse Rate 68 56 L 53 L Respiratory Rate 15 Blood Pressure 90/44 L 81/44 L Pulse Oximetry 98 100 100 02/20/21 14:20 02/20/21 14:30 02/20/21 14:46 Temperature Pulse Rate 51 L 51 L 53 L Respiratory Rate 23 19 Blood Pressure 87/49 L 89/50 L 111/55 L Pulse Oximetry 100 100 97 02/20/21 15:00 02/20/21 15:10 02/20/21 15:20 Temperature Pulse Rate 51 L 56 L 62 Respiratory Rate 16 25 H 20 Blood Pressure 116/62 117/64 Pulse Oximetry 100 100 100 02/20/21 15:30 02/20/21 15:43 02/20/21 15:47 Temperature Pulse Rate 53 L 51 L 53 L Respiratory Rate Blood Pressure 100/63 104/53 L Pulse Oximetry 100 100 100 02/20/21 15:50 02/20/21 16:00 02/20/21 16:10 Temperature Pulse Rate 51 L 51 L 51 L Respiratory Rate 20 20 23 Blood Pressure 93/55 L 99/56 L 103/62 Pulse Oximetry 100 100 99 02/20/21 16:20 02/20/21 16:30 02/20/21 16:32 Temperature Pulse Rate 52 L 51 L 53 L Respiratory Rate 20 23 25 H Blood Pressure 98/59 L 98/58 L 98/53 L Pulse Oximetry 100 100 100 02/20/21 16:34 02/20/21 16:35 02/20/21 16:38 Temperature Pulse Rate 62 63 67 Respiratory Rate Blood Pressure 89/59 L 99/53 L 121/57 L Pulse Oximetry 100 02/20/21 16:40 02/20/21 16:42 02/20/21 16:50 Temperature Pulse Rate 59 L 53 L Respiratory Rate 13 Blood Pressure 118/56 L 121/57 L 104/54 L Pulse Oximetry 97 100 02/20/21 17:00 02/20/21 17:10 02/20/21 17:30 Temperature Pulse Rate 52 L 53 L 53 L Respiratory Rate 17 19 22 Blood Pressure 101/53 L 97/52 L Pulse Oximetry 100 100 100 02/20/21 18:07 Temperature Pulse Rate 59 L Respiratory Rate 22 Blood Pressure Pulse Oximetry 95 MDM - Recheck/Abnormal Lab/Rx Lab Data Result diagrams: 02/20/21 17:30 02/20/21 17:30 Labs: Lab Results 02/20/21 02/20/21 02/20/21 Range/Units 13:30 13:30 13:35 WBC 3.7 L (4.5-11.0) X10^3/uL RBC 2.89 L (4.0-5.2) X10^6/uL Hgb 9.4 L (12.0-16.0) g/dL Hct 27.5 L (36-46) % MCV 95.1 (80-100) fL MCH 32.5 (26-34) PG MCHC 34.2 (30-36) % RDW 13.8 (11.6-14.8) % Plt Count 157 (150-400) X10^3/uL Neut % (Auto) 49.7 L (50-75) % Lymph % (Auto) 27.2 (25-40) % [place] % (Auto) 15.6 H (3-14) % Eos % (Auto) 6.6 H (2-4) % Baso % (Auto) 0.9 (0-2) % Neut # (Auto) 1800 (0845-4741) /uL Lymph # (Auto) 1000 L (1023-8268) /uL [place] # (Auto) 600 (0-900) /uL Eos # (Auto) 200 (0-450) /uL Baso # (Auto) 0 (0-100) /uL Sodium 138 (137-145) mmol/L Potassium 4.8 (3.4-5.1) mmol/L Chloride 111 H (98-107) mmol/L Carbon Dioxide 11 L (22-32) mmol/L BUN 84 H (7-17) mg/dL Creatinine 7.11 H (0.52-1.04) mg/dL Estimated GFR 6.0 L (>60) mL/min BUN/Creatinine Ratio 11.8 (6-22) Glucose 94 (70-100) mg/dL Lactate (0.7-2.1) mmol/L Calcium 8.7 (8.4-10.2) mg/dL Total Bilirubin 0.3 (0.2-1.3) mg/dL AST 24 (14-36) IU/L ALT 12 (<35) IU/L Alkaline Phosphatase 65 (38-126) U/L Total Creatine Kinase 80 (30-135) U/L CK-MB (CK-2) TNP CK-MB (CK-2) Rel Index TNP Troponin I < 0.012 (0.01-0.034) ng/mL NT-Pro-B Natriuret Pep 1170 H (<125) pg/mL Total Protein 7.6 (6.3-8.2) g/dL Albumin 4.4 (3.5-5.0) g/dL Globulin 3.2 (1.7-4.1) g/dL Albumin/Globulin Ratio 1.4 (1.0-2.8) Procalcitonin 0.20 (<0.5) ng/mL Urine Color Urine Appearance Urine pH (4.5-8.0) Ur Specific [place] (1.000-1.035) Urine Protein (Negative) Urine Glucose (UA) (Negative) g/dL Urine Ketones (NEGATIVE) Urine Occult Blood (Negative) Urine Nitrate (Negative) Urine Bilirubin (NEGATIVE) Urine Urobilinogen (0.2) E.U./dL Ur Leukocyte Esterase (NEGATIVE) Urine RBC (0-5/HPF) Urine WBC (0-5/HPF) Urine Bacteria (None) Ur Culture Indicated? Blood Type 02/20/21 02/20/21 02/20/21 Range/Units 13:35 13:35 14:59 WBC (4.5-11.0) X10^3/uL RBC (4.0-5.2) X10^6/uL Hgb (12.0-16.0) g/dL Hct (36-46) % MCV (80-100) fL MCH (26-34) PG MCHC (30-36) % RDW (11.6-14.8) % Plt Count (150-400) X10^3/uL Neut % (Auto) (50-75) % Lymph % (Auto) (25-40) % [place] % (Auto) (3-14) % Eos % (Auto) (2-4) % Baso % (Auto) (0-2) % Neut # (Auto) (0386-4960) /uL Lymph # (Auto) (9720-2902) /uL [place] # (Auto) (0-900) /uL Eos # (Auto) (0-450) /uL Baso # (Auto) (0-100) /uL Sodium (137-145) mmol/L Potassium (3.4-5.1) mmol/L Chloride (98-107) mmol/L Carbon Dioxide (22-32) mmol/L BUN (7-17) mg/dL Creatinine (0.52-1.04) mg/dL Estimated GFR (>60) mL/min BUN/Creatinine Ratio (6-22) Glucose (70-100) mg/dL Lactate 0.8 (0.7-2.1) mmol/L Calcium (8.4-10.2) mg/dL Total Bilirubin (0.2-1.3) mg/dL AST (14-36) IU/L ALT (<35) IU/L Alkaline Phosphatase (38-126) U/L Total Creatine Kinase (30-135) U/L CK-MB (CK-2) CK-MB (CK-2) Rel Index Troponin I (0.01-0.034) ng/mL NT-Pro-B Natriuret Pep (<125) pg/mL Total Protein (6.3-8.2) g/dL Albumin (3.5-5.0) g/dL Globulin (1.7-4.1) g/dL Albumin/Globulin Ratio (1.0-2.8) Procalcitonin (<0.5) ng/mL Urine Color Yellow Urine Appearance Clear Urine pH 5.0 (4.5-8.0) Ur Specific [place] 1.015 (1.000-1.035) Urine Protein Trace H (Negative) Urine Glucose (UA) Negative (Negative) g/dL Urine Ketones Negative (NEGATIVE) Urine Occult Blood Negative (Negative) Urine Nitrate Negative (Negative) Urine Bilirubin Negative (NEGATIVE) Urine Urobilinogen 0.2 (0.2) E.U./dL Ur Leukocyte Esterase 2+ H (NEGATIVE) Urine RBC None seen (0-5/HPF) Urine WBC 5-10/hpf H (0-5/HPF) Urine Bacteria None seen (None) Ur Culture Indicated? Specimen cultured Blood Type O Positive 02/20/21 02/20/21 Range/Units 17:30 17:30 WBC 3.2 L (4.5-11.0) X10^3/uL RBC 2.58 L (4.0-5.2) X10^6/uL Hgb 8.4 L (12.0-16.0) g/dL Hct 24.7 L (36-46) % MCV 95.7 (80-100) fL MCH 32.6 (26-34) PG MCHC 34.1 (30-36) % RDW 13.6 (11.6-14.8) % Plt Count 125 L (150-400) X10^3/uL Neut % (Auto) 48.9 L (50-75) % Lymph % (Auto) 27.8 (25-40) % [place] % (Auto) 16.7 H (3-14) % Eos % (Auto) 6.0 H (2-4) % Baso % (Auto) 0.6 (0-2) % Neut # (Auto) 1600 (5454-8280) /uL Lymph # (Auto) 900 L (2751-1017) /uL [place] # (Auto) 500 (0-900) /uL Eos # (Auto) 200 (0-450) /uL Baso # (Auto) 0 (0-100) /uL Sodium 138 (137-145) mmol/L Potassium 4.8 (3.4-5.1) mmol/L Chloride 114 H (98-107) mmol/L Carbon Dioxide 10 L (22-32) mmol/L BUN 77 H (7-17) mg/dL Creatinine 5.96 H (0.52-1.04) mg/dL Estimated GFR 7.3 L (>60) mL/min BUN/Creatinine Ratio 12.9 (6-22) Glucose 88 (70-100) mg/dL Lactate (0.7-2.1) mmol/L Calcium 7.9 L (8.4-10.2) mg/dL Total Bilirubin 0.2 (0.2-1.3) mg/dL AST 20 (14-36) IU/L ALT 10 (<35) IU/L Alkaline Phosphatase 57 (38-126) U/L Total Creatine Kinase (30-135) U/L CK-MB (CK-2) CK-MB (CK-2) Rel Index Troponin I (0.01-0.034) ng/mL NT-Pro-B Natriuret Pep (<125) pg/mL Total Protein 6.5 (6.3-8.2) g/dL Albumin 3.6 (3.5-5.0) g/dL Globulin 2.9 (1.7-4.1) g/dL Albumin/Globulin Ratio 1.2 (1.0-2.8) Procalcitonin (<0.5) ng/mL Urine Color Urine Appearance Urine pH (4.5-8.0) Ur Specific [place] (1.000-1.035) Urine Protein (Negative) Urine Glucose (UA) (Negative) g/dL Urine Ketones (NEGATIVE) Urine Occult Blood (Negative) Urine Nitrate (Negative) Urine Bilirubin (NEGATIVE) Urine Urobilinogen (0.2) E.U./dL Ur Leukocyte Esterase (NEGATIVE) Urine RBC (0-5/HPF) Urine WBC (0-5/HPF) Urine Bacteria (None) Ur Culture Indicated? Blood Type Urine Dip Bedside Urine Glucose Negative Bedside Urine Bilirubin - Negative Bedside Urine Ketone - Negative Urine Specific [place] 1.025 Bedside Urine Occult Blood - Negative Bedside Urine pH 6.0 Bedside Urine Protein - Negative Bedside Urine Urobilinogen 0.2 Bedside Urine Nitrite - Negative Bedside Urine Leukocytes + 70 Esterase Imaging Data Chest x-ray: Radiologist's Impression: No acute cardiopulmonary findings. CT scan - abdomen/pelvis: Radiologist's Impression: [address] [address] [address] Scan Report Signed Patient: Maricarmen Ho MR#: [id number] : 1965 Acct:[id number] Age/Sex: 55 / F Date of Service: 02/20/21 Loc: ED Accession Number: [id number] ?? Procedure: CT abdomen pelvis wo con Ordering Provider: John Drew MD PROCEDURE:? CT ABDOMEN PELVIS WO CON ? INDICATIONS:? Renal failure.? Anemia.? Bilateral flank pain. ? TECHNIQUE:? Axial sections were acquired from the lung bases to the pubic symphysis.? Coronal and sagittal reformats were performed.? For radiation dose reduction, the following was used: ?automated exposure control, adjustment of mA and/or kV according to patient size.? ? COMPARISON:? ? [facility], CT, CT ANGIO CHEST PE PROTOCOL, 10/15/2020, 13:31.? [facility], CR, XR CHEST 1V, 02/20/2021, 14:01.? [facility], CT, CT ABDOMEN PELVIS W CON, 06/08/2020, 19:22. ? FINDINGS:? Image quality:? Excellent.? ? Lung bases:? Unremarkable.? ? A small to moderate hiatal hernia is incidentally noted.? Heart:? There is mild cardiomegaly ? URINARY: Right Kidney: ? No stones or hydronephrosis.? Right Ureter:? No hydroureter.? ? Left Kidney: ? No stones or hydronephrosis. Left Ureter:? No hydroureter.? ? Bladder:? Normal wall thickness. No stones. ? ? ? ABDOMEN: Liver:? Unremarkable.? ? Gallbladder:? Unremarkable.? ? Biliary ducts:? Unremarkable.? ? Pancreas:? Unremarkable.? ? Spleen:? Unremarkable.? ? Adrenal Glands:? Unremarkable.? ? ? Stomach and Bowel:? No dilated loops of small bowel are seen.? There is a moderate amount of liquid stool seen within the colon, including proximally.? The cecum is high-riding. Peritoneum:? No abnormal intraperitoneal fluid.? No free air.? ? Ventral Wall: A mild periumbilical hernia is seen, containing fat. ? Abdominal Nodes:? No enlarged retroperitoneal or mesenteric lymph nodes.? Vessels:? Aorta and inferior vena cava are normal in size.? ? PELVIS: Pelvic Organs:? Unremarkable.? ? Pelvic Nodes: Unremarkable. Miscellaneous: No inguinal hernias are seen. ? ? ? Bones:? Mild levoconvex scoliotic curvature is noted.? Degenerative changes are seen throughout, which are worst at L2-L3 and L3-L4. ? IMPRESSION:? ? Negative for stones or obstructive uropathy. ? Negative for bowel obstruction. ? Liquid stool is seen within the colon.? Please correlate with diarrhea. ? There is a high-riding cecum seen, which is unchanged compared to the prior examination. ? The previously seen ascites is no longer seen. ? Mild cardiomegaly is seen, which is improved compared to the prior CT dated 06/08/2020. ? ? ? Incidental note is made of: Small to moderate hiatal hernia. Small fat containing periumbilical hernia Levoconvex scoliotic curvature Focal L2-L3 and L5-S1 degenerative change, ? Dictated by: Low Muñiz M.D. on 02/20/2021 at 16:32? ?? ECG Data Attestation: I personally reviewed and interpreted this ECG as follows: (Sinus bradycardia rate 52 BMP. Left axis deviation. Nonspecific interventricular conduction. No acute ST changes.) Critical Care Time Critical Care Time Critical Care Time: Yes Total Critical Care Time: 60 Attestation: Critical care time includes the initial assessment patient, evaluation of lab, EKG and radiology data, and multiple clinical decisions. The situation was discussed with the patient, and presented to the admitting hospitalist. Discharge Plan Departure Patient Disposition: Admitted as Observation Clinical Impression: Anemia, Congestive heart failure Renal failure Qualifiers: Renal failure chronicity: acute Acute renal failure type: unspecified Qualified Code(s): N17.9 - Acute kidney failure, unspecified Admit Date/Time: 02/20/21 18:45 Admit Provider: Trip Reilly
[2021-02-20 15:00] LABS: Bacteria Urine None Seen; RBC Urine None Seen (0-5/HPF)
[2021-02-20 15:04] LABS: Appearance Urine UA CLEAR; Bilirubin Urine UA NEGATIVE (NEGATIVE); Color Urine UA YELLOW; Glucose Urine UA NEGATIVE (Negative); Ketones Urine UA NEGATIVE (NEGATIVE); Leukocyte Esterase Urine UA 2+ (NEGATIVE); Nitrite Urine UA NEGATIVE (Negative); Occult Blood Urine UA NEGATIVE (Negative); Protein Urine UA TRACE (Negative); Specific Gravity Urine UA 1.015 (1.000-1.035); Urobilinogen Urine UA 0.2 E.U./dL (0.2)
[2021-02-20 15:09] LABS: Culture Indicated Urine Specimen Cultured; WBC Urine 5-10/HPF (0-5/HPF)
[2021-02-20 15:31] LABS: Creatine Kinase 80 U/L (30-135); Lactate (Lactic Acid) 0.8 mmol/L (0.7-2.1)
[2021-02-20 15:45] LABS: NT-proBNP (BNP-Adult 18+) 1170 pg/mL (<125); Troponin I < 0.012 ng/mL (0.01-0.034)
--- NOTE | 2021-02-20 17:11 | DI.CT.S_ITS ---
PROCEDURE: CT ABDOMEN PELVIS WO CON INDICATIONS: Renal failure. Anemia. Bilateral flank pain. TECHNIQUE: Axial sections were acquired from the lung bases to the pubic symphysis. Coronal and sagittal reformats were performed. For radiation dose reduction, the following was used: automated exposure control, adjustment of mA and/or kV according to patient size. COMPARISON: [facility], CT, CT ANGIO CHEST PE PROTOCOL, 10/15/2020, 13:31. [facility], CR, XR CHEST 1V, 02/20/2021, 14:01. [facility], CT, CT ABDOMEN PELVIS W CON, 06/08/2020, 19:22. FINDINGS: Image quality: Excellent. Lung bases: Unremarkable. A small to moderate hiatal hernia is incidentally noted. Heart: There is mild cardiomegaly URINARY: Right Kidney: No stones or hydronephrosis. Right Ureter: No hydroureter. Left Kidney: No stones or hydronephrosis. Left Ureter: No hydroureter. Bladder: Normal wall thickness. No stones. ABDOMEN: Liver: Unremarkable. Gallbladder: Unremarkable. Biliary ducts: Unremarkable. Pancreas: Unremarkable. Spleen: Unremarkable. Adrenal Glands: Unremarkable. Stomach and Bowel: No dilated loops of small bowel are seen. There is a moderate amount of liquid stool seen within the colon, including proximally. The cecum is high-riding. Peritoneum: No abnormal intraperitoneal fluid. No free air. Ventral Wall: A mild periumbilical hernia is seen, containing fat. Abdominal Nodes: No enlarged retroperitoneal or mesenteric lymph nodes. Vessels: Aorta and inferior vena cava are normal in size. PELVIS: Pelvic Organs: Unremarkable. Pelvic Nodes: Unremarkable. Miscellaneous: No inguinal hernias are seen. Bones: Mild levoconvex scoliotic curvature is noted. Degenerative changes are seen throughout, which are worst at L2-L3 and L3-L4. IMPRESSION: Negative for stones or obstructive uropathy. Negative for bowel obstruction. Liquid stool is seen within the colon. Please correlate with diarrhea. There is a high-riding cecum seen, which is unchanged compared to the prior examination. The previously seen ascites is no longer seen. Mild cardiomegaly is seen, which is improved compared to the prior CT dated 06/08/2020. Incidental note is made of: Small to moderate hiatal hernia. Small fat containing periumbilical hernia Levoconvex scoliotic curvature Focal L2-L3 and L5-S1 degenerative change, Dictated by: Low Muñiz M.D. on 02/20/2021 at 16:32 Approved by: Low Muñiz M.D. on 02/20/2021 at 16:36
[2021-02-20 17:42] LABS: Add Manual Diff / Slide Review NO; Basophils Absolute Auto 0 /uL (0-100); Basophils Percent Auto 0.6 % (0-2); Eosinophils Absolute Auto 200 /uL (0-450); Hematocrit 24.7 % (36-46); Hemoglobin 8.4 g/dL (12.0-16.0); Lymphocytes Absolute Auto 900 /uL (1100-4500); Lymphocytes Percent Auto 27.8 % (25-40); Mean Corpuscular HGB Conc 34.1 % (30-36); Mean Corpuscular Hemoglobin 32.6 PG (26-34); Mean Corpuscular Volume 95.7 fL (80-100); Monocytes Absolute Auto 500 /uL (0-900); Monocytes Percent Auto 16.7 % (3-14); Neutrophils Absolute Auto 1600 /uL (1500-7000); Neutrophils Percent Auto 48.9 % (50-75); Platelet Count 125 X10^3/uL (150-400); Red Blood Cell Count 2.58 X10^6/uL (4.0-5.2); Red Cell Distribution Width 13.6 % (11.6-14.8); White Blood Cell Count 3.2 X10^3/uL (4.5-11.0)
[2021-02-20 17:59] LABS: Alanine Aminotransferase 10 IU/L (<35); Albumin 3.6 g/dL (3.5-5.0); Albumin Globulin Ratio 1.2 (1.0-2.8); Alkaline Phosphatase 57 U/L (38-126); Aspartate Aminotransferase 20 IU/L (14-36); BUN Creatinine Ratio 12.9 (6-22); Bilirubin Total 0.2 mg/dL (0.2-1.3); Blood Urea Nitrogen 77 mg/dL (7-17); Calcium 7.9 mg/dL (8.4-10.2); Carbon Dioxide 10 mmol/L (22-32); Chloride 114 mmol/L (98-107); Estimated Glomerular Filt Rate 7.3 mL/min (>60); Globulin 2.9 g/dL (1.7-4.1); Glucose 88 mg/dL (70-100); HEMOLYSIS < 15 (0-50); Potassium 4.8 mmol/L (3.4-5.1); Sodium 138 mmol/L (137-145); Total Protein 6.5 g/dL (6.3-8.2)
[2021-02-20 20:02] LABS: COVID19 - ADMIT (NP swab/PCR) Negative (Negative)
--- NOTE | 2021-02-20 20:34 | PC.NURSE ---
Pt's phosphorus level reported as 9.0. MIGUEL Melgoza was made aware immediately by this adjusto writer operator. MIGUEL in to see patient.
--- NOTE | 2021-02-20 20:36 | PC.NURSE ---
Addendum entered by Juana Patel R.N. 02/20/21 22:33: Pt is also having some periods of confusion. Gait is unsteady and needs assistance. pt has multiple 2 wounds to the top of each foot. pictures taken and wounds redress. pt has bruises throughout. Original Note: P admitted from ER with RYNE, PT Alert and oriented. Daughter GYNGER at the bedside. Pt was place on TELE. PRUNER with pt at them moment. Bed alarm in place.
--- NOTE | 2021-02-20 21:15 | PM.HP.1 ---
History of Present Illness History of Present Illness Date Patient Seen: 02/20/21 Time Patient Seen: 20:15 Chief complaint: Acute kidney injury, varinder interstitial nephritis Narrative: Maricarmen Ho is 54-year-old female with a history of germline BRCA 2 mutation carrier with a triple negative infiltrating ductal carcinoma of the right breast currently in remission but under surveillance, brain metastases which was resected in [place] and treated with gamma knife radiotherapy, currently under remission, history of hep C, history of splenomegaly,?and NYHA Class 3 heart failure with an ejection fraction of 10-15% done and September of this year, was seen by her PCP as follow-up to a emergency department visit where she had actually went into asystole, was resuscitated and air flighted to [facility]. During the follow-up they duane some labs which apparently had been about a 3 week delay for the patient and when her labs returned she was directed to present to the emergency room due to ongoing anemia and an elevated creatinine. The patient has rheumatoid arthritis and is currently taking a DMARD as well as hydroxychloroquine has a rather complicated medication regime. Today she presents with 2 weeks of increasing shortness of breath, she denies any problems swallowing, she denies chest pain, she has had nausea and diarrhea but denies vomiting, she does endorse having abdominal bloating and thought that at some point she needed to have the fluid off for abdomen drained but was told that her blood is ?too thin? for anybody to touch her, dysuria, she states she has chronic neuropathy from prior history of chemotherapy, and she is noticing that her left pinky finger is numb. She denies seeing any blood in her urine or stool, denies fever cough or chills, chest pain though is recovering from sternal fractures as a result of CPR that was done to her in September, and generalized fatigue. She denies palpitations, weakness or dizziness or dizziness upon standing up. Patient was taking spironolactone and had an adjustment in torsemide from 40 mg to 30 mg. She had previously been taking Lasix and is no longer taking this. She did see Dr. Villanueva at the [facility] in November of this year for follow-up who made some adjustments on her cardiac medications and is due for another echocardiogram sometime this month. She follows up with a meteorological equipment repairer. Chest abdomen and pelvis CT ordered in the emergency department did not have any emergent or acute findings, I have ordered a renal ultrasound which is pending. Her current vital signs include a temperature of 97.2?, blood pressure 100/62, heart rate 68, respiratory rate 18, oxygen saturation of 100% on room air, she is 88.4 kg with a BMI of 34.2. Her WBC is 3.2 RBC 2.58 hemoglobin 8.4 hematocrit 24.7 which is lower than her baseline, platelet count 125, sodium 138, potassium 4.8, chloride 114, bicarb 10, BUN 77, creatinine 5.96 down from 7.11 on admission and after 2 L of hydration, her GFR is 7.3 with a phosphorus of 9, calcium is 7.9, magnesium 2.0, liver enzymes within normal limits, her proBNP is slightly elevated at 11 70, UA is equivocal with leukocytes and wbc's and will be cultured, cultures pending. COVID-19 PCR is negative. 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 Depression Encounter for tobacco use cessation counseling Hepatic cirrhosis Hepatitis C (~1995) Musculoskeletal pain (~2015) Nausea & vomiting Rheumatoid arthritis (~2015) Shortness of breath Vomiting and diarrhea Surgical History History of appendectomy (1998) History of bilateral mastectomy (2013) History of bilateral salpingo-oophorectomy (2013) History of section (1999) History of colonoscopy with polypectomy (04/03/16) History of esophagogastroduodenoscopy (EGD) (04/03/16) History of tubal ligation (1995) Status post gamma knife treatment (2013) Family & Social History Family History Father No problems noted. Grandfather No problems noted. Grandmother Stomach cancer Mother Enlarged aorta Breast cancer Grandfather Myelofibrosis Grandmother Parkinson's disease Social History: household members spouse,children Safety & Behavioral: Feels Safe in Current Yes Environment Been Physically Hurt or No Threatened By a Person Tobacco & Substance use: Smoking Status Former smoker alcohol intake former alcohol intake frequency holiday/special occasion Substance Use Type marijuana Meds Home Medications and Allergies Home Medications Medication Instructions Recorded Confirmed Type fluticasone propionate 110 1 puff INHALATION BID #1 inh 06/09/17 12/26/20 Rx mcg/actuation HFA aerosol inhaler (Flovent HFA) bupropion HCl 150 mg 24 hr tablet, 150 mg PO QAM #90 tab 07/12/20 12/26/20 Rx extended release gabapentin 300 mg capsule 300 mg PO TID #270 cap 07/12/20 12/26/20 Rx hydroxychloroquine 200 mg tablet See Rx Instructions .ROUTE 07/12/20 12/26/20 Rx .COMPLEX #120 tab sulfasalazine 500 mg tablet See Rx Instructions .ROUTE 07/24/20 12/26/20 Rx .COMPLEX #60 tablet prednisone 20 mg tablet 20 mg PO DAILY #5 tab 08/18/20 12/26/20 Rx promethazine 12.5 mg tablet 12.5 mg PO TID PRN #20 tab 09/16/20 12/26/20 Rx escitalopram oxalate 20 mg tablet See Rx Instructions .ROUTE 10/30/20 12/26/20 Rx .COMPLEX #60 tab leflunomide 10 mg tablet 10 mg PO DAILY 12/26/20 12/26/20 History metoprolol succinate 25 mg 12.5 mg PO DAILY 12/26/20 12/26/20 History tablet,extended release 24 hr sacubitril 49 mg-valsartan 51 mg 1 tab PO BID 12/26/20 12/26/20 History tablet (Entresto) spironolactone 25 mg tablet 12.5 mg PO DAILY tab 12/26/20 12/26/20 History torsemide 20 mg tablet 30 mg PO DAILY tab 12/26/20 12/26/20 History lorazepam 1 mg tablet See Rx Instructions .ROUTE 02/05/21 Rx .COMPLEX #40 tab Allergies Allergy/AdvReac Type Severity Reaction Status Date / Time latex [LATEX] Allergy Intermediate RASH, SKIN Verified 02/20/21 13:17 PEELS penicillin G [PENICILLIN G] Allergy Unknown I WAS A Verified 02/20/21 13:17 KID SO I DON'T REMEMBER morphine [MORPHINE] AdvReac Severe HURTS MY Verified 02/20/21 13:17 STOMACH SO BAD Review of Systems Review of Systems ROS: Yes All systems reviewed with the patient and are negative except as otherwise documented Exam Vital Signs (past 8 hours): - 02/20/21 13:57 02/20/21 14:00 02/20/21 14:20 Temperature Pulse Rate 56 L 53 L 51 L Respiratory Rate 23 Blood Pressure 81/44 L 87/49 L Pulse Oximetry 100 100 100 02/20/21 14:30 02/20/21 14:46 02/20/21 15:00 Temperature Pulse Rate 51 L 53 L 51 L Respiratory Rate 19 16 Blood Pressure 89/50 L 111/55 L Pulse Oximetry 100 97 100 02/20/21 15:10 02/20/21 15:20 02/20/21 15:30 Temperature Pulse Rate 56 L 62 53 L Respiratory Rate 25 H 20 Blood Pressure 116/62 117/64 Pulse Oximetry 100 100 100 02/20/21 15:43 02/20/21 15:47 02/20/21 15:50 Temperature Pulse Rate 51 L 53 L 51 L Respiratory Rate 20 Blood Pressure 100/63 104/53 L 93/55 L Pulse Oximetry 100 100 100 02/20/21 16:00 02/20/21 16:10 02/20/21 16:20 Temperature Pulse Rate 51 L 51 L 52 L Respiratory Rate 20 23 20 Blood Pressure 99/56 L 103/62 98/59 L Pulse Oximetry 100 99 100 02/20/21 16:30 02/20/21 16:32 02/20/21 16:34 Temperature Pulse Rate 51 L 53 L 62 Respiratory Rate 23 25 H Blood Pressure 98/58 L 98/53 L 89/59 L Pulse Oximetry 100 100 100 02/20/21 16:35 02/20/21 16:38 02/20/21 16:40 Temperature Pulse Rate 63 67 59 L Respiratory Rate Blood Pressure 99/53 L 121/57 L 118/56 L Pulse Oximetry 97 02/20/21 16:42 02/20/21 16:50 02/20/21 17:00 Temperature Pulse Rate 53 L 52 L Respiratory Rate 13 17 Blood Pressure 121/57 L 104/54 L 101/53 L Pulse Oximetry 100 100 02/20/21 17:10 02/20/21 17:30 02/20/21 18:07 Temperature Pulse Rate 53 L 53 L 59 L Respiratory Rate 19 22 22 Blood Pressure 97/52 L Pulse Oximetry 100 100 95 02/20/21 18:30 02/20/21 19:15 Temperature 97.2 F L Pulse Rate 53 L 68 Respiratory Rate 21 18 Blood Pressure 100/62 Pulse Oximetry 100 100 Oxygen Delivery Method Room Air Oxygen Flow Rate 0 Narrative Exam Narrative: Gen: Alert, oriented, chronically ill-appearing 55y.o. female, appears older than stated age HEENT: normocephalic, atraumatic, conjunctiva clear, sclera non-icteric, oral mucosa pink and moist Neck: supple, full ROM, no JVD, trachea is midline Resp: Lungs CTA, non-labored breathing CV: RRR, no murmur or rubs Abd: Obese and soft, non-tender, normoactive BTs, no peritoneal signs Skin: Pale, no lesions or rashes, dry and intact Neuro: Alert and oriented X 4 w/no focal deficits. Speech clear and coherent. Extremities: moves all 4 extremities, is ambulatory, negative Michael?s sign Psyche: normal mood and affect. Objective Labs Result Diagrams: 02/20/21 17:30 02/20/21 17:30 Labs: Laboratory Results - last 24 hr 02/20/21 02/20/21 02/20/21 13:30 13:30 13:35 WBC 3.7 L RBC 2.89 L Hgb 9.4 L Hct 27.5 L MCV 95.1 MCH 32.5 MCHC 34.2 RDW 13.8 Plt Count 157 Neut % (Auto) 49.7 L Lymph % (Auto) 27.2 [place] % (Auto) 15.6 H Eos % (Auto) 6.6 H Baso % (Auto) 0.9 Neut # (Auto) 1800 Lymph # (Auto) 1000 L [place] # (Auto) 600 Eos # (Auto) 200 Baso # (Auto) 0 Sodium 138 Potassium 4.8 Chloride 111 H Carbon Dioxide 11 L BUN 84 H Creatinine 7.11 H Estimated GFR 6.0 L BUN/Creatinine Ratio 11.8 Glucose 94 Lactate Calcium 8.7 Phosphorus Magnesium Total Bilirubin 0.3 AST 24 ALT 12 Alkaline Phosphatase 65 Total Creatine Kinase 80 CK-MB (CK-2) TNP CK-MB (CK-2) Rel Index TNP Troponin I < 0.012 NT-Pro-B Natriuret Pep 1170 H Total Protein 7.6 Albumin 4.4 Globulin 3.2 Albumin/Globulin Ratio 1.4 Procalcitonin 0.20 Urine Color Urine Appearance Urine pH Ur Specific [place] Urine Protein Urine Glucose (UA) Urine Ketones Urine Occult Blood Urine Nitrate Urine Bilirubin Urine Urobilinogen Ur Leukocyte Esterase Urine RBC Urine WBC Urine Bacteria Ur Culture Indicated? SARS-CoV-2 (PCR) Blood Type 02/20/21 02/20/21 02/20/21 13:35 13:35 14:59 WBC RBC Hgb Hct MCV MCH MCHC RDW Plt Count Neut % (Auto) Lymph % (Auto) [place] % (Auto) Eos % (Auto) Baso % (Auto) Neut # (Auto) Lymph # (Auto) [place] # (Auto) Eos # (Auto) Baso # (Auto) Sodium Potassium Chloride Carbon Dioxide BUN Creatinine Estimated GFR BUN/Creatinine Ratio Glucose Lactate 0.8 Calcium Phosphorus Magnesium Total Bilirubin AST ALT Alkaline Phosphatase Total Creatine Kinase CK-MB (CK-2) CK-MB (CK-2) Rel Index Troponin I NT-Pro-B Natriuret Pep Total Protein Albumin Globulin Albumin/Globulin Ratio Procalcitonin Urine Color Yellow Urine Appearance Clear Urine pH 5.0 Ur Specific [place] 1.015 Urine Protein Trace H Urine Glucose (UA) Negative Urine Ketones Negative Urine Occult Blood Negative Urine Nitrate Negative Urine Bilirubin Negative Urine Urobilinogen 0.2 Ur Leukocyte Esterase 2+ H Urine RBC None seen Urine WBC 5-10/hpf H Urine Bacteria None seen Ur Culture Indicated? Specimen cultured SARS-CoV-2 (PCR) Blood Type O Positive 02/20/21 02/20/21 02/20/21 17:30 17:30 17:30 WBC 3.2 L RBC 2.58 L Hgb 8.4 L Hct 24.7 L MCV 95.7 MCH 32.6 MCHC 34.1 RDW 13.6 Plt Count 125 L Neut % (Auto) 48.9 L Lymph % (Auto) 27.8 [place] % (Auto) 16.7 H Eos % (Auto) 6.0 H Baso % (Auto) 0.6 Neut # (Auto) 1600 Lymph # (Auto) 900 L [place] # (Auto) 500 Eos # (Auto) 200 Baso # (Auto) 0 Sodium 138 Potassium 4.8 Chloride 114 H Carbon Dioxide 10 L BUN 77 H Creatinine 5.96 H Estimated GFR 7.3 L BUN/Creatinine Ratio 12.9 Glucose 88 Lactate Calcium 7.9 L Phosphorus Magnesium 2.0 Total Bilirubin 0.2 AST 20 ALT 10 Alkaline Phosphatase 57 Total Creatine Kinase CK-MB (CK-2) CK-MB (CK-2) Rel Index Troponin I NT-Pro-B Natriuret Pep Total Protein 6.5 Albumin 3.6 Globulin 2.9 Albumin/Globulin Ratio 1.2 Procalcitonin Urine Color Urine Appearance Urine pH Ur Specific [place] Urine Protein Urine Glucose (UA) Urine Ketones Urine Occult Blood Urine Nitrate Urine Bilirubin Urine Urobilinogen Ur Leukocyte Esterase Urine RBC Urine WBC Urine Bacteria Ur Culture Indicated? SARS-CoV-2 (PCR) Blood Type 02/20/21 02/20/21 17:30 19:01 WBC RBC Hgb Hct MCV MCH MCHC RDW Plt Count Neut % (Auto) Lymph % (Auto) [place] % (Auto) Eos % (Auto) Baso % (Auto) Neut # (Auto) Lymph # (Auto) [place] # (Auto) Eos # (Auto) Baso # (Auto) Sodium Potassium Chloride Carbon Dioxide BUN Creatinine Estimated GFR BUN/Creatinine Ratio Glucose Lactate Calcium Phosphorus 9.0 H* Magnesium Total Bilirubin AST ALT Alkaline Phosphatase Total Creatine Kinase CK-MB (CK-2) CK-MB (CK-2) Rel Index Troponin I NT-Pro-B Natriuret Pep Total Protein Albumin Globulin Albumin/Globulin Ratio Procalcitonin Urine Color Urine Appearance Urine pH Ur Specific [place] Urine Protein Urine Glucose (UA) Urine Ketones Urine Occult Blood Urine Nitrate Urine Bilirubin Urine Urobilinogen Ur Leukocyte Esterase Urine RBC Urine WBC Urine Bacteria Ur Culture Indicated? SARS-CoV-2 (PCR) Negative Blood Type Assessment & Plan Assessment & Plan narrative: Maricarmen Ho is a 55-year-old female with chronic heart failure with reduced ejection fraction of 10-15%, status post triple negative right-sided breast cancer history of, with metastasis to the brain, is admitted for further evaluation of an acute kidney injury and diarrhea. 1. Acute kidney injury, present on admission Creatinine was last normal and September of this year and it is now 5.96 with a phosphorus of 9 Discussed the case with Dr. Castro, bisque grader at [facility] who recommended and concurred with plan for renal ultrasound and gentle hydration if need be. He is available up to 1700 on February 21 for consultation and recommends outpatient follow-up with patient. Will have patient on strict Is and Os to make sure she is producing urine Renal low phosphorus diet ordered 2. [facility] class 3 heart failure with reduced ejection fraction, likely present on admission She is due for an echocardiogram in February at the [facility] and is followed by Dr. Villanueva, adult basic studies teacher. Torsemide was reduced from 40 mg to 30 mg daily, she was discontinued off of Lasix but continued spironolactone. Due to the RYNE her diuretics are held and as well as Entresto and lisinopril at the recommendation of Dr. Villanueva. 3. Rheumatoid arthritis, chronic Patient takes Leflunomide 10 mg daily, hydroxychloroquine 200 mg daily and sulfasalazine 500 mg daily. Will need to request pharmacy evaluate for nephrotoxicity. VTE Prophylaxis: Wells risk score 0 [X] Bilateral SCDs Patient is admitted to the inpatient service due to the severity of disease, risks of further disease progression and this stay is expected to exceed 2 midnights. FEN: IV fluids: NS at 75 ml/hour , diet: renal, low phosphorus labs: CBC, C/BMP, liver enzymes, Mag, PT/INR Consultants None Dispo: Unknown at this time Code status: Full code as discussed with the patient who identifies her sister Reba Donato as her surrogate and POA. I confirmed that the patient's advanced care plan is present, code status is determined, or surrogate decision maker is listed on the patient's medical record. [X] I have utilized all available immediate resources to obtain, update, or review of the patient's current medications [X] The patient has current or prior documentation of the left ventricular ejection fraction (LEVF) less than 40% or moderate or severely depressed left ventricular systolic function. [X] Yes [X] The patient was prescribed or already taking an angiotensin converting enzyme (JEAN-CLAUDE) inhibitor, or angiotensin receptor francy (ARB). [X] The patient was prescribed or already taking a beta-francy [X] Yes [] No COVID-19 COVID-19 status: Negative Time Spent With Patient Critical Care time: I spent a total of [] minutes of critical care time on this patient's care today; this time is exclusive of procedural time. Scores CHADS-VASc Congestive heart failure: yes Hypertension: yes Age 75 years or older: no Diabetes mellitus: no Stroke, TIA, or TE: yes Vascular disease: yes Age 65 to 74 years: no Sex category (female): Female CHADS-VASc Score: 6 Wells' Criteria for PE Clinical signs and symptoms of DVT: No PE is #1 Dx or equally likely: No Heart rate > 100: No Immobilization at least 3 days or surg in previous 4 weeks: No History of PE or DVT: No Hemoptysis: No Malignancy w/Treatment within 6 months or palliative: No Wells' PE Score total: 0 Quality VTE Deep Vein Thrombosis/Pulmonary Embolism Present on Admission: No
[2021-02-20] MEDS: SODIUM CHLORIDE 0.9% 1,000 ML 75 ML IV (21:51)
--- NOTE | 2021-02-21 00:02 | PC.NURSE ---
Up to bathroom with one assist at change of shift. BL calf scd's in place upon return to bed. Pt denies pain, denies nausea. Continuous pulse oximeter in place as ordered. Pt positions self independently in bed. IV fluids infusing as ordered to right ac site without difficulty. Pt's daughter is rooming in overnight. Stool specimen has been collected and sent per evening shift.
[2021-02-21 01:12] LABS: Campylobacter Not Detected (Not Detect)
[2021-02-21 01:13] LABS: Adenovirus F 40/41 Not Detected (Not Detect); Astrovirus Not Detected (Not Detect); Clostridium difficile toxin AB Not Detected (Not Detect); Cryptosporidium Not Detected (Not Detect); Cyclospora cayetanensis Not Detected (Not Detect); Entamoeba histolytica Not Detected (Not Detect); Enteroaggregative E.coli Not Detected (Not Detect); Enteropathogenic E.coli Not Detected (Not Detect); Enterotoxigenic E.coli It/st Not Detected (Not Detect); Giardia lamblia Not Detected (Not Detect); Norovirus GI/GII Not Detected (Not Detect); Plesiomonsa shigelloides Not Detected (Not Detect); Rotavirus A Not Detected (Not Detect); Salmonella Not Detected (Not Detect); Sapovirus Not Detected (Not Detect); Shiga-like toxin-prod E.coli Not Detected (Not Detect); Shigella/Enteroinvasive E.coli Not Detected (Not Detect); Vibrio Not Detected (Not Detect); Vibrio cholerae Not Detected (Not Detect); Yersinia enterocolitica Not Detected (Not Detect)
--- NOTE | 2021-02-21 04:17 | PC.NURSE ---
Patient resting with eyes closed, breathing unlabored, RR WNL. NS@75 infusing in RAC PIV. Tele on. Belongings and call light in reach, bed alarm on.
[2021-02-21 05:10] LABS: Add Manual Diff / Slide Review NO; Basophils Absolute Auto 0 /uL (0-100); Basophils Percent Auto 0.7 % (0-2); Eosinophils Absolute Auto 200 /uL (0-450); Hematocrit 24.7 % (36-46); Hemoglobin 8.4 g/dL (12.0-16.0); Lymphocytes Absolute Auto 900 /uL (1100-4500); Lymphocytes Percent Auto 30.2 % (25-40); Mean Corpuscular Hemoglobin 32.2 PG (26-34); Mean Corpuscular Volume 94.7 fL (80-100); Monocytes Absolute Auto 500 /uL (0-900); Monocytes Percent Auto 17.1 % (3-14); Neutrophils Absolute Auto 1400 /uL (1500-7000); Platelet Count 146 X10^3/uL (150-400); Red Blood Cell Count 2.61 X10^6/uL (4.0-5.2); Red Cell Distribution Width 13.5 % (11.6-14.8); White Blood Cell Count 3.1 X10^3/uL (4.5-11.0)
[2021-02-21 05:28] LABS: BUN Creatinine Ratio 17.8 (6-22); Blood Urea Nitrogen 74 mg/dL (7-17); Calcium 8.6 mg/dL (8.4-10.2); Carbon Dioxide 10 mmol/L (22-32); Chloride 118 mmol/L (98-107); Estimated Glomerular Filt Rate 11.1 mL/min (>60); Glucose 94 mg/dL (70-100); HEMOLYSIS < 15 (0-50); Potassium 4.5 mmol/L (3.4-5.1); Sodium 140 mmol/L (137-145)
[2021-02-21 05:55] VITALS: PULSE 90; RESP 16; TEMP 36.3; O2SAT 95
--- NOTE | 2021-02-21 05:59 | PC.NURSE ---
Addendum entered by Macy Fried R.N. 02/21/21 13:41: Patient resting in bed, medication list from [facility] dropped off by patients mother. Attempted to cross reference the list with the patient but patient unable to provide clarification regarding some of the medications. Addendum entered by Macy Fried R.N. 02/21/21 10:42: Spoke to patient earlier this AM during assessment about home medications, patient does not know what she takes. Left voicemail for regarding medication list. Original Note: Patient A/O x 3, resting in bed, denies dizziness/lightheadedness, BP 83/53, WI 90, 95% on RA, lungs CTA, night hospilist aware of low BP. HOB remains flat. NS infusing at 75cc/hr. Patient denies needs at this time. Instructed to call before getting OOB, patient verbalized understanding. Call light in reach, belongings in reach. Daughter remains in room. Bed alarm on.
[2021-02-21 08:19] VITALS: BP 102/56; PULSE 74; RESP 18; TEMP 36.1; O2SAT 100
[2021-02-21] MEDS: SODIUM CHLORIDE 0.9% 1,000 ML 75 ML IV ×2 (11:00→23:10)
[2021-02-21 12:46] VITALS: BP 109/60; PULSE 72; RESP 16; TEMP 36.1; O2SAT 99
[2021-02-21 15:30] VITALS: BP 98/62; PULSE 59; RESP 22; TEMP 36.3; O2SAT 100
--- NOTE | 2021-02-21 16:05 | CM.IDA ---
Initial DCP Assessment Note Pt is a 55 yo female, resident of [place], arrives w/increased SOB, admitted inpatient d/t acute kidney injury. Patient w/a complicated medical history to include ductal carcinoma, Rt Breast w/metastasis to the brain w/ h/o surgical resection and h/o CPR resuscitation w/ sternal fx and ED of 10-15%. Patient is a former alcoholic and reports sobriety for the last 2 years. PCP: Edmar Jesus [facility] Reviewed chart, met w/patient and her 21 yo dtgloria Carrion at bedside, introduced role. Gus Carrion suffers from selective mutism according to patient, which she describes as a coping mechanism for severe anxiety. Gus Carrion whispers information throughout this visit to her mom, she appears and sounds much younger than stated age. Patient lives w/dtgloria Carrion, 23 yo son moved out of the house and into another family's home last week. Patient is quite talkative this visit, jumps from one topic to another sporadically, making this assessment of need difficult. Patient states she is indp at baseline. Neither patient or her dtgloria Carrion have a counselor, this LIFE SCIENCES MANAGER strongly encouraged both to consider. Gus Carrion is connected w/a manager case, patient unable to identify who or through what agency. Patient admits she could use assistance from an outpatient manager case to secure outpatient appointments and transportation. This LIFE SCIENCES MANAGER suggested patient ask for a manager case through her [employer] insurer, and patient unsure how to complete this task. Patient will likely return home w/family upon DC. This LIFE SCIENCES MANAGER unable to contact [employer] Insurer to request an outpatient manager case for this patient, now going into a 3 day holiday weekend () Will plan to follow closely in case any DC needs/concerns arise before patient's DC CHAYA Brown Discharge Planning/Care Management CM Discharge Assessment Start: 02/21/21 15:58 Freq: Status: Active Protocol: Document 02/21/21 15:58 VIRGINIE (Rec: 02/21/21 16:04 VIRGINIE [id number]) Discharge Planning Assessment Assigned Procurement Professional Logistics CHAYA Stringer DPOA/Assigned Designee Name sister Pratt Contact Information [phone] Advance Directives? No History Provided By Patient,Medical Record Prior Living Arrangements House Household Members spouse,children Type of transporation used prior to Relies on Others admit Independent with ADL's Yes Is patient alert and oriented? Yes Barriers to Discharge No Comment Home w/family upon DC Discharge Plan Home Transportation Arrangement Family Referrals Initiated None needed
--- NOTE | 2021-02-21 16:25 | P.PN_ITS ---
Subjective Subjective Date Patient Seen: 02/21/21 Time Patient Seen: 16:26 Interval history: Denies chest pain, palpitations, shortness of breath. Appears patient was on a number of medications including bactrim, entresto, and diuretics. Her creatinine continues to improve. Stool PCR negative for infectious cause of diarrhea. Exam Vital Signs (past 8 hours): - 02/21/21 12:46 02/21/21 15:30 Temperature 96.9 F L 97.4 F L Pulse Rate 72 59 L Respiratory Rate 16 22 Blood Pressure 109/60 98/62 Pulse Oximetry 99 100 Oxygen Delivery Method Room Air Oxygen Flow Rate 0 Narrative Exam Narrative: Alert, oriented, chronically ill-appearing 55y.o. ? female, appears older than stated age HEENT: normocephalic, atraumatic, conjunctiva clear, sclera non-icteric, oral mucosa pink and moist Neck: supple, full ROM, no JVD, trachea is midline Resp: Lungs CTA, non-labored breathing CV: RRR, no murmur or rubs Abd:? Obese and soft, non-tender, normoactive BTs, no peritoneal signs Skin:? Pale, no lesions or rashes, dry and intact Neuro: Alert and oriented X 4 w/no focal deficits. Speech clear and coherent. Extremities: no edema or joint effusions Psyche: normal mood and affect. Objective Labs Result Diagrams: 02/21/21 04:55 02/21/21 04:55 Labs: Laboratory Results - last 24 hr 02/20/21 02/20/21 02/20/21 13:35 17:30 17:30 WBC 3.2 L RBC 2.58 L Hgb 8.4 L Hct 24.7 L MCV 95.7 MCH 32.6 MCHC 34.1 RDW 13.6 Plt Count 125 L Neut % (Auto) 48.9 L Lymph % (Auto) 27.8 Callaway % (Auto) 16.7 H Eos % (Auto) 6.0 H Baso % (Auto) 0.6 Neut # (Auto) 1600 Lymph # (Auto) 900 L Callaway # (Auto) 500 Eos # (Auto) 200 Baso # (Auto) 0 Sodium 138 Potassium 4.8 Chloride 114 H Carbon Dioxide 10 L BUN 77 H Creatinine 5.96 H Estimated GFR 7.3 L BUN/Creatinine Ratio 12.9 Glucose 88 Calcium 7.9 L Phosphorus Magnesium Total Bilirubin 0.2 AST 20 ALT 10 Alkaline Phosphatase 57 Total Protein 6.5 Albumin 3.6 Globulin 2.9 Albumin/Globulin Ratio 1.2 Stl C. cayetanensis PCR Stool Rotavirus (PCR) Stool Adenovirus (PCR) Stool Astrovirus (PCR) Stool Cryptosporidium PCR Stl E.coli Shiga Tox PCR St Sh/Enteroin Ecoli PCR Stool E coli O157 PCR Stl Enterotoxigenic E PCR Stool EPEC (PCR) Stl E. histolytica PCR Stool Giardia Lamblia PCR Stool Sapovirus (PCR) Stl P. shigelloides PCR St Y.enterocolitica PCR Stool Vibrio (PCR) Stl Vibrio cholerae PCR Stl Enteroaggr Ecoli PCR Stl Norovirus GI/GII PCR Campylobacter (PCR) C. difficile Tox (PCR) SARS-CoV-2 (PCR) Salmonella (PCR) Blood Type O Positive 02/20/21 02/20/21 02/20/21 17:30 17:30 19:01 WBC RBC Hgb Hct MCV MCH MCHC RDW Plt Count Neut % (Auto) Lymph % (Auto) Callaway % (Auto) Eos % (Auto) Baso % (Auto) Neut # (Auto) Lymph # (Auto) Callaway # (Auto) Eos # (Auto) Baso # (Auto) Sodium Potassium Chloride Carbon Dioxide BUN Creatinine Estimated GFR BUN/Creatinine Ratio Glucose Calcium Phosphorus 9.0 H* Magnesium 2.0 Total Bilirubin AST ALT Alkaline Phosphatase Total Protein Albumin Globulin Albumin/Globulin Ratio Stl C. cayetanensis PCR Stool Rotavirus (PCR) Stool Adenovirus (PCR) Stool Astrovirus (PCR) Stool Cryptosporidium PCR Stl E.coli Shiga Tox PCR St Sh/Enteroin Ecoli PCR Stool E coli O157 PCR Stl Enterotoxigenic E PCR Stool EPEC (PCR) Stl E. histolytica PCR Stool Giardia Lamblia PCR Stool Sapovirus (PCR) Stl P. shigelloides PCR St Y.enterocolitica PCR Stool Vibrio (PCR) Stl Vibrio cholerae PCR Stl Enteroaggr Ecoli PCR Stl Norovirus GI/GII PCR Campylobacter (PCR) C. difficile Tox (PCR) SARS-CoV-2 (PCR) Negative Salmonella (PCR) Blood Type 02/20/21 02/20/21 02/21/21 22:55 22:55 04:55 WBC 3.1 L RBC 2.61 L Hgb 8.4 L Hct 24.7 L MCV 94.7 MCH 32.2 MCHC 34.0 RDW 13.5 Plt Count 146 L Neut % (Auto) 46.0 L Lymph % (Auto) 30.2 Callaway % (Auto) 17.1 H Eos % (Auto) 6.0 H Baso % (Auto) 0.7 Neut # (Auto) 1400 L Lymph # (Auto) 900 L Callaway # (Auto) 500 Eos # (Auto) 200 Baso # (Auto) 0 Sodium Potassium Chloride Carbon Dioxide BUN Creatinine Estimated GFR BUN/Creatinine Ratio Glucose Calcium Phosphorus Magnesium Total Bilirubin AST ALT Alkaline Phosphatase Total Protein Albumin Globulin Albumin/Globulin Ratio Stl C. cayetanensis PCR Not detected Stool Rotavirus (PCR) Not detected Stool Adenovirus (PCR) Not detected Stool Astrovirus (PCR) Not detected Stool Cryptosporidium PCR Not detected Stl E.coli Shiga Tox PCR Not detected St Sh/Enteroin Ecoli PCR Not detected Stool E coli O157 PCR Not Reportable Stl Enterotoxigenic E PCR Not detected Stool EPEC (PCR) Not detected Stl E. histolytica PCR Not detected Stool Giardia Lamblia PCR Not detected Stool Sapovirus (PCR) Not detected Stl P. shigelloides PCR Not detected St Y.enterocolitica PCR Not detected Stool Vibrio (PCR) Not detected Stl Vibrio cholerae PCR Not detected Stl Enteroaggr Ecoli PCR Not detected Stl Norovirus GI/GII PCR Not detected Campylobacter (PCR) Not detected C. difficile Tox (PCR) Cancelled Not detected SARS-CoV-2 (PCR) Salmonella (PCR) Not detected Blood Type 02/21/21 04:55 WBC RBC Hgb Hct MCV MCH MCHC RDW Plt Count Neut % (Auto) Lymph % (Auto) Callaway % (Auto) Eos % (Auto) Baso % (Auto) Neut # (Auto) Lymph # (Auto) Callaway # (Auto) Eos # (Auto) Baso # (Auto) Sodium 140 Potassium 4.5 Chloride 118 H Carbon Dioxide 10 L BUN 74 H Creatinine 4.15 H Estimated GFR 11.1 L BUN/Creatinine Ratio 17.8 Glucose 94 Calcium 8.6 Phosphorus Magnesium 2.0 Total Bilirubin AST ALT Alkaline Phosphatase Total Protein Albumin Globulin Albumin/Globulin Ratio Stl C. cayetanensis PCR Stool Rotavirus (PCR) Stool Adenovirus (PCR) Stool Astrovirus (PCR) Stool Cryptosporidium PCR Stl E.coli Shiga Tox PCR St Sh/Enteroin Ecoli PCR Stool E coli O157 PCR Stl Enterotoxigenic E PCR Stool EPEC (PCR) Stl E. histolytica PCR Stool Giardia Lamblia PCR Stool Sapovirus (PCR) Stl P. shigelloides PCR St Y.enterocolitica PCR Stool Vibrio (PCR) Stl Vibrio cholerae PCR Stl Enteroaggr Ecoli PCR Stl Norovirus GI/GII PCR Campylobacter (PCR) C. 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 Grandfather No problems noted. 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 1. Acute renal failure with ATN, present on admission * Creatinine was last normal and September of this year and it is now 5.96 with a phosphorus of 9. This is likely in the setting of bactrim (she appears to have been on this since october but not entirely clear why), entresto, and diuretic therapy with diarrhea and dehydration. All of those medications held currently. Improved to Creatinine of 4 today. * Discussed the case with Dr. Castro, it project lead at [facility] who recommended and concurred with plan for renal ultrasound and gentle hydration if need be. He recommends outpatient follow-up with patient. * Renal low phosphorus diet ordered * Patient is not fully clear of her home medications or what she takes many for. Recommend strict reconcilliation with PCP after discharge. 2. [facility] class 3 heart failure with reduced ejection fraction, chronic, present on admission * She is due for an echocardiogram in February at the [facility] and is followed by Dr. Villanueva, applications tester. No indications for TTE at this time. * Due to the RYNE her diuretics are held and as well as Entresto and lisinopril at the recommendation of Dr. Villanueva. * Prior TTE showing EF of around 15%. 3. Rheumatoid arthritis, chronic * hold home medications for now. 4. Diarrhea, chronic - suspect medication related at this time. PCR negative for bacterial causes. can start loperamide for symptom relief. VTE Prophylaxis: Wells risk score 0 [X] Bilateral SCDs Code status: Full code as discussed with the patient who identifies her sister Reba Donato as her surrogate and POA. I confirmed that the patient's advanced care plan is present, code status is determined, or surrogate decision maker is listed on the patient's medical record. [X] I have utilized all available immediate resources to obtain, update, or review of the patient's current medications [X] The patient has current or prior documentation of the left ventricular ejection fraction (LEVF) less than 40% or moderate or severely depressed left ventricular systolic function. [X] Yes ? [X] The patient was prescribed or already taking an angiotensin converting enzyme (JEAN-CLAUDE) inhibitor, or angiotensin receptor francy (ARB). ? [X] The patient was prescribed or already taking a beta-francy [X] Yes [] No Time Spent With Patient Critical Care time: I spent a total of [] minutes of critical care time on this patient's care today; this time is exclusive of procedural time. Quality VTE Deep Vein Thrombosis/Pulmonary Embolism Present on Admission: No
--- NOTE | 2021-02-21 17:33 | DIET.CONS ---
Addendum entered by Amanda Dubon 02/21/21 17:58: Provided CHF nutrition ed as well Original Note: Dietary Consultation Note Admission Date: 02/20/2021 18:45 Assessment: 55 y/o F c CHF, acute kidney injury and diarrhea. Reports concerns about her kidney health and what to eat. Reports diarrhea for an extended unknown time. Has tried BRAT diet. Reports h/o fluid changes and acites. Denies any weight loss, though weight has changed since August by 11%. Changes seem more r/t hx of fluid retention. Most of home intake is fruit, cheese, yogurt, and eating out once per week (ie pizza). Potassium labs WNL. Phos elevated at 9 mg/dL. PO 50-100% since admit. Ht: 172.72 cm Wt: 88.451 kg BMI: 29.6 UBW: 89.5 kg (reported) wt hx: 02/20/21: 88kg 09/26/20: 99kg 09/16/20: 101kg Last BM: 02/21/21 (02/21/21 15:30) MNA: 10 Jalen Score: 15 Diet: 02/20/21 Breakfast Heart Healthy Diet Diet Modifications: 02/21/21 Breakfast Renal Diet Diet Modifications: Renal Specifics: Limited Phosphorus caregiver tray [Courtesy Tray (Peds, comfort care)] Diet Modifications: Percent of last meal consumed (last 48h) Percent Meal Consumed 50% 02/21/21 12:46 Percent Meal Consumed 100% 02/21/21 10:24 Percent Meal Consumed 100% 02/21/21 07:00 Labs: RBC 2.61 X10^6/uL (4.0-5.2) L 02/21/21 04:55 Hgb 8.4 g/dL (12.0-16.0) L 02/21/21 04:55 Hct 24.7 % (36-46) L 02/21/21 04:55 Creatinine 4.15 mg/dL (0.52-1.04) H 02/21/21 04:55 Lactate 0.8 mmol/L (0.7-2.1) 02/20/21 13:35 NT-Pro-B Natriuret Pep 1170 pg/mL (<125) H 02/20/21 13:35 Nutrition Diagnosis: Altered nutrition related lab value r/t acute kidney injury aeb Phos 9 mg/dL ; Inadequate soluble fiber intake r/t nutrition knowledge deficit aeb diet recall of mostly fruit and cheese. Interventions: 1. Soluble fiber education for BM 2. Kidney nutrition health ed Monitoring/Evaluations: weight, PO
[2021-02-21] MEDS: LOPERAMIDE 2 MG CAPSULE PO (18:41)
[2021-02-21 19:13] VITALS: BP 116/69; PULSE 55; RESP 16; TEMP 36.4; O2SAT 100
--- NOTE | 2021-02-21 21:12 | DI.US.S_ITS ---
PROCEDURE: US RENAL COMPLETE INDICATIONS: ACUTE KIDNEY INJURY TECHNIQUE: Real-time scanning was performed of the kidneys and bladder, with image documentation. COMPARISON: None. FINDINGS: Kidneys: Kidneys are normal in size. Right kidney measures 12.7 cm long; left kidney measures 12.6 cm long. Right renal cortical thickness is 1.5 cm; left renal cortical thickness is 1.1 cm. Renal cortical echotexture is normal. No hydronephrosis or nephrolithiasis. No suspicious solid mass lesions. Bladder: Pre-void bladder volume is 70 mL. Post-void residual is five mL. Pre-void images are limited by under distension. No obvious mass or stone. On pre-void images, neither ureteral jets are noted with color Doppler interrogation. (Of note, ureteral jets may not be detectable in up to 25% of cases due to insufficient differences in specific gravity between ureteral and bladder urine). Miscellaneous: No free pelvic fluid. IMPRESSION: 1. Normal renal morphology bilaterally. No evidence of obstructive uropathy. 2. Under filled but grossly normal urinary bladder. Dictated by: Shari Galindo M.D. on 02/21/2021 at 18:36 Approved by: Shari Galindo M.D. on 02/21/2021 at 18:38
[2021-02-21] MEDS: GABAPENTIN 300 MG CAPSULE PO (21:53)
[2021-02-21] MEDS: LORazepam 1 MG TABLET PO (21:53)
--- NOTE | 2021-02-21 22:25 | PC.NURSE ---
Pt has had a good evening. Denies pain. pt was restarted on larazepam. Had renal ultrasound today. Daughter Sheyla spendind the night.
--- NOTE | 2021-02-21 22:28 | PC.NURSE ---
Pt has had an uneventful evening. Daughter Sheyla at the bedside. Bed alarm in place. Pt on continous pulse oxymetry, sating in the mid 90's on RA. Pt denied pain. Pt had one dose of Imodium this evening. No loose stools reported. Plan is to continue to monitor kidney function.
[2021-02-21 23:20] VITALS: BP 117/74; PULSE 84; TEMP 36.6; O2SAT 99
[2021-02-21] MEDS: MAG HYDROX/ALUM/SIMETH 30 ML UDC PO (23:59)
[2021-02-21] MEDS: ACETAMINOPHEN 325 MG TABLET 650 MG PO (23:59)
[2021-02-22 00:28] VITALS: O2SAT 98
--- NOTE | 2021-02-22 00:38 | PC.NURSE ---
Patient is alert and oriented but forgetful. Breath sounds CTA with RA sat of 99%; on continuous pulse oximetry per MD order. HRR w/telemetry reading of SR-BBB. Denies nausea but complains of sour stomach and requests Maalox; Abad RIVERA, informed and order received for Maalox and patient medicated. BT present and abdomen is soft but non-tender. Reports having had watery stools for past year. Denies dysuria, frequency or urgency with urination. Is able to turn herself in bed. Gets up to bathroom with 1 assist; reports she has balance issues and has fallen several times in past 3 months. Allevyn dressings to bilateral feet are CDI. Reports chronic neuropathy in bilateral feet and tips of 4th/5th fingers of both hands. Wearing bilateral calf SCD's. Does complain of 3/10 back pain so medicated with Tylenol. Fall risk score is high and bed alarm is activated. Daughter rooming in.
[2021-02-22 04:51] VITALS: BP 114/69; PULSE 68; RESP 16; TEMP 36.3; O2SAT 98
[2021-02-22 06:21] LABS: Add Manual Diff / Slide Review NO; Basophils Absolute Auto 0 /uL (0-100); Eosinophils Absolute Auto 200 /uL (0-450); Eosinophils Percent Auto 7.5 % (2-4); Hematocrit 24.6 % (36-46); Hemoglobin 8.6 g/dL (12.0-16.0); Lymphocytes Absolute Auto 900 /uL (1100-4500); Mean Corpuscular HGB Conc 34.9 % (30-36); Mean Corpuscular Hemoglobin 32.5 PG (26-34); Mean Corpuscular Volume 93.2 fL (80-100); Monocytes Absolute Auto 400 /uL (0-900); Neutrophils Absolute Auto 1100 /uL (1500-7000); Neutrophils Percent Auto 42.5 % (50-75); Platelet Count 149 X10^3/uL (150-400); Red Blood Cell Count 2.64 X10^6/uL (4.0-5.2); Red Cell Distribution Width 13.5 % (11.6-14.8); White Blood Cell Count 2.6 X10^3/uL (4.5-11.0)
[2021-02-22 06:28] LABS: BUN Creatinine Ratio 30.5 (6-22); Blood Urea Nitrogen 43 mg/dL (7-17); Calcium 9.4 mg/dL (8.4-10.2); Carbon Dioxide 14 mmol/L (22-32); Chloride 121 mmol/L (98-107); Estimated Glomerular Filt Rate 38.6 mL/min (>60); Glucose 100 mg/dL (70-100); HEMOLYSIS < 15 (0-50); Magnesium 1.8 mg/dL (1.6-2.3); Potassium 3.9 mmol/L (3.4-5.1); Sodium 145 mmol/L (137-145)
[2021-02-22 07:25] VITALS: O2SAT 97
[2021-02-22 07:42] VITALS: BP 100/55; PULSE 64; RESP 16; TEMP 36.1; O2SAT 97
--- NOTE | 2021-02-22 08:21 | P.DS_ITS ---
History of Present Illness History of Present Illness Chief complaint: Acute kidney injury, varinder interstitial nephritis Narrative: Per MIGUEL Mueller: Maricarmen Ho is 54-year-old female with a history of germline BRCA 2 mutation carrier with a triple negative infiltrating ductal carcinoma of the right breast currently in remission but under surveillance, brain metastases which was resected in [place] and treated with gamma knife radiotherapy, currently under remission, history of hep C, history of splenomegaly,?and NYHA Class 3 heart failure with an ejection fraction of 10-15% done and September of this year, was seen by her PCP as follow-up to a emergency department visit where she had actually went into asystole, was resuscitated and air flighted to [facility].? During the follow-up they duane some labs which apparently had been about a 3 week delay for the patient and when her labs returned she was directed to present to the emergency room due to ongoing anemia and an elevated creatinine.? The patient has rheumatoid arthritis and is currently taking a DMARD as well as hydroxychloroquine has a rather complicated medication regime.? Today she presents with 2 weeks of increasing shortness of breath, she denies any problems swallowing, she denies chest pain, she has had nausea and diarrhea but denies vomiting, she does endorse having abdominal bloating and thought that at some point she needed to have the fluid off for abdomen drained but was told that her blood is ?too thin? 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 She denies seeing any blood in her urine or stool, denies fever cough or chills, chest pain though is recovering from sternal fractures as a result of CPR that was done to her in September, and generalized fatigue.? She denies palpitations, weakness or dizziness or dizziness upon standing up.? Patient was taking spironolactone and had an adjustment in torsemide from 40 mg to 30 mg.? She had previously been taking Lasix and is no longer taking this. She did see Dr. Villanueva at the [facility] in November of this year for follow-up who made some adjustments on her cardiac medications and is due for another echocardiogram sometime this month.? She follows up with a community marketing manager. Chest abdomen and pelvis CT ordered in the emergency department did not have any emergent or acute findings, I have ordered a renal ultrasound which is pending.? Her current vital signs include a temperature of 97.2?, blood pressure 100/62, heart rate 68, respiratory rate 18, oxygen saturation of 100% on room air, she is 88.4 kg with a BMI of 34.2.? Her WBC is 3.2 RBC 2.58 hemoglobin 8.4 hematocrit 24.7 which is lower than her baseline, platelet count 125, sodium 138, potassium 4.8, chloride 114, bicarb 10, BUN 77, creatinine 5.96 down from 7.11 on admission and after 2 L of hydration, her GFR is 7.3 with a phosphorus of 9, calcium is 7.9, magnesium 2.0, liver enzymes within normal limits, her proBNP is slightly elevated at 11 70, UA is equivocal with leukocytes and wbc's and will be cultured, cultures pending.? COVID-19 PCR is negative. Discharge Providers Provider Date of admission: 02/20/21 18:45 Discharge Date: 02/22/21 Primary care physician: Edmar Jesus MD Consults: 02/20/21 22:18 Consult to Dietitian, Adult Routine Comment: Reason For Exam: due to decrease apetite Discharge provider: Trip Reilly DO Summary Hospital Course Discharge Diagnosis: Please see hospital course by problem list noted below Hospital Course: Maricarmen Ho is a 55-year-old female with chronic heart failure with reduced ejection fraction of 10-15%, status post triple negative right-sided breast cancer history of, with metastasis to the brain, is admitted for further evaluation of an acute kidney injury and diarrhea. Her creatinine the emergency room was as high as 7, this improved quite rapidly to 1.41 with gentle fluids and holding a number of her medications. According to the patient's medication reconciliation, she is not only taking Entresto but lisino pril as well. She has also been taking what appears to be chronic Bactrim and diuretics. Even withholding these medications, the patient's blood pressure remained low, but with continued improvement she can discharge home and will need to follow-up with her primary care provider for slow reintroduction of her chronic medications. 1. Acute renal failure with ATN, present on admission * Creatinine was last normal and September of this year and it is now 5.96 with a phosphorus of 9. This is likely in the setting of bactrim (she appears to have been on this since october but not entirely clear why), entresto, and diuretic therapy with diarrhea and dehydration. All of those medications held currently. Improved to Creatinine of 1.14. Still with NAGMA with bicarb of 14, but likely to improve over the coming days with improvement in renal function. Consider nephrology referral as an outpatient, case was discussed with softlines supervisor at [facility] initially. * Renal ultrasound showed no evidence of obstruction. * Patient is not fully clear of her home medications or what she takes many for. Recommend strict reconcilliation of all medications with PCP after discharge. 2. [facility] class 3 heart failure with reduced ejection fraction, chronic, present on admission * She is due for an echocardiogram in February at the [facility] and is followed by Dr. Villanueva, proposal analyst. No indications for TTE at this time. * Due to the RYNE her diuretics are held and as well as Entresto and lisinopril at the recommendation of Dr. Villanueva. Metoprolol was also held for low blood pressures. * Prior TTE showing EF of around 15%. Unable to restart elma/arb and beta francy at discharge due to blood pressures. 3. Rheumatoid arthritis, chronic * appears well controlled. 4. Diarrhea, chronic ?- suspect medication related at this time. PCR negative for bacterial causes. can start loperamide for symptom relief. 5. Pancytopenia, likely medication side effect - suspect pancytopenia related to medication side effect (bactrim being the most likely culprit). Recommend following as an outpatient. Patient required no transfusions during her stay, was asymptomatic. Time Spent with Patient Time spent: Greater than 30 minutes Exam Vital Signs (past 8 hours): - 02/22/21 00:28 02/22/21 04:51 02/22/21 07:25 Temperature 97.4 F L Pulse Rate 68 Respiratory Rate 16 Blood Pressure 114/69 Pulse Oximetry 98 98 97 02/22/21 07:42 Temperature 97.0 F L Pulse Rate 64 Respiratory Rate 16 Blood Pressure 100/55 L Pulse Oximetry 97 Oxygen Delivery Method Room Air Oxygen Flow Rate 0 Narrative Exam Narrative: Alert, oriented, chronically ill-appearing 55y.o. ? female, appears older than stated age HEENT: normocephalic, atraumatic, conjunctiva clear, sclera non-icteric, oral mucosa pink and moist Neck: supple, full ROM, no JVD, trachea is midline Resp: Lungs CTA, non-labored breathing CV: RRR, no murmur or rubs Abd:? Obese and soft, non-tender Skin:? Pale, no lesions or rashes, dry and intact Neuro: Alert and oriented X 4 w/no focal deficits. Speech clear and coherent. Extremities: no edema or joint effusions Psyche: normal mood and affect. Objective Labs Result Diagrams: 02/22/21 05:58 02/22/21 05:58 Labs: Laboratory Results - last 24 hr 02/22/21 02/22/21 05:58 05:58 WBC 2.6 L RBC 2.64 L Hgb 8.6 L Hct 24.6 L MCV 93.2 MCH 32.5 MCHC 34.9 RDW 13.5 Plt Count 149 L Neut % (Auto) 42.5 L Lymph % (Auto) 33.0 [place] % (Auto) 16.0 H Eos % (Auto) 7.5 H Baso % (Auto) 1.0 Neut # (Auto) 1100 L Lymph # (Auto) 900 L [place] # (Auto) 400 Eos # (Auto) 200 Baso # (Auto) 0 Sodium 145 Potassium 3.9 Chloride 121 H Carbon Dioxide 14 L BUN 43 H Creatinine 1.41 H Estimated GFR 38.6 L BUN/Creatinine Ratio 30.5 H Glucose 100 Calcium 9.4 Magnesium 1.8 PFSH Medical History Alcohol use Ascites Balance problem BRCA2 gene mutation positive in female Breast cancer metastasized to brain Chemotherapy-induced neuropathy CHF NYHA class III Colon polyps (04/03/16) 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 Grandfather No problems noted. Grandmother Stomach cancer Mother Enlarged aorta Breast cancer Grandfather Myelofibrosis Grandmother Parkinson's disease Social History household members: spouse and children Smoking Status: Former smoker Tobacco: How many years used: 8 alcohol intake: former substance use type: marijuana Discharge Plan Discharge Plan Patient Disposition: Home Provider Discharge Comment: You were admitted to the hospital with acute renal failure, likely due to a combination of medications you're taking as well as your recent diarrhea. I recommend you stop a number of these for now, follow up with your PCP as soon as possible for a recheck of your blood pressure and to see if you're able to resume any medications. Also, please bring in all of the medications you take at home to go over these. I have also ordered a repeat blood work evaluation for early next week. Discharge orders & Medications Prescriptions: Continued escitalopram oxalate 20 mg tablet See Rx Instructions .ROUTE .COMPLEX Qty: 60 RF: 5 lorazepam 1 mg tablet See Rx Instructions .ROUTE .COMPLEX Qty: 40 RF: 0 bupropion HCl 150 mg tablet extended release 24 hr 150 mg PO QAM Qty: 90 RF: 3 gabapentin 300 mg capsule 300 mg PO TID Qty: 270 RF: 1 promethazine 12.5 mg tablet 12.5 mg PO TID PRN (Reason: nausea and vomiting) Qty: 20 RF: 0 leflunomide 10 mg tablet 10 mg PO DAILY RF: 0 omeprazole 20 mg PO DAILY RF: 0 fluconazole [Diflucan] 100 mg Tablet 100 mg PO DAILY RF: 0 Discontinued Entresto 49-51 mg tablet 1 tab PO BID RF: 0 spironolactone 25 mg tablet 12.5 mg PO DAILY RF: 0 metoprolol succinate 25 mg tablet extended release 24 hr 12.5 mg PO DAILY RF: 0 torsemide 20 mg Tablet 20 mg PO DAILY RF: 0 sulfamethoxazole-trimethoprim [SMZ-TMP DS] 800-160 mg Tablet 1 tab PO BID RF: 0 lisinopril 5 mg Tablet 5 mg PO DAILY RF: 0 Follow up/Referrals: Edmar Jesus MD [Primary Care Provider] - Other Ambulatory Orders: Basic Metabolic Panel (Routine) Timeframe: 3 Days Facility: [facility] - Location: Laboratory Ordered By: Trip Reilly Diet/Activity/Treatments Diet: Diet as Tolerated Activity: As tolerated Discharge Data Primary Care Provider: Edmar Jesus Quality VTE Deep Vein Thrombosis/Pulmonary Embolism Present on Admission: No
[2021-02-22] MEDS: LORazepam 1 MG TABLET PO (09:20)
[2021-02-22] MEDS: ESCITALOPRAM 10 MG TABLET 20 MG PO (09:20)
[2021-02-22] MEDS: buPROPion XL 150 MG TAB PO (09:20)
[2021-02-22] MEDS: LOPERAMIDE 2 MG CAPSULE PO (09:20)
[2021-02-22] MEDS: GABAPENTIN 300 MG CAPSULE PO (09:20)
[2021-02-22] MEDS: ACETAMINOPHEN 325 MG TABLET 650 MG PO (09:57)
--- NOTE | 2021-02-22 11:07 | PC.NURSE ---
Addendum entered by Vesna Brothers R.N. 02/22/21 11:59: Pt remains on AC unit at this time (1200) Awaiting her ride to pick her and her daughter up. Original Note: Day shift: Paperwork signed and all questions answered. Pt stated I'm happy that I get to go home today. Pt taken to ED entrance in . Per Pt I need to take my daughter to the walk-in clinic now. I think she is having kidney stones. Pt has all personal belongings. Her home meds have been gone over w/ Pt and she had no questions about the changes. SHe was encouraged to call her PCP on Wednesday morning to make an appointment. ALso encouraged to bring her home meds and home med list so that MD can know exactly what she is taking and Pt can know as well. Taken to ER entrance at approx 1130 by HEIDI Coffey in .
--- NOTE | 2021-02-22 12:18 | PC.NURSE ---
Day shift: Pt d/c'd and off of AC unit at approx 1215.
== END 2021-02-22 12:19 | disposition home or self-care (01) | DRG 460 ==
LOC: ED 14:13 → AC 18:59
PROVIDERS: Nurse Practitioner Family; Physician Assistant; Admitting Provider Internal Medicine; Emergency Provider Emergency Medicine; PCP Family Medicine; Referring Provider Emergency Medicine; Visit Provider Internal Medicine
DX: N17.0 Acute kidney failure with tubular necrosis (principal); D61.811 Other drug-induced pancytopenia; N14.1 Nephropathy induced by other drugs, medicaments and biological substances; T36.8X5A Adverse effect of other systemic antibiotics, initial encounter; I50.22 Chronic systolic (congestive) heart failure; R19.7 Diarrhea, unspecified; F32.9 Major depressive disorder, single episode, unspecified; M06.9 Rheumatoid arthritis, unspecified; G62.0 Drug-induced polyneuropathy; T45.1X5S Adverse effect of antineoplastic and immunosuppressive drugs, sequela; Z87.891 Personal history of nicotine dependence; Z20.822 Contact with and (suspected) exposure to COVID-19
CPT/HCPCS: 36415; 71045; 74176; 76770; 80048; 80053; 81001; 81003; 82550; 83605; 83735; 83880; 84100; 84145; 84484; 85025; 86900; 86901; 87040; 87086; 87177; 87493; 87507; 87635; 93005; 94762; 96360; 96361; 99284; 99291; C9803

== ENCOUNTER 2022-03-19 05:48 | Observation (INO) | payer OTHER, MEDICAID, SELFPAY ==
[2020-10-15 19:00] VITALS: PULSE 106; RESP 28; O2SAT 97
[2021-02-20 22:12] VITALS: BMI 29.6
[2022-03-19] VITALS (18 sets, daily range): BP systolic 97–123; BP diastolic 57–80; PULSE 88–100; RESP 14–29; TEMP 36.6–37.8; O2SAT 85–100; BMI 30.7
--- NOTE | 2022-03-19 06:09 | ED_ITS ---
HPI - General Adult <Yaima Pop MD - Last Filed: 03/21/22 19:09> General Chief complaint: Upper Respiratory Symptoms Stated complaint: SOB Time Seen by Provider: 03/19/22 05:50 Source: patient Mode of arrival: Wheelchair History of Present Illness HPI narrative: 56-year-old woman with history of breast cancer with Mets to her brain treated with gamma radiation 6 years ago, alcohol use disorder have been sober for 2 years with a return to use over this last week, cirrhosis, congestive heart failure, continued tobacco abuse, significant congestive heart failure with an ejection fraction in the 20% range presents with exertional dyspnea. She states that she had an episode about 3 months ago the last couple of days seem to resolve. Over the last week she has been significantly worsened yesterday was so bad that she was having difficulty walking at all. She notes that she did have a return to drinking but states that it was not that much over this week. She is somewhat upset about that return to use. She notes that she has continued her daily Lasix, feels that her ascites has increased. She does not complain of any pain. She has a mild nonproductive cough that she attributes to smoking. Some mild nausea but no significant vomiting. She describes light stools and increasing diarrhea. Has not been on antibiotics recently. Increasing global weakness, no headaches, no skin rashes or concerns for cellulitis. She does have no orthopnea and has not complained of lower extremity edema Related Data Home Medications Medication Instructions Recorded Confirmed omeprazole 20 mg PO DAILY 02/21/21 03/19/22 escitalopram oxalate 20 mg tablet 20 mg PO DAILY 03/19/22 03/19/22 hydroxychloroquine 200 mg tablet 400 mg PO DAILY 03/19/22 03/19/22 lorazepam 1 mg tablet 1 mg PO Q6HR PRN Anxiety 03/19/22 03/19/22 metoprolol succinate 25 mg 25 mg PO BID 03/19/22 03/19/22 tablet,extended release 24 hr sulfasalazine 500 mg tablet 500 mg PO BID 03/19/22 03/19/22 Previous Rx's Medication Instructions Recorded fluticasone propionate 110 1 puff inhalation BID #1 inh 06/09/17 mcg/actuation HFA aerosol inhaler (Flovent HFA) promethazine 12.5 mg tablet 12.5 mg PO TID PRN nausea and 03/29/21 vomiting #20 tabs bupropion HCl 150 mg 24 hr tablet, 150 mg PO QAM #90 tabs 06/25/21 extended release gabapentin 300 mg capsule 300 mg PO TID #270 caps 07/15/21 lorazepam 0.5 mg tablet 0.5 mg PO BID PRN anxiety 15 days 03/20/22 #30 tabs spironolactone 25 mg tablet 25 mg PO DAILY 90 days #90 tabs 03/20/22 torsemide 20 mg tablet 20 mg PO DAILY 90 days #90 tabs 03/20/22 Allergies Allergy/AdvReac Type Severity Reaction Status Date / Time latex [LATEX] Allergy Intermediate RASH, SKIN Verified 11/28/21 08:43 PEELS penicillin G [PENICILLIN G] Allergy Unknown I WAS A Verified 11/28/21 08:43 KID SO I DON'T REMEMBER morphine [MORPHINE] AdvReac Severe HURTS MY Verified 11/28/21 08:43 STOMACH SO BAD Review of Systems <Yaima Pop MD - Last Filed: 03/21/22 19:09> Review of Systems Narrative: Remainder of complete review of systems is otherwise unremarkable except for that included in the HPI. Patient History <Yaima Pop MD - Last Filed: 03/21/22 19:09> Medical History Alcohol use Ascites Balance problem BRCA2 gene mutation positive in female Breast cancer metastasized to brain CHF NYHA class III Colon polyps (04/03/16) Decreased magnetizer strength of left hand Depression Encounter for tobacco use cessation counseling Hepatic cirrhosis Hepatitis C (~1995) Musculoskeletal pain (~2015) Nausea & vomiting Rheumatoid arthritis (~2015) Shortness of breath Vomiting and diarrhea Surgical History History of appendectomy (1998) History of bilateral mastectomy (2013) History of bilateral salpingo-oophorectomy (2013) History of section (1999) History of colonoscopy with polypectomy (04/03/16) History of esophagogastroduodenoscopy (EGD) (04/03/16) History of tubal ligation (1995) Status post gamma knife treatment (2013) Family History Father No problems noted. Grandfather No problems noted. Grandmother Stomach cancer Mother Enlarged aorta Breast cancer Grandfather Myelofibrosis Grandmother Parkinson's disease Social History household members: spouse and children Smoking Status: Current every day smoker Tobacco: How many years used: 8 alcohol intake: current substance use type: marijuana Smoking Status: Former smoker alcohol intake frequency: holidays/special occasions only Substance Use Type: marijuana Exam <Yaima Pop MD - Last Filed: 03/21/22 19:09> Initial Vital Signs Initial Vital Signs: Vital Signs Temperature 97.8 F 03/19/22 06:00 Pulse Rate 94 H 03/19/22 06:00 Respiratory Rate 25 H 03/19/22 06:00 Blood Pressure 123/75 03/19/22 06:00 Pulse Oximetry 97 03/19/22 06:00 Oxygen Delivery Method 03/19/22 06:00 General: Chronically ill-appearing, pale, in no acute distress. Able to give a complete and coherent history. HEENT: Moist mucous membranes, normal sclera with reactive pupils, Neck: +JVD, supple Respiratory: Lungs with mild bibasilar crackles but no wheezes, Full and symmetrical air movement Cardiac: Regular rate and rhythm no murmurs no bruits Abdomen: Soft, notable ascites without tenderness, no flank pain Skin: Pale but otherwise Warm and dry, no rashes Neurologic: Globally weak but Grossly neurologically intact with no obvious asymmetries or abnormalities Extremities: No trauma, well perfused Psych: Cooperative, appropriate insight and affect <Joe Chase DO - Last Filed: 03/19/22 17:03> Initial Vital Signs Initial Vital Signs: Vital Signs Temperature 97.8 F 03/19/22 06:00 Pulse Rate 94 H 03/19/22 06:00 Respiratory Rate 25 H 03/19/22 06:00 Blood Pressure 123/75 03/19/22 06:00 Pulse Oximetry 97 03/19/22 06:00 Oxygen Delivery Method 03/19/22 06:00 Course <Yaima Pop MD - Last Filed: 03/21/22 19:09> Orders Ordered: Discontinued Medications Acetaminophen (Acetaminophen 325 Mg Tablet) 975 mg PO Q8H PRN PRN Reason: Pain, Mild (1-3) Bupropion HCl (Bupropion Xl 150 Mg Tab) 150 mg PO DAILY [facility] Last Admin: 03/20/22 09:10 Dose: 150 mg Documented By: CLL Enoxaparin Sodium (Enoxaparin 40 Mg/0.4 Ml Syringe) 40 mg SUBCUT DAILY [facility] Last Admin: 03/20/22 09:12 Dose: 40 mg Documented By: CLL Escitalopram Oxalate (Escitalopram 10 Mg Tablet) 20 mg PO DAILY [facility] Last Admin: 03/20/22 09:12 Dose: 20 mg Documented By: CLL Furosemide (Furosemide 100 Mg/10 Ml Vial) 80 mg IV NOW ONE Stop: 03/19/22 06:27 Last Admin: 03/19/22 06:34 Dose: 80 mg Documented By: EMILIE Furosemide (Furosemide 40 Mg/4 Ml Vial) 40 mg IV 0800,1700 [facility] Last Admin: 03/20/22 09:12 Dose: 40 mg Documented By: Admin: 03/19/22 16:10 Dose: 40 mg Documented By: JEFFREY Gabapentin (Gabapentin 300 Mg Capsule) 300 mg PO TID [facility] Last Admin: 03/20/22 09:10 Dose: 300 mg Documented By: Admin: 03/19/22 20:32 Dose: 300 mg Documented By: OW Hydroxychloroquine Sulfate (Hydroxychloroquine 200 Mg Tablet) 400 mg PO DAILY [facility] Last Admin: 03/20/22 09:12 Dose: 400 mg Documented By: CLL Lorazepam (Lorazepam 0.5 Mg Tablet) 1 mg PO NOW ONE Stop: 03/19/22 08:04 Last Admin: 03/19/22 08:15 Dose: 1 mg Documented By: BT Lorazepam (Lorazepam 1 Mg Tablet) 1 mg PO Q6HR PRN PRN Reason: Anxiety Last Admin: 03/20/22 04:43 Dose: 1 mg Documented By: Admin: 03/19/22 20:32 Dose: 1 mg Documented By: OW Magnesium Chloride (Magnesium Chloride 64 Mg Tablet) 128 mg PO NOW ONE Stop: 03/20/22 10:47 Last Admin: 03/20/22 12:17 Dose: 128 mg Documented By: CLL Metoprolol Succinate (Metoprolol Er 25 Mg Tablet) 25 mg PO BID [facility] Last Admin: 03/20/22 09:12 Dose: 25 mg Documented By: Admin: 03/19/22 20:32 Dose: 25 mg Documented By: ADRIENNE Ondansetron HCl (Ondansetron 4 Mg/2 Ml Inj) 4 mg IV Q8HR PRN PRN Reason: Nausea And Vomiting Spironolactone (Spironolactone 25 Mg Tablet) 12.5 mg PO DAILY [facility] Last Admin: 03/20/22 09:11 Dose: 12.5 mg Documented By: Admin: 03/19/22 10:52 Dose: 12.5 mg Documented By: JEFFREY Sulfasalazine (Sulfasalazine 500 Mg Tablet) 500 mg PO BID [facility] Last Admin: 03/20/22 12:17 Dose: Not Given Documented By: Admin: 03/19/22 20:32 Dose: 500 mg Documented By: ADRIENNE Vital Signs Vital signs: Vital Signs - 8 hr 03/19/22 06:00 03/19/22 06:12 03/19/22 06:30 Temperature 97.8 F Pulse Rate 94 H 91 H 91 H Respiratory Rate 25 H 22 14 Blood Pressure 123/75 Pulse Oximetry 97 85 L 95 Oxygen Delivery Method Room Air 03/19/22 07:00 03/19/22 07:26 03/19/22 07:26 Temperature Pulse Rate 97 H 97 H Respiratory Rate 28 H 25 H Blood Pressure 104/57 L Pulse Oximetry 96 99 Oxygen Delivery Method 03/19/22 07:30 03/19/22 07:30 03/19/22 08:00 Temperature Pulse Rate 95 H Respiratory Rate 18 Blood Pressure 98/63 97/67 Pulse Oximetry 100 Oxygen Delivery Method 03/19/22 08:00 03/19/22 08:07 03/19/22 08:07 Temperature Pulse Rate 96 H 99 H Respiratory Rate 29 H 24 Blood Pressure 113/72 Pulse Oximetry 99 100 Oxygen Delivery Method <Joe Chase DO - Last Filed: 03/19/22 17:03> Orders Ordered: Discontinued Medications Acetaminophen (Acetaminophen 325 Mg Tablet) 975 mg PO Q8H PRN PRN Reason: Pain, Mild (1-3) Bupropion HCl (Bupropion Xl 150 Mg Tab) 150 mg PO DAILY [facility] Last Admin: 03/20/22 09:10 Dose: 150 mg Documented By: STACEY Enoxaparin Sodium (Enoxaparin 40 Mg/0.4 Ml Syringe) 40 mg SUBCUT DAILY [facility] Last Admin: 03/20/22 09:12 Dose: 40 mg Documented By: CLL Escitalopram Oxalate (Escitalopram 10 Mg Tablet) 20 mg PO DAILY [facility] Last Admin: 03/20/22 09:12 Dose: 20 mg Documented By: CLL Furosemide (Furosemide 100 Mg/10 Ml Vial) 80 mg IV NOW ONE Stop: 03/19/22 06:27 Last Admin: 03/19/22 06:34 Dose: 80 mg Documented By: DKGabo Furosemide (Furosemide 40 Mg/4 Ml Vial) 40 mg IV 0800,1700 [facility] Last Admin: 03/20/22 09:12 Dose: 40 mg Documented By: Admin: 03/19/22 16:10 Dose: 40 mg Documented By: CC Gabapentin (Gabapentin 300 Mg Capsule) 300 mg PO TID [facility] Last Admin: 03/20/22 09:10 Dose: 300 mg Documented By: Admin: 03/19/22 20:32 Dose: 300 mg Documented By: OW Hydroxychloroquine Sulfate (Hydroxychloroquine 200 Mg Tablet) 400 mg PO DAILY [facility] Last Admin: 03/20/22 09:12 Dose: 400 mg Documented By: CLL Lorazepam (Lorazepam 0.5 Mg Tablet) 1 mg PO NOW ONE Stop: 03/19/22 08:04 Last Admin: 03/19/22 08:15 Dose: 1 mg Documented By: BT Lorazepam (Lorazepam 1 Mg Tablet) 1 mg PO Q6HR PRN PRN Reason: Anxiety Last Admin: 03/20/22 04:43 Dose: 1 mg Documented By: Admin: 03/19/22 20:32 Dose: 1 mg Documented By: OW Magnesium Chloride (Magnesium Chloride 64 Mg Tablet) 128 mg PO NOW ONE Stop: 03/20/22 10:47 Last Admin: 03/20/22 12:17 Dose: 128 mg Documented By: CLL Metoprolol Succinate (Metoprolol Er 25 Mg Tablet) 25 mg PO BID [facility] Last Admin: 03/20/22 09:12 Dose: 25 mg Documented By: Admin: 03/19/22 20:32 Dose: 25 mg Documented By: OW Ondansetron HCl (Ondansetron 4 Mg/2 Ml Inj) 4 mg IV Q8HR PRN PRN Reason: Nausea And Vomiting Spironolactone (Spironolactone 25 Mg Tablet) 12.5 mg PO DAILY [facility] Last Admin: 03/20/22 09:11 Dose: 12.5 mg Documented By: Admin: 03/19/22 10:52 Dose: 12.5 mg Documented By: CC Sulfasalazine (Sulfasalazine 500 Mg Tablet) 500 mg PO BID [facility] Last Admin: 03/20/22 12:17 Dose: Not Given Documented By: Admin: 03/19/22 20:32 Dose: 500 mg Documented By: OW Vital Signs Vital signs: Vital Signs - 8 hr 03/19/22 06:00 03/19/22 06:12 03/19/22 06:30 Temperature 97.8 F Pulse Rate 94 H 91 H 91 H Respiratory Rate 25 H 22 14 Blood Pressure 123/75 Pulse Oximetry 97 85 L 95 Oxygen Delivery Method Room Air 03/19/22 07:00 03/19/22 07:26 03/19/22 07:26 Temperature Pulse Rate 97 H 97 H Respiratory Rate 28 H 25 H Blood Pressure 104/57 L Pulse Oximetry 96 99 Oxygen Delivery Method 03/19/22 07:30 03/19/22 07:30 03/19/22 08:00 Temperature Pulse Rate 95 H Respiratory Rate 18 Blood Pressure 98/63 97/67 Pulse Oximetry 100 Oxygen Delivery Method 03/19/22 08:00 03/19/22 08:07 03/19/22 08:07 Temperature Pulse Rate 96 H 99 H Respiratory Rate 29 H 24 Blood Pressure 113/72 Pulse Oximetry 99 100 Oxygen Delivery Method Medical Decision Making <Yaima Pop MD - Last Filed: 03/21/22 19:09> Medical Records Medical records narrative: Patient had a similar presentation in September of 2020. She eventually ended up having significantly worsening dyspnea proceeded to need pressors, intubation, developed PEA and was coded with ROSC eventual transfer to the [facility]. She remains full code, including intubation, at this time. Discussed at time of admission to the emergency department. Lab Data Result diagrams: 03/20/22 06:07 03/20/22 06:07 Labs: Lab Results 03/19/22 03/19/22 03/19/22 Range/Units 06:08 06:08 06:08 WBC 8.3 (4.5-11.0) X10^3/uL RBC 4.13 (4.0-5.2) X10^6/uL Hgb 11.9 L (12.0-16.0) g/dL Hct 35.5 L (36-46) % MCV 85.8 (80-100) fL MCH 28.9 (26-34) PG MCHC 33.7 (30-36) % RDW 14.6 (11.6-14.8) % Plt Count 217 (150-400) X10^3/uL Neut % (Auto) 69.0 (50-75) % Lymph % (Auto) 19.4 L (25-40) % Granite % (Auto) 8.9 (3-14) % Eos % (Auto) 1.5 L (2-4) % Baso % (Auto) 1.2 (0-2) % Neut # (Auto) 5800 (1263-6596) /uL Lymph # (Auto) 1600 (9356-5559) /uL Granite # (Auto) 700 (0-900) /uL Eos # (Auto) 100 (0-450) /uL Baso # (Auto) 100 (0-100) /uL PT (10.1-12.7) SECONDS INR (0.9-1.3) APTT 27 (26-36) SECONDS Sodium 135 L (137-145) mmol/L Potassium 4.6 (3.4-5.1) mmol/L Chloride 108 H (98-107) mmol/L Carbon Dioxide 17 L (22-32) mmol/L BUN 22 H (7-17) mg/dL Creatinine 0.83 (0.52-1.04) mg/dL Estimated GFR > 60 (>60) mL/min BUN/Creatinine Ratio 26.5 H (6-22) Glucose 119 H (70-100) mg/dL Calcium 8.4 (8.4-10.2) mg/dL Magnesium (1.6-2.3) mg/dL Total Bilirubin 0.9 (0.2-1.3) mg/dL AST 38 H (14-36) IU/L ALT 51 H (<35) IU/L Alkaline Phosphatase 47 (38-126) U/L Troponin I (0.01-0.034) ng/mL NT-Pro-B Natriuret Pep (<125) pg/mL Total Protein 6.4 (6.3-8.2) g/dL Albumin 3.6 (3.5-5.0) g/dL Globulin 2.8 (1.7-4.1) g/dL Albumin/Globulin Ratio 1.3 (1.0-2.8) Lipase (23-300) U/L Procalcitonin (<0.5) ng/mL Urine Color Urine Appearance Urine pH (4.5-8.0) Ur Specific Chili (1.000-1.035) Urine Protein (Negative) Urine Glucose (UA) (Negative) g/dL Urine Ketones (NEGATIVE) Urine Occult Blood (Negative) Urine Nitrate (Negative) Urine Bilirubin (NEGATIVE) Urine Urobilinogen (0.2) E.U./dL Ur Leukocyte Esterase (NEGATIVE) Urine RBC (0-5/HPF) Urine WBC (0-5/HPF) Ur Squamous Epith Cells (0-5/HPF) Urine Bacteria (None) Ur Culture Indicated? Ethyl Alcohol ( - 10) mg/dL SARS-CoV-2 (PCR) (Negative) Influenza A (RT-PCR) (NEGATIVE) Influenza B (RT-PCR) (NEGATIVE) RSV (PCR) (Negative) 03/19/22 03/19/22 03/19/22 Range/Units 06:08 06:08 06:21 WBC (4.5-11.0) X10^3/uL RBC (4.0-5.2) X10^6/uL Hgb (12.0-16.0) g/dL Hct (36-46) % MCV (80-100) fL MCH (26-34) PG MCHC (30-36) % RDW (11.6-14.8) % Plt Count (150-400) X10^3/uL Neut % (Auto) (50-75) % Lymph % (Auto) (25-40) % Granite % (Auto) (3-14) % Eos % (Auto) (2-4) % Baso % (Auto) (0-2) % Neut # (Auto) (9725-3582) /uL Lymph # (Auto) (1412-8713) /uL Granite # (Auto) (0-900) /uL Eos # (Auto) (0-450) /uL Baso # (Auto) (0-100) /uL PT 17.1 H (10.1-12.7) SECONDS INR 1.5 H (0.9-1.3) APTT (26-36) SECONDS Sodium (137-145) mmol/L Potassium (3.4-5.1) mmol/L Chloride (98-107) mmol/L Carbon Dioxide (22-32) mmol/L BUN (7-17) mg/dL Creatinine (0.52-1.04) mg/dL Estimated GFR (>60) mL/min BUN/Creatinine Ratio (6-22) Glucose (70-100) mg/dL Calcium (8.4-10.2) mg/dL Magnesium 1.9 (1.6-2.3) mg/dL Total Bilirubin (0.2-1.3) mg/dL AST (14-36) IU/L ALT (<35) IU/L Alkaline Phosphatase (38-126) U/L Troponin I < 0.012 (0.01-0.034) ng/mL NT-Pro-B Natriuret Pep 61956 H (<125) pg/mL Total Protein (6.3-8.2) g/dL Albumin (3.5-5.0) g/dL Globulin (1.7-4.1) g/dL Albumin/Globulin Ratio (1.0-2.8) Lipase 45 (23-300) U/L Procalcitonin 0.06 (<0.5) ng/mL Urine Color Urine Appearance Urine pH (4.5-8.0) Ur Specific Chili (1.000-1.035) Urine Protein (Negative) Urine Glucose (UA) (Negative) g/dL Urine Ketones (NEGATIVE) Urine Occult Blood (Negative) Urine Nitrate (Negative) Urine Bilirubin (NEGATIVE) Urine Urobilinogen (0.2) E.U./dL Ur Leukocyte Esterase (NEGATIVE) Urine RBC (0-5/HPF) Urine WBC (0-5/HPF) Ur Squamous Epith Cells (0-5/HPF) Urine Bacteria (None) Ur Culture Indicated? Ethyl Alcohol < 10 ( - 10) mg/dL SARS-CoV-2 (PCR) Negative (Negative) Influenza A (RT-PCR) Flu a negative (NEGATIVE) Influenza B (RT-PCR) Flu b negative (NEGATIVE) RSV (PCR) Negative (Negative) 03/19/22 Range/Units 08:58 WBC (4.5-11.0) X10^3/uL RBC (4.0-5.2) X10^6/uL Hgb (12.0-16.0) g/dL Hct (36-46) % MCV (80-100) fL MCH (26-34) PG MCHC (30-36) % RDW (11.6-14.8) % Plt Count (150-400) X10^3/uL Neut % (Auto) (50-75) % Lymph % (Auto) (25-40) % Granite % (Auto) (3-14) % Eos % (Auto) (2-4) % Baso % (Auto) (0-2) % Neut # (Auto) (5366-7020) /uL Lymph # (Auto) (6082-6625) /uL Granite # (Auto) (0-900) /uL Eos # (Auto) (0-450) /uL Baso # (Auto) (0-100) /uL PT (10.1-12.7) SECONDS INR (0.9-1.3) APTT (26-36) SECONDS Sodium (137-145) mmol/L Potassium (3.4-5.1) mmol/L Chloride (98-107) mmol/L Carbon Dioxide (22-32) mmol/L BUN (7-17) mg/dL Creatinine (0.52-1.04) mg/dL Estimated GFR (>60) mL/min BUN/Creatinine Ratio (6-22) Glucose (70-100) mg/dL Calcium (8.4-10.2) mg/dL Magnesium (1.6-2.3) mg/dL Total Bilirubin (0.2-1.3) mg/dL AST (14-36) IU/L ALT (<35) IU/L Alkaline Phosphatase (38-126) U/L Troponin I (0.01-0.034) ng/mL NT-Pro-B Natriuret Pep (<125) pg/mL Total Protein (6.3-8.2) g/dL Albumin (3.5-5.0) g/dL Globulin (1.7-4.1) g/dL Albumin/Globulin Ratio (1.0-2.8) Lipase (23-300) U/L Procalcitonin (<0.5) ng/mL Urine Color Yellow Urine Appearance Clear Urine pH 5.5 (4.5-8.0) Ur Specific Chili <=1.005 (1.000-1.035) Urine Protein Negative (Negative) Urine Glucose (UA) Negative (Negative) g/dL Urine Ketones Negative (NEGATIVE) Urine Occult Blood Negative (Negative) Urine Nitrate Negative (Negative) Urine Bilirubin Negative (NEGATIVE) Urine Urobilinogen 0.2 (0.2) E.U./dL Ur Leukocyte Esterase Negative (NEGATIVE) Urine RBC None seen (0-5/HPF) Urine WBC None seen (0-5/HPF) Ur Squamous Epith Cells None seen (0-5/HPF) Urine Bacteria None seen (None) Ur Culture Indicated? Cult not indicated Ethyl Alcohol ( - 10) mg/dL SARS-CoV-2 (PCR) (Negative) Influenza A (RT-PCR) (NEGATIVE) Influenza B (RT-PCR) (NEGATIVE) RSV (PCR) (Negative) ECG Data Interpretation: Sinus rhythm at a rate of 91 Left ventricular hypertrophy Nonspecific lateral ST depression No acute ischemia <Joe Chase DO - Last Filed: 03/19/22 17:03> Lab Data Labs: Lab Results 03/19/22 03/19/22 03/19/22 Range/Units 06:08 06:08 06:08 WBC 8.3 (4.5-11.0) X10^3/uL RBC 4.13 (4.0-5.2) X10^6/uL Hgb 11.9 L (12.0-16.0) g/dL Hct 35.5 L (36-46) % MCV 85.8 (80-100) fL MCH 28.9 (26-34) PG MCHC 33.7 (30-36) % RDW 14.6 (11.6-14.8) % Plt Count 217 (150-400) X10^3/uL Neut % (Auto) 69.0 (50-75) % Lymph % (Auto) 19.4 L (25-40) % Granite % (Auto) 8.9 (3-14) % Eos % (Auto) 1.5 L (2-4) % Baso % (Auto) 1.2 (0-2) % Neut # (Auto) 5800 (5553-0310) /uL Lymph # (Auto) 1600 (8535-5307) /uL Granite # (Auto) 700 (0-900) /uL Eos # (Auto) 100 (0-450) /uL Baso # (Auto) 100 (0-100) /uL PT (10.1-12.7) SECONDS INR (0.9-1.3) APTT 27 (26-36) SECONDS Sodium 135 L (137-145) mmol/L Potassium 4.6 (3.4-5.1) mmol/L Chloride 108 H (98-107) mmol/L Carbon Dioxide 17 L (22-32) mmol/L BUN 22 H (7-17) mg/dL Creatinine 0.83 (0.52-1.04) mg/dL Estimated GFR > 60 (>60) mL/min BUN/Creatinine Ratio 26.5 H (6-22) Glucose 119 H (70-100) mg/dL Calcium 8.4 (8.4-10.2) mg/dL Magnesium (1.6-2.3) mg/dL Total Bilirubin 0.9 (0.2-1.3) mg/dL AST 38 H (14-36) IU/L ALT 51 H (<35) IU/L Alkaline Phosphatase 47 (38-126) U/L Troponin I (0.01-0.034) ng/mL NT-Pro-B Natriuret Pep (<125) pg/mL Total Protein 6.4 (6.3-8.2) g/dL Albumin 3.6 (3.5-5.0) g/dL Globulin 2.8 (1.7-4.1) g/dL Albumin/Globulin Ratio 1.3 (1.0-2.8) Lipase (23-300) U/L Procalcitonin (<0.5) ng/mL Urine Color Urine Appearance Urine pH (4.5-8.0) Ur Specific Chili (1.000-1.035) Urine Protein (Negative) Urine Glucose (UA) (Negative) g/dL Urine Ketones (NEGATIVE) Urine Occult Blood (Negative) Urine Nitrate (Negative) Urine Bilirubin (NEGATIVE) Urine Urobilinogen (0.2) E.U./dL Ur Leukocyte Esterase (NEGATIVE) Urine RBC (0-5/HPF) Urine WBC (0-5/HPF) Ur Squamous Epith Cells (0-5/HPF) Urine Bacteria (None) Ur Culture Indicated? Ethyl Alcohol ( - 10) mg/dL SARS-CoV-2 (PCR) (Negative) Influenza A (RT-PCR) (NEGATIVE) Influenza B (RT-PCR) (NEGATIVE) RSV (PCR) (Negative) 03/19/22 03/19/22 03/19/22 Range/Units 06:08 06:08 06:21 WBC (4.5-11.0) X10^3/uL RBC (4.0-5.2) X10^6/uL Hgb (12.0-16.0) g/dL Hct (36-46) % MCV (80-100) fL MCH (26-34) PG MCHC (30-36) % RDW (11.6-14.8) % Plt Count (150-400) X10^3/uL Neut % (Auto) (50-75) % Lymph % (Auto) (25-40) % Granite % (Auto) (3-14) % Eos % (Auto) (2-4) % Baso % (Auto) (0-2) % Neut # (Auto) (4399-1385) /uL Lymph # (Auto) (0836-1537) /uL Granite # (Auto) (0-900) /uL Eos # (Auto) (0-450) /uL Baso # (Auto) (0-100) /uL PT 17.1 H (10.1-12.7) SECONDS INR 1.5 H (0.9-1.3) APTT (26-36) SECONDS Sodium (137-145) mmol/L Potassium (3.4-5.1) mmol/L Chloride (98-107) mmol/L Carbon Dioxide (22-32) mmol/L BUN (7-17) mg/dL Creatinine (0.52-1.04) mg/dL Estimated GFR (>60) mL/min BUN/Creatinine Ratio (6-22) Glucose (70-100) mg/dL Calcium (8.4-10.2) mg/dL Magnesium 1.9 (1.6-2.3) mg/dL Total Bilirubin (0.2-1.3) mg/dL AST (14-36) IU/L ALT (<35) IU/L Alkaline Phosphatase (38-126) U/L Troponin I < 0.012 (0.01-0.034) ng/mL NT-Pro-B Natriuret Pep 37766 H (<125) pg/mL Total Protein (6.3-8.2) g/dL Albumin (3.5-5.0) g/dL Globulin (1.7-4.1) g/dL Albumin/Globulin Ratio (1.0-2.8) Lipase 45 (23-300) U/L Procalcitonin 0.06 (<0.5) ng/mL Urine Color Urine Appearance Urine pH (4.5-8.0) Ur Specific Chili (1.000-1.035) Urine Protein (Negative) Urine Glucose (UA) (Negative) g/dL Urine Ketones (NEGATIVE) Urine Occult Blood (Negative) Urine Nitrate (Negative) Urine Bilirubin (NEGATIVE) Urine Urobilinogen (0.2) E.U./dL Ur Leukocyte Esterase (NEGATIVE) Urine RBC (0-5/HPF) Urine WBC (0-5/HPF) Ur Squamous Epith Cells (0-5/HPF) Urine Bacteria (None) Ur Culture Indicated? Ethyl Alcohol < 10 ( - 10) mg/dL SARS-CoV-2 (PCR) Negative (Negative) Influenza A (RT-PCR) Flu a negative (NEGATIVE) Influenza B (RT-PCR) Flu b negative (NEGATIVE) RSV (PCR) Negative (Negative) 03/19/22 Range/Units 08:58 WBC (4.5-11.0) X10^3/uL RBC (4.0-5.2) X10^6/uL Hgb (12.0-16.0) g/dL Hct (36-46) % MCV (80-100) fL MCH (26-34) PG MCHC (30-36) % RDW (11.6-14.8) % Plt Count (150-400) X10^3/uL Neut % (Auto) (50-75) % Lymph % (Auto) (25-40) % Granite % (Auto) (3-14) % Eos % (Auto) (2-4) % Baso % (Auto) (0-2) % Neut # (Auto) (8533-1818) /uL Lymph # (Auto) (5576-9092) /uL Granite # (Auto) (0-900) /uL Eos # (Auto) (0-450) /uL Baso # (Auto) (0-100) /uL PT (10.1-12.7) SECONDS INR (0.9-1.3) APTT (26-36) SECONDS Sodium (137-145) mmol/L Potassium (3.4-5.1) mmol/L Chloride (98-107) mmol/L Carbon Dioxide (22-32) mmol/L BUN (7-17) mg/dL Creatinine (0.52-1.04) mg/dL Estimated GFR (>60) mL/min BUN/Creatinine Ratio (6-22) Glucose (70-100) mg/dL Calcium (8.4-10.2) mg/dL Magnesium (1.6-2.3) mg/dL Total Bilirubin (0.2-1.3) mg/dL AST (14-36) IU/L ALT (<35) IU/L Alkaline Phosphatase (38-126) U/L Troponin I (0.01-0.034) ng/mL NT-Pro-B Natriuret Pep (<125) pg/mL Total Protein (6.3-8.2) g/dL Albumin (3.5-5.0) g/dL Globulin (1.7-4.1) g/dL Albumin/Globulin Ratio (1.0-2.8) Lipase (23-300) U/L Procalcitonin (<0.5) ng/mL Urine Color Yellow Urine Appearance Clear Urine pH 5.5 (4.5-8.0) Ur Specific [place] <=1.005 (1.000-1.035) Urine Protein Negative (Negative) Urine Glucose (UA) Negative (Negative) g/dL Urine Ketones Negative (NEGATIVE) Urine Occult Blood Negative (Negative) Urine Nitrate Negative (Negative) Urine Bilirubin Negative (NEGATIVE) Urine Urobilinogen 0.2 (0.2) E.U./dL Ur Leukocyte Esterase Negative (NEGATIVE) Urine RBC None seen (0-5/HPF) Urine WBC None seen (0-5/HPF) Ur Squamous Epith Cells None seen (0-5/HPF) Urine Bacteria None seen (None) Ur Culture Indicated? Cult not indicated Ethyl Alcohol ( - 10) mg/dL SARS-CoV-2 (PCR) (Negative) Influenza A (RT-PCR) (NEGATIVE) Influenza B (RT-PCR) (NEGATIVE) RSV (PCR) (Negative) MDM Narrative Medical decision making narrative: Dr Chase: Received turned over. Reviewed patient's history and physical exam. Patient does have dyspnea on exertion. Has an elevated BNP. Chest x-ray concerning for fluid overload. Was given Lasix here in the ER. Did diurese. Given her presentation and her dyspnea on exertion and other lab findings patient does require admission to the hospital for further evaluation treatment. I did discuss this with her and she expressed understanding. Discussed case with Dr. Reilly with Internal Medicine who will admit for further evaluation and treatment. Discharge Plan Departure Patient Disposition: Admitted as Observation Clinical Impression: Exertional dyspnea Abdominal ascites Qualifiers: Ascites type: other type Qualified Code(s): R18.8 - Other ascites Acute CHF (congestive heart failure) Qualifiers: Heart failure type: unspecified Qualified Code(s): I50.9 - Heart failure, unspecified Admit Date/Time: 03/19/22 09:23 Admit Provider: Trip Reilly
--- NOTE | 2022-03-19 06:16 | DI.RAD.S_ITS ---
PROCEDURE: XR CHEST 1V INDICATIONS: Dyspnea TECHNIQUE: One view of the chest was acquired. COMPARISON: [facility], CR, XR CHEST 1V, 02/20/2021, 14:01. FINDINGS: Surgical changes and devices: Left chest port is seen with catheter tip projecting over the superior vena cava. Surgical clips are seen projecting over the left breast/left axilla. Lungs and pleura: Lungs are clear. No pleural effusions or pneumothorax. Mediastinum: Mediastinal contours appear normal. Cardiac silhouette is moderately enlarged, which is new when compared to the radiographs from 02/20/2021. Bones and chest wall: No suspicious bony lesions. Overlying soft tissues appear unremarkable. IMPRESSION: Moderate enlargement of the cardiac silhouette appears new when compared to the radiographs from 02/20/2021. No acute pulmonary consolidation. There is no significant discrepancy when compared to the overnight preliminary report. Dictated by: Waldemar Lyons M.D. on 03/19/2022 at 8:10 Approved by: Waldemar Lyons M.D. on 03/19/2022 at 8:12
[2022-03-19 06:31] LABS: INR 1.5 (0.9-1.3); Prothrombin Time 17.1 SECONDS (10.1-12.7)
[2022-03-19 06:33] LABS: Add Manual Diff / Slide Review NO; Basophils Absolute Auto 100 /uL (0-100); Basophils Percent Auto 1.2 % (0-2); Eosinophils Absolute Auto 100 /uL (0-450); Eosinophils Percent Auto 1.5 % (2-4); Hematocrit 35.5 % (36-46); Hemoglobin 11.9 g/dL (12.0-16.0); Lymphocytes Absolute Auto 1600 /uL (1100-4500); Lymphocytes Percent Auto 19.4 % (25-40); Mean Corpuscular HGB Conc 33.7 % (30-36); Mean Corpuscular Hemoglobin 28.9 PG (26-34); Mean Corpuscular Volume 85.8 fL (80-100); Monocytes Absolute Auto 700 /uL (0-900); Monocytes Percent Auto 8.9 % (3-14); Neutrophils Absolute Auto 5800 /uL (1500-7000); Platelet Count 217 X10^3/uL (150-400); Red Blood Cell Count 4.13 X10^6/uL (4.0-5.2); Red Cell Distribution Width 14.6 % (11.6-14.8); White Blood Cell Count 8.3 X10^3/uL (4.5-11.0)
[2022-03-19] MEDS: FUROSEMIDE 100 MG/10 ML VIAL 80 MG IV (06:34)
[2022-03-19 06:39] LABS: Alanine Aminotransferase 51 IU/L (<35); Albumin 3.6 g/dL (3.5-5.0); Albumin Globulin Ratio 1.3 (1.0-2.8); Alkaline Phosphatase 47 U/L (38-126); BUN Creatinine Ratio 26.5 (6-22); Bilirubin Total 0.9 mg/dL (0.2-1.3); Blood Urea Nitrogen 22 mg/dL (7-17); Calcium 8.4 mg/dL (8.4-10.2); Carbon Dioxide 17 mmol/L (22-32); Chloride 108 mmol/L (98-107); Estimated Glomerular Filt Rate > 60 mL/min (>60); Globulin 2.8 g/dL (1.7-4.1); Glucose 119 mg/dL (70-100); Sodium 135 mmol/L (137-145); Total Protein 6.4 g/dL (6.3-8.2)
[2022-03-19 06:40] LABS: Lipase 45 U/L (23-300); Magnesium 1.9 mg/dL (1.6-2.3)
[2022-03-19 06:45] LABS: PTT Partial Thromboplastin Tim 27 SECONDS (26-36)
[2022-03-19 06:51] LABS: NT-proBNP (BNP-Adult 18+) 10700 pg/mL (<125); Troponin I < 0.012 ng/mL (0.01-0.034)
[2022-03-19 06:56] LABS: Procalcitonin 0.06 ng/mL (<0.5)
[2022-03-19 07:03] LABS: HEMOLYSIS 89 (0-50)
[2022-03-19 07:04] LABS: Potassium 4.6 mmol/L (3.4-5.1)
[2022-03-19 07:10] LABS: Aspartate Aminotransferase 38 IU/L (14-36)
[2022-03-19 07:17] LABS: Ethanol (ETOH) < 10 mg/dL
[2022-03-19 07:52] LABS: Influenza A - CEPHEID Flu A NEGATIVE (NEGATIVE); Influenza B - CEPHEID Flu B NEGATIVE (NEGATIVE); Respiratory Syncytial Virus Negative (Negative)
[2022-03-19] MEDS: LORazepam 0.5 MG TABLET 1 MG PO (08:15)
[2022-03-19 08:39] LABS: COVID-19 CEPHEID PCR (VTM/NP) Negative (Negative)
[2022-03-19 09:12] LABS: Appearance Urine UA CLEAR; Bilirubin Urine UA NEGATIVE (NEGATIVE); Color Urine UA YELLOW; Glucose Urine UA NEGATIVE (Negative); Ketones Urine UA NEGATIVE (NEGATIVE); Leukocyte Esterase Urine UA NEGATIVE (NEGATIVE); Nitrite Urine UA NEGATIVE (Negative); Occult Blood Urine UA NEGATIVE (Negative); Protein Urine UA NEGATIVE (Negative); Specific Gravity Urine UA <=1.005 (1.000-1.035); Urobilinogen Urine UA 0.2 E.U./dL (0.2)
[2022-03-19 09:26] LABS: pH Urine UA 5.5 (4.5-8.0)
[2022-03-19 09:39] LABS: Bacteria Urine None Seen; Culture Indicated Urine Cult Not Indicated; RBC Urine None Seen (0-5/HPF); Squamous Epithelial Cell Urine None Seen (0-5/HPF); WBC Urine None Seen (0-5/HPF)
[2022-03-19] MEDS: SPIRONOLACTONE 25 MG TABLET 12.5 MG PO (10:52)
--- NOTE | 2022-03-19 15:38 | PM.HP.1 ---
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 She endorses worsening abdominal distension over the past couple of months, fatigue, and abdominal bloating as well. She denies any nausea or vomiting. She denies wheezing, but does endorse a dry cough. She denies fever, chills, and abdominal pain. She has no dysuria or urinary frequency. In the emergency room, vital signs were unremarkable. Laboratory evaluation showed an unremarkable CBC with actually an improved anemia compared to prior studies. INR was slightly elevated at 1.5, chemistries were notable for a carbon dioxide of 17, mild transaminase elevations, and a proBNP 18060. Urinalysis was unremarkable. Chest x-ray showed mild increase in her heart size compared to prior studies but significant pulmonary infiltrates or congestion. COVID-19 and flu testing was negative. I performed bedside ultrasound which did not show large enough amount of ascites sufficient for abdominal paracentesis. 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 Depression Encounter for tobacco use cessation counseling Hepatic cirrhosis Hepatitis C (~1995) Musculoskeletal pain (~2015) Nausea & vomiting Rheumatoid arthritis (~2015) Shortness of breath Vomiting and diarrhea Surgical History History of appendectomy (1998) History of bilateral mastectomy (2013) History of bilateral salpingo-oophorectomy (2013) History of section (1999) History of colonoscopy with polypectomy (04/03/16) History of esophagogastroduodenoscopy (EGD) (04/03/16) History of tubal ligation (1995) Status post gamma knife treatment (2013) Family & Social History Family History Father No problems noted. Grandfather No problems noted. Grandmother Stomach cancer Mother Enlarged aorta Breast cancer Grandfather Myelofibrosis Grandmother Parkinson's disease Social History: household members spouse,children Prior Living Arrangements House Safety & Behavioral: Feels Safe in Current Yes Environment Been Physically Hurt or No Threatened By a Person Tobacco & Substance use: Tobacco type cigarettes Smoking Status Current every day smoker Smoking packs per day 0.2 alcohol intake current alcohol intake frequency 3 or more drinks per day Substance Use Type marijuana Meds Home Medications and Allergies Home Medications Medication Instructions Recorded Confirmed Type fluticasone propionate 110 1 puff inhalation BID #1 inh 06/09/17 03/19/22 Rx mcg/actuation HFA aerosol inhaler (Flovent HFA) promethazine 12.5 mg tablet 12.5 mg PO TID PRN nausea and 09/16/20 03/19/22 Rx vomiting #20 tabs omeprazole 20 mg PO DAILY 02/21/21 03/19/22 History bupropion HCl 150 mg 24 hr tablet, 150 mg PO QAM #90 tabs 06/25/21 03/19/22 Rx extended release gabapentin 300 mg capsule 300 mg PO TID #270 caps 07/15/21 03/19/22 Rx spironolactone 25 mg tablet 12.5 mg PO DAILY #90 tabs 09/05/21 03/19/22 Rx torsemide 20 mg tablet 20 mg PO DAILY PRN swelling, 09/05/21 03/19/22 Rx shortness of breath #90 tabs escitalopram oxalate 20 mg tablet 20 mg PO DAILY 03/19/22 03/19/22 History hydroxychloroquine 200 mg tablet 400 mg PO DAILY 03/19/22 03/19/22 History lorazepam 1 mg tablet 1 mg PO Q6HR PRN Anxiety 03/19/22 03/19/22 History metoprolol succinate 25 mg 25 mg PO BID 03/19/22 03/19/22 History tablet,extended release 24 hr sulfasalazine 500 mg tablet 500 mg PO BID 03/19/22 03/19/22 History Allergies Allergy/AdvReac Type Severity Reaction Status Date / Time latex [LATEX] Allergy Intermediate RASH, SKIN Verified 11/28/21 08:43 PEELS penicillin G [PENICILLIN G] Allergy Unknown I WAS A Verified 11/28/21 08:43 KID SO I DON'T REMEMBER morphine [MORPHINE] AdvReac Severe HURTS MY Verified 11/28/21 08:43 STOMACH SO BAD Review of Systems Review of Systems Narrative: All other systems reviewed with the patient and are negative unless otherwise stated. Exam Vital Signs (past 8 hours): - 03/19/22 08:00 03/19/22 08:00 03/19/22 08:07 Temperature Pulse Rate 96 H Respiratory Rate 29 H Blood Pressure 97/67 113/72 Pulse Oximetry 99 Oxygen Delivery Method Oxygen Flow Rate 03/19/22 08:07 03/19/22 08:30 03/19/22 08:30 Temperature Pulse Rate 99 H 97 H Respiratory Rate 24 Blood Pressure 110/80 Pulse Oximetry 100 100 Oxygen Delivery Method Oxygen Flow Rate 03/19/22 09:00 03/19/22 09:01 03/19/22 09:01 Temperature Pulse Rate 99 H 99 H Respiratory Rate 17 24 Blood Pressure 107/68 Pulse Oximetry 98 99 Oxygen Delivery Method Oxygen Flow Rate 03/19/22 09:30 03/19/22 09:30 03/19/22 10:16 Temperature 98.1 F Pulse Rate 100 H 96 H Respiratory Rate 20 23 16 Blood Pressure 116/73 114/76 Pulse Oximetry 95 98 Oxygen Delivery Method Oxygen Flow Rate 03/19/22 10:18 03/19/22 12:00 Temperature 98.2 F Pulse Rate 93 H Respiratory Rate 20 Blood Pressure 109/80 Pulse Oximetry 99 Oxygen Delivery Method Room Air Oxygen Flow Rate 0 Oxygen Delivery Method Room Air Oxygen Flow Rate 0 Narrative Exam Narrative: General:? Patient is well developed and well nourished, chronically ill appearing in no acute distress. HEENT:? Normocephalic, atraumatic, extraocular muscles intact, oral pharynx is clear and mucous membranes are moist. Neck: supple and symmetric, trachea is midline, no cervical adenopathy. Negative for JVD Chest:? Normal AP diameter and contour without kyphoscoliosis, no tachypnea, equal chest rise bilaterally. Lungs:? mild bibasilar rhonchi, decreased breath sounds bilateral lung bases. Cardio:?RRR no m/r/g. Abdomen: S NT, mild distension Musculoskeletal:? Muscle strength and tone are equal within normal limits, no deformity. Extremities: No edema or joint effusions. No cyanosis or clubbing. Skin:? Pale,? Warm to touch,dry and intact without rashes, ulcerations or petechiae.? Neuro:? Alert and orientated x3,? sensation to touch intact in all extremities, no gross deficits noted of cranial nerves. Psych:? Patient has a well-kept appearance, appropriate affect, mental status attitude thought context and judgment are appropriate for age. Objective ECG Impression: Normal sinus rhythm Left ventricular hypertrophy with borderline QRS widening as interpreted by me Labs Result Diagrams: 03/19/22 06:08 03/19/22 06:08 Labs: Laboratory Results - last 24 hr 03/19/22 03/19/22 03/19/22 06:08 06:08 06:08 WBC 8.3 RBC 4.13 Hgb 11.9 L Hct 35.5 L MCV 85.8 MCH 28.9 MCHC 33.7 RDW 14.6 Plt Count 217 Neut % (Auto) 69.0 Lymph % (Auto) 19.4 L Wheeler % (Auto) 8.9 Eos % (Auto) 1.5 L Baso % (Auto) 1.2 Neut # (Auto) 5800 Lymph # (Auto) 1600 Wheeler # (Auto) 700 Eos # (Auto) 100 Baso # (Auto) 100 PT INR APTT 27 Sodium 135 L Potassium 4.6 Chloride 108 H Carbon Dioxide 17 L BUN 22 H Creatinine 0.83 Estimated GFR > 60 BUN/Creatinine Ratio 26.5 H Glucose 119 H Calcium 8.4 Magnesium Total Bilirubin 0.9 AST 38 H ALT 51 H Alkaline Phosphatase 47 Troponin I NT-Pro-B Natriuret Pep Total Protein 6.4 Albumin 3.6 Globulin 2.8 Albumin/Globulin Ratio 1.3 Lipase Procalcitonin Urine Color Urine Appearance Urine pH Ur Specific [place] Urine Protein Urine Glucose (UA) Urine Ketones Urine Occult Blood Urine Nitrate Urine Bilirubin Urine Urobilinogen Ur Leukocyte Esterase Urine RBC Urine WBC Ur Squamous Epith Cells Urine Bacteria Ur Culture Indicated? Ethyl Alcohol SARS-CoV-2 (PCR) Influenza A (RT-PCR) Influenza B (RT-PCR) RSV (PCR) 03/19/22 03/19/22 03/19/22 06:08 06:08 06:21 WBC RBC Hgb Hct MCV MCH MCHC RDW Plt Count Neut % (Auto) Lymph % (Auto) Wheeler % (Auto) Eos % (Auto) Baso % (Auto) Neut # (Auto) Lymph # (Auto) Wheeler # (Auto) Eos # (Auto) Baso # (Auto) PT 17.1 H INR 1.5 H APTT Sodium Potassium Chloride Carbon Dioxide BUN Creatinine Estimated GFR BUN/Creatinine Ratio Glucose Calcium Magnesium 1.9 Total Bilirubin AST ALT Alkaline Phosphatase Troponin I < 0.012 NT-Pro-B Natriuret Pep 62849 H Total Protein Albumin Globulin Albumin/Globulin Ratio Lipase 45 Procalcitonin 0.06 Urine Color Urine Appearance Urine pH Ur Specific [place] Urine Protein Urine Glucose (UA) Urine Ketones Urine Occult Blood Urine Nitrate Urine Bilirubin Urine Urobilinogen Ur Leukocyte Esterase Urine RBC Urine WBC Ur Squamous Epith Cells Urine Bacteria Ur Culture Indicated? Ethyl Alcohol < 10 SARS-CoV-2 (PCR) Negative Influenza A (RT-PCR) Flu a negative Influenza B (RT-PCR) Flu b negative RSV (PCR) Negative 03/19/22 08:58 WBC RBC Hgb Hct MCV MCH MCHC RDW Plt Count Neut % (Auto) Lymph % (Auto) Wheeler % (Auto) Eos % (Auto) Baso % (Auto) Neut # (Auto) Lymph # (Auto) Wheeler # (Auto) Eos # (Auto) Baso # (Auto) PT INR APTT Sodium Potassium Chloride Carbon Dioxide BUN Creatinine Estimated GFR BUN/Creatinine Ratio Glucose Calcium Magnesium Total Bilirubin AST ALT Alkaline Phosphatase Troponin I NT-Pro-B Natriuret Pep Total Protein Albumin Globulin Albumin/Globulin Ratio Lipase Procalcitonin Urine Color Yellow Urine Appearance Clear Urine pH 5.5 Ur Specific [place] <=1.005 Urine Protein Negative Urine Glucose (UA) Negative Urine Ketones Negative Urine Occult Blood Negative Urine Nitrate Negative Urine Bilirubin Negative Urine Urobilinogen 0.2 Ur Leukocyte Esterase Negative Urine RBC None seen Urine WBC None seen Ur Squamous Epith Cells None seen Urine Bacteria None seen Ur Culture Indicated? Cult not indicated Ethyl Alcohol SARS-CoV-2 (PCR) Influenza A (RT-PCR) Influenza B (RT-PCR) RSV (PCR) Assessment & Plan Assessment & Plan narrative: 1. Acute on chronic systolic heart failure, present on admission - continue diuresis with IV lasix, patient with known systolic heart failure though EF had improved from 10-15% to 45% per prior cardiology notes from 02/2021. No recent studies available for review. - troponin negative and no chest pain or ischemic changes. - unlikely her small ascites is contributing to her shortness of breath at this time. - TTE ordered - continue telemetry 2. Alcoholic and hep C cirrhosis - continue lasix as noted above and aldatone. - abdominal ultrasound as noted above. 3. Rheumatoid arthritis, chronic continue home medications 4. NAGMA - chronic, unclear etiology but is somewhat improved since previous testing during prior admission - consider addition of sodium bicarb tabs. 5. Depression with alcohol use and anxiety - patient has begun to resume drinking - continue home antidepressants, consider increasing dosing to help as she endorses drinking again due to depression - continue home ativan - monitor for signs of withdrawal. Code: Full, surrogate is patient's sister Dispo: Admit observation I have utilized all available immediate resources to obtain, update, or review the patient's current medications. COVID-19 COVID-19 status: Negative Time Spent With Patient Critical Care time: I spent a total of [] minutes of critical care time on this patient's care today; this time is exclusive of procedural time. Quality VTE Deep Vein Thrombosis/Pulmonary Embolism Present on Admission: No MIPS - Admit I confirm the patient?s Advance Care Plan is present, Code status is documented, Surrogate decision maker is in patient?s record [If Yes, STOP here]: Yes
[2022-03-19] MEDS: FUROSEMIDE 40 MG/4 ML VIAL IV (16:10)
--- NOTE | 2022-03-19 20:14 | DI.ECHO.S_ITS ---
[place] [facility]---------+ [facility] +---------+ : : [address] [place] : : : : [id number] : : : : Phone: [phone]+ Echocardiogram Report + + :Name: CRISTOBAL TAPIA Study Date: 03/20/2022 Height: 68 in : :[facility] ReadingLocation: Weight: 201 lb : : Gender: Female BSA: 2.0 m2 : :: 1965 Age: 56 yrs BP: 103/79 mmHg: :Reason For Study: Congestive Heart Failure : :Ordering Physician: KAYLI, : :RONALD TIJERINA Performed By: Jacky Huff : :Referring: RONALD MILAN : + + Interpretation Summary The left ventricle is severely dilated. Left ventricular systolic function is severely reduced. The ejection fraction is estimated to be 10-15%. There has been no significant change since the previous exam. There is severe global hypokinesis of the left ventricle. Diastolic parameters suggest a pseudonormalization pattern, consistent with probable elevated filling pressures. The right ventricle is mild to moderately dilated. Right ventricular systolic function is moderately reduced. RVSP might be underestimated due to severe TR. Both atria are severely dilated. There is severe mitral regurgitation. The mitral regurgitant jet is eccentrically directed. There is severe tricuspid regurgitation. There is no other significant valvular heart disease. The aortic root is normal size. Procedure: A two-dimensional transthoracic echocardiogram with color flow and Doppler was performed. The study quality was technically adequate. Comparison is made with the echocardiogram of 10/15/2020. The patient was in normal sinus rhythm during the exam. Left Ventricle: The left ventricle is severely dilated. There is normal left ventricular wall thickness. Left ventricular systolic function is severely reduced. The ejection fraction is estimated to be 10-15%. There has been no significant change since the previous exam. There is severe global hypokinesis of the left ventricle. Diastolic parameters suggest a pseudonormalization pattern, consistent with probable elevated filling pressures. Right Ventricle: The right ventricle is mild to moderately dilated. Right ventricular systolic function is moderately reduced. Atria: Both atria are severely dilated. The interatrial septum grossly appears intact with no obvious evidence for an atrial septal defect. Mitral Valve: There is mild mitral annular calcification. Tethered mitral valve leaflets. There is severe mitral regurgitation. The mitral regurgitant jet is eccentrically directed. Aortic Valve: The aortic valve is normal in structure and function. No aortic regurgitation is present. Tricuspid Valve: The tricuspid annulus is dilated. There is severe tricuspid regurgitation. RVSP might be underestimated due to severe TR. Pulmonic Valve: The pulmonic valve is normal in structure and function. There is mild pulmonic regurgitation. There is no other significant valvular heart disease. Great Vessels: The aortic root is normal size. The dimensions of the ascending aorta are normal. The IVC is dilated (diameter is greater than 2.1 cm) and it collapses less than 50% with a sniff. This suggests a high right atrial pressure of 15 mm Hg. Pericardium/ Pleura There is no pericardial effusion. There is no pleural effusion. MMode/2D Measurements & Calculations LVIDd: 7.8 cm LVOT diam: 2.1 cm LVIDs: 7.5 cm Ao root diam: 3.2 cm FS: 3.5 % asc Aorta Diam: 3.6 cm IVSd: 0.78 cm LVPWd: 0.71 cm LV tinajero. diameter/BSA (cm/m^2): 3.8 LV sys. diameter/BSA (cm/m^2): 3.7 LA A2 area: 34.5 cm2 RA long axis: 6.9 cm LA A4 area: 36.0 cm2 RA area: 31.1 cm2 LA length (vol): 7.4 cm RA vol: 119.1 ml LA vol: 142.2 ml RA : 58.2 ml/m2 LA vol index: 69.4 ml/m2 IVC diam: 2.9 cm TAPSE: 1.3 cm Doppler Measurements & Calculations Ao V2 max: 87.0 cm/sec LVOT Max Blaine: 61.1 cm/sec Ao V2 mean: 69.1 cm/sec LV V1 max P.5 mmHg Ao max P.0 mmHg LV V1 VTI: 6.9 cm Ao mean P.0 mmHg SEAMUS(I,D): 1.9 cm2 Ao V2 VTI: 12.5 cm SEAMUS(V,D): 2.5 cm2 sev ratio: 0.55 SEAMUS indexed to BSA (cm^2/m^2): 0.94 MV E max blaine: 95.8 cm/sec TR max blaine: 240.6 cm/sec MV A max blaine: 59.2 cm/sec TR max P.5 mmHg MV E/A: 1.6 Med Peak E' Blaine: 3.9 cm/sec E/E' med: 24.5 Lat Peak E' Blaine: 5.5 cm/sec E/E' lat: 17.5 E/e' average: 21.0 MV dec time: 0.12 sec MR VTI: 136.1 cm SV(OT): 24.1 ml Reading Physician:08:40 AM
[2022-03-19] MEDS: LORazepam 1 MG TABLET PO (20:32)
[2022-03-19] MEDS: GABAPENTIN 300 MG CAPSULE PO (20:32)
[2022-03-19] MEDS: METOPROLOL ER 25 MG TABLET PO (20:32)
[2022-03-19] MEDS: sulfaSALAzine 500 MG TABLET PO (20:32)
[2022-03-20] VITALS: BP 94/70; PULSE 83; RESP 14; TEMP 36.3; O2SAT 98
[2022-03-20 04:00] VITALS: BP 96/74; PULSE 88; RESP 22; TEMP 36.6; O2SAT 98
--- NOTE | 2022-03-20 04:13 | PC.NURSE ---
Pt is AxOx3-4, very pleasant and cooperative. VSS, pt c/o anxiety around 2100 so PRN Ativan PO 1mg given with good effect. Pt slept well and goes to bedside commode for frequent voiding due to lasix. Tele shows NS with occasional PVCs. No other change. continue monitor.
[2022-03-20] MEDS: LORazepam 1 MG TABLET PO (04:43)
[2022-03-20 05:45] VITALS: BP 103/79; PULSE 89
[2022-03-20 06:50] LABS: Add Manual Diff / Slide Review NO; Basophils Absolute Auto 100 /uL (0-100); Eosinophils Absolute Auto 100 /uL (0-450); Eosinophils Percent Auto 2.1 % (2-4); Hematocrit 34.6 % (36-46); Hemoglobin 11.7 g/dL (12.0-16.0); Lymphocytes Absolute Auto 1200 /uL (1100-4500); Lymphocytes Percent Auto 22.5 % (25-40); Mean Corpuscular HGB Conc 33.8 % (30-36); Mean Corpuscular Hemoglobin 28.8 PG (26-34); Mean Corpuscular Volume 85.1 fL (80-100); Monocytes Absolute Auto 600 /uL (0-900); Monocytes Percent Auto 11.4 % (3-14); Neutrophils Absolute Auto 3300 /uL (1500-7000); Platelet Count 164 X10^3/uL (150-400); Red Blood Cell Count 4.07 X10^6/uL (4.0-5.2); Red Cell Distribution Width 14.6 % (11.6-14.8); White Blood Cell Count 5.2 X10^3/uL (4.5-11.0)
[2022-03-20 07:08] LABS: Alanine Aminotransferase 41 IU/L (<35); Albumin 3.6 g/dL (3.5-5.0); Albumin Globulin Ratio 1.3 (1.0-2.8); Alkaline Phosphatase 58 U/L (38-126); Aspartate Aminotransferase 20 IU/L (14-36); BUN Creatinine Ratio 28.3 (6-22); Bilirubin Total 1.2 mg/dL (0.2-1.3); Blood Urea Nitrogen 26 mg/dL (7-17); Calcium 8.4 mg/dL (8.4-10.2); Carbon Dioxide 21 mmol/L (22-32); Chloride 102 mmol/L (98-107); Estimated Glomerular Filt Rate > 60 mL/min (>60); Globulin 2.7 g/dL (1.7-4.1); Glucose 106 mg/dL (70-100); HEMOLYSIS < 15 (0-50); Magnesium 1.6 mg/dL (1.6-2.3); Potassium 3.6 mmol/L (3.4-5.1); Sodium 133 mmol/L (137-145); Total Protein 6.3 g/dL (6.3-8.2)
[2022-03-20 08:00] VITALS: BP 107/76; PULSE 88; RESP 20; TEMP 36.8; O2SAT 99
[2022-03-20] MEDS: buPROPion XL 150 MG TAB PO (09:10)
[2022-03-20] MEDS: GABAPENTIN 300 MG CAPSULE PO (09:10)
[2022-03-20] MEDS: SPIRONOLACTONE 25 MG TABLET 12.5 MG PO (09:11)
[2022-03-20] MEDS: HYDROXYCHLOROQUINE 200 MG TABLET 400 MG PO (09:12)
[2022-03-20] MEDS: FUROSEMIDE 40 MG/4 ML VIAL IV (09:12)
[2022-03-20] MEDS: ESCITALOPRAM 10 MG TABLET 20 MG PO (09:12)
[2022-03-20] MEDS: ENOXAPARIN 40 MG/0.4 ML SYRINGE SUBCUT (09:12)
[2022-03-20] MEDS: METOPROLOL ER 25 MG TABLET PO (09:12)
--- NOTE | 2022-03-20 10:51 | PM.DS.1 ---
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 She endorses worsening abdominal distension over the past couple of months, fatigue, and abdominal bloating as well. She denies any nausea or vomiting. She denies wheezing, but does endorse a dry cough. She denies fever, chills, and abdominal pain. She has no dysuria or urinary frequency. In the emergency room, vital signs were unremarkable. Laboratory evaluation showed an unremarkable CBC with actually an improved anemia compared to prior studies. INR was slightly elevated at 1.5, chemistries were notable for a carbon dioxide of 17, mild transaminase elevations, and a proBNP [id number]. Urinalysis was unremarkable. Chest x-ray showed mild increase in her heart size compared to prior studies but significant pulmonary infiltrates or congestion. COVID-19 and flu testing was negative. I performed bedside ultrasound which did not show large enough amount of ascites sufficient for abdominal paracentesis. Discharge Providers Provider Date of admission: 03/19/22 09:23 Discharge Date: 03/20/22 Primary care physician: Edmar Jesus MD Discharge provider: Trip Reilly DO Summary Hospital Course Discharge Diagnosis: 1. Acute on chronic systolic heart failure, present on admission ? 2. Alcoholic and hep C cirrhosis 3. Rheumatoid arthritis, chronic 4. NAGMA 5. Depression with alcohol use and anxiety Hospital Course: This is a 56 year old female with PMF of advanced systolic heart failure and alcoholic and hep C cirrhosis admitted with volume overload, likely due to heart failure. Imaging studies were unremarkable. She was started on diuresis with improvement in her symptoms. There was not enought ascites to evaluate for possible SBP (with diagnostic tap) and given this is not likely contributory towards her presenting complaints. She was able to be discharged the following day after starting diuresis given her improvement. Her home torsemide was continued, and spironolactone was increased slightly to 25 mg daily at the time of discharge. Exam Vital Signs (past 8 hours): - 03/20/22 04:00 03/20/22 05:45 03/20/22 08:00 Temperature 97.9 F 98.3 F Pulse Rate 88 89 88 Respiratory Rate 22 20 Blood Pressure 96/74 103/79 107/76 Pulse Oximetry 98 99 Oxygen Flow Rate 0 Oxygen Delivery Method Room Air Oxygen Flow Rate 0 Narrative Exam Narrative: General:? Patient is well developed and well nourished, chronically ill appearing in no acute distress. HEENT:? Normocephalic, atraumatic, extraocular muscles intact, oral pharynx is clear and mucous membranes are moist. Neck: supple and symmetric, trachea is midline, no cervical adenopathy. Negative for JVD Chest:? Normal AP diameter and contour without kyphoscoliosis, no tachypnea, equal chest rise bilaterally. Lungs:? mild bibasilar rhonchi, decreased breath sounds bilateral lung bases. Cardio:?RRR no m/r/g. Abdomen: S NT, mild distension Musculoskeletal:? Muscle strength and tone are equal within normal limits, no deformity. Extremities: No edema or joint effusions. No cyanosis or clubbing. Skin:? Pale,? Warm to touch,dry and intact without rashes, ulcerations or petechiae.? Neuro:? Alert and orientated x3,? sensation to touch intact in all extremities, no gross deficits noted of cranial nerves. Psych:? Patient has a well-kept appearance, appropriate affect, mental status attitude thought context and judgment are appropriate for age. Objective Labs Result Diagrams: 03/20/22 06:07 03/20/22 06:07 Labs: Laboratory Results - last 24 hr 03/20/22 03/20/22 06:07 06:07 WBC 5.2 RBC 4.07 Hgb 11.7 L Hct 34.6 L MCV 85.1 MCH 28.8 MCHC 33.8 RDW 14.6 Plt Count 164 Neut % (Auto) 63.0 Lymph % (Auto) 22.5 L [place] % (Auto) 11.4 Eos % (Auto) 2.1 Baso % (Auto) 1.0 Neut # (Auto) 3300 Lymph # (Auto) 1200 [place] # (Auto) 600 Eos # (Auto) 100 Baso # (Auto) 100 Sodium 133 L Potassium 3.6 Chloride 102 Carbon Dioxide 21 L BUN 26 H Creatinine 0.92 Estimated GFR > 60 BUN/Creatinine Ratio 28.3 H Glucose 106 H Calcium 8.4 Magnesium 1.6 Total Bilirubin 1.2 AST 20 ALT 41 H Alkaline Phosphatase 58 Total Protein 6.3 Albumin 3.6 Globulin 2.7 Albumin/Globulin Ratio 1.3 [facility] Medical History Alcohol use Ascites Balance problem BRCA2 gene mutation positive in female Breast cancer metastasized to brain CHF NYHA class III Colon polyps (04/03/16) 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 Grandfather No problems noted. Grandmother Stomach cancer Mother Enlarged aorta Breast cancer Grandfather Myelofibrosis Grandmother Parkinson's disease Social History household members: spouse and children Smoking Status: Current every day smoker Tobacco: How many years used: 8 alcohol intake: current substance use type: marijuana Discharge Plan Discharge Plan Patient Disposition: Home Provider Discharge Comment: You were admitted to the hospital with shortness of breath, likely due to a mild heart failure exacerbation. 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 Discharge orders & Medications Prescriptions: New lorazepam 0.5 mg tablet 0.5 mg PO BID PRN (Reason: anxiety) 15 Days Qty: 30 0RF Continued bupropion HCl 150 mg tablet extended release 24 hr 150 mg PO QAM Qty: 90 0RF gabapentin 300 mg capsule 300 mg PO TID Qty: 270 1RF Rx Instructions: start with 1 cap daily for 3 days, add another every three days up to max 900mg TID Flovent HFA 110 mcg/actuation HFA aerosol inhaler 1 puff inhalation BID Qty: 1 11RF Label Comments: ran out, needs new promethazine 12.5 mg tablet 12.5 mg PO TID PRN (Reason: nausea and vomiting) Qty: 20 0RF omeprazole 20 mg PO DAILY lorazepam 1 mg tablet 1 mg PO Q6HR PRN (Reason: Anxiety) hydroxychloroquine 200 mg tablet 400 mg PO DAILY escitalopram oxalate 20 mg tablet 20 mg PO DAILY Rx Instructions: TAKE ONE TABLET BY MOUTH ONE TIME DAILY sulfasalazine 500 mg tablet 500 mg PO BID metoprolol succinate 25 mg tablet extended release 24 hr 25 mg PO BID Changed torsemide 20 mg tablet 20 mg PO DAILY 90 Days Qty: 90 3RF spironolactone 25 mg tablet 25 mg PO DAILY 90 Days Qty: 90 3RF Follow up/Referrals: Edmar Jesus MD [Primary Care Provider] - Diet/Activity/Treatments Diet: Diet as Tolerated Diet comment: Heart healthy, limit total volume of liquid to less than 1.5 L / day. Activity: As tolerated Visit Report/Discharge Packet Instructions: Ascites, DI for Ascites, Alcohol Withdrawal Discharge Data Primary Care Provider: Edmar Jesus Attending Provider: Trip Reilly VTE Deep Vein Thrombosis/Pulmonary Embolism Present on Admission: No
[2022-03-20 12:00] VITALS: BP 96/69; PULSE 83; RESP 20; TEMP 36.9; O2SAT 98
[2022-03-20] MEDS: MAGNESIUM CHLORIDE 64 MG TABLET 128 MG PO (12:17)
--- NOTE | 2022-03-20 14:13 | PC.NURSE ---
Assess- Patient discharged to home. Teaching on alcohol withdrawal and ascites sent with patient. She was independent with care. BT hard to assess secondary to ascites. Son here and took patient home.
--- NOTE | 2022-03-20 15:05 | CM.DPNOTE ---
DC Note Home today, w/spouse, according to RN. No barriers identified to patient's return home w/family. Unable to complete full assessment of need and discuss current report of drinking, attempted x2. JW
== END 2022-03-20 14:15 | disposition home or self-care (01) ==
LOC: ED 09:19 → AC 09:25
PROVIDERS: Emergency Medicine; Admitting Provider Internal Medicine; Emergency Provider Emergency Medicine; PCP Family Medicine; Visit Provider Internal Medicine
DX: I50.23 Acute on chronic systolic (congestive) heart failure (principal); K70.30 Alcoholic cirrhosis of liver without ascites; B19.20 Unspecified viral hepatitis C without hepatic coma; M06.9 Rheumatoid arthritis, unspecified; F32.A Depression, unspecified; F41.9 Anxiety disorder, unspecified; F17.210 Nicotine dependence, cigarettes, uncomplicated; Z20.822 Contact with and (suspected) exposure to COVID-19
CPT/HCPCS: 0241U; 36415; 71045; 80053; 80320; 81001; 83690; 83735; 83880; 84145; 84484; 85025; 85610; 85730; 93005; 93306; 96372; 96374; 96376; 99284; G0378; J1650; J1940